=== PATIENT | female | born 1955 | race Caucasian/White ===

== ENCOUNTER 2018-05-25 19:54 | Outpatient (REF) | payer BC, SELFPAY ==
[2018-05-25 21:20] LABS: Cholesterol 248 mg/dL (50-200); HDL Cholesterol 51 mg/dL (40-60); LDL CHOLESTEROL 169 mg/dL (<100); TSH 0.39 uIU/mL (0.358-3.74); Triglyceride 105 mg/dL (30-150); Vitamin B12 210 pg/mL (193-986)
== END 2018-05-25 20:14 ==
LOC: NCHCN 19:54
PROVIDERS: PCP Physician Assistant Medical; Visit Provider Physician Assistant Medical
DX: E03.9 Hypothyroidism, unspecified (principal); E78.5 Hyperlipidemia, unspecified
CPT/HCPCS: 80061; 83721; 82607; 84443

== ENCOUNTER 2018-06-14 00:30 | Outpatient (CLI) | payer BC, SELFPAY ==
--- NOTE | 2018-06-14 11:30 | DI.MAMMO_ITS ---
SYMPTOMS/DIAGNOSIS: SCREENING, [facility], Z00.00 BILATERAL SCREENING MAMMOGRAM: Mammograms were interpreted according to the usual protocol including computer analysis with CAD system, tomosynthesis and C view imaging. Comparison is made with exams from 2008 through 2016. The patient is again noted to be status post bilateral breast reduction. There is some residual scarring. No suspicious masses or suspicious calcifications are seen. The breasts are composed of fatty density tissue, breast density category A. IMPRESSION: Category 2A, negative mammogram with benign findings of mild scarring post breast reduction. Routine screening is recommended. SA ASSESSMENT OF FINDINGS: Negative with benign findings. Category 2. Patient will receive a letter notifying them of these results. BI-RAD category A. The breasts are almost entirely fatty.
== END 2018-06-14 00:50 ==
PROVIDERS: PCP Physician Assistant Medical; Visit Provider Physician Assistant Medical
DX: Z00.00 Encounter for general adult medical examination without abnormal findings (principal); Z12.31 Encounter for screening mammogram for malignant neoplasm of breast
CPT/HCPCS: 77063; 77067

== ENCOUNTER 2018-07-09 12:52 | Outpatient (REF) | payer BC, SELFPAY ==
--- NOTE | 2018-07-09 10:30 | PAPFT_PTH ---
PATIENT: Bianca Jimenez LOC: [facility] U#:[id number] AGE/SX: 63/F ROOM: RE07/09/[address]: Cl Soto : 1955 BED: DIS: 07/09/2018 SPEC #: [id number] RECD: 07/12/18 12:41 STATUS: TAMIR REBarbara #: [id number] MAXI: 07/09/18 10:[address]: Cl Soto DEPT: [facility] Cytology RECD BY: Lori Abernathy Tissues: 1 - CX/ENDOCX FOR PAP SMEARS Procedures: PAP THIN PREP/UVM Screening HPV DNA PROBE Comments: [id number]
== END 2018-07-09 13:12 ==
LOC: NCHCN 12:52
PROVIDERS: PCP Physician Assistant Medical; Visit Provider Physician Assistant Medical
DX: Z12.4 Encounter for screening for malignant neoplasm of cervix (principal); Z11.51 Encounter for screening for human papillomavirus (HPV)
CPT/HCPCS: 88142; 87624

== ENCOUNTER 2018-07-29 00:36 | Outpatient (CLI) | payer BC, SELFPAY ==
--- NOTE | 2018-07-29 13:40 | DI.RAD_ITS ---
SYMPTOMS/DIAGNOSIS: POSTMENOPAUSAL SCREENING, PREVENTATIVE, Z00.00 DEXA SCAN WITH ISABELL: The ISABELL image shows no evidence of compression fractures. The bone mineral density measurements correspond to a total T score of -1.8. This is a 15.1% decrease when compared with the previous exam of 2004. The bone mineral density measurements of the left hip correspond to a total T score of -0.8 and a femoral neck T score of -1.4, in the osteopenic range. This corresponds to a 14.5% decrease when compared with 2004. The bone mineral density measurements of the left forearm correspond to a T score of the distal third of -1.8, consistent with osteopenia. The forearm was not analyzed in 2007. IMPRESSION: Osteopenia of the lumbar spine, left hip and left forearm. There has been approximately 15% decrease in bone density when compared with 2004.
== END 2018-07-29 00:56 ==
PROVIDERS: PCP Physician Assistant Medical; Visit Provider Physician Assistant Medical
DX: M85.88 Other specified disorders of bone density and structure, other site (principal); Z78.0 Asymptomatic menopausal state; Z00.00 Encounter for general adult medical examination without abnormal findings
CPT/HCPCS: 77080

== ENCOUNTER 2018-08-06 07:28 | Day surgery (SDC) | payer BC, SELFPAY ==
[2018-08-06 07:39] VITALS: BP 116/74; PULSE 68; RESP 16; TEMP 36.2; O2SAT 98
[2018-08-06] MEDS: Lactated Ringers 1,000 ML 30 ML IV (08:09)
--- NOTE | 2018-08-06 11:01 | W.COLOREPORT ---
Date of service: 08/06/18 Time of Service: 10:30 Colonoscopy Report Date of procedure: 08/06/18 Pre-op diagnosis general: Colorectal cancer screening Post-op diagnosis procedure note: other (Normal colon to the cecum) Procedure: Colonoscopy to the cecum Surgeon: Milton Pathak Anesthesia proc note operative: MAC (Krystal Proctor CRNA; ASA 2 Mallampati class II) Estimated blood loss (mL): 0 Pathology: none sent Complications: None Disposition: same day Indications: 63-year-old woman presenting for colorectal cancer screening by colonoscopy. She is been asymptomatic since her last colonoscopy which is unremarkable. She has no family history of colorectal cancer. Colonoscopy procedure has been reviewed with her, and the risks of the procedure have been discussed. All her questions were answered to her satisfaction. Consent was obtained to proceed. Prep: Miralax/Dulcolax (Prep quality good) Procedure Start Time: 10:39 Procedure End Time: 10:58 Retraction Time: 7 Findings: In examining the colon from cecum to the anus, no abnormalities were noted of the colon, rectum, and anorectal junction. Procedure Description: The patient was seen in the day surgery waiting area. Her identification was confirmed, and procedure checked. She was then brought to the procedure room. Monitoring for telemetry, blood pressure, oxygen saturation, and end tidal CO2 monitoring were applied. An appropriate time out was performed to confirm, identification, allergies, medication, procedure, was performed. Sedation was titrated for affect by the HOME AND SCHOOL VISITOR; Once adequate sedation was achieved, I performed a inspection of the external perineum, and a digitial rectal examination. No significant external abnormalities were noted. On digital rectal examination, there was no blood, no masses, good rectal tone. I advanced the colonoscope from the anus to the cecum under direct visualization. The cecum was identified by the ileal-cecal valve, and the appendiceal orifice. The scope was then withdrawn in circumferential manner from the cecum to the rectum. No abnormalites were noted in the colon. The scope was then withdrawn into the rectum, and retroflexed. No abnormalities were noted of the rectum or anorectal junction. The scope was then withdrawn, terminating the procedure. There were no complications during the procedure, and the patient tolerated the procedure well. She was returned to the day surgery recovery area in good condition. Plan: Will continue with routine screening for colorectal cancer according to current consensus guidelines, which is currently 10 years.
[2018-08-06 11:05] VITALS: BP 109/67; PULSE 63; RESP 18; TEMP 36.7; O2SAT 96
--- NOTE | 2018-08-06 11:06 | W.PM.DSUDISC ---
Discharge Plan Disposition Patient Disposition: HOME Condition: Good Discharge Details Reason For Visit: SCREENING Attending Provider: Milton Pathak Primary Care Provider: Cl Soto Home Meds and New Rx's Prescriptions: Continued doxepin 10 mg capsule 10 mg PO DAILY PRNRF: 0 sertraline 25 mg tablet 25 mg PO DAILY RF: 0 levothyroxine [Levothroid] 137 MCG tablet 137 mcg PO DAILY Qty: 90 RF: 3 cyclobenzaprine 10 MG tablet 10 mg PO PRN PRNRF: 0 lidocaine [Lidoderm] 1 EACH adhesive patch,medicated 1 ea Topical PRN PRNRF: 0 diazepam 5 MG tablet 5 mg PO Q8H PRN (Reason: Muscle Spasm) Qty: 6 RF: 0 ibuprofen 600 MG tablet 600 mg PO Q6H PRN (Reason: Pain) Qty: 16 RF: 0 diphenhydramine HCl 25 mg Tablet 25 mg PO HS RF: 0 cinnamon bark 500 mg Capsule 2 tab PO DAILY PRNRF: 0 melatonin 10 mg Tablet 10 mg PO HS PRNRF: 0 Discontinued bisacodyl [Dulcolax (bisacodyl)] 5 mg tablet,delayed release (DR/EC) 5 mg PO ONCE Qty: 4 RF: 0 polyethylene glycol 3350 17 gram/dose powder 255 g PO ONCE Qty: 255 RF: 0 Discharge Instructions Instructions: Colonoscopy (DC) Activity:: Activity as Tolerated Diet:: As Tolerated Discharge Orders Discharge Orders: Discharge Order (Routine); Ordered 08/06/18 Ordered By: Milton Pathak DS: Diagnosis Discharge Diagnosis (1) Encounter for colorectal cancer screening: Start date: 08/06/18 Start time: 11:08 Status: Acute Asessment and Plan: Colonoscopy performed: Colonoscopy Report Date of procedure: 08/06/18 Pre-op diagnosis general: Colorectal cancer screening Post-op diagnosis procedure note: other (Normal colon to the cecum) Procedure: Colonoscopy to the cecum Surgeon: Milton Pathak Anesthesia proc note operative: MAC (Krystal Proctor CRNA; ASA 2 Mallampati class II) Estimated blood loss (mL): 0 Pathology: none sent Complications: None Disposition: same day Indications: 63-year-old woman presenting for colorectal cancer screening by colonoscopy. She is been asymptomatic since her last colonoscopy which is unremarkable. She has no family history of colorectal cancer. Colonoscopy procedure has been reviewed with her, and the risks of the procedure have been discussed. All her questions were answered to her satisfaction. Consent was obtained to proceed. Prep: Miralax/Dulcolax (Prep quality good) Procedure Start Time: 10:39 Procedure End Time: 10:58 Retraction Time: 7 Findings: In examining the colon from cecum to the anus, no abnormalities were noted of the colon, rectum, and anorectal junction. Procedure Description: The patient was seen in the day surgery waiting area. Her identification was confirmed, and procedure checked. She was then brought to the procedure room. Monitoring for telemetry, blood pressure, oxygen saturation, and end tidal CO2 monitoring were applied. An appropriate time out was performed to confirm, identification, allergies, medication, procedure, was performed. Sedation was titrated for affect by the CORPORATION SECRETARY; Once adequate sedation was achieved, I performed a inspection of the external perineum, and a digitial rectal examination. No significant external abnormalities were noted. On digital rectal examination, there was no blood, no masses, good rectal tone. I advanced the colonoscope from the anus to the cecum under direct visualization. The cecum was identified by the ileal-cecal valve, and the appendiceal orifice. The scope was then withdrawn in circumferential manner from the cecum to the rectum. No abnormalites were noted in the colon. The scope was then withdrawn into the rectum, and retroflexed. No abnormalities were noted of the rectum or anorectal junction. The scope was then withdrawn, terminating the procedure. There were no complications during the procedure, and the patient tolerated the procedure well. She was returned to the day surgery recovery area in good condition. Plan: Will continue with routine screening for colorectal cancer according to current consensus guidelines, which is currently 10 years.
== END 2018-08-06 12:25 | disposition home or self-care (01) ==
PROVIDERS: PCP Physician Assistant Medical; Visit Provider Surgery
PROC: 0DJD8ZZ Inspection of Lower Intestinal Tract, Via Natural or Artificial Opening Endoscopic (ICD-10-PCS; CPT 45378; principal; 2018-08-06 09:15)
DX: Z12.11 Encounter for screening for malignant neoplasm of colon (principal); G47.33 Obstructive sleep apnea (adult) (pediatric)
CPT/HCPCS: 45378

== ENCOUNTER 2018-11-22 00:41 | Outpatient (CLI) | payer BC, SELFPAY ==
--- NOTE | 2018-11-22 10:25 | MERGE_ITS ---
*[facility]* *[facility]* [address] [place] [address] Date of study: 11/22/2018 Transthoracic Echocardiography M-mode, complete 2D, complete spectral Doppler, and color Doppler *STUDY CONCLUSIONS* Summary: 1. Left ventricle: The cavity size was normal. Wall thickness was increased in a pattern of moderate LVH. Systolic function was normal. The estimated ejection fraction was 60-65%. Diastolic parameters were normal for age. There was no evidence of elevated ventricular filling pressure by Doppler parameters. 2. Mitral valve: There was mild regurgitation. 3. Left atrium: The atrium was moderately dilated. 4. Right ventricle: The cavity size was normal. Wall thickness was normal. Systolic function was normal. 5. Atrial septum: No defect or patent foramen ovale was identified. 6. Pulmonary arteries: Pulmonary systolic pressure was in the range of 30mm Hg to 40mm Hg. 7. Inferior vena cava: The vessel was patent and normal in size. The respirophasic diameter changes were in the normal range (greater than or equal to 50%), consistent with normal central venous pressure. *PATIENT PRESENTATION* Height: 170.2cm ((67in) ) S/D Pressure: 101 / 59 Weight: 79.4kg ((174.6lb) ) BSA: 1.95m^2 Test start time: 10:40 AM. Test stop time: 11:40 AM. PERFORMING Unknown PERFORMING [facility] Cl Newton REFERRING Cl Soto BAKELITE MOLDER Isabel Candelaria, (R)(CT), [facility] *PROCEDURE DATA* Procedure information: This study was interpreted by [facility]. Pertinent images and digital data are archived for permanent storage and are available for subsequent review. Comparison was made to the study of 12/22/2012. Study status: Routine. Transthoracic echocardiography. M-mode, complete 2D, complete spectral Doppler, and color Doppler. A Transthoracic Echocardiogram was performed. Scanning was performed from the parasternal, apical, subcostal, and suprasternal notch acoustic windows. Images were obtained using an [id number] cardiac ultrasound machine. Image quality was adequate. Study completion: The patient tolerated the procedure well. History: PMH: Murmur. *CARDIAC ANATOMY* Left ventricle: The cavity size was normal. Wall thickness was increased in a pattern of moderate LVH. Systolic function was normal. The estimated ejection fraction was 60-65%. The tissue Doppler parameters were abnormal. Diastolic parameters were normal for age. There was no evidence of elevated ventricular filling pressure by Doppler parameters. Aortic valve: Trileaflet; mildly calcified leaflets. Doppler: There was no stenosis. There was no regurgitation. VTI ratio of LVOT to aortic valve: 0.92. Valve area (VTI): 2.5cm^2. Indexed valve area (VTI): 1.3cm^2/m^2. Peak velocity ratio of LVOT to aortic valve: 0.83. Valve area (Vmax): 2.3cm^2. Indexed valve area (Vmax): 1.2cm^2/m^2. Mean velocity ratio of LVOT to aortic valve: 0.86. Valve area (Vmean): 2.3cm^2. Indexed valve area (Vmean): 1.2cm^2/m^2. Mean gradient (S): 4.1mm Hg. Peak gradient (S): 7.4mm Hg. Aorta: Aortic root: The aortic root was normal in size. Ascending aorta: The ascending aorta was normal in size. Mitral valve: Moderately thickened leaflets anterior and posterior. Doppler: There was no evidence for stenosis. There was mild regurgitation. Valve area by pressure half-time: 4.4cm^2. Indexed valve area by pressure half-time: 2.3cm^2/m^2. Left atrium: The atrium was moderately dilated. Atrial septum: No defect or patent foramen ovale was identified. Right ventricle: The cavity size was normal. Wall thickness was normal. Systolic function was normal. Pulmonic valve: Doppler: There was no evidence for stenosis. There was mild regurgitation. Peak gradient (S): 3.9mm Hg. Tricuspid valve: Doppler: There was mild regurgitation. Pulmonary artery: Poorly visualized. Pulmonary systolic pressure was in the range of 30mm Hg to 40mm Hg. Right atrium: The atrium was normal in size. Pericardium: There was no pericardial effusion. Systemic veins: Inferior vena cava: Well visualized. The vessel was patent and normal in size. The respirophasic diameter changes were in the normal range (greater than or equal to 50%), consistent with normal central venous pressure. Measurements Left ventricle Value Reference LV ID, ED, PLAX 4.9 cm 3.5 - 6.0 LV ID, ES, PLAX 3.3 cm 2.1 - 4.0 LV PW thickness, ED, PLAX 1.3 cm LV end-diastolic volume, 1-p A2C 55 ml LV ejection fraction, 1-p A2C 52 % LV end-diastolic volume, 1-p A4C 62 ml LV ejection fraction, 1-p A4C 56 % LV e', lateral 0.048 m/sec LV E/e', lateral 11 LV e', medial 0.053 m/sec LV E/e', medial 10 LV e', average 0.05 m/sec LV E/e', average 10 Ventricular septum Value Reference IVS thickness, ED, PLAX 1.2 cm LVOT Value Reference LVOT ID, A-P 1.9 cm LVOT area 2.7 cm^2 LVOT peak velocity, S 1.13 m/sec LVOT mean velocity, S 0.82 m/sec LVOT VTI, S 25.7 cm LVOT peak gradient, S 5.1 mm Hg LVOT mean gradient, S 3 mm Hg Stroke volume (SV), LVOT DP 70 ml Stroke index (SV/bsa), LVOT DP 36 ml/m^2 Aortic valve Value Reference Aortic valve peak velocity, S 1.4 m/sec Aortic valve mean velocity, S 0.96 m/sec Aortic valve VTI, S 28.0 cm Aortic mean gradient, S 4.1 mm Hg Aortic peak gradient, S 7.4 mm Hg VTI ratio, LVOT/AV 0.92 Aortic valve area, VTI 2.5 cm^2 Velocity ratio, peak, LVOT/AV 0.83 Aortic valve area, peak velocity 2.3 cm^2 Velocity ratio, mean, LVOT/AV 0.86 Aortic valve area, mean velocity 2.3 cm^2 Aortic valve area/bsa, mean velocity 1.2 cm^2/m^2 Aorta Value Reference Aortic root ID, ED 2.8 cm Ascending aorta ID, A-P, S 3.0 cm Left atrium Value Reference LA ID, A-P, ES 4.2 cm LA ID/bsa, A-P 2.1 cm/m^2 <=2.2 LA area, ES, A4C (H) 31.1 cm^2 8.8 - 23.4 LA area, ES, A2C 30 cm^2 LA volume/bsa, ES, 1-p A4C 66 ml/m^2 LA volume, ES, 2-p 114 ml LA volume/bsa, ES, 2-p 58 ml/m^2 LA/aortic root ratio 1.46 Mitral valve Value Reference Mitral E-wave peak velocity 0.51 m/sec Mitral A-wave peak velocity 0.6 m/sec Mitral deceleration time 172 ms 150 - 230 Mitral pressure half-time 50 ms Mitral E/A ratio, peak 0.85 Mitral valve area, PHT, DP 4.4 cm^2 Pulmonary veins Value Reference Pulmonary vein peak velocity, S 0.63 m/sec Pulmonary vein peak velocity, D 0.28 m/sec Pulmonary vein velocity ratio, peak, 2.25 S/D Pulmonary vein A-wave reversal peak 0.47 m/sec velocity Tricuspid valve Value Reference Tricuspid regurg peak velocity 2.8 m/sec Tricuspid peak RV-RA gradient 30.7 mm Hg Right atrium Value Reference RA area, ES, A4C 18.2 cm^2 8.3 - 19.5 Pulmonic valve Value Reference Pulmonic peak gradient, S 3.9 mm Hg Legend: (L) and (H) leigh values outside specified reference range. I have personally reviewed the images and have reviewed and edited the reported findings. Electronically signed by Brooks Jennings MD 11/22/2018 17:59
== END 2018-11-22 01:01 ==
PROVIDERS: PCP Physician Assistant Medical; Visit Provider Physician Assistant Medical
DX: R01.1 Cardiac murmur, unspecified (principal); I34.0 Nonrheumatic mitral (valve) insufficiency; I51.7 Cardiomegaly
CPT/HCPCS: 93306

== ENCOUNTER 2019-02-28 09:20 | Outpatient (CLI) | payer BC, SELFPAY | END 2019-02-28 09:40 | PROVIDERS: PCP Physician Assistant Medical; Visit Provider Internal Medicine Interventional Cardiology | DX: R07.9 Chest pain, unspecified (principal); R06.02 Shortness of breath; I47.1 Supraventricular tachycardia; R55 Syncope and collapse | CPT/HCPCS: 93005; 93010 ==

== ENCOUNTER 2019-06-29 10:48 | Outpatient (REF) | payer BC, SELFPAY ==
[2019-06-29 20:34] LABS: Calculated LDL 186 mg/dL; Cholesterol 255 mg/dL (50-200); HDL Cholesterol 50 mg/dL (40-60); TSH 1.44 uIU/mL (0.36-3.74); Triglyceride 99 mg/dL (30-150)
[2019-06-30 05:13] LABS: Vitamin D 25 Total 44.5 ng/ml (30-100)
== END 2019-06-29 11:08 ==
LOC: NCHCN 10:48
PROVIDERS: PCP Physician Assistant Medical; Visit Provider Physician Assistant Medical
DX: E03.9 Hypothyroidism, unspecified (principal); R73.01 Impaired fasting glucose; E78.5 Hyperlipidemia, unspecified; M85.80 Other specified disorders of bone density and structure, unspecified site
CPT/HCPCS: 80061; 82306; 83036; 84443

== ENCOUNTER 2019-09-13 22:23 | Outpatient (REF) | payer BC, SELFPAY ==
[2019-09-13 19:08] LABS: Abs Immature Grans 0.01 k/cumm (0.0-0.09); Absolute Basophil Count 0.03 k/cumm (0.0-0.2); Absolute Eosinophil Count 0.34 k/cumm (0.0-0.7); Absolute Monocyte Count 0.74 k/cumm (0.11-0.7); Absolute Neutrophil Count 2.64 k/cumm (1.2-6.7); Basophils % 0.5; Eosinophils % 5.6; HCT 41.7 % (36.0-46.0); HGB 13.3 g/dL (12.0-15.5); Immature Grans % 0.2 %; Mean Corp. HGB Concentration 31.9 g/dL (32.0-36.0); Mean Corpuscular Hemoglobin 31.1 pg (27.0-33.0); Mean Corpuscular Volume 97.4 fL (80-95); Mean Platelet Volume 13.6 fL (8.0-11.0); Monocytes % 12.2; Neutrophils % 43.5; Platelet Count 245 x1000/uL (130-400); RBC 4.28 m/cumm (4.00-5.20); White Blood Cell Count 6.06 k/cumm (4.4-10.8)
[2019-09-13 19:59] LABS: ALT 36 U/L (14-59); AST 22 U/L (15-37); Albumin 4.1 g/dL (3.4-5.0); Alkaline Phosphatase 106 U/L (46-116); Anion Gap 11.6 mmol/L (3-11); BUN 15 mg/dL (7-18); Bilirubin, Total 0.2 mg/dL (0.2-1.0); CO2 26.4 mmol/L (21.0-32.0); CREATININE 0.74 mg/dL (0.55-1.02); Calcium 9.6 mg/dL (8.5-10.1); Chloride 106 mmol/L (98-107); Glucose 83 mg/dL (74-106); Potassium 4.7 mmol/L (3.5-5.1); Sodium 144 mmol/L (136-145); Total Protein 7.4 g/dL (6.4-8.2); Vitamin B12 191 pg/mL (193-986)
[2019-09-13 20:12] LABS: Creatine Kinase 99 U/L (26-192)
[2019-09-15 13:26] LABS: Lyme Ab w Rflx to Lyme Confirm Negative (Negative)
[2019-09-16 16:13] LABS: Anaplasma phagocytophilum Negative (Negative); B. miyamotoi PCR Negative (Negative); Babesia divergens/MO-1 Negative (Negative); Babesia duncani Negative (Negative); Babesia microti Negative (Negative); Ehrlichia chaffeensis Negative (Negative); Ehrlichia ewingii/canis Negative (Negative); Ehrlichia muris eauclairensis Negative (Negative)
== END 2019-09-13 22:43 ==
LOC: NCHCN 22:23
PROVIDERS: PCP Physician Assistant Medical; Visit Provider Physician Assistant Medical
DX: M79.10 Myalgia, unspecified site (principal)
CPT/HCPCS: 80053; 82550; 87798; 82607; 85025; 86618

== ENCOUNTER 2019-11-30 10:59 | Outpatient (CLI) | payer BC, SELFPAY ==
--- NOTE | 2019-11-30 10:30 | DI.RAD_ITS ---
EXAM: XR SHOULDER LT COMPLETE 2+V CLINICAL HISTORY: L SHOULDER PAIN TECHNIQUE: COMPARISON: No exams were available for comparison FINDINGS: Two views were obtained. There may be slight narrowing of the cartilaginous joint space of the gleno humeral joint. Minimal marginal osteophyte formation noted at the glenohumeral joint inferiorly. Mi nimal AC joint degenerative changes. No other bony or soft tissue abnormality seen. IMPRESSION:
== END 2019-11-30 11:19 ==
PROVIDERS: PCP Physician Assistant Medical; Visit Provider Student in an Organized Health Care Education/Training Program
DX: M25.512 Pain in left shoulder (principal); M19.012 Primary osteoarthritis, left shoulder
CPT/HCPCS: 73030

== ENCOUNTER 2020-01-10 06:32 | Emergency (ER) | payer BC, SELFPAY ==
[2020-01-10 06:36] VITALS: BP 127/70; PULSE 67; RESP 16; TEMP 36.8; O2SAT 98
--- NOTE | 2020-01-10 06:56 | ED.GENADUL_ITS ---
Discharge Plan Disposition Patient Disposition: HOME Condition: Improving Discharge Details Chief Complaint: Nk/Back Pain Clinical Impression: Back muscle spasm Primary Care Provider: Cl Soto ED Provider: Ilan Reed Home Meds and New Rx's Prescriptions: New diazepam [Valium] 5 mg tablet 5 mg PO BID PRN (Reason: muscle spasm) Qty: 7 RF: 0 Continued cholecalciferol (vitamin D3) 1,000 unit capsule 1,000 unit PO DAILY RF: 0 mecobalamin (vitamin B12) 1,000 mcg tablet,chewable 1,000 mcg PO DAILY RF: 0 levothyroxine [Levothroid] 137 MCG tablet 137 mcg PO DAILY Qty: 90 RF: 3 lidocaine [Lidoderm] 1 EACH adhesive patch,medicated 1 ea Topical PRN PRNRF: 0 ibuprofen 600 MG tablet 600 mg PO Q6H PRN (Reason: Pain) Qty: 16 RF: 0 diphenhydramine HCl 25 mg Tablet 25 mg PO HS RF: 0 Discontinued cyclobenzaprine 10 MG tablet 10 mg PO PRN PRNRF: 0 Discharge Instructions Instructions: Muscle Spasm (ED) Additional Instructions: Home to rest today. Continue to hydrate with small, frequent sips of fluids. Remove Lidoderm patch in 12 hours time. Please use Valium as prescribed. No alcohol or driving, no working every machinery or on ladders while taking this medication. May continue ibuprofen and/or Tylenol as needed for pain. Return if you have increasing pain, develop weakness or numbness of the legs, or any other acute concerns. Medical Decision Making 64-year-old healthy female reports increased work in her garden due to recent social distancing and quarantining at home. She has a history of back spasms and reports onset of right paraspinous thoracolumbar spasm yesterday. Minimally improved with ibuprofen and Lidoderm patch. She took an out of date Flexeril with minimal improvement as well. She has not had a fall or injury. Her exam is reassuring. Patient is desirous of driving to a physical therapy appointment. She was given IM Toradol, ice therapy, and a fresh Lidoderm patch. She has had success with 5 mg of Valium in the past for spasm. I do feel this is an appropriate medication. She will stop her Flexeril. She will follow-up with physical therapy as previously planned. HPI General Mode of arrival: ambulatory . Date/Time Provider Initiated Documentation: 01/10/20 06:41 . Limitations to Documentation: no limitations . Information obtained by: patient . History of Present Illness 64 year old F presents to the emergency department with the chief complaint of Right low back pain and spasm, described as moderate, and is localized to the back and right. Patient reports no radiation. Patient started experiencing this day(s) and it has been constant. No relieving factors improve symptom(s), No exacerbating factors reported . Patient notes other (No change to motor function of the legs, no incontinence. No fall or injury); denies syncope. Patient did receive the following treatments prior to arrival, none Related Data Home Medications Medication Instructions Recorded Confirmed levothyroxine [Levothroid] 137 mcg PO DAILY #90 tab-cap 10/28/12 01/10/20 ibuprofen 600 mg PO Q6H PRN #16 tab 06/30/17 01/10/20 lidocaine [Lidoderm] 1 ea TOPICAL PRN PRN 06/30/17 01/10/20 diphenhydramine HCl 25 mg PO HS 08/03/18 01/10/20 cholecalciferol (vitamin D3) 25 1,000 unit PO DAILY 02/28/19 01/10/20 mcg (1,000 unit) capsule mecobalamin (vitamin B12) 1,000 1,000 mcg PO DAILY 11/30/19 01/10/20 mcg chewable tablet diazepam [Valium] 5 mg PO BID PRN #7 tab 01/10/20 Previous Rx's Medication Instructions Recorded ibuprofen 600 mg PO Q6H PRN #16 tab 06/30/17 diazepam [Valium] 5 mg PO BID PRN #7 tab 01/10/20 Allergies Allergy/AdvReac Type Severity Reaction Status Date / Time atorvastatin AdvReac MUSCLE Verified 01/10/20 06:39 ACHES ezetimibe AdvReac Verified 01/10/20 06:39 pravastatin AdvReac MUSCLE Verified 01/10/20 06:39 ACHES RED YEAST RICE AdvReac MUSCLE Uncoded 01/10/20 06:39 ACHES SHRIMP AdvReac VOMITING Uncoded 01/10/20 06:39 General Stated Complaint: Nk/Back Pain EDUARDO: 3 Review of Systems Narrative: See HPI, no recent illness, no fever, no numbness, tingling, weak ness. 7 systems reviewed and otherwise negative COUNT INCLUDES THE [facility] Social History (Updated 07/12/18 @ 12:18 by CAROLYN Barton) Smoking/Tobacco Use Status: Former Tobacco Use Alcohol Intake: current Alcohol Intake frequency: holidays/special occasions only Drug use: Never Substance use type: does not use Do you feel safe at home: Yes Do you feel safe in your relationship?: Yes Exam Narrative Exam Narrative: GEN: awake, alert, oriented 3. Pleasant, well groomed, interactive. HEAD: Normocephalic, atraumatic EYES: PERRL, EOMI NECK: Full ROM, no TRAVIS, no menigismus CHEST/RESP: Nontender, clear to auscultation bilateral, no wheeze/rhonchi/rales CARDIOVASCULAR: RRR, no murmur, rub kera. 2+ Rad pulse bilateral Back: Right paraspinous thoracolumbar spasm present. No midline tenderness or step-off ABDOMEN: Soft, nontender, no mass. +Bowel sounds EXT: Full ROM, no edema, no rash. Normal motor and sensory function including saddle distribution. Neuro: Grossly normal neurologic exam, conversant, interactive. Psych: Speech fluent, thoughts congruent, affect normal Course Vital Signs Vital signs: Vital Signs Temperature 36.8 C 01/10/20 06:36 Pulse 67 01/10/20 06:36 Respiratory Rate 16 01/10/20 06:36 Blood Pressure 127/70 01/10/20 06:36 Pulse Oximetry 98 01/10/20 06:36 Temperature 36.8 C 01/10/20 06:36 Pulse 67 01/10/20 06:36 Respiratory Rate 16 01/10/20 06:36 Respiratory Effort Non-Labored 01/10/20 06:40 Blood Pressure 127/70 01/10/20 06:36 Blood Pressure Position Sitting 01/10/20 06:36 Pulse Oximetry 98 01/10/20 06:36 Pain Level 9 01/10/20 06:40
[2020-01-10] MEDS: Ketorolac 60 MG/2 ML VIAL IM (07:04)
[2020-01-10] MEDS: diazePAM 5 MG TAB PO (07:05)
[2020-01-10] MEDS: Lidocaine 5% Patch 1 PATCH TP (07:05)
== END 2020-01-10 07:44 | disposition home or self-care (01) ==
PROVIDERS: Emergency Provider Emergency Medicine; PCP Physician Assistant Medical
DX: M62.830 Muscle spasm of back (principal); X50.1XXA Overexertion from prolonged static or awkward postures, initial encounter; Y93.H2 Activity, gardening and landscaping
CPT/HCPCS: 96372; 99284; 99283; J1885

== ENCOUNTER 2020-01-10 09:42 | Outpatient (CLI) | payer BC, SELFPAY ==
--- NOTE | 2020-01-10 09:10 | DI.RAD_ITS ---
EXAM: XR THORACIC SPINE COMPLETE CLINICAL HISTORY: evaluate back pain. TECHNIQUE: 2D digital imaging was performed. COMPARISON: CR THORACIC SPINE from 09/19/2016 FINDINGS: Midthoracic spine is limited on the lateral view due to patient positioning. There is normal alignment of the thoracic spine. No definite acute fracture or dislocation is seen. The vertebral bodies and disc spaces appear grossly unremarkable. The paraspinal lines appear intac t. IMPRESSION: Unremarkable radiographs of the thoracic spine as described. DATA REPOSITORY: RADIATION DOSE DELIVERED:
--- NOTE | 2020-01-10 09:50 | DI.RAD_ITS ---
EXAM: XR LUMBAR SPINE AP, LAT CLINICAL HISTORY: evaluate back. TECHNIQUE: 2D digital imaging was performed. COMPARISON: CR CHEST 2 VIEWS PA,LAT from 05/05/2016 FINDINGS: BONES: No fracture or destructive lesion. Vertebral bodies are unremarkable. No facet hypertrophy naren ntified. Small osteophyte at the superior endplate of L4. DISKS: Mild narrowing of the T12-L1 and L1-L2 disc spaces. ALIGNMENT: Lumbar spinal alignment is within normal limits. SOFT TISSUE: Normal. IMPRESSION: Minimal degenerative changes in the lumbar spine. DATA REPOSITORY: RADIATION DOSE DELIVERED:
== END 2020-01-10 10:02 ==
PROVIDERS: PCP Physician Assistant Medical; Referring Provider Physician Assistant Medical; Visit Provider Student in an Organized Health Care Education/Training Program
DX: M62.830 Muscle spasm of back (principal); M47.816 Spondylosis without myelopathy or radiculopathy, lumbar region; M54.6 Pain in thoracic spine; M54.5 Low back pain
CPT/HCPCS: 72072; 72100

== ENCOUNTER 2020-01-15 04:03 | Emergency (ER) | payer BC, SELFPAY ==
[2020-01-15] VITALS (83 sets, daily range): BP systolic 78–135; BP diastolic 44–79; PULSE 68–86; RESP 10–25; TEMP 36.4–36.6; O2SAT 73–100
[2020-01-15] MEDS: Lidocaine 5% Patch 1 PATCH TP (04:28)
[2020-01-15] MEDS: methylPREDNISolone SUCC 125 MG VIAL IVP (04:32)
--- NOTE | 2020-01-15 04:33 | ED.GENADUL_ITS ---
Discharge Plan Disposition Patient Disposition: HOME Condition: Good Discharge Details Chief Complaint: Nk/Back Pain Clinical Impression: Acute back pain, Chest pain Primary Care Provider: Cl Soto ED Provider: Ilan Reed Home Meds and New Rx's Prescriptions: New prednisone 50 MG tablet 50 mg PO DAILY Qty: 5 RF: 0 lidocaine [Lidoderm] 1 PATCH patch 1 patch Topical Q24H Qty: 4 RF: 0 diazepam [Valium] 5 mg tablet 5 mg PO TID PRN (Reason: muscle spasm) Qty: 7 RF: 0 Continued cholecalciferol (vitamin D3) 1,000 unit capsule 1,000 unit PO DAILY RF: 0 mecobalamin (vitamin B12) 1,000 mcg tablet,chewable 1,000 mcg PO DAILY RF: 0 levothyroxine [Levothroid] 137 MCG tablet 137 mcg PO DAILY Qty: 90 RF: 3 ibuprofen 600 MG tablet 600 mg PO Q6H PRN (Reason: Pain) Qty: 16 RF: 0 diphenhydramine HCl 25 mg Tablet 25 mg PO HS RF: 0 Discontinued lidocaine [Lidoderm] 1 EACH adhesive patch,medicated 1 ea Topical PRN PRNRF: 0 Discharge Instructions Instructions: Back Pain (ED) Additional Instructions: At this time your signs and symptoms are clinically consistent with a back sprain. This can cause significant pain and take a fair bit of time to heal. I expect 1 to 2 months for potential resolution. In the meantime do not lift anything greater than 5 pounds for the next 2 weeks. Avoid any significant vigorous physical activity. Perform easy gentle regular activities at home without any significant bending or lifting. Please take the steroids as directed. You have been given a prescription for Lidoderm patch. If your insurance does not cover this you can get [id number] Lidoderm patches at 4% which are almost just as effective. Please take the Valium as directed but do not take it when driving or operating any vehicles or heavy machinery, swimming, taking long baths, or operating firearms. Please use a heating pad as often as possible on your back. Perform daily gentle stretches on your back. Please continue to take the Tylenol and Motrin. You can take 1000 mg of Tylenol every 6 hours and 600 mg of ibuprofen every 6 hours. If you notice any worsening of your symptoms, or any new symptoms such as vomiting, diarrhea, fever, chills, shortness of breath, chest pain, numbness or tingling in your groin or legs, weakness in your legs, loss of control for your bowels or bladder, or fainting , please return immediately to the emergency department for reevaluation. Please follow up with your primary care provider as soon as possible for reassessment and reevaluation. As always, it was a pleasure participating in your medical care today. Referrals: Cl Soto PA [Primary Care Provider] - Discharge Data Discharge Date/Time-TO BE ENTERED AT DEPARTURE: 01/15/20 11:04 Medical Decision Making <Louis Art DO - Last Filed: 01/15/20 20:41> Pleasant 64-year-old female with a past medical history of back pain and back spasms, presents for evaluation of back pain. She was seen on the , 5 days ago for back pain, x-rays were negative, orthopedic follow-up as occurred, she has had a referral placed to [facility] spine. Symptoms are c onsistent with previous episodes of back pain, unfortunately since her initial visit 5 days ago her pain has not resolved, and has returned worse after she is run out of her Valium. Patient notes that normally the Valium does well however it is not performed as well this episode of back pain. She denies any concerning red flags for potential cauda equina syndrome, she had no IV or illicit drug use. Symptoms inconsistent with spinal epidural abscess, cauda equina syndrome, or malignancy. Exam demonstrates no other concerning red flags for these etiologies. Signs and symptoms appear clinically consistent with a notable paraspinal lower lumbar back spasm. Patient would like to try medications that were previously. We will give Valium, Toradol, steroids, Lidoderm patch. She would like to hold off on any other additional imaging currently. We will monitor closely and reassess shortly. Also of note the patient does state that the soft tissue massage that she had with her physical t herapist earlier this week also significantly helped her symptomatology. I do feel that this will be important going forward. 6 AM After medication administration the patient had transient improvement of her symptoms, and stated that the symptoms came back worse than they were before. Additionally now she is complaining of chills, and shaking. Repeat exam shows no abdominal pain, she denies urinary complaints. As her symptoms do seem atypical we will get a CT scan of the lumbar spine, get basic laboratory work-up including ESR and CRP, treat with morphine and reassess. 7:[address] scan has returned and demonstrates atypical findings, no significant abnormality of the spine, however there is minimal pelvic fluid which is minimally complex, potential blood products, additionally she does have mild hydroureteronephrosis on the right, no evidence of stone though. Urinalysis has returned unremarkable, laboratory work-up is notably benign. On reassessment the patient's pain initially completely resolved with the morphine, and now she states again that it is back, worse than before, now she is also complaining of right lower quadrant abdominal pain. Repeat physical exam now demonstrates a change, with reproducible mild right lower quadrant tenderness. She still does have her appendix, I did contact radiology and unfortunately we are not able to reconstruct abdominal images after only doing a CT L-spine. I discussed read risks and benefits of repeat imaging, through shared decision making process we will go forward with a CT scan of the abdomen to rule out other acute process. Her symptoms may very well be secondary to a notable atypical lumbar back sprain, however with her chills, shaking, and now right lower quadrant abdominal pain I do feel that further work-up is indicated. If this does return to normal and her symptoms are likely from a spasm alone, I feel that she would be stable for discharge with transient pain medications, and close follow-up with her PCP and spine center down at [facility]. 7:32 AM The patient's clinical picture continues to change. Patient is now complaining of chest pressure and heaviness which she states is new. No history of cardiac disease. We will add troponin and EKG. patient has not yet returned from CAT scan. Patient will be signed out to Dr. Ilan Reed for reassessment after troponin, EKG and CT results. EKG 7: 42 Rate 84, [place] 192, QTc 47, sinus rhythm, diffuse nonspecific ST segment abnormality with mild depression, notably in V3 through V6, prior EKG from 02/28/2019 demonstrates similar findings but not as pronounced as today. No evidence of reciprocal elevation. No evidence of STEMI. IMPRESSION: No acute fracture or significant stenosis Mild lordosis straightening which may be positional or related to muscle spasm Mild right hydroureteronephrosis. No definite calcified stones on the given images. Right UVJ calculus cannot be excluded. Recently passed stone not excluded Minimal pelvic fluid which may be minimally complex. Minimal blood products not excluded <Ilan Reed MD - Last Filed: 01/15/20 10:35> Received signout on the patient from Dr. Art at change of shift. Please see his note regarding details of the presenting history, exam, and medical evaluation including CT imaging, labs, medical therapy. Patient improved and felt significant relief of her discomfort. Her abdominal CT scan was reassuring without evidence of acute process. Repeat EKG revealed normal sinus rhythm with a narrow QRS and unchanged ST segment abnormalities primarily through the lateral leads. Not sniffily changed from previous today and also when compared to February 28, 2019. Repeat troponin obtained and negative as well. Given the patient's improvement, this does seem consistent with severe and persistent back spasms that are now improving. We will continue muscle relaxant. She may benefit from a low-dose of steroid. She is stable and improving and will discharge to home. HPI <Louis Art DO - Last Filed: 01/15/20 20:41> General Date/Time Provider Initiated Documentation: 01/15/20 04:06 . HPI Narrative: 64-year-old female with a past medical history of chronic back pain, high cholesterol, asthma, SVT, presents today for evaluation of back pain. Patient was seen on 01/09, at that time she had notable back pain with spasm. Symptoms were consistent with a previous episodes of back spasms. She was given Valium, Toradol, Lidoderm patch, had notable improvement with this. She is using her home TENS unit, and was discharged home with orthopedic follow-up on an outpatient basis. She saw orthopedic shortly thereafter, was evaluated for both her back and her shoulder, she did have x-rays of her thoracic and lumbar spine which were relatively unremarkable. Unfortunately since then she has still had continued back pain. She has run out of the Valium, and notes that the back pain has returned and is quite severe currently. Patient describes back pain is severe, crampy and spasm-like. Notably in the paraspinal aspects of the lower back. Worse with bending moving or walking. Patient denies any saddle anesthesia, numbness or tingling in the groin, change in sensation when wiping. Patient denies any change in sensation during sexual intercourse, bowel or bladder incontinence, leakage, or retention. Patient denies any weakness in the lower extremities, atypical falls or imbalance. She denies any history of IV or illicit drug use. Patient does state that orthopedics has placed a referral to the spine clinic at [facility] for her. Related Data Home Medications Medication Instructions Recorded Confirmed levothyroxine [Levothroid] 137 mcg PO DAILY #90 tab-cap 10/28/12 01/15/20 ibuprofen 600 mg PO Q6H PRN #16 tab 06/30/17 01/15/20 diphenhydramine HCl 25 mg PO HS 08/03/18 01/15/20 cholecalciferol (vitamin D3) 25 1,000 unit PO DAILY 02/28/19 01/15/20 mcg (1,000 unit) capsule mecobalamin (vitamin B12) 1,000 1,000 mcg PO DAILY 11/30/19 01/15/20 mcg chewable tablet diazepam [Valium] 5 mg PO TID PRN #7 tab 01/15/20 lidocaine [Lidoderm] 1 patch TOPICAL Q24H #4 patch 01/15/20 prednisone 50 mg PO DAILY #5 tab 01/15/20 Previous Rx's Medication Instructions Recorded ibuprofen 600 mg PO Q6H PRN #16 tab 06/30/17 diazepam [Valium] 5 mg PO TID PRN #7 tab 01/15/20 lidocaine [Lidoderm] 1 patch TOPICAL Q24H #4 patch 01/15/20 prednisone 50 mg PO DAILY #5 tab 01/15/20 Allergies Allergy/AdvReac Type Severity Reaction Status Date / Time atorvastatin AdvReac MUSCLE Verified 01/15/20 04:13 ACHES ezetimibe AdvReac Verified 01/15/20 04:13 pravastatin AdvReac MUSCLE Verified 01/15/20 04:13 ACHES RED YEAST RICE AdvReac MUSCLE Uncoded 01/15/20 04:13 ACHES SHRIMP AdvReac VOMITING Uncoded 01/15/20 04:13 General Stated Complaint: Nk/Back Pain EDUARDO: 4 Review of Systems <Louis Art DO - Last Filed: 01/15/20 20:41> All systems reviewed & are unremarkable except as noted in HPI and below PFSH <Louis Art DO - Last Filed: 01/15/20 20:41> Social History (Updated 07/12/18 @ 12:18 by CAROLYN Barton) Smoking/Tobacco Use Status: Former Tobacco Use Alcohol Intake: current Alcohol Intake frequency: holidays/special occasions only Drug use: Never Substance use type: does not use Do you feel safe at home: Yes Do you feel safe in your relationship?: Yes Exam <Louis Art DO - Last Filed: 01/15/20 20:41> Narrative Exam Narrative: 1.Const: Well-nourished, Well-developed, appearing stated age 2.Eyes: PERRL, no conjunctival injection, and symmetrical lids. 3.ENT: Atraumatic external nose and ears. Moist MM. Neck: Symmetric, trachea midline, No thyromegaly. 4.CVS: +S1/S2, No murmurs or gallops. Peripheral pulses 2+ and equal in all extremities. Brisk capillary refill in all extremities. 5.RESP: Unlabored respiratory effort. Clear to auscultation bilaterally. No wheezes rales or rhonchi 6.GI: Soft, Nontender/Nondistended, No hepatosplenomegaly. No guarding or rebound. 7.MSK: Normocephalic/Atraumatic, Extremities w/o deformity or ttp No cyanosis or clubbing, Normal movement of all extremities. No significant midline tenderness to palpation over the CTLS spine. Notable paraspinal spasm is palpable over the lumbar region, as well as paraspinal reproducible mild tenderness. Patient has +5 out of 5 strength in the lower extremities in dorsiflexion and plantarflexion, knee flexion and extension, hip flexion and extension. Normal strength for dorsiflexion and plantar flexion of the great toe bilaterally. There is +2 over 2 dorsalis pedis pulses bilaterally. There is normal sensation to the skin with light touch at the foot, knee, and hip. Normal saddle sensation. Good sensation over the deep sural nerve area bilaterally. Rectal exam demonstrates good rectal tone. Reflexes are +2 over 4 in the patellar reflex bilaterally. +5 out of 5 strength in the medial, ulnar, radial nerve distribution bilaterally in the hands as well as intact light touch sensation to these dermatomes on the hands 8.Skin: Warm, Dry. No rashes or lesions. 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 Sensation grossly intact, no focal neurologic deficits. 10.Psych: (AAO) x3. Appropriate mood and affect Course <Louis Art DO - Last Filed: 01/15/20 20:41> Vital Signs Vital signs: Vital Signs Temperature 36.4 C L 01/15/20 04:09 Pulse 68 01/15/20 04:09 Respiratory Rate 16 01/15/20 04:09 Blood Pressure 135/79 01/15/20 04:09 Pulse Oximetry 98 01/15/20 04:09 Temperature 36.4 C L 01/15/20 04:09 Temperature Source Skin 01/15/20 04:09 Pulse 68 01/15/20 04:09 Respiratory Rate 16 01/15/20 04:09 Respiratory Effort Non-Labored 01/15/20 04:14 Blood Pressure 135/79 01/15/20 04:09 Pulse Oximetry 98 01/15/20 04:09 Sign Out <Louis Art DO - Last Filed: 01/15/20 20:41> Sign Out Data: Sign Out Comment: Presented initially with back pain which during clinical stage transition to right lower quadrant abdominal pain and more recently central chest pain and pressure. Pending CT results, troponin and EKG results, and reassessment. Last updated by Louis Art DO at 01/15/20 07:35
[2020-01-15] MEDS: Ketorolac 30 MG/ML VIAL IVP (04:34)
[2020-01-15] MEDS: diazePAM 10 MG/2 ML SYR 5 MG IVP ×2 (04:35→07:48)
--- NOTE | 2020-01-15 05:30 | DI.CT_ITS ---
EXAM: CT LUMBAR SPINE WO CLINICAL HISTORY: low back pain. TECHNIQUE: Imaging Protocol: Axial computed tomography images with coronal and sagittal reformatted images were created and reviewed CONTRAST MATERIAL: Intravenous: Without contrast- Oral: no COMPARISON: CT THORACIC SPINE WO CONTRAST from 10/13/[address] ABDOMEN PELVIS W from 01/15/2020 FINDINGS: Bones: The last intervertebral disc space is designated the L5/S1 level for the numbering purpose of this examination. The vertebral body heights are well maintained. Alignment is satisfactory. No frac ture is seen. Disc spaces are well maintained. There are minimal endplate osteophytes. T12-L1: No disc herniations or bulges are present. L1-2: No disc herniations or bulges are present. L2-3: No disc herniations or bulges are present. L3-4: No disc herniations or bulges are present. L4-5: No disc herniations or bulges are present. L5-S1: No disc herniations or bulges are present. Soft Tissues: The visualized SI joints and sacrum are will maintained. The paraspinal soft tissues a re unremarkable. There is mild calcification in the distal aorta and iliac arteries. The uterus is r etroverted. The appendix appears normal. There is a small diverticulum of the 2nd portion of the duo denum. IMPRESSION: Minimal degenerative disc changes.. RADIATION DOSE DELIVERED: 919.17mGy.cm Total DLP DATA REPOSITORY: All CT scans at this facility are submitted to the National Radiology Data Registry (NRDR) Dose Index Registry (DIR) with the [employer] (ACR). RADIATION OPTIMIZATION: All CT scans at this facility use at least one of these dose optimization te chniques: automated exposure control; mA and/or kV adjustment per patient size (includes targeted exa ms where dose is matched to clinical indication); or iterative reconstruction.
[2020-01-15] MEDS: Normal Saline 500 ML IV (05:47)
[2020-01-15 05:54] LABS: Abs Immature Grans 0.01 k/cumm (0.0-0.09); Absolute Basophil Count 0.02 k/cumm (0.0-0.2); Absolute Lymphocyte Count 3.28 k/cumm (1.2-3.4); Absolute Monocyte Count 0.91 k/cumm (0.11-0.7); Absolute Neutrophil Count 2.78 k/cumm (1.2-6.7); Basophils % 0.3; Eosinophils % 4.1; HGB 14.1 g/dL (12.0-15.5); Immature Grans % 0.1 %; Lymphocytes % 44.9; Mean Corp. HGB Concentration 33.6 g/dL (32.0-36.0); Mean Corpuscular Hemoglobin 31.7 pg (27.0-33.0); Mean Corpuscular Volume 94.4 fL (80-95); Mean Platelet Volume 12.9 fL (8.0-11.0); Monocytes % 12.5; Neutrophils % 38.1; Platelet Count 249 x1000/uL (130-400); RBC 4.45 m/cumm (4.00-5.20)
[2020-01-15 06:08] LABS: ALT 35 U/L (14-59); AST 29 U/L (15-37); Albumin 3.9 g/dL (3.4-5.0); Alkaline Phosphatase 95 U/L (46-116); Anion Gap 7.4 mmol/L (3-11); BUN 15 mg/dL (7-18); Bilirubin, Total 0.2 mg/dL (0.2-1.0); C-Reactive Protein < 0.05 mg/dL (0.0-0.3); CO2 27.6 mmol/L (21.0-32.0); CREATININE 0.98 mg/dL (0.55-1.02); Calcium 9.2 mg/dL (8.5-10.1); Chloride 101 mmol/L (98-107); Estimated GFR 57.32 (mL/min/1.73m2); Glucose 102 mg/dL (74-106); Potassium 3.7 mmol/L (3.5-5.1); Sodium 136 mmol/L (136-145); Total Protein 7.4 g/dL (6.4-8.2)
--- NOTE | 2020-01-15 06:22 | DI.VRAD_ITS ---
PROCEDURE INFORMATION: Exam: CT Lumbar Spine Without Contrast Exam date and time: 01/15/2020 5:54 AM Age: 64 years old Clinical indication: Low back pain TECHNIQUE: Imaging protocol: Computed tomography images of the lumbar spine without contrast. COMPARISON: CR XR LUMBAR SPINE AP, LAT 01/10/2020 9:02 AM FINDINGS: Vertebrae: No acute fracture. Mild lordosis straightening Discs/Spinal canal/Neural foramina: No significant disc protrusion. No severe spinal canal stenosis. No significant neural foraminal narrowing. Soft tissues: Mild right hydroureteronephrosis noted A small hiatal hernia is detected. Minimal pelvic fluid which may be minimally complex IMPRESSION: No acute fracture or significant stenosis Mild lordosis straightening which may be positional or related to muscle spasm Mild right hydroureteronephrosis. No definite calcified stones on the given images. Right UVJ calculus cannot be excluded. Recently passed stone not excluded Minimal pelvic fluid which may be minimally complex. Minimal blood products not excluded Further evaluation as clinically indicated Dictated and Authenticated by: Sy Mensah MD. Ordering:ABIEL Myers MD
[2020-01-15 06:37] LABS: Bilirubin Negative (Negative); Blood Negative (Negative); Clarity Clear (Clear); Glucose Negative (Negative); Ketones Negative (Negative); Leukocyte Esterase Trace (Negative); Nitrite Negative (Negative); Specific Gravity 1.015 (1.005-1.025); Urobilinogen 0.2 EU/dL (Up TO 0.2)
[2020-01-15 06:40] LABS: ESR 9 mm/hr (0-30)
[2020-01-15 06:54] LABS: Bacteria Few HPF (Negative); C & S Indicated? Yes; Casts Negative LPF (Negative); Crystals Negative HPF (Negative); Epithelial Cells Few HPF (Negative); Mucus Negative (Negative); RBC Negative HPF (0-2); WBC 0-2 HPF (0-5)
--- NOTE | 2020-01-15 07:00 | DI.CT_ITS ---
EXAM: CT ABDOMEN PELVIS W CLINICAL HISTORY: eval for appe, right abdominal and back pain. TECHNIQUE: Imaging Protocol: Axial computed tomography images with coronal and sagittal reformatted images were created and reviewed CONTRAST MATERIAL: Intravenous: Omnipaque 350 Contrast volume:100 cc Oral: no COMPARISON: CR CHEST 2 VIEWS PA,LAT from 05/05/2016 CR THORACIC SPINE from 09/19/2016 FINDINGS: ABDOMEN: Lung Bases: Lingular atelectasis. Question mild bilateral infiltrates versus dependent changes. Mil d mitral valve calcification. Mild left atrial and left ventricular enlargement. Small hiatal herni a.. Liver: Hepatic veins are not yet opacified. Is a question of mild fatty infiltration.. No measurabl e mass. Gallbladder and biliary tract: No radiodense calculus or dilation. Pancreas: Normal density, no abnormal calcifications or inflammatory process. Spleen: Normal. Kidneys: Normal size, contour and axis. No radiodense stones or obstructive uropathy. No masses seen. Adrenal glands: No masses seen. Abdominal Aorta: Abdominal portion non-dilated. Distal calcification. PELVIS: Bladder: Symmetric distention, no gross wall thickening. Bowel: There is a small diverticulum of the 2nd portion of the duodenum. No obstruction or bowel wal l thickening. The appendix appears normal. There is a moderate quantity of stool. Peritoneal cavity: No ascites, collection or mesenteric inflammatory response. Bones: Within normal limits. Reproductive organs: Within normal limits. Lymph nodes: Unremarkable. Impression: No evidence of appendicitis. Bibasilar infiltrates versus atelectasis.. RADIATION DOSE DELIVERED: 984.61mGy.cm Total DLP DATA REPOSITORY: All CT scans at this facility are submitted to the National Radiology Data Registry (NRDR) Dose Index Registry (DIR) with the [employer] (ACR). RADIATION OPTIMIZATION: All CT scans at this facility use at least one of these dose optimization te chniques: automated exposure control; mA and/or kV adjustment per patient size (includes targeted exa ms where dose is matched to clinical indication); or iterative reconstruction.
[2020-01-15] MEDS: Omnipaque 350 MG/ML 100 ML BTL IJ (07:13)
[2020-01-15] MEDS: Normal Saline - Diluent 50 ML VIAL IV (07:14)
[2020-01-15] MEDS: HYDROmorphone 2 MG/ML VIAL 1 MG IVP (07:47)
--- NOTE | 2020-01-15 07:57 | DI.VRAD_ITS ---
PROCEDURE INFORMATION: Exam: CT Abdomen And Pelvis With Contrast Exam date and time: 01/15/2020 7:05 AM Age: 64 years old Clinical indication: RUQ pain TECHNIQUE: Imaging protocol: Computed tomography of the abdomen and pelvis with intravenous contrast. Other contrast: Catheter; COMPARISON: No relevant prior studies available. FINDINGS: Lungs: There is atelectasis in the lingular segment of the left upper lobe. Mediastinum: Small sliding hiatal hernia. Evidence of gastroesophageal reflux. Liver: The liver is not enlarged. There is an ill-defined focus of diminished subcapsular attenuation in segment 4B adjacent to the fissure for the falciform ligament which can be due to focal fatty change or an area of anomalous perfusion. Gallbladder and bile ducts: No calcified gallstones, gallbladder wall thickening, or pericholecystic inflammation. No biliary ductal dilation. Pancreas: No pancreatic mass. No peripancreatic inflammation. No pancreatic ductal dilation. Spleen: The spleen is homogeneous and is not enlarged. Adrenals: No right adrenal mass. Nonspecific nodularity involving the left adrenal gland. Kidneys and ureters: No hydronephrosis. No nephrolithiasis. Tiny renal cyst. Stomach and bowel: No bowel obstruction, colitis or diverticulitis. Appendix: The appendix has a normal caliber with no wall thickening. No periappendiceal stranding. Intraperitoneal space: No ascites or pneumoperitoneum. Vasculature: No abdominal aortic aneurysm. No iliac or common femoral artery aneurysm. The mesenteric arteries are patent. The mesenteric and portal veins are patent. Lymph nodes: No pathologically enlarged lymph nodes. Bladder: No urinary bladder calculus or wall thickening. Reproductive: Unremarkable as visualized. Bones/joints: No acute osseous abnormality. Soft tissues: No acute soft tissue abnormality. IMPRESSION: 1. No calcified gallstones or signs of acute cholecystitis. 2. No biliary ductal dilatation. Dictated and Authenticated by: Morris Hogan MD. Ordering:ABIEL Myers MD
[2020-01-15 08:10] LABS: Lipase 205 U/L (73-393)
[2020-01-15 08:14] LABS: Troponin I < 0.05 ng/Ml (<0.06)
[2020-01-15] MEDS: Normal Saline 1,000 ML 125 ML IV (09:28)
[2020-01-15 10:13] LABS: Troponin I < 0.05 ng/Ml (<0.06)
== END 2020-01-15 11:04 | disposition home or self-care (01) ==
PROVIDERS: Student in an Organized Health Care Education/Training Program; Emergency Provider Emergency Medicine; PCP Physician Assistant Medical
DX: S33.5XXA Sprain of ligaments of lumbar spine, initial encounter (principal); X58.XXXA Exposure to other specified factors, initial encounter; R07.89 Other chest pain; N13.39 Other hydronephrosis; N13.4 Hydroureter
CPT/HCPCS: 36415; 80053; 83690; 85652; 93005; 96361; 96374; 96375; 96376; 99285; 72131; 74177; 81003; 81015; 84484; 85025; 86140; 87086; 93010; J1885; J2930; J3360; J3490

== ENCOUNTER 2020-01-18 01:11 | Outpatient (CLI) | payer BC, SELFPAY ==
--- NOTE | 2020-01-18 08:00 | DI.MRI_ITS ---
EXAM: MR UPPER JOINT LT WO CLINICAL HISTORY: failed 6mo PT left shoulder pain,concern for SIRVA,BURSITIS,CAPSULITIS,M75.. TECHNIQUE: Multiplanar multisequence MRI was performed. COMPARISON: Plain films dated 30 November 2019 FINDINGS: Bones: There is no fracture or contusion pattern. The acromioclavicular joint is normal. The acromion is mi ldly laterally downsloping. There is a minimal amount of fluid in the subacromial subdeltoid and sub coracoid bursa. No glenohumeral joint effusion is present. Some fluid is seen around the biceps ten don. Rotator Cuff: The supraspinatus tendon shows some thickening as well as a focal area increased signal anteriorly, c onsistent with a partial tear. The infraspinatus is intact. The subscapularis and teres minor are n ormal. Labrum and biceps anchor: The biceps tendon is located. The anchor is well maintained. The labrum is within normal limits. No capsular thickening or edema is seen. IMPRESSION: Supraspinatus tendinosis with partial tear anteriorly. Small amount of fluid in the subacromial subd eltoid bursa and coracoid bursa. DATA REPOSITORY:
== END 2020-01-18 01:31 ==
PROVIDERS: PCP Physician Assistant Medical; Visit Provider Student in an Organized Health Care Education/Training Program
DX: M25.512 Pain in left shoulder (principal); M75.82 Other shoulder lesions, left shoulder; M75.02 Adhesive capsulitis of left shoulder; M25.412 Effusion, left shoulder; M75.102 Unspecified rotator cuff tear or rupture of left shoulder, not specified as traumatic
CPT/HCPCS: 73221

== ENCOUNTER 2020-02-08 02:36 | Outpatient (CLI) | payer BC, SELFPAY ==
--- NOTE | 2020-02-08 | DI.MAMMO_ITS ---
EXAM: MG MAMMO SCREENING CLINICAL HISTORY: [facility] Z00.00 TECHNIQUE: Mammograms were interpreted according to the usual protocol including computer analysis w [employer] CAD system, tomosynthesis and C-view imaging. COMPARISON: 2011 through 2017. FINDINGS: The breasts are composed of mainly fatty density , Breast Density category A. No suspicious masses or suspicious microcalcifications are seen. Bilateral scarring from breast redu ction is noted, unchanged. No skin thickening or abnormal axillary lymph nodes are seen. There has been no significant change from prior exams. IMPRESSION: BI-RADS Category 1, negative. Yearly screening mammography is recommended. Breast Density - Category A - Almost entirely fatty
== END 2020-02-08 02:56 ==
PROVIDERS: PCP Physician Assistant Medical; Visit Provider Physician Assistant Medical
DX: Z00.00 Encounter for general adult medical examination without abnormal findings (principal); Z12.31 Encounter for screening mammogram for malignant neoplasm of breast; Z98.890 Other specified postprocedural states
CPT/HCPCS: 77063; 77067

== ENCOUNTER 2020-06-06 14:29 | Outpatient (REF) | payer BC, SELFPAY ==
[2020-06-06 21:51] LABS: Hemoglobin A1C 5.9 % (<5.7)
[2020-06-06 22:18] LABS: Calculated LDL 189 mg/dL (<100); Cholesterol 271 mg/dL (<200); HDL Cholesterol 51 mg/dL (40-60); TSH 0.99 uIU/mL (0.36-3.74); Triglyceride 157 mg/dL (<150); Vitamin B12 669 pg/mL (193-986)
== END 2020-06-06 14:49 ==
LOC: NCHCN 14:29
PROVIDERS: PCP Physician Assistant Medical; Visit Provider Physician Assistant Medical
DX: Z00.00 Encounter for general adult medical examination without abnormal findings (principal); E03.9 Hypothyroidism, unspecified; E78.5 Hyperlipidemia, unspecified; R73.01 Impaired fasting glucose
CPT/HCPCS: 80061; 82607; 83036; 84443

== ENCOUNTER 2020-09-28 16:43 | Emergency (ER) | payer BC, SELFPAY ==
--- NOTE | 2020-09-28 16:26 | W.ED.GENAD ---
Discharge Plan Disposition Patient Disposition: HOME Condition: Good Discharge Details Clinical Impression: Bimalleolar ankle fracture Primary Care Provider: Cl Soto ED Provider: Sharon Haney Home Meds and New Rx's Prescriptions: New oxycodone 5 mg tablet 5 mg PO Q6H PRN (Reason: pain) Qty: 7 RF: 0 Continued cholecalciferol (vitamin D3) 1,000 unit capsule 1,000 unit PO DAILY RF: 0 mecobalamin (vitamin B12) 1,000 mcg tablet,chewable 1,000 mcg PO DAILY RF: 0 levothyroxine [Levothroid] 137 MCG tablet 137 mcg PO DAILY Qty: 90 RF: 3 ibuprofen 600 MG tablet 600 mg PO Q6H PRN (Reason: Pain) Qty: 16 RF: 0 diphenhydramine HCl 25 mg Tablet 25 mg PO HS RF: 0 sertraline 25 mg tablet 37.5 mg PO DAILY RF: 0 lidocaine [Lidoderm] 1 PATCH patch 1 patch Topical Q24H Qty: 4 RF: 0 Discharge Instructions Instructions: Leg Fracture (ED) Additional Instructions: You fractured 2 bones in your ankle. You will need surgery to correct this. Splint has been applied. Please leave this in place until followed up by orthopedics. Please remain nonweightbearing and use your crutches to help with ambulation. Encouraged rest, ice, elevation. You may continue with Tylenol and/or ibuprofen as needed for discomfort. If this is insufficient at alleviating her discomfort, you may use oxycodone as prescribed. Please take this only as prescribed, keep this in a safe place do not drive will take this medication. Please call orthopedics on Thursday to schedule follow-up appointment. If you develop any new or worsening symptoms please seek care urgently once again. Referrals: John Samano MD [ [facility] STAFF PHYSICIAN] - Cl Soto PA [Primary Care Provider] - Medical Decision Making Patient is a pleasant 65-year-old female brought in via EMS with chief complaint of left ankle pain. She reports that prior to arrival she slipped in her driveway and fell causing a rotational injury to left ankle. She has never had a fracture or injury to this ankle historically. She denies other injury the time of the incident although she does state that she is sore on the right side. Denies trigger head. No loss of consciousness. Has not been able to ambulate since the fall. Received 100 mcg of fentanyl prior to arrival by EMS On exam, patient appears nontoxic. She is resting comfortably. She does have pain with minimal movement of the left lower extremity. Not see any evidence of trauma elsewhere on exam. She is able to move the right upper extremity well which is the other area where she felt sore. She states that this pain is fairly minimal and that really the ankle is the only thing that received significant injury at the time of the fall. Exam of the left lower extremity shows significant swelling medially and laterally. She is point tender over both of these regions. She has a normal Achilles. No pain in foot. 2+ distal pulses, sensation is intact. No pain over the proximal fibula. Primarily concern for ankle fracture at this time. Plan to obtain x-ray. Will give Tylenol, ibuprofen and morphine to help with discomfort. Hoping that the narcotic alternatives will have a longer lasting effect of her discomfort. Discussed this plan with the patient who is in agreement. FINDINGS: Bones/joints: There is a fracture of the distal fibula extending from the distal shaft to the base of the lateral malleolus. There is up to 7 mm of diastasis between the major fracture fragments. There is a horizontal nondisplaced fracture through the medial malleolus. There is widening of the medial ankle mortise. There is a 9 mm heel spur. There is a chronic ossification along the dorsal aspect of the navicular bone. Soft tissues: There is significant medial and lateral soft tissue swelling. IMPRESSION: Bimalleolar fracture with ankle mortise disruption suggesting possible underlying ligamentous injury. Consulted with Dr. Samano. He reviewed the images. Advised the patient would need surgical intervention for correction of the unstable ankle. Patient will be placed in a splint. He advised that he will see the patient in the office on Thursday. He encouraged rest, ice, elevation. I did discuss these recommendations with the patient. Patient was fitted with a plaster splint. She tolerated this well. Attempted to give some lateral pressure to help with swelling and displacement of the ankle. Kept ankle at a 90 degree. Patient I discussed fracture care. Encourage rest, ice and elevation. Tylenol and/or ibuprofen as needed for discomfort. Patient is requesting something stronger for her discomfort. Will prescribe codon. Strict usage instructions were given. She will not drive will take this medication will take only as prescribed. She will contact orthopedics on Thursday to schedule follow-up on Thursday with plan for surgical intervention next week. All of her questions and concerns were addressed and she is agreement this plan. Patient was fitted with crutches and was able to ambulate to the bathroom with ease. HPI General Mode of arrival: EMS. Date/Time Provider Initiated Documentation: 09/28/20 17:00. Limitations to Documentation: no limitations. Information obtained by: patient, EMS and RN notes reviewed. History of Present Illness 65 year old F presents to the emergency department with the chief complaint of left ankle pain, described as moderate, with intensity rated at 6. Quality is described as sharp, and is localized to the left and lower extremity. Patient reports no radiation. Patient started experiencing this minute(s) and it has been constant. Immobilization improves symptom(s), Movement worsens symptoms . Patient notes no other symptoms.. Patient did receive the following treatments prior to arrival, other (100mcg fentanyl) Related Data Home Medications Medication Instructions Recorded Confirmed levothyroxine [Levothroid] 137 mcg PO DAILY #90 tab-cap 10/28/12 09/28/20 ibuprofen 600 mg PO Q6H PRN #16 tab 06/30/17 09/28/20 diphenhydramine HCl 25 mg PO HS 08/03/18 09/28/20 cholecalciferol (vitamin D3) 25 1,000 unit PO DAILY 02/28/19 09/28/20 mcg (1,000 unit) capsule mecobalamin (vitamin B12) 1,000 1,000 mcg PO DAILY 11/30/19 09/28/20 mcg chewable tablet lidocaine [Lidoderm] 1 patch TOPICAL Q24H #4 patch 01/15/20 09/28/20 oxycodone 5 mg PO Q6H PRN #7 tab 09/28/20 sertraline 37.5 mg PO DAILY 09/28/20 09/28/20 Previous Rx's Medication Instructions Recorded ibuprofen 600 mg PO Q6H PRN #16 tab 06/30/17 lidocaine [Lidoderm] 1 patch TOPICAL Q24H #4 patch 01/15/20 oxycodone 5 mg PO Q6H PRN #7 tab 09/28/20 Allergies Allergy/AdvReac Type Severity Reaction Status Date / Time atorvastatin AdvReac MUSCLE Verified 09/28/20 16:43 ACHES ezetimibe AdvReac muscle ache Verified 09/28/20 16:46 pravastatin AdvReac MUSCLE Verified 09/28/20 16:43 ACHES RED YEAST RICE AdvReac MUSCLE Uncoded 09/28/20 16:43 ACHES SHRIMP AdvReac VOMITING Uncoded 09/28/20 16:43 General EDUARDO: 4 Review of Systems Constitutional Constitutional: Reports as per HPI, Denies chills, Denies fever(s), Denies headache(s) and Denies weakness ENT Ears, Nose, Mouth, and Throat: Denies headache(s) Cardiovascular Cardiovascular: Reports as per HPI Respiratory Respiratory: Reports as per HPI and Denies cough Musculoskeletal Musculoskeletal: Reports as per HPI and Denies tingling Integumentary/Breasts Skin/Breast: Reports as per HPI, Denies rash and Denies wounds Neurologic Neurologic: Reports as per HPI, Denies headache(s), Denies tingling, Denies paresthesias and Denies weakness [facility] Medical History (Updated 09/28/20 @ 18:49 by CAROLYN Tate) Acute back pain Asthma Depressive disorder Generalized anxiety disorder Hyperlipidemia Hypothyroidism Low back pain BILL (obstructive sleep apnea) Pernicious anemia (03/16/12) SVT (supraventricular tachycardia) Surgical History H/O colonoscopy (01/07/07) Dr Kevon Man, negative, repeat in 10 years H/O colonoscopy (08/06/18) 08/06/18 Dr Pathak,no abnormalities, repeat ten years Social History Smoking/Tobacco Use Status: Former Tobacco Use Smoking risk assessment performed?: Yes Alcohol Intake: current Alcohol Intake frequency: holidays/special occasions only Drug use: Never Substance use type: does not use Current gender identity: female Do you feel safe at home: Yes Do you feel safe in your relationship?: Yes Exam Const General: cooperative, healthy appearing, comfortable, no acute distress, well developed and well groomed Nutritional Appearance: average body habitus and well nourished Orientation: alert and awake [facility] Head: normal to inspection, normocephalic and atraumatic Face and sinus: normal facial exam Neck Neck: normal visual inspection and full ROM Chest Chest: normal inspection of the chest, no crepitus and no tenderness Resp Effort & Inspection: normal respiratory effort, able to speak in complete sentences and no respiratory distress Cardio Rate: regular rate Rhythm: regular rhythm Back/Spine/Pelvis Cervical Spine: normal cervical lordosis, cervical ROM normal and No cervical spinal tenderness Skin General skin exam: ecchymosis (left ankle) Neuro General: patient alert and patient awake Cognition: normal cognition Speech: speech normal Gait: gait abnormal Motor: muscle tone normal throughout Sensory Exam: no sensory deficits noted Extrem Right lower extremity: normal to inspection Left lower extremity: normal capillary refill, knee Details: normal to inspection; no tenderness (No pain over proximal fibula), lower leg Details: normal to inspection; no tenderness, ankle Details: abnormal to inspection (Swelling medially and laterally with associated ecchymosis), tenderness Location: of the lateral malleolus and of the medial malleolus; not of the achilles tendon, not posteriorly and not anteriorly, swelling Details: laterally and medially and ecchymosis; ROM abnormal, no abrasions, no lacerations, no crepitus, no penetrating wound and achilles tendon exam normal and foot Details: normal capillary refill, normal to inspection, toes with normal ROM, no edema and vascular exam Details: dorsalis pedis pulse present, posterior tibial pulse present and normal capillary refill; no tenderness, no ecchymosis and no crepitus; abnormal to inspection and abnormal ROM Psych Appearance: grossly normal and well kempt Mental Status: mental status grossly normal Speech and Movement: speech and movement normal
[2020-09-28 16:39] VITALS: BP 120/64; PULSE 68; RESP 20; TEMP 36.8; O2SAT 99
--- NOTE | 2020-09-28 17:09 | DI.RAD_ITS ---
EXAM: XR ANKLE LT COMPLETE CLINICAL HISTORY: rotational injury with pain med and lat TECHNIQUE: 2D digital imaging was performed. COMPARISON: No exams were available for comparison FINDINGS: BONES: There is an oblique fracture through the distal left fibula which extends to the level of the ankle mortise. The distal fracture fragment is displaced posteriorly of to 7 mm. There is a nondisp laced posterior malleolar fracture. There is a fracture of the medial malleolus with mild lateral di splacement. No bony destructive lesion is seen. A small plantar calcaneal spur is noted. A well cor ticated osseous density is seen adjacent to the navicular which appears old. JOINTS:The ankle joint is widened medially. SOFT TISSUE: There is soft tissue swelling about the ankle. IMPRESSION: Trimalleolar fracture of the ankle with widening of the ankle joint medially. DATA REPOSITORY: RADIATION DOSE DELIVERED:
[2020-09-28] MEDS: Acetaminophen 500 MG TAB 1000 MG PO (17:39)
[2020-09-28] MEDS: Ibuprofen 600 MG TAB PO (17:39)
--- NOTE | 2020-09-28 17:39 | DI.VRAD_ITS ---
PROCEDURE INFORMATION: Exam: XR Left Ankle Exam date and time: 09/28/2020 5:25 PM Age: 65 years old Clinical indication: Ankle; Left; Patient HX: Rotational injury with pain med and lat TECHNIQUE: Imaging protocol: XR Left ankle. Views: 3 or more views. Total images: 3 COMPARISON: No relevant prior studies available. FINDINGS: Bones/joints: There is a fracture of the distal fibula extending from the distal shaft to the base of the lateral malleolus. There is up to 7 mm of diastasis between the major fracture fragments. There is a horizontal nondisplaced fracture through the medial malleolus. There is widening of the medial ankle mortise. There is a 9 mm heel spur. There is a chronic ossification along the dorsal aspect of the navicular bone. Soft tissues: There is significant medial and lateral soft tissue swelling. IMPRESSION: Bimalleolar fracture with ankle mortise disruption suggesting possible underlying ligamentous injury. Dictated and Authenticated by: Ilan Lombardo MD. Ordering:PRESTON Herrera MD
== END 2020-09-28 19:30 | disposition home or self-care (01) ==
PROVIDERS: Emergency Provider Physician Assistant; PCP Physician Assistant Medical
DX: S82.842A Displaced bimalleolar fracture of left lower leg, initial encounter for closed fracture (principal); W00.0XXA Fall on same level due to ice and snow, initial encounter; X50.9XXA Other and unspecified overexertion or strenuous movements or postures, initial encounter
CPT/HCPCS: 29515; 96374; 99284; 73610

== ENCOUNTER 2020-10-01 12:58 | Outpatient (CLI) | payer BC, SELFPAY ==
[2020-10-02 13:41] LABS: COVID-19 RT-PCR UVMMC Result Negative (Negative)
== END 2020-10-01 12:59 | disposition home or self-care (01) ==
LOC: LBO 12:58
PROVIDERS: PCP Physician Assistant Medical; Visit Provider Student in an Organized Health Care Education/Training Program
DX: Z20.822 Contact with and (suspected) exposure to COVID-19 (principal); Z01.818 Encounter for other preprocedural examination
CPT/HCPCS: U0003

== ENCOUNTER 2020-10-04 09:34 | Day surgery (SDC) | payer BC, SELFPAY ==
--- NOTE | 2020-10-02 08:18 | PDOC.ANES ---
Date of service: 10/02/20 Time of Service: 08:18 Anesthesia Note Report Anesthesia Note: Reviewed chart as requested by Dr. Samano, recent Cards visit, denying complaint related to SVT. Last Echo in 2012. I believe from current chart review patient is cleared for anesthesia.
[2020-10-04] VITALS (10 sets, daily range): BP systolic 84–113; BP diastolic 29–66; PULSE 58–86; RESP 14–20; TEMP 36–36.6; O2SAT 92–100
--- NOTE | 2020-10-04 10:00 | DI.RAD_ITS ---
EXAM: XR ANKLE LT 2V CLINICAL HISTORY: CLOSED MALLEOLAR FRACTURE LEFT NAKLE. TECHNIQUE: 2D and realtime digital imaging was performed. COMPARISON: CR,XR XR ANKLE LT COMPLETE from 09/28/2020 FINDINGS: Fluoroscopy was provided in the OR for Dr. Samano. Hard copy images show placement of a screw throug h the medial malleolus and a fixation plate along the lateral malleolus. The fracture alignment appe ars anatomic. Fluoro time: 48.2 seconds Please see procedure note for details. RADIATION DOSE DELIVERED:
[2020-10-04] MEDS: Lactated Ringers 1,000 ML 100 ML IV (10:25)
[2020-10-04] MEDS: ceFAZolin 2 GM/50 ML BAG IVPB (11:21)
[2020-10-04] MEDS: Bupivacaine 0.25% Pres-Free 30 ML VIAL (11:43)
[2020-10-04] MEDS: EPINEPHrine 1 MG/ML AMP pres-free (11:43)
--- NOTE | 2020-10-04 13:52 | PDOC.DSDIS_ITS ---
Discharge Plan Disposition Patient Disposition: HOME Condition: Stable Discharge Details Reason For Visit: Left ankle surgery Attending Provider: John Samano Primary Care Provider: Cl Soto Home Meds and New Rx's Prescriptions: New naproxen 250 mg tablet 250 - 500 mg PO BID PRN (Reason: Moderate pain or swelling) Qty: 60 RF: 0 aspirin 325 mg tablet,delayed release (DR/EC) 325 mg PO DAILY 30 Days Qty: 30 RF: 0 ondansetron 4 mg tablet,disintegrating 4 mg PO Q6H PRN (Reason: nausea or vomiting) Qty: 5 RF: 0 oxycodone 5 mg tablet 5 - 10 mg PO Q4H PRN (Reason: moderate to severe pain) Qty: 16 RF: 0 Continued cholecalciferol (vitamin D3) 1,000 unit capsule 1,000 unit PO DAILY RF: 0 mecobalamin (vitamin B12) 1,000 mcg tablet,chewable 1,000 mcg PO DAILY RF: 0 levothyroxine [Levothroid] 137 MCG tablet 137 mcg PO DAILY Qty: 90 RF: 3 diphenhydramine HCl 25 mg Tablet 25 mg PO HS RF: 0 sertraline 25 mg tablet 37.5 mg PO DAILY RF: 0 oxycodone 5 mg tablet 5 mg PO Q6H PRN (Reason: pain) Qty: 7 RF: 0 lidocaine [Lidoderm] 1 PATCH patch 1 patch Topical Q24H Qty: 4 RF: 0 Discontinued ibuprofen 600 MG tablet 600 mg PO Q6H PRN (Reason: Pain) Qty: 16 RF: 0 Discharge Instructions Additional Instructions: Surgery: Left ankle ORIF Activity: Non-weightbearing with crutches. Recommend elevation to minimize swelling discomfort. Encourage daily range of motion to all toes. A physical therapy prescription will be provided separately in the office of follow-up as needed. Prescriptions: Aspirin 325 mg take 1 daily to prevent a blood clot for 30 days Naproxen 250 mg take 1-2 every 12 hours with a meal as needed for moderate pain Oxycodone 5 mg take 1-2 every 4-6 hours as needed for severe pain You may use [id number] Tylenol (acetaminophen) as needed for mild pain. These pain medications may be taken all at once or in different combinations as needed. Also, recommend Colace (docusate) as a stool softener as surgery and pain medicine cause constipation. Dressings: Leave splint and dressing in place until follow-up. Keep clean and dry at all times. Follow-up: 10-14 days with an orthopedic physician purchasing administrative assistant (10:30 AM on 10/17/20) and about [address] Samano Let us know right away if you develop any redness, drainage, fevers, chest pain, or trouble breathing. Do not drink alcohol or drive for at least 24 hours after anesthesia. Please call the office during business hours with any questions or concerns. Referrals: John Samano MD [ [facility] STAFF PHYSICIAN] - Discharge Orders Discharge Orders: Discharge Order (Routine); Ordered 10/04/20 Ordered By: John Samano DS: Diagnosis Discharge Diagnosis (1) Closed trimalleolar fracture of left ankle: Status: Acute
[2020-10-04] MEDS: ACETAMINOPHEN 1,000 MG/100 ML BTL 400 MG IVPB (14:03)
--- NOTE | 2020-10-04 14:06 | ROE_ITS ---
Date of service: 10/04/20 Time of Service: 13:52 Operative Note Operative Note DATE OF PROCEDURE: 10/04/20 PRE-OP DIAGNOSIS: Left trimalleolar ankle fracture POST-OP DIAGNOSIS: same PROCEDURE: 1. Left trimalleolar ankle fracture ORIF of medial and lateral malleoli, CPT # 40142 2. Manual stress radiograph of joint, CPT #06345: Ankle syndesmosis SURGEON: John Samano INSTRUCTOR BUS TROLLEY AND TAXI: Jacinto Stern ANESTHESIA: GETA and local ESTIMATED BLOOD LOSS: 10 TOURNIQUET TIME: 0 COMPLICATIONS: None Patient was transported to: PACU Patient's condition: stable Implants: / tubular locking plate, 7 hole with distal 4.0 mm cancellous screws x2 and 3.5 mm locking screw x1 and 3x 3.5 mm cortex screws laterally and 1x 3.5mm cortex lag screw 1x partially threaded 4.0 cancellous screw 40mm medially Indications: Please see complete medical record for details. Procedure Description: In the operating room, general anesthesia was induced. The patient was positioned supine on the operating room table. All bony prominences were well-padded. Preoperative antibiotics were administered. The left ankle was prepped and draped in the usual sterile fashion. The correct patient, procedure, and side of the procedure were all verified prior to incision. 30 cc of 0.25% bupivacaine was infiltrated about the plan medial and lateral incision sites. With fluoroscopic guidance, a longitudinal incision centered over the posterior margin of fibula was used and carried down to the fracture site take care to retract transversing neurovascular structures and she appropriate hemostasis. Fracture ends were identified and fibrous material debrided from the fracture site. Bone reduction forceps were used to provisionally reduce the the oblique fracture into nearly anatomic position. This was verified under direct visualization as well as fluoroscopic imaging. Anterior to posterior directed 3.5 mm lag screw was predrilled and placed achieving good compression over the fracture site. A second posterior to anterior laxity was attempted more distally but the bone was too soft for acceptable fixation. It was removed. Various distal fibula locking precontoured plates as well as one third tubular plates were sized over the wound and the best fit was with a one third tubular plate, which was bent and twisted to fit the patient's anatomy and low fracture site. The plate was provisionally secured using a proximal 3.5 mm cortical screw. The plate was then rotated for most optimal position in the fracture reduction clamps placed around the fracture and including the clamp for best compression and plate reduction to bone. A distal 4.0 mm cancellous screw was predrilled and placed in unicortical fashion. Both proximal distal screws were tightened reduction confirmed again under direct visualization as well as fluoroscopic guidance. The remainder of the distal and proximal screws were filled using the above screws. The most proximal distal screw had poor unicortical fixation so was switched to a locking screw. Attention was then turned to the mortise and medial malleolus. There is nearly anatomic reduction. Under fluoroscopic guidance a small care was used to locate the central distal tip of the medial malleolus. A small stab incision longitud inally was used to ensure there was no interposed soft tissue prior to her inserting the 2.5 mm drill. Under fluoroscopic guidance the screw was used and directed up the medial malleolus past the fracture site into the distal tibia. Correct trajectory was confirmed in AP, mortise, and lateral fluoroscopy. The drill was removed and a solid partially-threaded 4.0 mm cancellous screw was inserted and was placed. Under fluoroscopic guidance fracture site compression was confirmed all tightened the screw head down to bone. Next, fluoroscopic evaluation of the ankle mortise for syndesmotic injury was performed. A mortise view as well as a manual dorsiflexion stress external rotation view was obtained confirming no medial clear space widening or loss of excellent tib-fib overlap. The posterior malleolus small fragment remained nondisplaced. Medial lateral wounds were copiously irrigated normal saline. Deep tissue was closed using 2-0 Monocryl. Subcutaneous tissue was closed in 2-0 Monocryl in a buried fashion. Skin was closed using 3-0 nylon in horizontal mattress fashion. Incision covered with Xeroform, dry for 4 gauze, sterile soft roll's and ABDs were applied about the ankle. Left lower extremities placed into a short leg plaster AO splint. The patient awoke from anesthesia without complication and was transferred to the recovery room in a stable condition.
[2020-10-04] MEDS: ePHEDrine 50 MG/ML VIAL IVP (14:25)
--- NOTE | 2020-10-04 15:30 | IN_ITS ---
Date of service: 10/04/20 Time of Service: 15:30 PT Notes Visit Reasons: Left ankle surgery Physical Therapy Day Surgery Initial Evaluation Date: 10/04/2020 Referring Doctor: John Samano MD PT Orders: PT CONSULT: Status post Ortho surgery. Crutch walking with stairs. Precautions: NWB on L LE with crutches. Range of motion of all toes on the L. Patient Profile/Admitting Diagnosis: Bianca is a 65-year-old female with a closed trimalleolar fracture and unstable ankle mortise on the left side due to a slip and fall on ice. She is status post ORIF on postoperative day 0. PMHX: Medical History (Updated 10/02/20 @ 13:20 by John Samano MD) Acute back pain Asthma Depressive disorder Generalized anxiety disorder Hyperlipidemia Hypothyroidism Low back pain BILL (obstructive sleep apnea) Pernicious anemia (03/16/12) SVT (supraventricular tachycardia) Surgical History (Updated 10/02/20 @ 11:44 by Angel Leung) H/O bilateral breast reduction surgery H/O colonoscopy (01/07/07) Dr Kevon Man, negative, repeat in 10 years H/O colonoscopy (08/06/18) 08/06/18 Dr Pathak,no abnormalities, repeat ten years History of hemorrhoidectomy Hx of tubal ligation Social History/Home Situation: Lives with in a private home with 4 steps to enter without rails. is not doing well health morgan but she states that her son will be able to help her with stairs once she goes home later this afternoon. Equipment Owned/DME: Has bilateral axillary crutches Subjective: States that she does not feel confident about using cructhes as she tends to put unequal pressure in B hands which causes her to become unstable. She feels more comfortable using the walker. Reports being fatigued and did not want to stand too longon her R LE. Objective: General Observation: SVETLANA wraps over splint on L leg. IV in L UE. Nurse Carlyle assisting managing patient's needs throughout session. Mental Status: Alert and oriented x 4 Pain: 2-3/10 at rest ROM: Right Upper Extremity: Shoulder Flexion WFL. Shoulder abduction WFL. Elbow flexion WFL. Wrist flexion WFL. Functional opening and closing of hand WFL. Left Upper Extremity: Shoulder Flexion WFL. Shoulder abduction WFL. Elbow flexion WFL. Wrist flexion WFL. Functional opening and closing of hand WFL. Right Lower Extremity: Hip flexion WFL. Hip abduction WFL. Knee flexion WFL. Ankle dorsiflexion WFL. Ankle plantarflexion WFL. Left Lower Extremity: Hip flexion WFL. Hip abduction WFL. Knee flexion allows up to 90 degrees only due to bulky splint and wraps. Ankle dorsiflexion NT. Ankle plantarflexion NT. Toe flexion WFL. Toe extension WFL. Strength: Right Upper Extremity: Shoulder flexors 5/5. Shoulder abductors 5/5. Elbow flexors 5/5. Elbow extensors 5/5. Infection Control Manager strong. Left Upper Extremity: Shoulder flexors 5/5. Shoulder abductors 5/5. Elbow flexors 5/5. Elbow extensors 5/5. Infection Control Manager strong. Right Lower Extremity: Hip flexors 5/5. Hip abductors 5/5. Knee flexors 5/5. Knee extensors 5/5. Ankle dorsiflexors 5/5. Ankle plantarflexors 5/5. Left Lower Extremity: Hip flexors 4-/5. Hip abductors 4-/5. Knee flexors 3-/5. Knee extensors 4-/5. Ankle dorsiflexors NT. Ankle plantarflexors NT. Toe flexors grossly 3/5. Toe extensors grossly 3/5. Sensation: Intact as to pain and light pressure in bilateral lower extremities Bed Mobility/Transfers: Supine to sit standby assist Sit to stand contact-guard assist Stand to sit contact-guard assist Bed to chair contact-guard assist Gait: Guided patient up to 20 feet of short distance ambulation using of the front wheeled walker with contact-guard assist of PT and standby assist of nurse Tadeo. Non-weight bearing on the left LE. Balance: Static Sitting: Normal Dynamic Sitting: Normal Static Standing: Poor due to weight bearing precaution on the left LE Dynamic Standing: Poor due to weight bearing precaution on the left LE Special Tests: Mobility Limitations Standardized Measure [facility] 6 clicks Basic Mobility Inpatient Short Form: Raw Score: 18 CMS Score: 47% deficit Informed Consent/Education: Patient was instructed in purpose of PT consult. Education and training on initial set of exercises for R LE, L hip, L knee, and L toes that can be done at home have been completed with patient. Assessment: Bianca requires assistance with transfer and short distance ambulation using FWW. She requires the help of two family members to negotiate 4 steps without rails for safety. Patient presents with clinical signs and symptoms consistent with current/admitting diagnoses that have resulted to mobility limitations, gait instability, generalized weakness, and impairment of motor control as demonstrated by the following impairment level findings: 1. Decreased strength to left knee and ankle major muscle groups 2. Impaired standing balance 3. Limitation of joint range of motion in left foot Impairments are contributing to the following functional limitations: 1. Inability to safely ambulate without assistive device 2. Increase completion time for mobility ADL performance 3. Increased fall risk Patient is assessed as a 84288 moderate complexity based on the following: History: 65-year-old female with impairment level findings, functional limitations, and past medical history as indicated above Examination: Demonstrable impairment in strength, balance, and mobility level with underlying impairments and functional limitations as documented above Presentation: Evolving Decision Makin moderate complexity Goals: N/A. PT evaluation and 1 treatment session only for functional mobility training using recommended AD and for HEP instruction. Plan of Care/Treatment Plan: N/A. PT evaluation and 1 treatment session only for functional mobility training using recommended AD and for HEP instruction. DISCHARGE RECOMMENDATIONS: Home when medically cleared by orthopedic surgeon. Patient will need assistance of 2 family members to safely negotiate 4 steps without rails using bilateral axillary crutches to reduce fall risk. TREATMENT CODE/TIME: 49228 x 25 minutes, 14031 x 15 minutes beginning at 15:30 PM. Thank you for the opportunity to participate in the care of this patient. Patricia Crooks PT, DPT, CLT [facility] [place], [place]
== END 2020-10-04 16:30 | disposition home or self-care (01) ==
PROVIDERS: PCP Physician Assistant Medical; Visit Provider Student in an Organized Health Care Education/Training Program
PROC: (CPT 27822; principal; 2020-10-04 10:30)
DX: S82.852A Displaced trimalleolar fracture of left lower leg, initial encounter for closed fracture (principal); W00.0XXA Fall on same level due to ice and snow, initial encounter; G89.18 Other acute postprocedural pain; G47.33 Obstructive sleep apnea (adult) (pediatric)
CPT/HCPCS: 27822; 77071; C1713; 76942; 97162; 97530; 73600; J0131; J0171; J0690; J1100; J1885; J2001; J2250; J2370; J2405; J2704

== ENCOUNTER 2020-10-17 11:11 | Outpatient (CLI) | payer BC, SELFPAY ==
--- NOTE | 2020-10-17 10:30 | DI.RAD_ITS ---
EXAM: XR ANKLE LT COMPLETE CLINICAL HISTORY: F/U SURGERY. TECHNIQUE: 2D digital imaging was performed. COMPARISON: CR,XR XR ANKLE LT COMPLETE from 09/28/2020 FINDINGS: There has been interval ORIF. There is a lateral fixation plate across the distal fibular fracture s ite with satisfactory alignment of these fracture fragments. In addition there is an oblique indepen dent screw at the fracture level also evident. There is a single screw across the medial malleolus fracture site evident. Talar dome appears unrema rkable. On the lateral view there is a suggestion of a subtle posterior malleolus fracture. 6 millimeter inferior calcaneal spur incidentally noted. IMPRESSION: DATA REPOSITORY: RADIATION DOSE DELIVERED:
== END 2020-10-17 11:12 | disposition home or self-care (01) ==
LOC: DIORS 11:12
PROVIDERS: PCP Physician Assistant Medical; Referring Provider Physician Assistant Medical; Visit Provider Physician Assistant Surgical
DX: S82.852D Displaced trimalleolar fracture of left lower leg, subsequent encounter for closed fracture with routine healing (principal)
CPT/HCPCS: 73610

== ENCOUNTER 2020-10-29 19:32 | Emergency (ER) | payer BC, SELFPAY ==
[2020-10-29 19:38] VITALS: BP 131/78; PULSE 68; RESP 20; TEMP 36.3; O2SAT 100
--- NOTE | 2020-10-29 19:45 | DI.RAD_ITS ---
EXAM: XR RIBS RT W PA LAT CHEST CLINICAL HISTORY: fall, inferior lateral pain and ecchymosis TECHNIQUE: 2D digital imaging was performed. COMPARISON: No exams were available for comparison FINDINGS: MEDIASTINUM: Normal. HEART: Normal. PULMONARY VASCULATURE: Normal. LUNGS: Clear. PLEURAL SPACE: No pleural effusion or pneumothorax. BONE:Normal. RIGHT RIBS: Nondisplaced fracture of the anterior aspect of the right 7th rib. OTHER FINDINGS:Normal. IMPRESSION: 1. No acute pulmonary findings. 2. Nondisplaced fracture of the anterior aspect of the right 7th rib. No pneumothorax. DATA REPOSITORY: RADIATION DOSE DELIVERED:
--- NOTE | 2020-10-29 19:49 | ED.GENADUL_ITS ---
Discharge Plan Disposition Patient Disposition: HOME Condition: Stable Discharge Details Clinical Impression: Closed rib fracture Primary Care Provider: Cl Soto ED Provider: Sharon Haney Home Meds and New Rx's Prescriptions: Continued cholecalciferol (vitamin D3) 1,000 unit capsule 1,000 unit PO DAILY RF: 0 mecobalamin (vitamin B12) 1,000 mcg tablet,chewable 1,000 mcg PO DAILY RF: 0 levothyroxine [Levothroid] 137 MCG tablet 137 mcg PO DAILY Qty: 90 RF: 3 diphenhydramine HCl 25 mg Tablet 25 mg PO HS RF: 0 sertraline 25 mg tablet 25 mg PO DAILY RF: 0 naproxen 250 mg tablet 250 - 500 mg PO BID PRN (Reason: Moderate pain or swelling) Qty: 60 RF: 0 aspirin 325 mg tablet,delayed release (DR/EC) 325 mg PO DAILY 30 Days Qty: 30 RF: 0 ondansetron 4 mg tablet,disintegrating 4 mg PO Q6H PRN (Reason: nausea or vomiting) Qty: 5 RF: 0 oxycodone 5 mg tablet 5 - 10 mg PO Q4H PRN (Reason: moderate to severe pain) Qty: 16 RF: 0 lidocaine [Lidoderm] 1 PATCH patch 1 patch Topical Q24H Qty: 4 RF: 0 Discharge Instructions Instructions: Rib Fracture (ED) Additional Instructions: Encourage hydration. Please use Tylenol and/or ibuprofen as needed for discomfort. Topical pain management such as lidocaine patches may also be beneficial. Please encourage deep breathing to help prevent pneumonia as we discussed. You should be using the incentive spirometer at least 6 times a day as was instructed by nursing staff. Please follow-up with your primary care in the next 1 to 2 weeks for reevaluation of your rib fracture. Please keep your upcoming appointment with orthopedics regarding your ankle. Please follow postoperative instructions. If you develop fever/chills, increased pain, s hortness of breath, difficulty breathing or other new/worsening symptoms please seek care urgently once again. Referrals: Cl Soto PA [Primary Care Provider] - Medical Decision Making Patient is a pleasant 65-year-old female presenting today with chief complaint of fall. Patient is almost 1 month status post left ankle ORIF. Patient's been nonweightbearing. She reports she was using her crutches today when one of the crutches slipped out causing her to fall to the right side. She reports she was in her kitchen and landed against a wooden kitchen chair striking the right side of her ribs. Denies other injury at the time of the incident. She does however report that she did put weight down on the left ankle but states that this pain is not notable compared to the chest wall pain. States that she does have pain with deep breath or coughing. No fevers or chills. Denies any headache, neck pain, back pain. Denies any abdominal pain. No nausea or vomiting. Denies any numbness or tingling. On exam, patient appears uncomfortable. She appears nontoxic. Oxygen saturation 100%. Lung srivastava are clear. She does have an area of ecchymosis and discomfort over right lower chest wall where she struck. No abdominal pain. No crepitus or deformity is palpated. No pain over the cervical spine, full range of motion. No saddle paresthesias. Patient is requesting something for discomfort. She reports that the oxycodone she was previously treated with did not agree with me. She states that she has had Vicodin historically and seems to have done well with this. We will give p.o. Vicodin and obtain rib series x- ray. FINDINGS: Bones/joints: Nondisplaced acute appearing fracture of the right anterolateral 8th rib. Suspected fracture of the right anterolateral 7th rib although this is age indeterminate. No blastic or lytic lesions. Glenohumeral alignment and a.c. joint alignment are normal. Pleural space: No pneumothorax. No evidence of pleural effusion. Heart/Mediastinum: Visualized mediastinal structures are unremarkable. Intraperitoneal space: Visualized upper abdominal structures are unremarkable. Soft tissues: Normal. Other findings: Pulmonary hyperexpansion suggesting COPD. IMPRESSION: 1. Acute appearing nondisplaced fracture of the right anterolateral 8th rib. Age indeterminate nondisplaced fracture of the right anterolateral 7th rib. 2. No pneumothorax. Reevaluated patient. She is feeling improved. Discussed findings with the patient, will give Lidoderm patch and start with incentive spirometry. FINDINGS: Bones/joints: The previously fixated oblique fracture of the medial malleolus is unchanged in alignment with a single cannulated fixation screw in place, and partial bony union at the inferomedial aspect of the fracture interface. The previous distal fibular diaphyseal fracture is unchanged in alignment with lateral plate and screw fixation and no gross hardware complication. The previous small nondisplaced fracture along the posterior tibial malleolus is unchanged in alignment. Ankle mortise joint is well maintained. Small ankle joint effusion. Small plantar calcaneal spur and enthesopathy spurring at the Achilles attachment. Soft tissues: Mild soft tissue swelling around the distal left leg and ankle. No foreign body. IMPRESSION: 1. No new fractures are identified. 2. The previous trimalleolar left ankle fractures again noted, with no interval change in alignment at the fracture interfaces and no evidence of acute hardware complication. 3. Mild soft tissue swelling and small ankle joint effusion. I discussed this with the patient. She does have walker, wheelchair and crutches at home. She will hold off on using the crutches at time of this will likely cause increased pain in her chest wall. We discussed expected healing time for broken rib. With this activity to avoid. Encourage deep breathing to help prevent pneumonia, patient will be given incentive spirometer. Encourage hydration. Patient reports even the Vicodin upsets her stomach and she would like to avoid narcotics at this time for pain management. With the use Tylenol and ibuprofen to help with pain. We will also use lidocaine patches to help with discomfort. Return precautions were discussed. I advised follow-up with primary care next week for reevaluation. All of her questions and concerns were addressed and she is in agreement with this plan. HPI General Mode of arrival: wheelchair . Date/Time Provider Initiated Documentation: 10/29/20 19:49 . Limitations to Documentation: no limitations . Information obtained by: patient and RN notes reviewed . History of Present Illness 65 year old F presents to the emergency department with the chief complaint of right sided chest pain after fall, described as moderate, with intensity rated at 7. Quality is described as aching, and is localized to the chest. Patient reports no radiation. Patient started experiencing this minute(s) and it has been constant. Immobilization improves symptom(s), Movement worsens symptoms . Patient notes no other symptoms.. Patient did receive the following treatments prior to arrival, none Related Data Home Medications Medication Instructions Recorded Confirmed levothyroxine [Levothroid] 137 mcg PO DAILY #90 tab-cap 10/28/12 10/29/20 diphenhydramine HCl 25 mg PO HS 08/03/18 10/29/20 cholecalciferol (vitamin D3) 25 1,000 unit PO DAILY 02/28/19 10/29/20 mcg (1,000 unit) capsule mecobalamin (vitamin B12) 1,000 1,000 mcg PO DAILY 11/30/19 10/29/20 mcg chewable tablet lidocaine [Lidoderm] 1 patch TOPICAL Q24H #4 patch 01/15/20 10/29/20 sertraline 25 mg PO DAILY 09/28/20 10/29/20 aspirin 325 mg PO DAILY 30 Days #30 tab 10/02/20 10/29/20 naproxen 250 - 500 mg PO BID PRN #60 tab 10/02/20 10/29/20 ondansetron 4 mg PO Q6H PRN #5 tab 10/02/20 10/29/20 oxycodone 5 - 10 mg PO Q4H PRN #16 tab 10/02/20 10/29/20 Previous Rx's Medication Instructions Recorded lidocaine [Lidoderm] 1 patch TOPICAL Q24H #4 patch 01/15/20 aspirin 325 mg PO DAILY 30 Days #30 tab 10/02/20 naproxen 250 - 500 mg PO BID PRN #60 tab 10/02/20 ondansetron 4 mg PO Q6H PRN #5 tab 10/02/20 oxycodone 5 - 10 mg PO Q4H PRN #16 tab 10/02/20 Allergies Allergy/AdvReac Type Severity Reaction Status Date / Time atorvastatin AdvReac MUSCLE Verified 10/29/20 19:41 ACHES ezetimibe AdvReac muscle ache Verified 10/29/20 19:41 pravastatin AdvReac MUSCLE Verified 10/29/20 19:41 ACHES RED YEAST RICE AdvReac MUSCLE Uncoded 10/29/20 19:41 ACHES SHRIMP AdvReac VOMITING Uncoded 10/29/20 19:41 General Stated Complaint: Chest/Rib EDUARDO: 3 Review of Systems Constitutional Constitutional: Reports as per HPI, Denies chills, Denies fatigue, Denies fever(s), Denies headache(s) and Denies weakness Eyes Eyes: Reports as per HPI, Denies blurry vision, Denies change in vision and Denies loss of vision ENT Ears, Nose, Mouth, and Throat: Denies abnormal hearing and Denies headache(s) Cardiovascular Cardiovascular: Reports as per HPI, Reports chest pain (chest wall pain), Denies radiating jaw, neck or arm pain and Denies dyspnea Respiratory Respiratory: Reports as per HPI, Denies cough, Reports pain on inspiration, Reports pain with cough and Denies dyspnea Gastrointestinal Gastrointestinal: Reports as per HPI, Denies abdominal pain, Denies nausea and Denies vomiting Genitourinary Genitourinary: Reports as per HPI and Denies urinary incontinence Musculoskeletal Musculoskeletal: Reports as per HPI Integumentary/Breasts Skin/Breast: Reports as per HPI and Denies rash Neurologic Neurologic: Reports as per HPI, Denies abnormal hearing, Denies abnormal movements, Denies abnormal speech, Denies headache(s), Denies lack of coordination, Denies localized weakness, Denies loss of vision, Denies seizure- like activity, Denies paresthesias and Denies weakness Endocrine Endocrine: Denies fatigue [facility] Medical History Acute back pain Asthma Depressive disorder Generalized anxiety disorder Hyperlipidemia Hypothyroidism Low back pain BILL (obstructive sleep apnea) Pernicious anemia (03/16/12) SVT (supraventricular tachycardia) Surgical History H/O bilateral breast reduction surgery H/O colonoscopy (01/07/07) Dr Kevon Man, negative, repeat in 10 years H/O colonoscopy (08/06/18) 08/06/18 Dr Pathak,no abnormalities, repeat ten years History of hemorrhoidectomy Hx of tubal ligation Social History Smoking/Tobacco Use Status: Former Tobacco Use Quit Date: 08/24/75 Smoking risk assessment performed?: Yes Alcohol Intake: current Alcohol Intake frequency: holidays/special occasions only Drug use: Never Substance use type: does not use Current gender identity: female Do you feel safe at home: Yes Do you feel safe in your relationship?: Yes Exam Const General: cooperative, healthy appearing, uncomfortable, no acute distress, well developed and well groomed Nutritional Appearance: average body habitus and well nourished Orientation: alert, awake and oriented x3 HENMT Head: normal to inspection, no palpable skull fracture, normocephalic and atraumatic Ears: hearing grossly normal bilaterally and external ears normal General nose exam: external nose normal Eyes General: appearance normal, both eyes and all related structures Neck Neck: normal visual inspection, full ROM, no lymphadenopathy, no meningeal signs, trachea midline and supple Chest Chest: normal inspection of the chest, normal palpation of entire chest wall, no crepitus and localized rib tenderness with anteroposterior compression Chest/axillae images: 1. focal area of pain and ecchymosis. No crepitus, no palpable deformity Resp Effort & Inspection: normal respiratory effort, able to speak in complete sentences and no respiratory distress Auscultation: clear to auscultation bilaterally, no rales, no rhonchi and no wheezes Cardio Rate: regular rate Rhythm: regular rhythm Heart Sounds: S1 normal and S2 normal GI Inspection: normal to inspection, no abdominal wall ecchymosis, no edema and non-distended Palpation: soft, no hepatosplenomegaly, not firm, no guarding, no pulsatile masses, not rigid and nontender Back/Spine/Pelvis Back: no CVA tenderness Cervical Spine: normal cervical lordosis and cervical ROM normal Thoracic/Lumbar Spine: thoracic and lumbar spine normal to inspection, thoraco- lumbar ROM normal, No thoraco-lumbar ROM limited, No thoraco-lumbar spasm and No thoracic spinal tenderness Pelvis: no pain with anterior-posterior compression and no pain with lateral compression Skin General skin exam: ecchymosis (right side chest wall) Neuro General: patient alert, patient awake, patient oriented x3, gait normal, tone normal and moves all extremities Cranial Nerves: CN's II-XI intact bilaterally Cognition: normal cognition Speech: speech normal Gait: gait abnormal (nonweightbearing in postoperative period) Motor: muscle tone normal throughout Sensory Exam: no sensory deficits noted (no saddle paresthesias) Extrem General: normal to inspection, full ROM, capillary refill normal, no pedal edema and no calf tenderness Psych Appearance: grossly normal and well kempt Mental Status: mental status grossly normal Speech and Movement: speech and movement normal Course Vital Signs Vital signs: Vital Signs Temperature 36.3 C L 10/29/20 19:38 Pulse 68 10/29/20 19:38 Respiratory Rate 20 10/29/20 19:38 Blood Pressure 131/78 10/29/20 19:38 Pulse Oximetry 100 10/29/20 19:38 Temperature 36.3 C L 10/29/20 19:38 Temperature Source Skin 10/29/20 19:38 Pulse 68 10/29/20 19:38 Respiratory Rate 20 10/29/20 19:38 Respiratory Effort 10/29/20 19:43 Blood Pressure 131/78 10/29/20 19:38 Blood Pressure Position Sitting 10/29/20 19:38 Pulse Oximetry 100 10/29/20 19:38 Oxygen Delivery Method Room Air 10/29/20 19:38 Oxygen Flow Rate 0 10/29/20 19:38 Pain Level 7 10/29/20 19:38
--- NOTE | 2020-10-29 20:47 | DI.RAD_ITS ---
EXAM: XR ANKLE LT COMPLETE CLINICAL HISTORY: stepped on it, 1 mo ORIF, increased pain since. TECHNIQUE: 2D digital imaging was performed. COMPARISON: CR XR ANKLE LT COMPLETE from 10/17/2020 FINDINGS: BONES: There are stable post operative changes present. No new fracture or dislocation. Small calcan eal spur. JOINTS: The joint spaces are well maintained. No joint effusion is present. SOFT TISSUE: Mild soft tissue swelling. IMPRESSION: 1. Stable postoperative changes. 2. No new fracture or dislocation. DATA REPOSITORY: RADIATION DOSE DELIVERED:
--- NOTE | 2020-10-29 21:01 | DI.VRAD_ITS ---
PROCEDURE INFORMATION: Exam: XR Right Ribs Exam date and time: 10/29/2020 8:38 PM Age: 65 years old Clinical indication: Injury or trauma; Blunt trauma (contusions or hematomas); Rib area; Injury date: 10/29/20; Injury details: Fall, inferior lateral pain with ecchymosis; Additional info: Bb marker at site of most pain TECHNIQUE: Imaging protocol: XR Right ribs. Views: 2 views. Total images: 5 COMPARISON: CR CHEST 2 VIEWS PA,LAT 05/05/2016 12:46 PM FINDINGS: Bones/joints: Nondisplaced acute appearing fracture of the right anterolateral 8th rib. Suspected fracture of the right anterolateral 7th rib although this is age indeterminate. No blastic or lytic lesions. Glenohumeral alignment and a.c. joint alignment are normal. Pleural space: No pneumothorax. No evidence of pleural effusion. Heart/Mediastinum: Visualized mediastinal structures are unremarkable. Intraperitoneal space: Visualized upper abdominal structures are unremarkable. Soft tissues: Normal. Other findings: Pulmonary hyperexpansion suggesting COPD. IMPRESSION: 1. Acute appearing nondisplaced fracture of the right anterolateral 8th rib. Age indeterminate nondisplaced fracture of the right anterolateral 7th rib. 2. No pneumothorax. PROCEDURE INFORMATION: Exam: XR Chest Exam date and time: 10/29/2020 8:38 PM Age: 65 years old Clinical indication: Injury or trauma; Blunt trauma (contusions or hematomas); Rib area; Injury date: 10/29/20; Injury details: Fall, inferior lateral pain with ecchymosis; Additional info: Bb marker at site of most pain TECHNIQUE: Imaging protocol: XR of the chest Views: 2 views. COMPARISON: CR CHEST 2 VIEWS PA,LAT 05/05/2016 12:46 PM FINDINGS: Lungs: Moderate hyperexpansion and hyperlucency with diaphragmatic flattening suggesting COPD. Mild central vascular congestion. No gross pulmonary infiltrates. Pleural spaces: No pleural effusion. No pneumothorax. Heart/Mediastinum: Heart size normal. No tracheal/mediastinal shift. Vasculature: Mild aortic calcification. Bones/joints: Osteopenia. Fractures of the right anterolateral 8th and 7th ribs again noted. IMPRESSION: 1. Nondisplaced fractures of the right anterolateral 8th and 7th ribs. 2. No pneumothorax. 3. Evidence of COPD. Dictated and Authenticated by: Damion Erazo MD. Ordering:PRESTON Herrera MD
--- NOTE | 2020-10-29 21:30 | DI.VRAD_ITS ---
PROCEDURE INFORMATION: Exam: XR Left Ankle Exam date and time: 10/29/2020 9:06 PM Age: 65 years old Clinical indication: Injury or trauma; Blunt trauma; Left; Injury date: 10/29/20; Injury details: Fall on non weigh bearing ankle; Prior surgery; Surgery date: <1 month; Surgery type: 10/04/20 FX TECHNIQUE: Imaging protocol: XR Left ankle. Views: 3 or more views. Total images: 3 COMPARISON: CR XR ANKLE LT COMPLETE 10/17/2020 10:44 AM FINDINGS: Bones/joints: The previously fixated oblique fracture of the medial malleolus is unchanged in alignment with a single cannulated fixation screw in place, and partial bony union at the inferomedial aspect of the fracture interface. The previous distal fibular diaphyseal fracture is unchanged in alignment with lateral plate and screw fixation and no gross hardware complication. The previous small nondisplaced fracture along the posterior tibial malleolus is unchanged in alignment. Ankle mortise joint is well maintained. Small ankle joint effusion. Small plantar calcaneal spur and enthesopathy spurring at the Achilles attachment. Soft tissues: Mild soft tissue swelling around the distal left leg and ankle. No foreign body. IMPRESSION: 1. No new fractures are identified. 2. The previous trimalleolar left ankle fractures again noted, with no interval change in alignment at the fracture interfaces and no evidence of acute hardware complication. 3. Mild soft tissue swelling and small ankle joint effusion. Dictated and Authenticated by: Damion Erazo MD. Ordering:PRESTON Herrera MD
== END 2020-10-29 21:55 | disposition home or self-care (01) ==
PROVIDERS: Emergency Provider Physician Assistant; PCP Physician Assistant Medical
DX: S22.31XA Fracture of one rib, right side, initial encounter for closed fracture (principal); W18.39XA Other fall on same level, initial encounter; S82.852D Displaced trimalleolar fracture of left lower leg, subsequent encounter for closed fracture with routine healing
CPT/HCPCS: 99284; 71046; 71100; 73610; 99283

== ENCOUNTER 2020-11-28 10:24 | Outpatient (CLI) | payer BC, SELFPAY ==
--- NOTE | 2020-11-28 10:35 | DI.RAD_ITS ---
EXAM: XR ANKLE LT COMPLETE INDICATION: F/u. COMPARISON: CR,XR XR ANKLE LT COMPLETE from 10/29/2020 TECHNIQUE: 2D digital imaging was performed. FINDINGS: There has been no change in fracture or hardware alignment. Some interval increase in healing is not ed. Bones appear osteopenic from disuse. There is a plantar calcaneal spur. DATA REPOSITORY: RADIATION DOSE DELIVERED:
== END 2020-11-28 10:25 | disposition home or self-care (01) ==
LOC: DIORS 10:24
PROVIDERS: PCP Physician Assistant Medical; Referring Provider Physician Assistant Medical; Visit Provider Student in an Organized Health Care Education/Training Program
DX: S82.852D Displaced trimalleolar fracture of left lower leg, subsequent encounter for closed fracture with routine healing (principal); M85.88 Other specified disorders of bone density and structure, other site
CPT/HCPCS: 73610

== ENCOUNTER 2020-12-20 16:00 | Outpatient (REF) | payer BC, SELFPAY ==
[2020-12-22 14:32] LABS: COVID-19 RT-PCR UVMMC Result Positive (Negative)
== END 2020-12-20 16:01 | disposition home or self-care (01) ==
LOC: NCHCN 16:00
PROVIDERS: PCP Physician Assistant Medical; Visit Provider Physician Assistant Medical
DX: Z20.822 Contact with and (suspected) exposure to COVID-19 (principal); J06.9 Acute upper respiratory infection, unspecified
CPT/HCPCS: U0003

== ENCOUNTER 2020-12-24 09:49 | Outpatient (CLI) | payer BC, SELFPAY ==
[2020-12-24 12:45] VITALS: BP 117/73; PULSE 67; RESP 16; TEMP 36.6; O2SAT 96
[2020-12-24] MEDS: Normal Saline 500 ML 30 ML IV (13:14)
[2020-12-24] MEDS: Normal Saline Flush 10 ML SYR IVP (13:14)
[2020-12-24 13:23] VITALS: BP 119/76; PULSE 67; RESP 14; TEMP 36.6; O2SAT 99
[2020-12-24 13:58] VITALS: BP 115/73; PULSE 62; RESP 20; TEMP 36.5; O2SAT 98
[2020-12-24 14:28] VITALS: BP 119/75; PULSE 64; RESP 20; TEMP 36.4; O2SAT 95
[2020-12-24 14:58] VITALS: BP 121/76; PULSE 63; RESP 16; TEMP 36.3; O2SAT 98
== END 2020-12-24 09:50 | disposition home or self-care (01) ==
LOC: INF 09:53
PROVIDERS: PCP Physician Assistant Medical; Visit Provider Family Medicine
DX: U07.1 COVID-19 (principal)
CPT/HCPCS: 96365

== ENCOUNTER 2021-03-25 09:22 | Outpatient (REF) | payer BC, SELFPAY ==
[2021-03-25 14:51] LABS: Abs Immature Grans 0.01 10^3/uL (0.0-0.06); Absolute Basophil Count 0.03 10^3/uL (0.0-0.2); Absolute Eosinophil Count 0.11 10^3/uL (0.0-0.7); Absolute Lymphocyte Count 1.82 10^3/uL (1.2-3.4); Absolute Monocyte Count 0.58 10^3/uL (0.1-0.8); Absolute Neutrophil Count 2.57 10^3/uL (1.2-6.7); Basophils % 0.6; Eosinophils % 2.1; HCT 42.4 % (36.0-46.0); HGB 13.5 g/dL (11.2-15.7); Immature Grans % 0.2; Lymphocytes % 35.5; MCH 30.7 pg (27.0-33.0); MCHC 31.8 % (32.0-36.0); MCV 96.4 fL (80-95); MPV 12.9 fL (8.0-11.0); Monocytes % 11.3; Neutrophils % 50.3; Nucleated RBC 0 %; Platelet Count 236 10^3/uL (130-400); RDW 13.2 % (11.7-14.6); RDW-SD 47.5 fL; WBC 5.12 10^3/uL (4.4-10.8)
[2021-03-25 15:09] LABS: ALT 25 U/L (14-59); AST 29 U/L (15-37); Albumin 4.2 g/dL (3.4-5.0); Alkaline Phosphatase 93 U/L (46-116); Anion Gap 10.7 mmol/L (3-11); BUN 14 mg/dL (7-18); Bilirubin, Total 0.4 mg/dL (0.2-1.0); CO2 26.3 mmol/L (21.0-32.0); CREATININE 0.7 mg/dL (0.55-1.02); Calcium 9.4 mg/dL (8.5-10.1); Calculated LDL 191 mg/dL (<100); Chloride 105 mmol/L (98-107); Cholesterol 268 mg/dL (<200); Glucose 105 mg/dL (74-106); HDL Cholesterol 50 mg/dL (40-60); Potassium 4.6 mmol/L (3.5-5.1); Sodium 142 mmol/L (136-145); TSH 2.12 uIU/mL (0.36-3.74); Total Protein 7.1 g/dL (6.4-8.2); Triglyceride 135 mg/dL (<150)
== END 2021-03-25 09:23 | disposition home or self-care (01) ==
LOC: NCHCN 09:22
PROVIDERS: PCP Physician Assistant Medical; Visit Provider Physician Assistant Medical
DX: R42 Dizziness and giddiness (principal); U07.1 COVID-19
CPT/HCPCS: 80053; 80061; 83036; 84443; 85025

== ENCOUNTER 2021-04-15 11:24 | Outpatient (CLI) | payer BC, SELFPAY ==
--- NOTE | 2021-04-15 09:28 | DI.RAD_ITS ---
Exam(s) XR CHEST 2V PA LATERAL EXAM: XR CHEST 2V PA LATERAL CLINICAL HISTORY: DYSPNEA, R06.00; POST COVID-19, U07.1. TECHNIQUE: 2D digital imaging was performed. COMPARISON: CR CHEST 2 VIEWS PA,LAT from 12/04/2008 CR CHEST 2 VIEWS PA,LAT from 12/04/2008 CR CHEST 2 VIEWS PA,LAT from 05/05/2016 CR CHEST 2 VIEWS PA,LAT from 05/05/2016 CR THORACIC SPINE from 09/19/2016 CR THORACIC SPINE from 09/19/2016 CR,XR XR RIBS RT W PA LAT CHEST from 10/29/2020 FINDINGS: Heart size is normal. The mediastinum is not widened. Right lung is clear. There is platelike atelectasis in the superior lingular segment of the left lucius g. No pleural effusions. No pneumothorax. IMPRESSION: There is subsegmental platelike atelectasis in the superior lingular segment of the left lung. Remai nder of the lungs are clear. There are no pleural effusions. DATA REPOSITORY: RADIATION DOSE DELIVERED:
== END 2021-04-15 11:44 ==
PROVIDERS: PCP Physician Assistant Medical; Visit Provider Physician Assistant Medical
DX: R06.00 Dyspnea, unspecified (principal); U07.1 COVID-19; J98.11 Atelectasis
CPT/HCPCS: 71046

== ENCOUNTER 2021-05-07 01:31 | Outpatient (CLI) | payer BC, SELFPAY ==
--- NOTE | 2021-05-07 | DI.MAMMO_ITS ---
Exam(s) MAMMO SCREENING EXAM: MAMMO SCREENING CLINICAL HISTORY: SCREENING, PREVENTIVE HEALTH [facility]ARE,Z00.00 TECHNIQUE: Mammograms were interpreted according to the usual protocol including computer analysis w [employer], [employer] CAD system, tomosynthesis and C-view imaging. COMPARISON: 2011 through 2019 FINDINGS: The breasts are composed of mainly fatty density , Breast Density category A. No suspicious masses or suspicious microcalcifications are seen. Stable scarring related to breast r eduction. No skin thickening or abnormal axillary lymph nodes are seen. There has been no significant change from prior exams. IMPRESSION: BI-RADS Category 1, Negative mammogram Yearly screening mammography is recommended. Breast Density - Category A, fatty density. A negative radiographic report should not delay biopsy if a dominant or clinically suspicious mass is present. Up to ten percent of cancers are not identified on mammography. A negative report may reinforce clinical impression. Adenosis and dense breasts may obscure an underlying neoplasm. False positive reports average 6 to 10%. Patient will receive a letter notifying them of these results.
== END 2021-05-07 01:51 ==
PROVIDERS: PCP Physician Assistant Medical; Visit Provider Physician Assistant Medical
DX: Z12.31 Encounter for screening mammogram for malignant neoplasm of breast (principal)
CPT/HCPCS: 77063; 77067

== ENCOUNTER 2021-05-28 01:13 | Outpatient (CLI) | payer BC, SELFPAY ==
--- NOTE | 2021-05-28 | DI.US_ITS ---
APPROVED REPORT EXAM: Comprehensive 2D, Doppler, and color-flow Echocardiogram Patient Location: Out-Patient Shelter Monitor: Clary Alcala RDCS (AE) Indications: Lightheaded, COVID Other Information Study Quality: Good Conclusion Normal left ventricular wall thickness and chamber size. Estimated ejection fraction is 60%. Wall m otion is normal Normal right ventricular size and systolic function Both atria are normal in size Mild mitral annular calcification. Trace to mild mitral regurgitation Structurally normal aortic and tricuspid valves Wall motion Left Ventricle The left ventricle is normal size. The left ventricular systolic function is normal. The left ventric ular ejection fraction is within the normal range. There is normal left ventricular wall thickness. T here is normal LV segmental wall motion. There is no ventricular septal defect visualized. LVEF is 60 %. Right Ventricle The right ventricle is normal size. The right ventricular systolic function is normal. Atria The left atrium size is normal. The right atrium size is normal. The interatrial septum is intact wit h no evidence for an atrial septal defect. Aortic Valve The aortic valve is normal in structure. There is no aortic valvular stenosis. No aortic regurgitatio n is present. Mitral Valve Mild mitral annular calcification. No evidence of mitral valve stenosis. Trace to mild mitral regurgi tation. Tricuspid Valve The tricuspid valve is normal in structure. There is no tricuspid valve stenosis. Trace tricuspid reg urgitation. Pulmonic Valve Pulmonic valve is not well visualized. There is no pulmonic valvular stenosis. There is no pulmonic v alvular regurgitation. Great Vessels The aortic root is normal in size. The ascending aorta is normal in size. Aortic arch is normal in ca liber. IVC is normal in size and collapses >50% with inspiration. Pericardium There is no pericardial effusion. 2D Dimensions IVSD d PLAX 1.03 cm F: 0.6-1.0 LV Vol A2C d MOD 84.1 mL LVPW d PLAX 1.00 cm F: 0.6 - 1.0 LV Vol A4C d MOD 83.4 mL LVID d PLAX 4.59 cm F: 3.8 - 5.2 LA vol/ BSA A2C s A-L 45.9 mL/m2 LVDs 3.10 cm F: 2.2 - 3.5 LA vol/ BSA A4C s A-L 57.6 mL/m2 Ao Root d 2.86 cm F: 2.7 - 3.3 LA Vol/ BSA Biplane s A-L 55.0 mL/m2 RA Area A4C 17.68 cm2 LA Area A4C s MOD 28.70 cm2 RA Vol/ BSA A4C s A-L 24.1 mL/m2 LA Area A2C s MOD 23.94 cm2 Ao Asc Diam d 2.99 cm F: 2.3 - 3.1 LV EF A4C MOD 60.4 % LV EF Teichholz 60.0 % LV EF A2C MOD 59.6 % LVEF (Sahni's) 58.84 % F: 54 - 74 LV EF Biplane MOD 58.8 % LV Volume 67.14 mL F: 46 - 106 SV 51.82 mL LV Volume Index 35.33 mL/m2 F: 29 - 61 SV Index 27.19 mL/m2 LV Vol Biplane MOD 88.1 mL FS 31.80 % M-Mode TAPSE 2.84 cm (M/F) >1.7 LV Diastology MV E' medial 0.057 (>0.07 m/s) E/A Ratio 0.7 LV E/e MED 9.25 (<14) MV E Vmax 0.53 (0.4-1.3 m/s) MV E' lateral 0.046 (>0.1 m/s) MV A Vmax 0.80 (0.4-1.3 m/s) LV E/e LAT 11.55 (<14) MV E/A Ratio 0.63 MV E/E' medial 9.27 MV E/E' lateral 11.58 Aortic Valve LVOT Area 2.92 cm2 AoV Area Vmax 2.27 cm2 LVOT Vmax 1.25 m/s AoV Area/ BSA (Vmax) 1.19 cm2/m2 LVOT Mean Kemal. 0.76 m/s LUIS Mean Kemal. 1.88 cm2 LVOT Peak Grad 6.3 mmHg LUIS Mean Kemal. Index 0.99 cm2/m2 LVOT Mean Grad 2.8 mmHg LVOT VTI 0.264 m LVOT Diam s 1.90 cm AoV Vmax 1.61 m/s Velocity Ratio 0.77 AoV Mean Kemal. 1.18 m/s AoV Peak Grad 10.4 mmHg LVOT SV 77.20 mL AoV Mean Grad 6.3 mmHg AoV VTI 0.342 m AoV Area VTI 2.26 cm2 AoV Area/ BSA (VTI) 1.18 cm/m2 Mitral Valve MV DT 189 (160-240 msec) MV PHT 55 msec MV Area PHT 4.01 cm2 MV VTI 0.262 m MV Area VTI 2.94 (4.0-6.0 cm2) Pulmonary Valve PV Vmax 1.10 (0.5-1.5 m/s) RVOT Peak Gr. 2.11 mmHg PV Peak Grad 4.8 mmHg RVOT Mean Gr. 1.25 mmHg PV Mean Grad 3.3 mmHg RVOT VTI 0.135 m PV VTI 0.226 m RVOT Vmax 0.73 m/s Tricuspid Valve TR Peak Grad 33.5 mmHg TR Vmax 2.90 m/s RA Pressure 3.00 mmHg RVSP (TR) 36.6 mmHg
== END 2021-05-28 01:33 ==
PROVIDERS: PCP Physician Assistant Medical; Visit Provider Physician Assistant Medical
DX: R42 Dizziness and giddiness (principal); Z86.16 Personal history of COVID-19; I34.0 Nonrheumatic mitral (valve) insufficiency
CPT/HCPCS: 93306

== ENCOUNTER 2021-10-25 12:58 | Outpatient (REF) | payer BC, SELFPAY ==
[2021-10-25 20:28] LABS: Abs Immature Grans 0.01 10^3/uL (0.0-0.06); Absolute Basophil Count 0.06 10^3/uL (0.0-0.2); Absolute Eosinophil Count 0.09 10^3/uL (0.0-0.7); Absolute Monocyte Count 0.74 10^3/uL (0.1-0.8); Absolute Neutrophil Count 3.01 10^3/uL (1.2-6.7); Eosinophils % 1.5; HCT 43.8 % (36.0-46.0); HGB 14.2 g/dL (11.2-15.7); Immature Grans % 0.2; Lymphocytes % 34.9; MCHC 32.4 % (32.0-36.0); MCV 95.6 fL (80-95); Monocytes % 12.3; Neutrophils % 50.1; Nucleated RBC 0 %; Platelet Count 241 10^3/uL (130-400); RBC 4.58 10^6/uL (3.93-5.22); RDW 13.3 % (11.7-14.6); RDW-SD 47.5 fL; WBC 6.01 10^3/uL (4.4-10.8)
[2021-10-25 20:35] LABS: ALT 28 U/L (14-59); AST 28 U/L (15-37); Albumin 4.2 g/dL (3.4-5.0); Alkaline Phosphatase 98 U/L (46-116); Anion Gap 7.8 mmol/L (3-11); BUN 12 mg/dL (7-18); Bilirubin, Total 0.6 mg/dL (0.2-1.0); CO2 26.2 mmol/L (21.0-32.0); CREATININE 0.8 mg/dL (0.55-1.02); Calcium 9.5 mg/dL (8.5-10.1); Calculated LDL 216 mg/dL (<100); Chloride 105 mmol/L (98-107); Cholesterol 295 mg/dL (<200); Glucose 102 mg/dL (74-106); HDL Cholesterol 49 mg/dL (40-60); Magnesium 2.5 mg/dL (1.8-2.4); Sodium 139 mmol/L (136-145); Total Protein 7.5 g/dL (6.4-8.2); Triglyceride 154 mg/dL (<150)
[2021-10-25 20:51] LABS: Hemoglobin A1C 6.1 % (<5.7)
== END 2021-10-25 12:59 | disposition home or self-care (01) ==
LOC: NCHCN 12:58
PROVIDERS: PCP Physician Assistant Medical; Visit Provider Physician Assistant Medical
DX: R07.89 Other chest pain (principal); R73.03 Prediabetes; E78.5 Hyperlipidemia, unspecified
CPT/HCPCS: 80053; 80061; 83036; 83735; 85025

== ENCOUNTER 2021-11-12 00:41 | Outpatient (CLI) | payer BC, SELFPAY ==
--- NOTE | 2021-11-12 11:00 | DI.NM_ITS ---
APPROVED REPORT Exam: Exercise Treadmill Patient Location: Out-Patient Room/Bed: Stress Nurse: Maida Chadwick RN Ordering Provider:RAI ADKINS, Contact Number: [phone] BMI: 29.04 Baseline Rhythm: Sinus Rhythm Comment: Diffuse ST repolarization abnormalities Indications: Left chest pain Medical History Medical History: Hyperlipidemia, prediabetes, SVT, BILL, hypothyroidism, depression, lightheadedness, PTSD Cardiac Medications: Crestor, flovent inhaler, coQ10, levothyroxine Allergies: Statins, red yeast rice, shrimp Cardiac Risk Factors: Prediabetes, hyperlipidemia, asthma, smoker (former), family hx Previous Cardiac Procedures: None Pretest Chest Pain Characteristics: None Exercise History: Sedentary Physical Disabilities: None Lung Sounds: Clear to auscultation Heart Sounds: Regular Stress Test Details Test: Exercise stress testing was performed using a Jer protocol. Nuclear Acquisition: Rest Tc-99m/Stress Tc-99m 1 day Rest Isotope: Tc-99m Sestamibi. Dose: 10.6 Date: 11/12/2021 Injection Time: 1115 Stress Isotope: Tc-99m Sestamibi. Dose: 32.0 Date: 11/12/2021 Injection Time: 1322 HR Resting HR Supine: 63 bpm Max Heart Rate (APMHR): 155 bpm Resting HR Standin bpm Target HR (85% APMHR): 131 bpm Max HR Achieved: 146 bpm % of APMHR: 94 Recovery HR: 71 bpm HR response to stress: Normal HR response to stress BP Resting BP Supine: 128/74 mmHg Resting BP Standin/72 mmHg Max BP: 134/68 mmHg Recovery BP: 118/70 mmHg BP response to stress: Normal blood pressure response to stress. ECG Resting ECG: Sinus Rhythm Ectopy: None Comment: Diffuse ST repolarization abnormalities Stress ECG: Sinus Tachycardia ST Change: Nondiagnostic resting ST abnormalities Arrhythmia: Frequent PACs, occasional PVCs Recovery ECG: Sinus Rhythm Recovery ST Change: Nondiagnostic resting ST abnormalities, , No significant ST segment changes noted Recovery Arrhythmia: Frquent PACs, rare PVCs Clinical Reason for Termination: Fatigue, Dyspnea Stress Symptoms: General Fatigue, Dyspnea Exercise duration: 8 min09 sec Highest Stage Reached: Stage 3: 3.4 mph at 14% grade. Exercise capacity: 10.16 METs Forrester Treadmill Score: 7.5 Rate Pressure Product: 55499 Stress ECG Conclusion 1. Resting electrocardiogram showed diffuse nondiagnostic ST-T abnormalities 2. Patient exercised on the Jer protocol and completed a workload of 10.16 METS, limited by fatigue 3. Normal heart rate and blood pressure response to exercise. Patient achieved 94% of predicted hear t rate for age 4. Electrocardiographically the test was negative for myocardial ischemia. ST-T's became normal with exercise 5. There are occasional atrial and ventricular ectopic beats 6. See MPI report Forrester Treadmill Score is 7.5 which is Low risk. Stress Test Summary STAGE Time (mins) Speed (mph) Grade (%) HR BP SYMPTOMS METS Supine 63 128/74 Standing 57 122/72 SpO2 99% 1 3 1.7 10 100 128/74 SpO2 99% 4.6 2 6 2.5 12 120 132/78 Mild/moderate SOB, SpO2 98% 7 3 9 3.4 14 143 Moderate/severe SOB, SpO2 98% 10.2 1 min recovery 112 132/70 SpO2 99% 3 min recovery 82 134/68 SpO2 99% 6 min recovery 71 118/70 SpO2 97% MPI Conclusion Myocardial perfusion is normal without ischemia or evidence of prior infarction EF 61%, normal wall motion Radiologist Interpretation Radiologist agrees with Counter Tacker's Interpretation. Radiologist Interpretation by: Kim Veronica MD Interpretation Date/Time: 11/12/2021 15:59:05
== END 2021-11-12 01:01 ==
PROVIDERS: PCP Physician Assistant Medical; Visit Provider Physician Assistant Medical
DX: R07.89 Other chest pain (principal)
CPT/HCPCS: 78452; 93017

== ENCOUNTER 2021-12-12 17:33 | Outpatient (REF) | payer BC, SELFPAY ==
[2021-12-14 12:34] LABS: COVID-19 RT-PCR UVMMC Result Negative (Negative)
== END 2021-12-12 17:34 | disposition home or self-care (01) ==
LOC: LBN 17:33
PROVIDERS: PCP Physician Assistant Medical; Visit Provider Physician Assistant Medical
DX: Z20.822 Contact with and (suspected) exposure to COVID-19 (principal)
CPT/HCPCS: U0003

== ENCOUNTER 2022-02-28 16:31 | Emergency (ER) | payer BC, SELFPAY ==
[2022-02-28 16:38] VITALS: BP 138/72; PULSE 84; RESP 18; TEMP 37.4; O2SAT 96
[2022-02-28 17:03] VITALS: RESP 18
--- NOTE | 2022-02-28 17:06 | W.ED.GENAD ---
Discharge Plan Disposition Patient Disposition: HOME Condition: Stable Discharge Details Clinical Impression: COVID-19 Primary Care Provider: Cl Soto ED Provider: Rodolfo Rollins Home Meds and New Rx's Prescriptions: New Paxlovid (EUA) 300 mg (150 mg x 2)-100 mg tablet See Rx Instructions .ROUTE .COMPLEX Qty: 30 0RF Rx Instructions: take TWO 150 mg tablets of nirmatrelvir with ONE 100 mg tablet of ritonavir twice daily for 5 days Continued cholecalciferol (vitamin D3) 1,000 unit capsule 1,000 unit PO DAILY mecobalamin (vitamin B12) 1,000 mcg tablet,chewable 1,000 mcg PO DAILY benzonatate 200 mg capsule 200 mg PO TID Qty: 30 0RF levothyroxine [Levothroid] 137 MCG tablet 137 mcg PO DAILY Qty: 90 (DME) oxygen-air delivery systems Device See Rx Instructions .ROUTE Rx Instructions: As directed coenzyme Q10 10 mg capsule 10 mg PO DAILY naproxen 375 mg tablet 375 mg PO BID PRN cinnamon bark PO acetaminophen 500 mg capsule 500 mg PO Q6H PRN fluticasone propionate [Flovent HFA] 110 mcg/actuation HFA aerosol inhaler 2 puff inhalation BID diazepam [Valium] 5 mg tablet 10 mg PO BID PRN diphenhydramine HCl 25 mg Tablet 25 mg PO HS ondansetron 4 mg tablet,disintegrating 4 mg PO Q6H PRN (Reason: nausea or vomiting) Qty: 5 0RF lidocaine [Lidoderm] 1 PATCH patch 1 patch Topical Q24H Qty: 4 0RF Held rosuvastatin [Crestor] 5 mg tablet 5 mg PO DAILY Hold Instructions: Resume on 03/08/22. Hold until you have been done with the medication for COVID for 3 days. Discharge Instructions Instructions: COVID-19 (Coronavirus Disease 2019) (ED) Additional Instructions: Please take the COVID medication as prescribed and stop your Crestor and do not resume until you have finished with the COVID medication for 3 days. Please stay well-hydrated and get plenty of rest during viral infection and return to the emergency department immediately for any significant worsening of your symptoms or further concerns. Otherwise follow-up with your primary care provider if not improving. Referrals: Cl Soto PA [Primary Care Provider] - 1 week (if not improving) Discharge Data Discharge Date/Time-TO BE ENTERED AT DEPARTURE: 02/28/22 17:18 Medical Decision Making Patient presenting to the emergency department for chief complaint of viral cold symptoms and testing positive for COVID. Patient denies any dyspnea but does state chills, body aches, nasal congestion, cough, sore throat. Patient's vital signs are stable, clear lung sounds, and patient does appear ill but nontoxic and in stable condition. Discussed with patient risk versus benefit of antiviral medications for COVID-19 and emergency use status. After discussion of this patient states that she would prefer to use antivirals as she was given monoclonal antibodies with previous COVID infection. Patient does have history of SVT, sleep apnea, hypothyroidism. Called and spoke with pharmacist and recommendation for patient to hold Crestor while on antiviral. Patient was given this recommendation and states understanding of that. Patient did have renal testing done earlier this year and GFR was greater than 60. Patient denies any history of renal injury or insufficiency and states that she had labs done within the last month and all of her labs were normal also at that time. I see no reason to further investigate renal function and feel comfortable prescribing antiviral. After discussion of diagnosis and plan of care patient has no further needs, questions, or concerns and states clear understanding to return to the emergency department for any worsening symptoms. This documentation was generated using [employer] system, please disregard any oddities of phrase or misspellings. HPI General Mode of arrival: ambulatory. Date/Time Provider Initiated Documentation: 02/28/22 16:44. Limitations to Documentation: no limitations. Information obtained by: patient and RN notes reviewed. History of Present Illness 66 year old F presents to the emergency department with the chief complaint of Covid + with body aches, cough, headache, runny nose, described as moderate, with intensity rated at 7. Quality is described as aching, and is localized to the head. Patient reports no radiation. Patient started experiencing this day(s) (1) and it has been constant. No relieving factors improve symptom(s), No exacerbating factors reported . Patient notes no other symptoms.. Patient did receive the following treatments prior to arrival, none Related Data Home Medications Medication Instructions Recorded Confirmed levothyroxine 137 mcg tablet 137 mcg PO DAILY #90 tab-caps 10/28/12 02/28/22 (Levothroid) diphenhydramine HCl 25 mg tablet 25 mg PO HS 08/03/18 12/12/21 cholecalciferol (vitamin D3) 25 1,000 unit PO DAILY 02/28/19 12/12/21 mcg (1,000 unit) capsule mecobalamin (vitamin B12) 1,000 1,000 mcg PO DAILY 11/30/19 12/12/21 mcg chewable tablet lidocaine 5 % topical patch 1 patch topical Q24H #4 patches 01/15/20 12/12/21 (Lidoderm) ondansetron 4 mg disintegrating 4 mg PO Q6H PRN nausea or vomiting 10/02/20 12/12/21 tablet #5 tabs benzonatate 200 mg capsule 200 mg PO TID #30 caps 12/12/21 12/12/21 acetaminophen 500 mg capsule 500 mg PO Q6H PRN 02/27/22 cinnamon bark PO 02/27/22 coenzyme Q10 10 mg capsule 10 mg PO DAILY 02/27/22 diazepam 5 mg tablet (Valium) 10 mg PO BID PRN 02/27/22 fluticasone propionate 110 2 puff inhalation BID 02/27/22 mcg/actuation HFA aerosol inhaler (Flovent HFA) naproxen 375 mg tablet 375 mg PO BID PRN 02/27/22 02/28/22 oxygen-air delivery systems 02/27/22 rosuvastatin 5 mg tablet (Crestor) 5 mg PO DAILY 02/27/22 02/28/22 nirmatrelvir 300 mg (150 mg x See Rx Instructions PO .COMPLEX 02/28/22 2)-ritonavir 100 mg tablet (EUA) #30 tabs (Paxlovid 300 mg () Previous Rx's Medication Instructions Recorded lidocaine 5 % topical patch 1 patch topical Q24H #4 patches 01/15/20 (Lidoderm) ondansetron 4 mg disintegrating 4 mg PO Q6H PRN nausea or vomiting 10/02/20 tablet #5 tabs benzonatate 200 mg capsule 200 mg PO TID #30 caps 12/12/21 nirmatrelvir 300 mg (150 mg x See Rx Instructions PO .COMPLEX 02/28/22 2)-ritonavir 100 mg tablet (EUA) #30 tabs (Paxlovid 300 mg () Allergies Allergy/AdvReac Type Severity Reaction Status Date / Time atorvastatin AdvReac MUSCLE Verified 02/28/22 16:42 ACHES ezetimibe AdvReac muscle ache Verified 02/28/22 16:42 pravastatin AdvReac MUSCLE Verified 02/28/22 16:42 ACHES RED YEAST RICE AdvReac MUSCLE Uncoded 02/28/22 16:42 ACHES SHRIMP AdvReac VOMITING Uncoded 02/28/22 16:42 General Stated Complaint: GenMedical EDUARDO: 3 Review of Systems Constitutional Constitutional: Reports body ache(s), Reports chills, Reports headache(s) and Reports malaise ENT Ears, Nose, Mouth, and Throat: Reports as per HPI, Denies otalgia, Reports headache(s), Reports nasal congestion, Reports nasal discharge, Denies neck pain, Reports sore throat and Denies throat swelling Cardiovascular Cardiovascular: Denies chest pain and Denies dyspnea Respiratory Respiratory: Reports cough and Denies dyspnea Musculoskeletal Musculoskeletal: Denies joint swelling and Denies neck pain Integumentary/Breasts Skin/Breast: Denies rash Neurologic Neurologic: Reports headache(s) Allergic/Immunologic Allergic/Immunologic: Denies throat swelling PFSH All Active Problems (Updated 02/28/22 @ 17:08 by Rodolfo Rollins NP) COVID-19 (Acute) Closed rib fracture (Acute) Closed trimalleolar fracture of left ankle (Acute 09/28/20) s/p ORIF ON 10/04/20 Chronic constipation (Chronic) History of tobacco use (Chronic) Encounter for colorectal cancer screening (Acute) Adhesive capsulitis of left shoulder (Acute ~06/2019) Bursitis of left shoulder (Acute ~06/2019) Tendinitis of long head of biceps brachii of left shoulder (Acute) Tendinitis of left rotator cuff (Acute) Pernicious anemia (Chronic 03/16/12) Depressive disorder (Chronic) Asthma (Chronic) Generalized anxiety disorder (Chronic) Hyperlipidemia (Chronic) Hypothyroidism (Chronic) Low back pain (Chronic) SVT (supraventricular tachycardia) (Chronic) BILL (obstructive sleep apnea) (Chronic) Acute back pain (Chronic) Medical History (Updated 02/28/22 @ 17:08 by Rodolfo Rollins NP) COVID-19 Dyspnea Grief at loss of child Osteopenia Prediabetes PTSD (post-traumatic stress disorder) Skin lesion Surgical History H/O bilateral breast reduction surgery H/O colonoscopy (08/06/18) 08/06/18 Dr Pathak,no abnormalities, repeat ten years History of hemorrhoidectomy Hx of tubal ligation Social History Smoking/Tobacco Use Status: Former Tobacco Use Quit Date: 08/24/75 Smoking risk assessment performed?: Yes Alcohol Intake: current Alcohol Intake frequency: holidays/special occasions only Drug use: Never Substance use type: does not use Current gender identity: female Do you feel safe at home: Yes Do you feel safe in your relationship?: Yes Exam Const General: no acute distress Orientation: alert and awake HENTN Head: normal to inspection, normocephalic and atraumatic Ears: hearing grossly normal bilaterally and TM's normal bilaterally General nose exam: external nose normal Face and sinus: no erythema Mouth: oral mucosae normal, no drooling, no muffled voice and no trismus Throat: posterior oropharynx normal Neck Neck: normal visual inspection, full ROM, no lymphadenopathy, no meningeal signs, trachea midline and supple Resp Effort & Inspection: normal respiratory effort, able to speak in complete sentences and cough Quality of cough: dry Auscultation: clear to auscultation bilaterally Cardio Rate: regular rate Rhythm: regular rhythm Heart Sounds: S1 normal, S2 normal, normal S1 and S2, no click, no gallops, no murmurs and no rubs Skin General skin exam: no rashes or lesions noted and dry skin (warm) Neuro General: patient alert, patient awake, patient oriented x3, gait normal and moves all extremities Cognition: normal cognition Speech: speech normal Course Vital Signs Vital signs: Vital Signs Temperature 37.4 C 02/28/22 16:38 Pulse 84 02/28/22 16:38 Respiratory Rate 18 02/28/22 16:38 Blood Pressure 138/72 02/28/22 16:38 Pulse Oximetry 96 02/28/22 16:38 Temperature 37.4 C 02/28/22 16:38 Temperature Source Oral 02/28/22 16:38 Pulse 84 02/28/22 16:38 Respiratory Rate 18 02/28/22 17:03 Respiratory Effort Non-Labored 02/28/22 17:03 Respiratory Depth Normal 02/28/22 17:03 Respiratory Pattern Normal 02/28/22 17:03 Blood Pressure 138/72 02/28/22 16:38 Blood Pressure Position Sitting 02/28/22 16:38 Pulse Oximetry 96 02/28/22 16:38 Oxygen Delivery Method Room Air 02/28/22 16:38 Oxygen Flow Rate 0 02/28/22 16:38
== END 2022-02-28 17:18 | disposition home or self-care (01) ==
PROVIDERS: Emergency Provider Nurse Practitioner Family; PCP Physician Assistant Medical
DX: U07.1 COVID-19 (principal)
CPT/HCPCS: 99283

== ENCOUNTER 2022-03-31 13:58 | Outpatient (CLI) | payer BC, SELFPAY ==
--- NOTE | 2022-03-31 13:45 | RT.EKG_ITS ---
APPROVED REPORT Exam: Resting ECG Reason for Exam: SVT Patient Location: O HR:62 bpm ECG Measurements Heart Rate 62 AXIS SC 194 P 51 QRSd 94 QRS 13 QT 441 T 126 QTc 448 Conclusion Sinus rhythm...normal P axis, V-rate 50- 99 RSR' in V1 or V2, probably normal variant...small R' only
== END 2022-03-31 13:59 | disposition home or self-care (01) ==
LOC: DI.CARD 13:59
PROVIDERS: PCP Physician Assistant Medical; Visit Provider Internal Medicine Cardiovascular Disease
DX: I47.1 Supraventricular tachycardia (principal)
CPT/HCPCS: 93010

== ENCOUNTER 2022-06-09 19:16 | Outpatient (REF) | payer BC, SELFPAY ==
[2022-06-09 16:13] LABS: Hemoglobin A1C 5.9 % (<5.7)
[2022-06-09 16:46] LABS: TSH 1.33 uIU/mL (0.36-3.74)
== END 2022-06-09 19:17 | disposition home or self-care (01) ==
LOC: NCHCN 19:16
PROVIDERS: PCP Physician Assistant Medical; Visit Provider Physician Assistant Medical
DX: R73.03 Prediabetes (principal); E03.9 Hypothyroidism, unspecified
CPT/HCPCS: 83036; 84443

== ENCOUNTER 2022-09-06 10:29 | Emergency (ER) | payer BC, SELFPAY ==
[2022-09-06 10:37] VITALS: BP 135/67; PULSE 63; RESP 20; TEMP 36.4; O2SAT 100
--- NOTE | 2022-09-06 11:22 | W.ED.GENAD ---
Discharge Plan Disposition Patient Disposition: Home Condition: Stable Discharge Details Clinical Impression: Spasm of muscle of lower back Primary Care Provider: Cl Soto ED Provider: Rodolfo Rollins Home Meds and New Rx's Prescriptions: Continued cholecalciferol (vitamin D3) 1,000 unit capsule 1,000 unit PO DAILY mecobalamin (vitamin B12) 1,000 mcg tablet,chewable 1,000 mcg PO DAILY levothyroxine [Levothroid] 137 MCG tablet 137 mcg PO DAILY Qty: 90 (DME) oxygen-air delivery systems Device See Rx Instructions .Route Rx Instructions: As directed naproxen 375 mg tablet 375 mg PO BID PRN cinnamon bark PO acetaminophen 500 mg capsule 500 mg PO Q6H PRN rosuvastatin [Crestor] 5 mg tablet 5 mg PO DAILY Hold Instructions: Resume on 03/08/22. Hold until you have been done with the medication for COVID for 3 days. diphenhydramine HCl 25 mg Tablet 25 mg PO HS diazepam [Valium] 5 mg tablet 10 mg PO BID PRNQty: 6 0RF lidocaine [Lidoderm] 1 PATCH patch 1 patch Topical Q24H Qty: 4 0RF No Action cephalexin 500 mg tablet 500 mg PO BID 7 Days Qty: 14 0RF phenazopyridine [Pyridium] 100 mg tablet 100 mg PO TID PRNQty: 6 0RF Discharge Instructions Instructions: Muscle Spasm (ED) Additional Instructions: Continue to take your medications as prescribed and use the prescribed Valium only as needed for severe spasms. As you are able slowly start to perform back stretches and follow-up with your primary care provider for reassessment if not fully improving. For any significant worsening of your symptoms please return to the emergency department for reassessment. Stand Alone Forms: Work Release Referrals: Cl Soto PA [Primary Care Provider] - 1 week (For reassessment and furl to physical therapy as needed.) Discharge Data Discharge Date/Time-TO BE ENTERED AT DEPARTURE: 09/06/22 12:49 Medical Decision Making Patient presenting to the emergency department for chief complaint of acute back spasms. She states that she has had chronic back pain for the last 30 years and occasionally with increased activity she will start having significant spasms. Yesterday she was attempting to clear her cellar and started having spasms that have worsened over the last 24 hours. She has taken Tylenol, lidocaine patch, using TENS unit, and took a 5 mg diazepam this morning. She states minimal relief from her typical regimen and is here due to that. Patient denies any change in pattern or presentation from chronic issues. Physical exam shows some moderate to mild lumbar tenderness but more significant tenderness to the right paraspinal tissue of the lumbar spine. I have no concern for emergent back pain including feelings of LOW risk for ABDOMINAL AORTIC ANEURYSM, CAUDA EQUINA SYNDROME, EPIDURAL MASS LESION, SPINAL STENOSIS, OR HERNIATED DISK CAUSING SEVERE STENOSIS, thus I consider the discharge disposition reasonable. We will give patient ketorolac and IV diazepam to see if this helps alleviate her pain faster. She does have prescription of diazepam bottle with her and does have a couple doses left but she states that she feels this may not get her through the weekend. I did note that prescription was filled in December and so have low risk of abuse. We will give patient IV ketorolac and IV diazepam to see if this helps. Reassessed patient and she did have some improvement in pain and less frequent spasms but still having spasms. Will give additional 5 mg of diazepam to see if this further reduces symptoms. Reassessed patient again and she does state that continued spasms but no worsening of condition. She does report history of having difficult to control muscular spasms due to her back pain in the past and again that this is not abnormal. Will prescribe patient further diazepam to use on outpatient basis, encouraged warm compresses and massage if possible, and follow-up with primary care provider for reassessment. After discussion of diagnosis and plan of care patient has no further needs, questions, or concerns and states clear understanding to return to the emergency department for any worsening symptoms. This documentation was generated using [employer] system, please disregard any oddities of phrase or misspellings. HPI General Mode of arrival: ambulatory. Date/Time Provider Initiated Documentation: 09/06/22 10:49. Limitations to Documentation: no limitations. Information obtained by: patient and RN notes reviewed. History of Present Illness 67 year old F presents to the emergency department with the chief complaint of Back spasms, described as moderate, severe and similar to prior episodes, with intensity rated at 7. Quality is described as sharp, and is localized to the back. Patient reports no radiation. Patient started experiencing this day(s) (1) and it has been constant. Rest improves symptom(s), Movement worsens symptoms . Patient notes no other symptoms.. Patient did receive the following treatments prior to arrival, other (Acetaminophen, diazepam, lidocaine patch, TENS unit) Related Data Home Medications Medication Instructions Recorded Confirmed levothyroxine 137 mcg tablet 137 mcg PO DAILY #90 tab-caps 10/28/12 09/06/22 (Levothroid) diphenhydramine HCl 25 mg tablet 25 mg PO HS 08/03/18 09/06/22 cholecalciferol (vitamin D3) 25 1,000 unit PO DAILY 02/28/19 09/06/22 mcg (1,000 unit) capsule mecobalamin (vitamin B12) 1,000 1,000 mcg PO DAILY 11/30/19 09/06/22 mcg chewable tablet lidocaine 5 % topical patch 1 patch topical Q24H #4 patches 01/15/20 09/06/22 (Lidoderm) acetaminophen 500 mg capsule 500 mg PO Q6H PRN 02/27/22 09/06/22 cinnamon bark PO 02/27/22 06/05/22 naproxen 375 mg tablet 375 mg PO BID PRN 02/27/22 09/06/22 oxygen-air delivery systems 02/27/22 06/05/22 rosuvastatin 5 mg tablet (Crestor) 5 mg PO DAILY 02/27/22 09/06/22 cephalexin 500 mg tablet 500 mg PO BID 7 days #14 tabs 09/06/22 diazepam 5 mg tablet (Valium) 10 mg PO BID PRN #6 tabs 09/06/22 phenazopyridine 100 mg tablet 100 mg PO TID PRN 6 doses #6 tabs 09/06/22 (Pyridium) Previous Rx's Medication Instructions Recorded lidocaine 5 % topical patch 1 patch topical Q24H #4 patches 01/15/20 (Lidoderm) cephalexin 500 mg tablet 500 mg PO BID 7 days #14 tabs 09/06/22 diazepam 5 mg tablet (Valium) 10 mg PO BID PRN #6 tabs 09/06/22 phenazopyridine 100 mg tablet 100 mg PO TID PRN 6 doses #6 tabs 09/06/22 (Pyridium) Allergies Allergy/AdvReac Type Severity Reaction Status Date / Time atorvastatin AdvReac MUSCLE Verified 09/06/22 10:41 ACHES ezetimibe AdvReac muscle ache Verified 09/06/22 10:41 pravastatin AdvReac MUSCLE Verified 09/06/22 10:41 ACHES RED YEAST RICE AdvReac MUSCLE Uncoded 09/06/22 10:41 ACHES SHRIMP AdvReac VOMITING Uncoded 09/06/22 10:41 General Stated Complaint: Nk/Back Pain EDUARDO: 4 Review of Systems Constitutional Constitutional: Denies chills and Denies fever(s) Cardiovascular Cardiovascular: Denies chest pain and Denies dyspnea on exertion Respiratory Respiratory: Denies cough and Denies dyspnea on exertion Gastrointestinal Gastrointestinal: Denies abdominal pain, Denies change in bowel habits, Denies diarrhea, Denies nausea and Denies vomiting Genitourinary Genitourinary: Denies urinary incontinence Musculoskeletal Musculoskeletal: Reports as per HPI and Reports back pain Neurologic Neurologic: Denies sensory deficit PFSH All Active Problems (Updated 09/06/22 @ 22:11 by Ellie Torres NP) Spasm of muscle of lower back (Acute) Acute UTI (Acute) Muscle spasm of back (Acute) Bilateral sensorineural hearing loss (Acute) Nasal septal perforation (Acute) Actinic keratosis (Acute) COVID-19 (Acute) Closed rib fracture (Acute) Closed trimalleolar fracture of left ankle (Acute 09/28/20) s/p ORIF ON 10/04/20 Chronic constipation (Chronic) History of tobacco use (Chronic) Encounter for colorectal cancer screening (Acute) Adhesive capsulitis of left shoulder (Acute ~06/2019) Bursitis of left shoulder (Acute ~06/2019) Tendinitis of long head of biceps brachii of left shoulder (Acute) Tendinitis of left rotator cuff (Acute) Pernicious anemia (Chronic 03/16/12) Depressive disorder (Chronic) Asthma (Chronic) Generalized anxiety disorder (Chronic) Hyperlipidemia (Chronic) Hypothyroidism (Chronic) Low back pain (Chronic) SVT (supraventricular tachycardia) (Chronic) BILL (obstructive sleep apnea) (Chronic) Acute back pain (Chronic) Medical History COVID-19 Dyspnea Grief at loss of child Osteopenia Prediabetes PTSD (post-traumatic stress disorder) Skin lesion Surgical History H/O bilateral breast reduction surgery H/O colonoscopy (08/06/18) 08/06/18 Dr Pathak,no abnormalities, repeat ten years History of hemorrhoidectomy Hx of tubal ligation Social History Smoking/Tobacco Use Status: Former Tobacco Use Quit Date: 08/24/75 Smoking risk assessment performed?: Yes Alcohol Intake: current Alcohol Intake frequency: holidays/special occasions only Drug use: Never Substance use type: does not use Current gender identity: female Do you feel safe at home: Yes Do you feel safe in your relationship?: Yes Exam Const General: cooperative and no acute distress Orientation: alert, awake and oriented x3 Neck Neck: normal visual inspection, full ROM and no meningeal signs Resp Effort & Inspection: normal respiratory effort Auscultation: clear to auscultation bilaterally Cardio Rate: regular rate Rhythm: regular rhythm Heart Sounds: S1 normal and S2 normal Pulses: normal peripheral pulses Back/Spine/Pelvis Thoracic/Lumbar Spine: thoracic and lumbar spine normal to inspection, pain with thoraco-lumbar ROM, paraspinal tenderness, thoraco-lumbar ROM limited and lumbar spinal tenderness Neuro General: patient alert, patient awake and patient oriented x3 Course Vital Signs Vital signs: Vital Signs Temperature 36.4 C 09/06/22 10:37 Pulse 63 09/06/22 10:37 Respiratory Rate 20 09/06/22 10:37 Blood Pressure 135/67 09/06/22 10:37 Pulse Oximetry 100 09/06/22 10:37 Temperature 36.4 C 09/06/22 10:37 Temperature Source Oral 09/06/22 10:37 Pulse 63 09/06/22 10:37 Respiratory Rate 20 09/06/22 10:37 Respiratory Effort 09/06/22 10:40 Blood Pressure 135/67 09/06/22 10:37 Blood Pressure Position Sitting 09/06/22 10:37 Pulse Oximetry 100 09/06/22 10:37 Oxygen Delivery Method Room Air 09/06/22 10:37 Oxygen Flow Rate 0 09/06/22 10:37 Pain Level 7 09/06/22 10:37
[2022-09-06] MEDS: diazePAM 10 MG/2 ML SYR 5 MG IVP ×2 (11:23→12:09)
[2022-09-06] MEDS: Ketorolac 15 MG/ML VIAL IVP (11:24)
--- NOTE | 2022-09-06 15:45 | NUR.NOTE ---
Nursing Note: referral to cm for pcp
== END 2022-09-06 12:49 | disposition home or self-care (01) ==
PROVIDERS: Emergency Provider Nurse Practitioner Family; PCP Physician Assistant Medical
DX: M62.830 Muscle spasm of back (principal)
CPT/HCPCS: 96374; 96375; 99284; J1885; J3360

== ENCOUNTER 2022-09-06 18:01 | Emergency (ER) | payer BC, SELFPAY ==
[2022-09-06 18:05] VITALS: BP 122/67; PULSE 75; RESP 18; TEMP 36.6; O2SAT 100
--- NOTE | 2022-09-06 19:00 | DI.CT_ITS ---
Exam(s) CT THORACIC LUMBAR SPINE WO EXAM: CT THORACIC LUMBAR SPINE WO CLINICAL HISTORY: Back pain. TECHNIQUE: Imaging Protocol: Axial computed tomography images with coronal and sagittal reformatted images were created and reviewed. COMPARISON: CT CT LUMBAR SPINE WO from 01/15/2020 FINDINGS: Bones: No fractures or dislocations are seen. The alignment of the spine is normal including the cerv icothoracic junction and the thoracolumbar junction. Soft tissues: Atherosclerosis is present. No large disk herniations are identified. No significant c entral spinal canal stenosis. IMPRESSION: No acute fracture or subluxation in the thoracic or lumbar spine. RADIATION DOSE DELIVERED: 1,300.05mGy.cm Total DLP DATA REPOSITORY: All CT scans at this facility are submitted to the National Radiology Data Registry (NRDR) Dose Index Registry (DIR) with the [employer] (A[employer]). RADIATION OPTIMIZATION: All CT scans at this facility use at least one of these dose optimization te chniques: automated exposure control; mA and/or kV adjustment per patient size (includes targeted exa ms where dose is matched to clinical indication); or iterative reconstruction.
--- NOTE | 2022-09-06 19:13 | ED.GENADUL_ITS ---
Discharge Plan Disposition Patient Disposition: Home Condition: Stable Discharge Details Clinical Impression: Acute UTI, Muscle spasm of back Primary Care Provider: Cl Soto ED Provider: Ellie Torres Home Meds and New Rx's Prescriptions: New cephalexin 500 mg tablet 500 mg PO BID 7 Days Qty: 14 0RF phenazopyridine [Pyridium] 100 mg tablet 100 mg PO TID PRNQty: 6 0RF No Action cholecalciferol (vitamin D3) 1,000 unit capsule 1,000 unit PO DAILY mecobalamin (vitamin B12) 1,000 mcg tablet,chewable 1,000 mcg PO DAILY levothyroxine [Levothroid] 137 MCG tablet 137 mcg PO DAILY Qty: 90 (DME) oxygen-air delivery systems Device See Rx Instructions .Route Rx Instructions: As directed naproxen 375 mg tablet 375 mg PO BID PRN cinnamon bark PO acetaminophen 500 mg capsule 500 mg PO Q6H PRN rosuvastatin [Crestor] 5 mg tablet 5 mg PO DAILY Hold Instructions: Resume on 03/08/22. Hold until you have been done with the medication for COVID for 3 days. diphenhydramine HCl 25 mg Tablet 25 mg PO HS diazepam [Valium] 5 mg tablet 10 mg PO BID PRNQty: 6 0RF lidocaine [Lidoderm] 1 PATCH patch 1 patch Topical Q24H Qty: 4 0RF Discharge Instructions Instructions: Urinary Tract Infection in Women (ED), Muscle Spasm (ED) Additional Instructions: It appears that you have a urinary tract infection. Please take the antibiotic twice daily with yogurt or probiotic as directed. Take the Pyridium as directed and will turn your urine bright orange. You were given an additional muscle relaxer called Flexeril, Percocet tablet with oxycodone and Tylenol and an anti- inflammatory here. Please continue to take the diazepam as previously prescribed. CT of your thoracic and lumbar spine shows no acute abnormality no evidence of bulging disc. Our radiologist will overread it during daytime hours if there is any significant change in the radiology report we will give you a call. Follow up with primary care provider in 3-5 days. Return to ED sooner if any worsening or concerns. Increase oral fluids. Please take Tylenol or Ibuprofen with food every 4-6 hours as needed for pain and swelling. Continue using the lidocaine patches if that appears to help. You may ice your back as well. Referral form will be given to you for physical therapy. Stand Alone Forms: Physical Therapy Referral Referrals: Cl Soto PA [Primary Care Provider] - 3 days Medical Decision Making 57-year-old female presents to the ER with a chief complaint of muscle spasms. She was seen here earlier today and was given some diazepam and after being evaluated had some relief. However she reports after being discharged home she was in the recliner and the muscle spasms began again despite taking #2 5 mg tablets of diazepam around 1600., Tylenol and lidocaine patches. She denies any loss of bowel or bladder control denies any saddle anesthesia denies any problems urinating. She reports that the spasm starts in her lower back and radiates up into her thoracic area Due to patient's repeat visit, urinalysis ordered and CT T and L-spine. CT T and L-spine within normal limits, urinalysis shows 15 ketones small leukocytes 10-20 WBCs culture is pending at this time. I did discuss the results with patient. Unsure if this is what is causing her back spasms. Patient received Flexeril and Percocet. 2204: 30 mg of Toradol IM ordered at this time. Cephalexin and Pyridium. Patient does still have some Valium at home. Patient given discharge instructions and follow-up care verbalized understanding she remained hemodynamically stable alert and oriented throughout her entire stay here. This text was generated using [employer] dictation system, please disregard any oddities of phrase or misspellings. Lab Data Lab results reviewed: Yes I reviewed the patient's lab results. Labs: 09/06/22 21:40 Urine - Reflex from Ua Urine Culture - Pending Laboratory Tests Range/Units 09/06/22 21:40 Urine Color (Yellow) Yellow Urine Clarity (Clear) Clear Urine pH (5-8) 7.0 Ur Specific [place] (1.005-1.025) 1.020 Urine Protein (Negative) mg/dL Negative Urine Ketones (Negative) mg/dL 15 H Urine Blood (Negative) Negative Urine Nitrite (Negative) Negative Urine Bilirubin (Negative) Negative Urine Urobilinogen (Up TO 0.2) EU/dL 0.2 Ur Leukocyte Esterase (Negative) Small H Urine RBC (0-2) HPF Negative Urine WBC (0-5) HPF 10-20 H Ur Epithelial Cells (Negative) HPF Rare Urine Crystals (Negative) HPF Negative Urine Bacteria (Negative) HPF Rare Urine Casts (Negative) LPF Negative Urine Mucus (Negative) Negative Ur Culture Indicated? Yes Urine Glucose (Negative) mg/dL Negative HPI General Mode of arrival: wheelchair . Date/Time Provider Initiated Documentation: 09/06/22 18:19 . Limitations to Documentation: no limitations . Information obtained by: patient, RN notes reviewed and old records reviewed . HPI Narrative: 57-year-old female presents to the ER with a chief complaint of muscle spasms. She was seen here earlier today and was given some diazepam and after being evaluated had some relief. However she reports after being discharged home she was in the recliner and the muscle spasms began again despite taking #2 5 mg tablets of diazepam around 1600., Tylenol and lidocaine patches. She denies any loss of bowel or bladder control denies any saddle anesthesia denies any problems urinating. She reports that the spasm starts in her lower back and radiates up into her thoracic area. She has never had surgery on her back. She reports that she has had a long history of muscle spasms. Other past medical history was PTSD, dyspnea. Related Data Home Medications Medication Instructions Recorded Confirmed levothyroxine 137 mcg tablet 137 mcg PO DAILY #90 tab-caps 10/28/12 09/06/22 (Levothroid) diphenhydramine HCl 25 mg tablet 25 mg PO HS 08/03/18 09/06/22 cholecalciferol (vitamin D3) 25 1,000 unit PO DAILY 02/28/19 09/06/22 mcg (1,000 unit) capsule mecobalamin (vitamin B12) 1,000 1,000 mcg PO DAILY 11/30/19 09/06/22 mcg chewable tablet lidocaine 5 % topical patch 1 patch topical Q24H #4 patches 01/15/20 09/06/22 (Lidoderm) acetaminophen 500 mg capsule 500 mg PO Q6H PRN 02/27/22 09/06/22 cinnamon bark PO 02/27/22 06/05/22 naproxen 375 mg tablet 375 mg PO BID PRN 02/27/22 09/06/22 oxygen-air delivery systems 02/27/22 06/05/22 rosuvastatin 5 mg tablet (Crestor) 5 mg PO DAILY 02/27/22 09/06/22 cephalexin 500 mg tablet 500 mg PO BID 7 days #14 tabs 09/06/22 diazepam 5 mg tablet (Valium) 10 mg PO BID PRN #6 tabs 09/06/22 phenazopyridine 100 mg tablet 100 mg PO TID PRN 6 doses #6 tabs 09/06/22 (Pyridium) Previous Rx's Medication Instructions Recorded lidocaine 5 % topical patch 1 patch topical Q24H #4 patches 01/15/20 (Lidoderm) cephalexin 500 mg tablet 500 mg PO BID 7 days #14 tabs 09/06/22 diazepam 5 mg tablet (Valium) 10 mg PO BID PRN #6 tabs 09/06/22 phenazopyridine 100 mg tablet 100 mg PO TID PRN 6 doses #6 tabs 09/06/22 (Pyridium) Allergies Allergy/AdvReac Type Severity Reaction Status Date / Time atorvastatin AdvReac MUSCLE Verified 09/06/22 10:41 ACHES ezetimibe AdvReac muscle ache Verified 09/06/22 10:41 pravastatin AdvReac MUSCLE Verified 09/06/22 10:41 ACHES RED YEAST RICE AdvReac MUSCLE Uncoded 09/06/22 10:41 ACHES SHRIMP AdvReac VOMITING Uncoded 09/06/22 10:41 General Stated Complaint: Nk/Back Pain EDUARDO: 4 Review of Systems All systems reviewed & are unremarkable except as noted in HPI and below Genitourinary Genitourinary: Denies urinary incontinence, Denies urinary hesitancy and Denies urinary urgency Musculoskeletal Musculoskeletal: Reports as per HPI, Reports back pain, Denies numbness, Denies radiating pain into limb, Reports stiffness and Denies tingling Neurologic Neurologic: Denies numbness and Denies tingling PFSH All Active Problems (Updated 09/06/22 @ 22:11 by Ellie Torres NP) Spasm of muscle of lower back (Acute) Acute UTI (Acute) Muscle spasm of back (Acute) Bilateral sensorineural hearing loss (Acute) Nasal septal perforation (Acute) Actinic keratosis (Acute) COVID-19 (Acute) Closed rib fracture (Acute) Closed trimalleolar fracture of left ankle (Acute 09/28/20) s/p ORIF ON 10/04/20 Chronic constipation (Chronic) History of tobacco use (Chronic) Encounter for colorectal cancer screening (Acute) Adhesive capsulitis of left shoulder (Acute ~06/2019) Bursitis of left shoulder (Acute ~06/2019) Tendinitis of long head of biceps brachii of left shoulder (Acute) Tendinitis of left rotator cuff (Acute) Pernicious anemia (Chronic 03/16/12) Depressive disorder (Chronic) Asthma (Chronic) Generalized anxiety disorder (Chronic) Hyperlipidemia (Chronic) Hypothyroidism (Chronic) Low back pain (Chronic) SVT (supraventricular tachycardia) (Chronic) BILL (obstructive sleep apnea) (Chronic) Acute back pain (Chronic) Medical History COVID-19 Dyspnea Grief at loss of child Osteopenia Prediabetes PTSD (post-traumatic stress disorder) Skin lesion Surgical History H/O bilateral breast reduction surgery H/O colonoscopy (08/06/18) 08/06/18 Dr Pathak,no abnormalities, repeat ten years History of hemorrhoidectomy Hx of tubal ligation Social History Smoking/Tobacco Use Status: Former Tobacco Use Quit Date: 08/24/75 Smoking risk assessment performed?: Yes Alcohol Intake: current Alcohol Intake frequency: holidays/special occasions only Drug use: Never Substance use type: does not use Current gender identity: female Do you feel safe at home: Yes Do you feel safe in your relationship?: Yes Exam Narrative Exam Narrative: Constitutional: Alert and oriented x3. Appears stated age. Normal body habitus. Head: Normocephalic, no trauma. Eyes: Pupils PERRL, Red reflex noted, EOM's intact. Eyelids symmetrical without lesions, discharge, or swelling. ENT: Bilateral TM's WNL, External ear normal to inspection, no mastoid TTP, swelling, or erythema, Nasal turbinates WNL, no nasal discharge. Normal dentition, Posterior pharynx WNL, no exudate. Chest: RRR, Normal S1, S2, distal pulses intact. Resp: Lungs clear to auscultation bilaterally, no wheezes, rales, or rhonchi. Abdomen: Soft, non-distended, Normoactive bowel sounds all 4 quads. Musculoskeletal: Normal gait, 5/5 strength to all four extremities. Skin: No suspicious rashes or lesions. Capillary refill less than 2 sec. Neurologic: Cranial nerves II-XII intact. Alert and oriented x 3. Motor: No deficits noted. Sensory: Intact bilaterally all 4 extremities. Reflexes: DTR's intact bilaterally.. Hematologic/Lymphatic: No ecchymosis, no lymphadenopathy. Back/Spine/Pelvis Back: no CVA tenderness Thoracic/Lumbar Spine: thoracic and lumbar spine normal to inspection, thoraco- lumbar ROM normal, straight leg raise negative bilaterally and thoraco-lumbar spasm (Paraspinous tenderness no crepitus or step-off noted with midline palpation) Pelvis: no pain with anterior-posterior compression Neuro General: patient alert, patient awake and patient oriented x3 Cranial Nerves: CN's II-XI intact bilaterally Gait: normal gait Motor: muscle tone normal throughout, strength 5/5 throughout, no pronator drift, no movement abnormalities noted and no fasciculations Course Vital Signs Vital signs: Vital Signs Temperature 36.6 C 09/06/22 18:05 Pulse 75 09/06/22 18:05 Respiratory Rate 18 09/06/22 18:05 Blood Pressure 122/67 09/06/22 18:05 Pulse Oximetry 100 09/06/22 18:05 Temperature 36.6 C 09/06/22 18:05 Temperature Source Temporal Artery Scan 09/06/22 18:05 Pulse 75 09/06/22 18:05 Respiratory Rate 18 09/06/22 18:05 Respiratory Effort 09/06/22 18:09 Blood Pressure 122/67 09/06/22 18:05 Blood Pressure Position Sitting 09/06/22 18:05 Pulse Oximetry 100 09/06/22 18:05 Oxygen Delivery Method Room Air 09/06/22 18:05 Oxygen Flow Rate 0 09/06/22 18:05 Pain Level 8 09/06/22 18:05
--- NOTE | 2022-09-06 20:19 | DI.VRAD_ITS ---
PROCEDURE INFORMATION: Exam: CT Thoracic Spine Without Contrast Exam date and time: 09/06/2022 7:23 PM Age: 67 years old Clinical indication: Patient HX: Back pain TECHNIQUE: Imaging protocol: Computed tomography of the thoracic spine without contrast. COMPARISON: CR XR THORACIC SPINE COMPLETE 01/10/2020 9:03 AM FINDINGS: Bones/joints: No acute fracture. Normal alignment. No significant disc protrusion. No severe spinal canal stenosis. Soft tissues: Unremarkable. Vasculature: Mild atherosclerotic change present in the vasculature. Coronary arteries: Coronary artery calcifications noted. IMPRESSION: No acute abnormality seen in the thoracic spine. PROCEDURE INFORMATION: Exam: CT Lumbar Spine Without Contrast Exam date and time: 09/06/2022 7:23 PM Age: 67 years old Clinical indication: Patient HX: Back pain TECHNIQUE: Imaging protocol: Computed tomography of the lumbar spine without contrast. COMPARISON: CT LUMBAR SPINE WO 01/15/2020 5:44 AM FINDINGS: Bones/joints: No acute fracture. Normal alignment. No significant disc protrusion. No severe spinal canal stenosis. Soft tissues: Unremarkable. IMPRESSION: No evidence for acute abnormality to account for symptoms. Dictated and Authenticated by: Rina Rocha MD. Ordering:GALA Argueta MD
[2022-09-06] MEDS: Cyclobenzaprine 10 MG TAB PO (21:15)
[2022-09-06 21:46] LABS: Bilirubin Negative (Negative); Blood Negative (Negative); Clarity Clear (Clear); Glucose Negative (Negative); Ketones 15 mg/dL (Negative); Leukocyte Esterase Small (Negative); Nitrite Negative (Negative); Urobilinogen 0.2 EU/dL (Up TO 0.2)
[2022-09-06] MEDS: oxyCODONE 5 mg/Acetaminophen 325 mg TAB 1 TAB PO (21:46)
[2022-09-06 21:49] LABS: Bacteria Rare HPF (Negative); C & S Indicated? Yes; Casts Negative LPF (Negative); Crystals Negative HPF (Negative); Epithelial Cells Rare HPF (Negative); Mucus Negative (Negative); RBC Negative HPF (0-2)
[2022-09-06] MEDS: Cephalexin 500 MG CAP PO (22:29)
[2022-09-06] MEDS: Cephalexin 500 MG CAP, 2 CAPS/BTL PO (22:29)
[2022-09-06] MEDS: Phenazopyridine 100 MG TAB PO (22:30)
[2022-09-06] MEDS: Ketorolac 30 MG/ML VIAL IM (22:31)
== END 2022-09-06 23:37 | disposition home or self-care (01) ==
PROVIDERS: Emergency Provider Registered Nurse Emergency; PCP Physician Assistant Medical
DX: N39.0 Urinary tract infection, site not specified (principal); B96.89 Other specified bacterial agents as the cause of diseases classified elsewhere; M62.830 Muscle spasm of back
CPT/HCPCS: 99284; 72128; 72131; 81003; 81015; 87086; J1885

== ENCOUNTER 2022-09-18 21:56 | Emergency (ER) | payer BC, SELFPAY ==
--- NOTE | 2022-09-18 21:45 | RT.EKG_ITS ---
APPROVED REPORT Exam: Resting ECG Reason for Exam: Upper Ab / Chest Pain Patient Location: E HR:64 bpm ECG Measurements Heart Rate 64 AXIS IA 193 P 55 QRSd 91 QRS 8 QT 432 T 199 QTc 447 Conclusion Sinus rhythm...normal P axis, V-rate 60- 99 Repol abnrm suggests ischemia, lateral leads...ST dep, T neg, I aVL V5 V6. Sinus. Normal axis. T wave inversion, st depressioni n lateral leads seen in previous. No STEMI. I have reviewed and interpreted ECG and agree with software generated interpretation.
[2022-09-18 22:02] VITALS: BP 127/82; PULSE 67; RESP 20; TEMP 36.3; O2SAT 99
--- NOTE | 2022-09-18 22:10 | W.ED.GENAD ---
Discharge Plan Disposition Patient Disposition: Home Condition: Stable Discharge Details Clinical Impression: Biliary colic, Nausea and vomiting, Fecal retention Primary Care Provider: Cl Soto ED Provider: Muriel Beck Home Meds and New Rx's Prescriptions: Continued cholecalciferol (vitamin D3) 1,000 unit capsule 1,000 unit PO DAILY levothyroxine [Levothroid] 137 MCG tablet 137 mcg PO DAILY Qty: 90 (DME) oxygen-air delivery systems Device See Rx Instructions .Route Rx Instructions: As directed cinnamon bark See Rx Instructions .ROUTE .COMPLEX Rx Instructions: as directed acetaminophen 500 mg capsule 500 mg PO Q6H PRN rosuvastatin [Crestor] 5 mg tablet 5 mg PO DAILY Hold Instructions: Resume on 03/08/22. Hold until you have been done with the medication for COVID for 3 days. diphenhydramine HCl 25 mg Tablet 25 mg PO HS diazepam [Valium] 5 mg tablet 10 mg PO BID PRNQty: 6 0RF ketorolac 10 mg tablet 1 tab PO Q6H PRN PRN Label Comments: TAKE ONE TABLET BY MOUTH EVERY 6 HOURS NEEDED TO REPLACE OTC NSAIDS oxycodone-acetaminophen 5-325 mg tablet 1 tab BID PRN PRN Label Comments: TAKE ONE TABLET BY MOUTH TWO TIMES A DAY NEEDED FOR PAIN magnesium Tablet 1 tab PO 1XD Discharge Instructions Instructions: Constipation (ED), Acute Nausea and Vomiting (ED), Abdominal Pain (ED) Additional Instructions: Your CT scan today noted that you have gallstones but no obvious evidence of a gallbladder infection. An order for a gallbladder ultrasound has been placed. Please call the radiology department on the number provided tomorrow to schedule this ultrasound appointment as soon as possible, preferentially tomorrow. You were also noted to have stool within your bowel on the CT scan. This may be secondary to your oxycodone which can cause constipation. Stop eating prunes as you have been having nausea and vomiting. Start taking an bxem-fuq-rbblwvu stool softener such as Colace, MiraLAX and a suppository or enema if needed. You can also start taking a daily aahe-zpc-[id number] antacid medication such as Prilosec or Pepcid. Follow-up with your primary care doctor in 1 week. Return to the emergency department with any worsening or new concerning symptoms. Referrals: Roshan Slater MD [ [facility] STAFF PHYSICIAN] - Discharge Data Discharge Date/Time-TO BE ENTERED AT DEPARTURE: 09/19/22 00:56 Discharge Physician: Muriel Beck Medical Decision Making 2209 -- 67-year-old female with a history of hypertension hyperlipidemia, asthma, anxiety, depression and PTSD, tubal ligation presents for epigastric pain and nausea since last night and multiple episodes of vomiting this evening. Recently finished antibiotics for UTI. Is currently taking Percocet, Valium and Toradol for a lower back spasm. Vitals within normal limits. Patient appears somewhat uncomfortable but nontoxic. Her abdomen is soft but is tender in the epigastrium. She has no significant right or left upper quadrant tenderness. There is no rigidity or guarding. Differential diagnosis includes gastroenteritis, antibiotic induced nausea and vomiting, gastritis, PUD, GERD, cholelithiasis, cholecystitis, bowel obstruction. We will place an IV, bolus IV fluids, screening labs, CT abdomen and pelvis and give IV Pepcid, IV Dilaudid, IV Zofran and reassess. 0040 --labs and imaging reviewed. Normal white blood cell count. Potassium minimally elevated at 5.2. She has mild elevation of liver enzymes with AST 161, ALT 90, alk phos 118 but with normal bilirubin, lipase and troponin. Fluvid negative. CT scan notes small gallstones within the gallbladder but no acute biliary tract or bowel findings. CT reviewed with surgery on-call Dr. Lawson who does not find any evidence of an acute gallbladder infection. There is significant stool within her bowel which may correlate with her recent oxycodone intake. Discussed the patient at bedside and she has not taken any oxycodone for 2 days and was only taking it 1-2 times a day. She states she was only eating prunes for her constipation. Advised that she avoid this as she has been having nausea, vomiting and epigastric pain. Dr. Lawson recommend she get started on a bowel regimen and start a PPI. Patient reassessed and she feels much better and would like to go home. An order for an outpatient gallbladder ultrasound has been placed. She is advised to start taking Colace and MiraLAX. Usual and customary return precautions given prior to discharge. Medical Records Medical records reviewed: Yes I reviewed the patient's medical records. Imaging Data Radiologic Study: Radiologist's impression: CT Abdomen And Pelvis With Contrast Exam date and time: 09/18/2022 11:01 PM Age: 67 years old Clinical indication: Abdominal pain; Prior surgery; Surgery date: 6+ months; Surgery type: Tubal; Additional info: Epigastric pain, n/v, R/O cholelithiasis TECHNIQUE: Imaging protocol: Computed tomography of the abdomen and pelvis with contrast. Radiation optimization: All CT scans at this facility use at least one of these dose optimization techniques: automated exposure control; mA and/or kV adjustment per patient size (includes targeted exams where dose is matched to clinical indication); or iterative reconstruction. Contrast material: OMNI 350; Contrast volume: 100 ml; Contrast route: INTRAVENOUS (IV);? COMPARISON: CT ABDOMEN PELVIS W 01/15/2020 7:10 AM FINDINGS: Lungs: Lung bases are clear. Pleural spaces: No pleural effusion. Heart: Normal heart size. No pericardial effusion. No visible coronary artery atherosclerotic calcium. Liver: The liver is normal in size, contour and attenuation. Gallbladder and bile ducts: Small gallstones layering dependently within the gallbladder. No acute findings. No ductal dilatation or choledocholithiasis evident. Pancreas: The pancreas is normal in contour and attenuation. Spleen: The spleen is normal in size, contour and attenuation. Adrenal glands: The adrenal glands are normal in size and contour bilaterally. Kidneys and ureters: No acute renal pathology. Right renal subcentimeter cysts. No further imaging follow-up recommended based on MIPS criteria. Stomach and bowel: Gastric morphology is unremarkable. No edema. No gastric outlet obstruction. Small hiatal hernia. No acute features. Small bowel loops are unremarkable in course and caliber. There is a small diverticulum of the 3rd portion the duodenum measuring less than 2 cm. A diverticulum of the 2nd portion the duodenum measuring approximally 2.1 cm. The colon contains formed fecal material. There is no bowel wall thickening. No inflammatory features. No obstruction. Appendix: A non inflamed appendix is identified. Series 2, images 65 through 71. Intraperitoneal space: Nonspecific minimal simple free fluid in the pelvic cul-de-sac. Vasculature: Atherosclerotic aortoiliac calcium. No aneurysm. Lymph nodes: Unremarkable. No enlarged lymph nodes. Urinary bladder: Unremarkable as visualized. Reproductive: The uterus and adnexa are unremarkable in appearance. There are no dominant adnexal cysts or masslike features. There are no inflammatory features. No uterine mass evident. Bones/joints: Unremarkable. No acute fracture. Soft tissues: Unremarkable. IMPRESSION: 1. Small gallstones within the gallbladder. No acute biliary tract findings are suggested. 2. Small duodenal diverticula. No acute features of bowel. No bowel obstruction or elmer edema. 3. Subcentimeter right renal cysts. No acute renal pathology. 4. Nonspecific minimal free fluid in the pelvic cul-de-sac. 5. Unremarkable appearance of uterus and adnexa. Lab Data Lab results reviewed: Yes I reviewed the patient's lab results. Labs: Laboratory Tests Range/Units 09/18/22 09/18/22 09/18/22 22:05 22:05 22:05 WBC (4.4-10.8) 10^3/uL 10.26 RBC (3.93-5.22) 10^6/uL 4.49 Hgb (11.2-15.7) g/dL 13.8 Hct (36.0-46.0) % 42.6 MCV (80-95) fL 95 MCH (27.0-33.0) pg 30.7 MCHC (32.0-36.0) % 32.4 RDW (11.7-14.6) % 12.5 Plt Count (130-400) 10^3/uL 211 MPV (8.0-11.0) fL 12.7 H Immature Gran % 0.3 Neutrophils % 67.4 Lymphocytes % 21.2 Monocytes % 9.0 Eosinophils % 1.4 Basophils % 0.7 Nucleated RBC % (0.0-0.3) % 0.0 Absolute Neutrophils (1.2-6.7) 10^3/uL 6.93 H Absolute Lymphocytes (1.2-3.4) 10^3/uL 2.17 Absolute Monocytes (0.1-0.8) 10^3/uL 0.92 H Absolute Eosinophils (0.0-0.7) 10^3/uL 0.14 Absolute Basophils (0.0-0.2) 10^3/uL 0.07 Sodium (136-145) mmol/L 140 Potassium (3.5-5.1) mmol/L 5.2 H Chloride (98-107) mmol/L 105 Carbon Dioxide (21.0-32.0) mmol/L 29.2 Anion Gap (3-11) mmol/L 5.8 BUN (7-18) mg/dL 18 Creatinine (0.55-1.02) mg/dL 1.0 Est GFR (CKD-EPI 2020) (mL/min/1.73m2) 62.13 Glucose (74-106) mg/dL 124 H Calcium (8.5-10.1) mg/dL 9.9 Magnesium (1.8-2.4) mg/dL 2.2 Total Bilirubin (0.2-1.0) mg/dL 0.4 AST (15-37) U/L 161 H ALT (14-59) U/L 90 H Alkaline Phosphatase (46-116) U/L 118 H Troponin I (<or=60) ng/L < 50 Total Protein (6.4-8.2) g/dL 7.7 Albumin (3.4-5.0) g/dL 4.0 Lipase (73-393) U/L 215 COVID-19 Source SARS-CoV-2 (PCR) (Negative) Influenza Type A (PCR) (Negative) Influenza Type B (PCR) (Negative) RSV (PCR) (Negative) Range/Units 09/18/22 23:20 WBC (4.4-10.8) 10^3/uL RBC (3.93-5.22) 10^6/uL Hgb (11.2-15.7) g/dL Hct (36.0-46.0) % MCV (80-95) fL MCH (27.0-33.0) pg MCHC (32.0-36.0) % RDW (11.7-14.6) % Plt Count (130-400) 10^3/uL MPV (8.0-11.0) fL Immature Gran % Neutrophils % Lymphocytes % Monocytes % Eosinophils % Basophils % Nucleated RBC % (0.0-0.3) % Absolute Neutrophils (1.2-6.7) 10^3/uL Absolute Lymphocytes (1.2-3.4) 10^3/uL Absolute Monocytes (0.1-0.8) 10^3/uL Absolute Eosinophils (0.0-0.7) 10^3/uL Absolute Basophils (0.0-0.2) 10^3/uL Sodium (136-145) mmol/L Potassium (3.5-5.1) mmol/L Chloride (98-107) mmol/L Carbon Dioxide (21.0-32.0) mmol/L Anion Gap (3-11) mmol/L BUN (7-18) mg/dL Creatinine (0.55-1.02) mg/dL Est GFR (CKD-EPI 2020) (mL/min/1.73m2) Glucose (74-106) mg/dL Calcium (8.5-10.1) mg/dL Magnesium (1.8-2.4) mg/dL Total Bilirubin (0.2-1.0) mg/dL AST (15-37) U/L ALT (14-59) U/L Alkaline Phosphatase (46-116) U/L Troponin I (<or=60) ng/L Total Protein (6.4-8.2) g/dL Albumin (3.4-5.0) g/dL Lipase (73-393) U/L COVID-19 Source Nasopharynx SARS-CoV-2 (PCR) (Negative) Negative Influenza Type A (PCR) (Negative) Negative Influenza Type B (PCR) (Negative) Negative RSV (PCR) (Negative) Negative HPI General Mode of arrival: ambulatory. Date/Time Provider Initiated Documentation: 09/18/22 21:58. Limitations to Documentation: no limitations. Information obtained by: patient. HPI Narrative: Patient is a 67-year-old female with a history of hypertension, hyperlipidemia, asthma, anxiety, depression, PTSD and tubal ligation who presents for complaint of epigastric pain and nausea since last night with vomiting this evening. Patient describes the pain as intermittent and sharp in her upper abdomen. She states she vomited multiple times tonight which is mainly food. She states she ate chicken and a baked potato with multiple prunes. She states she is taking the prunes to prevent constipation as she is taking Percocet for recent back pain. She states her last dose of Percocet was 2 days ago. She states she has been taking Percocet, Valium and Toradol for the past week for a lower back muscle strain. She states her last dose of Valium was this morning and last dose of Toradol was this afternoon. She states she also finished an antibiotic for recent UTI yesterday. She states her upper abdominal pain is now improving. She states she had a small bowel movement today and denies any rectal bleeding. She denies any fever, sore throat, coughing, chest pain, shortness of breath or diarrhea. She denies any recent travel or sick contacts. Related Data Home Medications Medication Instructions Recorded Confirmed levothyroxine 137 mcg tablet 137 mcg PO DAILY #90 tab-caps 10/28/12 09/19/22 (Levothroid) diphenhydramine HCl 25 mg tablet 25 mg PO HS 08/03/18 09/19/22 cholecalciferol (vitamin D3) 25 1,000 unit PO DAILY 02/28/19 09/19/22 mcg (1,000 unit) capsule acetaminophen 500 mg capsule 500 mg PO Q6H PRN 02/27/22 09/19/22 cinnamon bark See Rx Instructions .Route .COMPLEX 02/27/22 09/19/22 oxygen-air delivery systems 02/27/22 06/05/22 rosuvastatin 5 mg tablet (Crestor) 5 mg PO DAILY 02/27/22 09/19/22 diazepam 5 mg tablet (Valium) 10 mg PO BID PRN #6 tabs 09/06/22 09/19/22 ketorolac 10 mg tablet 1 tab PO Q6H PRN PRN 09/18/22 09/19/22 magnesium 1 tab PO 1XD 09/18/22 09/19/22 oxycodone-acetaminophen 5 mg-325 1 tab BID PRN PRN 09/18/22 09/19/22 mg tablet Previous Rx's Medication Instructions Recorded diazepam 5 mg tablet (Valium) 10 mg PO BID PRN #6 tabs 09/06/22 Allergies Allergy/AdvReac Type Severity Reaction Status Date / Time atorvastatin AdvReac MUSCLE Verified 09/19/22 09:15 ACHES ezetimibe AdvReac muscle ache Verified 09/19/22 09:15 pravastatin AdvReac MUSCLE Verified 09/19/22 09:15 ACHES RED YEAST RICE AdvReac MUSCLE Uncoded 09/19/22 09:15 ACHES SHRIMP AdvReac VOMITING Uncoded 09/19/22 09:15 General Stated Complaint: Epigastric Pain/Over45 EDUARDO: 3 Review of Systems All systems reviewed & are unremarkable except as noted in HPI and below Constitutional Constitutional: Reports as per HPI, Denies chills and Denies fever(s) Eyes Eyes: Denies blurry vision ENT Ears, Nose, Mouth, and Throat: Denies dizziness, Denies sore throat and Denies throat swelling Cardiovascular Cardiovascular: Denies chest pain and Denies dyspnea Respiratory Respiratory: Denies cough and Denies dyspnea Gastrointestinal Gastrointestinal: Reports abdominal pain, Denies diarrhea, Reports nausea and Reports vomiting Genitourinary Genitourinary: Denies hematuria and Denies dysuria Musculoskeletal Musculoskeletal: Denies back pain and Denies numbness Integumentary/Breasts Skin/Breast: Denies lesions and Denies rash Neurologic Neurologic: Denies dizziness, Denies localized weakness and Denies numbness Allergic/Immunologic Allergic/Immunologic: Denies throat swelling PFS All Active Problems Spasm of muscle of lower back (Acute) Acute UTI (Acute) Muscle spasm of back (Acute) Biliary colic (Acute) Nausea and vomiting (Acute) Fecal retention (Acute) Cholelithiasis (Acute) Bilateral sensorineural hearing loss (Acute) Nasal septal perforation (Acute) Actinic keratosis (Acute) COVID-19 (Acute) Closed rib fracture (Acute) Closed trimalleolar fracture of left ankle (Acute 09/28/20) s/p ORIF ON 10/04/20 Chronic constipation (Chronic) History of tobacco use (Chronic) Encounter for colorectal cancer screening (Acute) Adhesive capsulitis of left shoulder (Acute ~06/2019) Bursitis of left shoulder (Acute ~06/2019) Tendinitis of long head of biceps brachii of left shoulder (Acute) Tendinitis of left rotator cuff (Acute) Pernicious anemia (Chronic 03/16/12) Depressive disorder (Chronic) Asthma (Chronic) Generalized anxiety disorder (Chronic) Hyperlipidemia (Chronic) Hypothyroidism (Chronic) Low back pain (Chronic) SVT (supraventricular tachycardia) (Chronic) BILL (obstructive sleep apnea) (Chronic) Acute back pain (Chronic) Medical History COVID-19 Dyspnea Grief at loss of child Osteopenia Prediabetes PTSD (post-traumatic stress disorder) Skin lesion Surgical History H/O bilateral breast reduction surgery H/O colonoscopy (08/06/18) 08/06/18 Dr Pathak,no abnormalities, repeat ten years History of hemorrhoidectomy Hx of tubal ligation Social History Smoking/Tobacco Use Status: Former Tobacco Use Quit Date: 08/24/75 Smoking risk assessment performed?: Yes Alcohol Intake: current Alcohol Intake frequency: holidays/special occasions only Drug use: Never Substance use type: does not use Current gender identity: female Do you feel safe at home: Yes Do you feel safe in your relationship?: Yes Exam Const General: cooperative, healthy appearing and no acute distress HENMT Head: normal to inspection Face and sinus: normal facial exam Eyes General: appearance normal, both eyes and all related structures Pupils: PERRL EOM: EOM intact bilaterally Neck Neck: normal visual inspection and No submandibular swelling Lymphatic: no lymphadenopathy noted Chest Chest: normal inspection of the chest and no tenderness Resp Effort & Inspection: normal respiratory effort and able to speak in complete sentences Auscultation: clear to auscultation bilaterally Cardio Rate: regular rate Rhythm: regular rhythm GI Inspection: normal to inspection Palpation: soft, not firm, not rigid and tender in the epigastrum Auscultation: hypoactive bowel sounds Skin General skin exam: no rashes or lesions noted Neuro General: patient alert, patient awake and patient oriented x3 Cognition: normal cognition Speech: speech normal Motor: muscle tone normal throughout Sensory Exam: no sensory deficits noted Extrem General: normal to inspection, full ROM, capillary refill normal, no calf tenderness bilaterally and no edema Psych Appearance: grossly normal Mental Status: mental status grossly normal Speech and Movement: speech and movement normal Affect: normal affect Course Vital Signs Vital signs: Vital Signs Temperature 97.4 F L 09/18/22 22:02 Pulse 67 09/18/22 22:02 Respiratory Rate 20 09/18/22 22:02 Blood Pressure 127/82 09/18/22 22:02 Pulse Oximetry 99 09/18/22 22:02 Temperature 97.4 F L 09/18/22 22:02 Temperature Source Oral 09/18/22 22:02 Pulse 67 09/18/22 22:02 Respiratory Rate 20 09/18/22 22:02 Blood Pressure 127/82 09/18/22 22:02 Pulse Oximetry 99 09/18/22 22:02 Oxygen Delivery Method Room Air 09/18/22 22:02 Oxygen Flow Rate 0 09/18/22 22:02
[2022-09-18 22:13] LABS: Abs Immature Grans 0.03 10^3/uL (0.0-0.06); Absolute Basophil Count 0.07 10^3/uL (0.0-0.2); Absolute Eosinophil Count 0.14 10^3/uL (0.0-0.7); Absolute Lymphocyte Count 2.17 10^3/uL (1.2-3.4); Absolute Monocyte Count 0.92 10^3/uL (0.1-0.8); Absolute Neutrophil Count 6.93 10^3/uL (1.2-6.7); Basophils % 0.7; Eosinophils % 1.4; HCT 42.6 % (36.0-46.0); HGB 13.8 g/dL (11.2-15.7); Immature Grans % 0.3; Lymphocytes % 21.2; MCH 30.7 pg (27.0-33.0); MCHC 32.4 % (32.0-36.0); MCV 95 fL (80-95); MPV 12.7 fL (8.0-11.0); Neutrophils % 67.4; Platelet Count 211 10^3/uL (130-400); RBC 4.49 10^6/uL (3.93-5.22); RDW 12.5 % (11.7-14.6); RDW-SD 43.8 fL; WBC 10.26 10^3/uL (4.4-10.8)
[2022-09-18 22:30] LABS: ALT 90 U/L (14-59); AST 161 U/L (15-37); Alkaline Phosphatase 118 U/L (46-116); Anion Gap 5.8 mmol/L (3-11); BUN 18 mg/dL (7-18); Bilirubin, Total 0.4 mg/dL (0.2-1.0); CO2 29.2 mmol/L (21.0-32.0); Calcium 9.9 mg/dL (8.5-10.1); Chloride 105 mmol/L (98-107); Estimated GFR 62.13 (mL/min/1.73m2); Glucose 124 mg/dL (74-106); Potassium 5.2 mmol/L (3.5-5.1); Sodium 140 mmol/L (136-145); Total Protein 7.7 g/dL (6.4-8.2)
[2022-09-18 22:34] LABS: Lipase 215 U/L (73-393); Magnesium 2.2 mg/dL (1.8-2.4); Troponin I < 50 ng/L (<or=60)
--- NOTE | 2022-09-18 22:45 | DI.CT_ITS ---
Exam(s) CT ABDOMEN PELVIS W EXAM: CT ABDOMEN PELVIS W CLINICAL HISTORY: epigastric pain, n/v, r/o cholelithiasis TECHNIQUE: Imaging Protocol: Axial computed tomography images with coronal and sagittal reformatted images were created and reviewed CONTRAST MATERIAL: Intravenous: Omnipaque 350 Contrast volume:100 mL Oral: No COMPARISON: CT CT ABDOMEN PELVIS W from 01/15/2020 FINDINGS: ABDOMEN: Lung Bases: There is a small hiatal hernia. Liver: Normal density. No measurable mass. Portal, Superior Mesenteric, and Splenic Veins: Unremarkable. Gallbladder and Biliary Tract: Gallstones are present. No biliary ductal dilatation. Pancreas: Normal density, no abnormal calcifications or inflammatory process. Spleen: Normal. Adrenals: No masses seen. Kidneys: Normal size, contour and axis. No radiodense stones or obstructive uropathy. There are few t iny hypodensities in the kidney. They are too small for further characterization. No follow-up is r ecommended. Abdominal Aorta: Abdominal portion non-dilated. Atherosclerosis is present. Bowel: No obstruction or bowel wall thickening. Appendix is unremarkable. Incidental note is made of a few small duodenal diverticulum. Peritoneal Cavity: There is a trace amount of free fluid in the pelvis. No free air. Lymph Nodes: Within normal limits. Bones: Within normal limits for the patient's age. Soft Tissues: Unremarkable. PELVIS: Bladder: Symmetric distention, no gross wall thickening. Reproductive Organs: Unremarkable as visualized. Lymph Nodes: Within normal limits. Bones: Within normal limits for the patient's age. IMPRESSION: 1. Cholelithiasis. No biliary ductal dilatation or other acute biliary tract findings. 2. No acute abdominal or pelvic process. RADIATION DOSE DELIVERED: 854.93mGy.cm Total DLP DATA REPOSITORY: All CT scans at this facility are submitted to the National Radiology Data Registry (NRDR) Dose Index Registry (DIR) with the [employer] ([employer]). RADIATION OPTIMIZATION: All CT scans at this facility use at least one of these dose optimization te chniques: automated exposure control; mA and/or kV adjustment per patient size (includes targeted exa ms where dose is matched to clinical indication); or iterative reconstruction.
[2022-09-18] MEDS: Omnipaque 350 MG/ML 100 ML BTL IJ (23:02)
[2022-09-18] MEDS: Normal Saline - Diluent 50 ML VIAL IJ (23:04)
[2022-09-18] MEDS: HYDROmorphone 2 MG/ML SYR 0.5 MG IVP (23:15)
[2022-09-18] MEDS: Normal Saline 1,000 ML 1000 ML IV (23:15)
[2022-09-18] MEDS: Famotidine 20 MG/2 ML VIAL IVP (23:16)
[2022-09-18] MEDS: Ondansetron 4 MG/2 ML VIAL IVP (23:16)
[2022-09-18 23:27] VITALS: PULSE 74; RESP 20; O2SAT 91
[2022-09-18 23:30] VITALS: PULSE 72; RESP 14; O2SAT 94
--- NOTE | 2022-09-18 23:35 | DI.VRAD_ITS ---
PROCEDURE INFORMATION: Exam: CT Abdomen And Pelvis With Contrast Exam date and time: 09/18/2022 11:01 PM Age: 67 years old Clinical indication: Abdominal pain; Prior surgery; Surgery date: 6+ months; Surgery type: Tubal; Additional info: Epigastric pain, n/v, R/O cholelithiasis TECHNIQUE: Imaging protocol: Computed tomography of the abdomen and pelvis with contrast. Radiation optimization: All CT scans at this facility use at least one of these dose optimization techniques: automated exposure control; mA and/or kV adjustment per patient size (includes targeted exams where dose is matched to clinical indication); or iterative reconstruction. Contrast material: OMNI 350; Contrast volume: 100 ml; Contrast route: INTRAVENOUS (IV); COMPARISON: CT ABDOMEN PELVIS W 01/15/2020 7:10 AM FINDINGS: Lungs: Lung bases are clear. Pleural spaces: No pleural effusion. Heart: Normal heart size. No pericardial effusion. No visible coronary artery atherosclerotic calcium. Liver: The liver is normal in size, contour and attenuation. Gallbladder and bile ducts: Small gallstones layering dependently within the gallbladder. No acute findings. No ductal dilatation or choledocholithiasis evident. Pancreas: The pancreas is normal in contour and attenuation. Spleen: The spleen is normal in size, contour and attenuation. Adrenal glands: The adrenal glands are normal in size and contour bilaterally. Kidneys and ureters: No acute renal pathology. Right renal subcentimeter cysts. No further imaging follow-up recommended based on MIPS criteria. Stomach and bowel: Gastric morphology is unremarkable. No edema. No gastric outlet obstruction. Small hiatal hernia. No acute features. Small bowel loops are unremarkable in course and caliber. There is a small diverticulum of the 3rd portion the duodenum measuring less than 2 cm. A diverticulum of the 2nd portion the duodenum measuring approximally 2.1 cm. The colon contains formed fecal material. There is no bowel wall thickening. No inflammatory features. No obstruction. Appendix: A non inflamed appendix is identified. Series 2, images 65 through 71. Intraperitoneal space: Nonspecific minimal simple free fluid in the pelvic cul-de-sac. Vasculature: Atherosclerotic aortoiliac calcium. No aneurysm. Lymph nodes: Unremarkable. No enlarged lymph nodes. Urinary bladder: Unremarkable as visualized. Reproductive: The uterus and adnexa are unremarkable in appearance. There are no dominant adnexal cysts or masslike features. There are no inflammatory features. No uterine mass evident. Bones/joints: Unremarkable. No acute fracture. Soft tissues: Unremarkable. IMPRESSION: 1. Small gallstones within the gallbladder. No acute biliary tract findings are suggested. 2. Small duodenal diverticula. No acute features of bowel. No bowel obstruction or elmer edema. 3. Subcentimeter right renal cysts. No acute renal pathology. 4. Nonspecific minimal free fluid in the pelvic cul-de-sac. 5. Unremarkable appearance of uterus and adnexa. Dictated and Authenticated by: Codey Cosme MD. Ordering:CHASTITY Llamas MD
[2022-09-18 23:40] VITALS: PULSE 73; RESP 14; O2SAT 91
[2022-09-18 23:50] VITALS: PULSE 74; RESP 18; O2SAT 91
[2022-09-19] VITALS: PULSE 72; RESP 13; O2SAT 97
[2022-09-19 00:02] LABS: COVID-19 PCR Negative (Negative); Influenza A PCR Negative (Negative); Influenza B PCR Negative (Negative); RSV PCR Negative (Negative)
[2022-09-19 00:10] VITALS: PULSE 74; RESP 20; O2SAT 96
[2022-09-19 00:13] LABS: Source Nasopharynx
[2022-09-19 00:20] VITALS: PULSE 73; RESP 19; O2SAT 96
[2022-09-19 01:01] VITALS: BP 120/58; PULSE 72; RESP 16; TEMP 36.7; O2SAT 96
== END 2022-09-19 00:56 | disposition home or self-care (01) ==
PROVIDERS: Emergency Provider Physician Assistant; PCP Physician Assistant Medical
DX: K80.70 Calculus of gallbladder and bile duct without cholecystitis without obstruction (principal); K56.41 Fecal impaction; I10 Essential (primary) hypertension; J45.909 Unspecified asthma, uncomplicated; M62.830 Muscle spasm of back; E87.5 Hyperkalemia; R74.01 Elevation of levels of liver transaminase levels; Z86.16 Personal history of COVID-19; Z20.822 Contact with and (suspected) exposure to COVID-19
CPT/HCPCS: 80053; 83690; 87637; 93005; 96361; 96374; 96375; 99285; 74177; 83735; 84484; 85025; 93010; 99284; J1170; J2405; J3490

== ENCOUNTER 2022-09-19 09:09 | Emergency (ER) | payer BC, SELFPAY ==
[2022-09-19 09:13] VITALS: BP 133/72; PULSE 65; RESP 18; TEMP 36.6; O2SAT 100
--- NOTE | 2022-09-19 09:24 | ED.GENADUL_ITS ---
Discharge Plan Disposition Patient Disposition: Home Condition: Stable Discharge Details Clinical Impression: Cholelithiasis Primary Care Provider: Cl Soto ED Provider: Sheng Alicea Home Meds and New Rx's Prescriptions: Continued cholecalciferol (vitamin D3) 1,000 unit capsule 1,000 unit PO DAILY levothyroxine [Levothroid] 137 MCG tablet 137 mcg PO DAILY Qty: 90 (DME) oxygen-air delivery systems Device See Rx Instructions .Route Rx Instructions: As directed cinnamon bark See Rx Instructions .ROUTE .COMPLEX Rx Instructions: as directed acetaminophen 500 mg capsule 500 mg PO Q6H PRN rosuvastatin [Crestor] 5 mg tablet 5 mg PO DAILY Hold Instructions: Resume on 03/08/22. Hold until you have been done with the medication for COVID for 3 days. diphenhydramine HCl 25 mg Tablet 25 mg PO HS diazepam [Valium] 5 mg tablet 10 mg PO BID PRNQty: 6 0RF ketorolac 10 mg tablet 1 tab PO Q6H PRN PRN Label Comments: TAKE ONE TABLET BY MOUTH EVERY 6 HOURS NEEDED TO REPLACE OTC NSAIDS oxycodone-acetaminophen 5-325 mg tablet 1 tab BID PRN PRN Label Comments: TAKE ONE TABLET BY MOUTH TWO TIMES A DAY NEEDED FOR PAIN magnesium Tablet 1 tab PO 1XD Discharge Instructions Instructions: Gallstones (ED) Additional Instructions: Your ultrasound today reveals that you have gallstones but there is no evidence of acute cholecystitis. Please follow the instructions set forth last night. I have placed you on the surgical list, please contact their office later today or on Thursday to discuss your ER visit need for outpatient reevaluation. Dietary restrictions as we discussed. Please watch for new or worsening symptoms and return to the ER for any concerns. Referrals: Roshan Slater MD [ [facility] STAFF PHYSICIAN] - Medical Decision Making 67-year-old female presents for ultrasound results, was seen in the ER last night for abdominal pain, nausea, vomiting, constipation. She has not begun taking her Colace. Reports overall feeling improvement when compared to yesterday. Clinically she appears well, nontoxic, hemodynamically stable, abdomen is soft, nonsurgical. Ultrasound reveals cholelithiasis but no acute cholecystitis. I see no clear indication to repeat laboratory values from yesterday as the ultrasound is nonacute and she is feeling improvement overall her symptoms. I will place her on the care management list to help expedite outpatient surgery care. Dietary restrictions were discussed with biliary colic. Standard discharge and return precautions were provided. Patient understands, is agreeable to this plan, and has no additional questions or concerns upon discharge. This documentation was generated using Mangia[employer] system, please disregard any oddities of phrase or misspellings. Medical Records Medical records reviewed: Yes I reviewed the patient's medical records. Imaging Data Radiologic Study: Attestation: I personally reviewed and interpreted this imaging study as follows: Imaging: Ultrasound Radiologist's impression: Exam(s) US ABDOMEN LIMITED EXAM: US ABDOMEN LIMITED CLINICAL HISTORY: CHOLELITHIASIS, ? CHOLECYSTITIS TECHNIQUE: Ultrasound abdomen performed using standard protocol. COMPARISON: CT CT ABDOMEN PELVIS W from 09/18/2022 FINDINGS: PANCREAS: Normal where visualized. LIVER: Normal. Hepatopedal flow in the Portal Vein. The liver measures in 17 cm length. GALLBLADDER:There are a few mobile stones present. No evidence of wall thickening. No pericholecystic fluid identified. BILIARY SYSTEM: Common bile duct measures < 7 mm. No intrahepatic biliary ductal dilation. LLANES'S SIGN: Negative. RIGHT KIDNEY: Kidney is normal in size. No evidence of renal calculi. No evidence of hydronephrosis. No renal mass or cyst identified. ASCITES: None seen. IMPRESSION: 1. Cholelithiasis without evidence of acute cholecystitis. 2. Findings were discussed with Sheng Alicea at 9:54 a.m. on 09/19/2022. HPI General Mode of arrival: ambulatory . Date/Time Provider Initiated Documentation: 09/19/22 09:20 . Limitations to Documentation: no limitations . Information obtained by: patient . HPI Narrative: This is a 67-year-old female who was seen in the ER yesterday evening for ongoing abdominal pain, nausea, vomiting, constipation, work-up performed including laboratory values and CT imaging, gallstones noted, set up for outpatient ultrasound today for further evaluation of her ongoing symptoms. Patient reports that overall she is feeling improvement from yesterday, reports mild nausea but no vomiting, mild abdominal pain worse after eating, still no bowel movement. Patient has not begun taking the Colace. She denies fever, chest pain, shortness of breath, back pain. Patient states that she just had h er ultrasound and is here now for results. Related Data Home Medications Medication Instructions Recorded Confirmed levothyroxine 137 mcg tablet 137 mcg PO DAILY #90 tab-caps 10/28/12 09/19/22 (Levothroid) diphenhydramine HCl 25 mg tablet 25 mg PO HS 08/03/18 09/19/22 cholecalciferol (vitamin D3) 25 1,000 unit PO DAILY 02/28/19 09/19/22 mcg (1,000 unit) capsule acetaminophen 500 mg capsule 500 mg PO Q6H PRN 02/27/22 09/19/22 cinnamon bark See Rx Instructions .Route .COMPLEX 02/27/22 09/19/22 oxygen-air delivery systems 02/27/22 06/05/22 rosuvastatin 5 mg tablet (Crestor) 5 mg PO DAILY 02/27/22 09/19/22 diazepam 5 mg tablet (Valium) 10 mg PO BID PRN #6 tabs 09/06/22 09/19/22 ketorolac 10 mg tablet 1 tab PO Q6H PRN PRN 09/18/22 09/19/22 magnesium 1 tab PO 1XD 09/18/22 09/19/22 oxycodone-acetaminophen 5 mg-325 1 tab BID PRN PRN 09/18/22 09/19/22 mg tablet Previous Rx's Medication Instructions Recorded diazepam 5 mg tablet (Valium) 10 mg PO BID PRN #6 tabs 09/06/22 Allergies Allergy/AdvReac Type Severity Reaction Status Date / Time atorvastatin AdvReac MUSCLE Verified 09/19/22 09:15 ACHES ezetimibe AdvReac muscle ache Verified 09/19/22 09:15 pravastatin AdvReac MUSCLE Verified 09/19/22 09:15 ACHES RED YEAST RICE AdvReac MUSCLE Uncoded 09/19/22 09:15 ACHES SHRIMP AdvReac VOMITING Uncoded 09/19/22 09:15 General Stated Complaint: Recheck EDUARDO: 4 Review of Systems Constitutional Constitutional: Denies fever(s) Cardiovascular Cardiovascular: Denies chest pain and Denies dyspnea Respiratory Respiratory: Denies cough and Denies dyspnea Gastrointestinal Gastrointestinal: Reports abdominal pain, Denies melena, Denies hematochezia, Denies nausea and Reports vomiting Genitourinary Genitourinary: Denies dysuria Musculoskeletal Musculoskeletal: Denies back pain Integumentary/Breasts Skin/Breast: Denies rash PFSH All Active Problems Spasm of muscle of lower back (Acute) Acute UTI (Acute) Muscle spasm of back (Acute) Biliary colic (Acute) Nausea and vomiting (Acute) Fecal retention (Acute) Cholelithiasis (Acute) Bilateral sensorineural hearing loss (Acute) Nasal septal perforation (Acute) Actinic keratosis (Acute) COVID-19 (Acute) Closed rib fracture (Acute) Closed trimalleolar fracture of left ankle (Acute 09/28/20) s/p ORIF ON 10/04/20 Chronic constipation (Chronic) History of tobacco use (Chronic) Encounter for colorectal cancer screening (Acute) Adhesive capsulitis of left shoulder (Acute ~06/2019) Bursitis of left shoulder (Acute ~06/2019) Tendinitis of long head of biceps brachii of left shoulder (Acute) Tendinitis of left rotator cuff (Acute) Pernicious anemia (Chronic 03/16/12) Depressive disorder (Chronic) Asthma (Chronic) Generalized anxiety disorder (Chronic) Hyperlipidemia (Chronic) Hypothyroidism (Chronic) Low back pain (Chronic) SVT (supraventricular tachycardia) (Chronic) BILL (obstructive sleep apnea) (Chronic) Acute back pain (Chronic) Medical History COVID-19 Dyspnea Grief at loss of child Osteopenia Prediabetes PTSD (post-traumatic stress disorder) Skin lesion Surgical History H/O bilateral breast reduction surgery H/O colonoscopy (08/06/18) 08/06/18 Dr Pathak,no abnormalities, repeat ten years History of hemorrhoidectomy Hx of tubal ligation Social History Smoking/Tobacco Use Status: Former Tobacco Use Quit Date: 08/24/75 Smoking risk assessment performed?: Yes Alcohol Intake: current Alcohol Intake frequency: holidays/special occasions only Drug use: Never Substance use type: does not use Current gender identity: female Do you feel safe at home: Yes Do you feel safe in your relationship?: Yes Exam Const General: cooperative, healthy appearing, comfortable and no acute distress Orientation: alert and awake HENMT Head: normal to inspection, normocephalic and atraumatic Eyes Conjunctivae: conjunctivae normal Neck Neck: normal visual inspection, full ROM, no meningeal signs, trachea midline and supple Resp Effort & Inspection: normal respiratory effort and able to speak in complete sentences Auscultation: clear to auscultation bilaterally Cardio Rate: regular rate Rhythm: regular rhythm GI Palpation: soft, not firm, no guarding, no pulsatile masses and nontender Auscultation: normal bowel sounds Back/Spine/Pelvis Back: No back tenderness Skin General skin exam: no rashes or lesions noted Neuro General: patient alert, patient awake, moves all extremities and no focal motor deficits Sensory Exam: no sensory deficits noted Psych Appearance: grossly normal Mental Status: mental status grossly normal Course Vital Signs Vital signs: Vital Signs Temperature 36.6 C 09/19/22 09:13 Pulse 65 09/19/22 09:13 Respiratory Rate 18 09/19/22 09:13 Blood Pressure 133/72 09/19/22 09:13 Pulse Oximetry 100 09/19/22 09:13 Temperature 36.6 C 09/19/22 09:13 Temperature Source Temporal Artery Scan 09/19/22 09:13 Pulse 65 09/19/22 09:13 Respiratory Rate 18 09/19/22 09:13 Respiratory Effort Non-Labored 09/19/22 09:16 Blood Pressure 133/72 09/19/22 09:13 Blood Pressure Position Sitting 09/19/22 09:13 Pulse Oximetry 100 09/19/22 09:13 Oxygen Delivery Method Room Air 09/19/22 09:13 Oxygen Flow Rate 0 09/19/22 09:13
--- NOTE | 2022-09-19 09:54 | NUR.NOTE ---
Nursing Note: [facility] info [facility] for routine follow up for gallstones. Sally, ZULMA
[2022-09-19 10:07] VITALS: BP 133/76; PULSE 65; RESP 19; TEMP 36.3; O2SAT 98
== END 2022-09-19 10:26 | disposition home or self-care (01) ==
PROVIDERS: Emergency Provider Physician Assistant; PCP Physician Assistant Medical
DX: K80.20 Calculus of gallbladder without cholecystitis without obstruction (principal)

== ENCOUNTER 2022-10-02 12:59 | Outpatient (CLI) | payer BC, SELFPAY ==
[2022-10-02 09:27] LABS: ALT 48 U/L (14-59); AST 26 U/L (15-37); Bilirubin, Total 0.4 mg/dL (0.2-1.0); Calculated LDL 75 mg/dL (<100); Cholesterol 145 mg/dL (<200); GGT 62 U/L (5-55); HDL Cholesterol 56 mg/dL (40-60); Triglyceride 71 mg/dL (<150)
== END 2022-10-02 13:00 | disposition home or self-care (01) ==
LOC: LBO 13:03
PROVIDERS: PCP Physician Assistant Medical; Visit Provider Surgery
DX: E78.5 Hyperlipidemia, unspecified (principal); G47.33 Obstructive sleep apnea (adult) (pediatric); I47.1 Supraventricular tachycardia; K59.09 Other constipation; K80.20 Calculus of gallbladder without cholecystitis without obstruction; K80.50 Calculus of bile duct without cholangitis or cholecystitis without obstruction; R11.2 Nausea with vomiting, unspecified; R79.89 Other specified abnormal findings of blood chemistry; Z87.891 Personal history of nicotine dependence
CPT/HCPCS: 36415; 80061; 82247; 82977; 84450; 84460

== ENCOUNTER 2022-10-10 07:27 | Day surgery (SDC) | payer BC, SELFPAY ==
--- NOTE | 2022-10-09 20:57 | PDOC.DSDIS_ITS ---
Date of service: 10/10/22 Time of Service: 10:28 Discharge Plan Disposition Patient Disposition: Home Condition: Good Discharge Details Reason For Visit: Cholecystectomy Attending Provider: Roshan Slater Primary Care Provider: Cl Soto Home Meds and New Rx's Prescriptions: New tramadol 50 mg tablet 50 mg PO BID PRN (Reason: pain) Qty: 12 0RF Rx Instructions: Take 1 tablet by mouth up to every 8 hours if needed for severe pain. Do not drive while using this medication. Continued cholecalciferol (vitamin D3) 1,000 unit capsule 1,000 unit PO DAILY calcium carbonate [Calcium 600] 600 mg calcium (1,500 mg) tablet 600 mg PO DAILY coenzyme Q10 [CoQ-10] 100 mg capsule 100 mg PO DAILY docusate sodium [Colace] 100 mg capsule 100 mg PO DAILY ondansetron HCl 4 mg tablet 4 mg PO Q6H PRN (Reason: nausea and vomiting) Qty: 10 0RF levothyroxine [Levothroid] 137 MCG tablet 137 mcg PO DAILY Qty: 90 (DME) oxygen-air delivery systems Device See Rx Instructions .Route Rx Instructions: As directed cinnamon bark See Rx Instructions .ROUTE .COMPLEX Rx Instructions: as directed rosuvastatin [Crestor] 5 mg tablet 5 mg PO DAILY Hold Instructions: Resume on 03/08/22. Hold until you have been done with the medication for COVID for 3 days. diphenhydramine HCl 25 mg Tablet 25 mg PO HS diazepam [Valium] 5 mg tablet 10 mg PO BID PRNQty: 6 0RF ketorolac 10 mg tablet 1 tab PO Q6H PRN PRN Patient Comments: TAKE ONE TABLET BY MOUTH EVERY 6 HOURS NEEDED TO REPLACE OTC NSAIDS oxycodone-acetaminophen 5-325 mg tablet 1 tab BID PRN PRN Patient Comments: TAKE ONE TABLET BY MOUTH TWO TIMES A DAY NEEDED FOR PAIN magnesium Tablet 1 tab PO 1XD Discharge Instructions Instructions: Laparoscopic Cholecystectomy (GEN) Additional Instructions: 1. Resume all of your medications. 2. Okay to use tylenol and ibuprofen over the counter as needed. Use tramadol as needed for severe pain. 3. Okay to use heating pads and ice packs for pain 4. Leave bandage in place for 24 hours, then remove. 5. Shower with warm soapy water. Pat dry. Use a bandaid if needed to protect your clothing. 6. No soaking or tub baths until I see you in the office. 7. No heavy lifting until I see you in the office. 8.Call the office (or go directly to the emergency room after hours) if you notice any of the following: Develop chills (warm to touch), or if you have a thermometer and your temperature is above 101 Difficulty breathing or difficultly swallowing Persistent vomiting Any bleeding ? exceeding one tablespoon 6. Call your physician if the site where your intravenous was started becomes red, swollen, painful, and warm to touch. Referrals: Roshan Slater MD [ [facility] STAFF PHYSICIAN] - Activity:: No heavy lifting Diet:: As Tolerated Discharge Orders Discharge Orders: Discharge Order (Routine); Ordered 10/09/22 Ordered By: Roshan Slater DS: Diagnosis Discharge Diagnosis (1) Biliary colic: Status: Acute Asessment and Plan: Follow-up in the office in 14 days for routine postoperative visit
--- NOTE | 2022-10-09 20:59 | PDOC.DSDIS_ITS ---
Discharge Plan Disposition Condition: Good Discharge Details Reason For Visit: Cholecystectomy Attending Provider: Roshan Slater Primary Care Provider: Cl Soto Home Meds and New Rx's Prescriptions: Continued cholecalciferol (vitamin D3) 1,000 unit capsule 1,000 unit PO DAILY calcium carbonate [Calcium 600] 600 mg calcium (1,500 mg) tablet 600 mg PO DAILY coenzyme Q10 [CoQ-10] 100 mg capsule 100 mg PO DAILY docusate sodium [Colace] 100 mg capsule 100 mg PO DAILY ondansetron HCl 4 mg tablet 4 mg PO Q6H PRN (Reason: nausea and vomiting) Qty: 10 0RF levothyroxine [Levothroid] 137 MCG tablet 137 mcg PO DAILY Qty: 90 (DME) oxygen-air delivery systems Device See Rx Instructions .Route Rx Instructions: As directed cinnamon bark See Rx Instructions .ROUTE .COMPLEX Rx Instructions: as directed rosuvastatin [Crestor] 5 mg tablet 5 mg PO DAILY Hold Instructions: Resume on 03/08/22. Hold until you have been done with the medication for COVID for 3 days. diphenhydramine HCl 25 mg Tablet 25 mg PO HS diazepam [Valium] 5 mg tablet 10 mg PO BID PRNQty: 6 0RF ketorolac 10 mg tablet 1 tab PO Q6H PRN PRN Patient Comments: TAKE ONE TABLET BY MOUTH EVERY 6 HOURS NEEDED TO REPLACE OTC NSAIDS oxycodone-acetaminophen 5-325 mg tablet 1 tab BID PRN PRN Patient Comments: TAKE ONE TABLET BY MOUTH TWO TIMES A DAY NEEDED FOR PAIN magnesium Tablet 1 tab PO 1XD Discharge Instructions Instructions: Laparoscopic Cholecystectomy (GEN) Additional Instructions: 1. Resume all of your medications. 2. Okay to use tylenol and ibuprofen over the counter as needed. Use [] as needed for severe pain. 3. Okay to use heating pads and ice packs for pain 4. Leave bandage in place for 24 hours, then remove. 5. Shower with warm soapy water. Pat dry. Use a bandaid if needed to protect your clothing. 6. No soaking or tub baths until I see you in the office. 7. No heavy lifting until I see you in the office. 8.Call the office (or go directly to the emergency room after hours) if you notice any of the following: Develop chills (warm to touch), or if you have a thermometer and your temperature is above 101 Difficulty breathing or difficultly swallowing Persistent vomiting Any bleeding ? exceeding one tablespoon 6. Call your physician if the site where your intravenous was started becomes red, swollen, painful, and warm to touch. Referrals: Roshan Slater MD [ [facility] STAFF PHYSICIAN] - Activity:: No heavy lifting Diet:: As Tolerated DS: Diagnosis Discharge Diagnosis (1) Biliary colic: Status: Acute
--- NOTE | 2022-10-09 21:00 | W.PM.OP ---
Date of service: 10/10/22 Time of Service: 10:31 Operative Note Operative Note DATE OF PROCEDURE: 10/10/22 PRE-OP DIAGNOSIS: Biliary colic POST-OP DIAGNOSIS: same PROCEDURE: Laparoscopic cholecystectomy SURGEON: Roshan Slater ACCESS DATABASE DEVELOPER: Kaur Howe ANESTHESIA TYPE: General LMA/ETT Refer to Anesthesia Record ESTIMATED BLOOD LOSS: 25 PATHOLOGY: other (Gallbladder) COMPLICATIONS: None Patient was transported to: PACU Patient's condition: stable Indications: Tim is a 67-year-old woman with symptomatic biliary colic Procedure Description: After satisfactory induction of general anesthesia, I prepped and draped the abdomen in usual fashion. Next, I began with a periumbilical incision. I dissected down to the fascia and elevated it with Sandoval clamps. I incised it sharply. Next, I passed a 12 mm operating port in the umbilical site. I secured it to the fascia with 0 Vicryl stitches. I then insufflated the peritoneal cavity. Next I inserted a 5 mm 30 degree scope and examined the underlying viscera. There was no evidence of injury created upon entry. I then placed the patient in some reverse Trendelenburg and left side down positioning. Then, with the assistance of the laparoscope, I used local anesthetic to anesthetize the midepigastric and 2 right upper quadrant port sites. Under the vision of the laparoscope, I passed 3 more 5 mm ports. I then grasped the gallbladder fundus and elevated cephalad. I began by dissecting the gallbladder infundibulum. I worked in a lateral to medial fashion. Once I skeletonized the cystic duct and cystic artery, with a satisfactory critical view of safety, I doubly clipped and divided them. I then used electrocautery to dissect the gallbladder off the gallbladder fossa. I passed the gallbladder into an Endo Catch bag and removed it by way of the umbilical site. I examined the surgical field. It was hemostatic. I then removed the 5 mm ports under the vision of the laparoscope. Finally, I removed the umbilical port site and closed the fascia with Vicryl stitches. Sites were irrigated, and the skin was closed with subcuticular stitches. Bandages were applied, patient was awakened from anesthesia, and transferred to the recovery unit.
[2022-10-10] VITALS (15 sets, daily range): BP systolic 95–124; BP diastolic 45–70; PULSE 52–73; RESP 13–17; TEMP 36.3–36.8; O2SAT 95–99; BMI 26.6
[2022-10-10] MEDS: Celecoxib 200 MG CAP PO (08:14)
[2022-10-10] MEDS: Gabapentin 300 MG CAP 600 MG PO (08:14)
[2022-10-10] MEDS: Lactated Ringers 1,000 ML 80 ML IV (08:25)
--- NOTE | 2022-10-10 08:49 | ANES.PREOP_ITS ---
General Info Date of Service Date Performed: 10/10/22 Height: 5 ft 6 in Weight: 75 kg Body Mass Index (BMI): 26.6 Surgical Procedure: Operation Date: 10/10/22 09:10 Proposed Procedure Side Surgeon p Cholecystectomy Laparoscopic, Possible Open, Possible Cholangiogram Roshan Slater MD Meds Allergies and Home Medications Allergies Allergy/AdvReac Type Severity Reaction Status Date / Time atorvastatin AdvReac MUSCLE Verified 10/10/22 07:54 ACHES ezetimibe AdvReac muscle ache Verified 10/10/22 07:54 pravastatin AdvReac MUSCLE Verified 10/10/22 07:54 ACHES RED YEAST RICE AdvReac MUSCLE Uncoded 10/10/22 07:54 ACHES SHRIMP AdvReac VOMITING Uncoded 10/10/22 07:54 Home Medication Medication Instructions Recorded levothyroxine 137 mcg tablet 137 mcg PO DAILY #90 tab-caps 10/28/12 (Levothroid) diphenhydramine HCl 25 mg tablet 25 mg PO HS 08/03/18 cholecalciferol (vitamin D3) 25 1,000 unit PO DAILY 02/28/19 mcg (1,000 unit) capsule cinnamon bark See Rx Instructions .Route .COMPLEX 02/27/22 oxygen-air delivery systems 02/27/22 rosuvastatin 5 mg tablet (Crestor) 5 mg PO DAILY 02/27/22 diazepam 5 mg tablet (Valium) 10 mg PO BID PRN #6 tabs 09/06/22 ketorolac 10 mg tablet 1 tab PO Q6H PRN PRN 09/18/22 magnesium 1 tab PO 1XD 09/18/22 oxycodone-acetaminophen 5 mg-325 1 tab BID PRN PRN 09/18/22 mg tablet calcium carbonate 600 mg calcium 600 mg PO DAILY 09/22/22 (1,500 mg) tablet (Calcium) coenzyme Q10 100 mg capsule 100 mg PO DAILY 09/22/22 (CoQ-10) docusate sodium 100 mg capsule 100 mg PO DAILY 09/22/22 (Colace) ondansetron HCl 4 mg tablet 4 mg PO Q6H PRN nausea and 09/22/22 vomiting #10 tabs Current Visit Medications: Current Medications Generic Name Dose Route Start Last Admin Trade Name Freq PRN Reason Stop Dose Admin Celecoxib 200 mg 10/10/22 06:00 02/17/23 08:14 Celecoxib 200 Mg Cap PO 10/10/22 23:59 200 mg PREOP TABATHA Administration Gabapentin 600 mg 10/10/22 06:00 10/10/22 08:14 Gabapentin 300 Mg Cap PO 10/10/22 16:00 600 mg PREOP TABATHA Administration Hydromorphone HCl 0.2 mg 10/09/22 21:00 Hydromorphone 2 Mg/Ml Syr IVP Q1H PRN PRN Ringer's Solution 1,000 mls @ 80 mls/hr 10/10/22 06:00 10/10/22 08:25 IV 10/10/22 23:59 80 mls/hr INFUSION TABATHA Administration Cefazolin Sodium/Dextrose 2 gm in 50 mls @ 100 mls/hr 10/10/22 06:00 Ancef Duplex IVPB 10/10/22 23:59 PREOP TABATHA IV Miscellaneous Supplies 1 each 10/10/22 06:00 Iv Access IV 10/10/22 23:59 DIRECTED TABATHA Sodium Chloride 0 ml 10/10/22 06:00 Normal Saline Flush 10 Ml Syr IV 10/10/22 23:59 PRN PRN Sodium Chloride 0 ml 10/10/22 06:00 Normal Saline 10 Ml Vial IJ 10/10/22 23:59 DIRECTED PRN Sterile Water 0 ml 10/10/22 06:00 Water,Injection,Sterile 10 Ml Vial IJ 10/10/22 23:59 DIRECTED PRN Tramadol HCl 50 mg 10/09/22 21:00 Tramadol 50 Mg Tab PO Q6H PRN PRN Pain PFSH Active Problems Active Problems: Problem Status Onset Code H/O colonoscopy 01/07/07 Z98.890 Lightheadedness R42 Acute back pain M54.9 Chronic constipation K59.09 Right leg pain M79.604 BILL (obstructive sleep apnea) G47.33 SVT (supraventricular tachycardia) I47.1 Low back pain M54.5 History of tobacco use Z87.891 Hypothyroidism E03.9 Hyperlipidemia E78.5 Generalized anxiety disorder F41.1 Asthma J45.909 Depressive disorder F32.9 Nasal septum ulceration 01/23/14 J34.0 Neoplasm of skin 01/23/14 D49.2 Pernicious anemia 03/16/12 D51.0 Encounter for colorectal cancer screening Z12.11, Z12.12 Adhesive capsulitis of left shoulder ~06/2019 M75.02 Bursitis of left shoulder ~06/2019 M75.52 Tendinitis of long head of biceps brachii of left shoulder M75.22 Tendinitis of left rotator cuff M75.82 Closed trimalleolar fracture of left ankle 09/28/20 S82.852A Closed rib fracture S22.39XA COVID-19 U07.1 Actinic keratosis L57.0 Nasal septal perforation J34.89 Bilateral sensorineural hearing loss H90.3 Biliary colic K80.50 Nausea and vomiting R11.2 Fecal retention K59.00 Cholelithiasis K80.20 Elevated LFTs R79.89 Elevated lipids E78.5 Medical History Medical History COVID-19 Dyspnea Grief at loss of child Osteopenia Prediabetes PTSD (post-traumatic stress disorder) Per pt nothing is a potential trigger at this time. Skin lesion Surgical History Surgical History (Updated 10/10/22 @ 07:52 by Yesenia Vasquez) H/O bilateral breast reduction surgery H/O colonoscopy (08/06/18) 08/06/18 Dr Pathak,no abnormalities, repeat ten years History of hemorrhoidectomy Hx of dilation and curettage Hx of tubal ligation Tobacco Smoking/Tobacco Use Status: Former Tobacco Use Alcohol Alcohol Intake: current Alcohol intake frequency: holidays/special occasions only Substance Use Substance use: Never Substance use type: does not use Vital Signs and Lab Results Vital Signs Most Recent Vital Signs in EMR: Most Recent Vital Signs Temp Pulse Resp BP Pulse Ox 36.5 C 62 16 105/70 99 10/10/22 07:57 10/10/22 07:57 10/10/22 07:57 10/10/22 07:57 10/10/22 07:57 Lab Results Blood Type / Crossmatch: No Data to Display Complete Blood Count: White Blood Count 10.26 10^3/uL (4.4-10.8) 09/18/22 22:05 Red Blood Count 4.49 10^6/uL (3.93-5.22) 09/18/22 22:05 Hemoglobin 13.8 g/dL (11.2-15.7) 09/18/22 22:05 Hematocrit 42.6 % (36.0-46.0) 09/18/22 22:05 Platelet Count 211 10^3/uL (130-400) 09/18/22 22:05 Complete Metabolic Panel: Sodium 140 mmol/L (136-145) 09/18/22 22:05 Potassium 5.2 mmol/L (3.5-5.1) H 09/18/22 22:05 Chloride 105 mmol/L (98-107) 09/18/22 22:05 Carbon Dioxide 29.2 mmol/L (21.0-32.0) 09/18/22 22:05 BUN 18 mg/dL (7-18) 09/18/22 22:05 Creatinine 1.0 mg/dL (0.55-1.02) 09/18/22 22:05 Est GFR (CKD-EPI 2020) 62.13 (mL/min/1.73m2) 09/18/22 22:05 Magnesium 2.2 mg/dL (1.8-2.4) 09/18/22 22:05 Calcium 9.9 mg/dL (8.5-10.1) 09/18/22 22:05 Albumin 4.0 g/dL (3.4-5.0) 09/18/22 22:05 Glucose 124 mg/dL (74-106) H 09/18/22 22:05 Liver Function Panel: Alanine Aminotransferase (ALT/SGPT) 48 U/L (14-59) 10/02/22 08: 29 Aspartate Amino Transf (AST/SGOT) 26 U/L (15-37) 10/02/22 08:29 Gamma Glutamyl Transpeptidase 62 U/L (5-55) H 10/02/22 08:29 Coagulation Panel: No Data to Display Cardiac Panel: Troponin I < 50 ng/L (<or=60) 09/18/22 Arterial Blood Gas: No Data to Display Venous Blood Gas: No Data to Display Pancreas Panel: Lipase 215 U/L (73-393) 09/18/22 22:05 Thyroid Panel: No Data to Display Infectious Disease: Coronavirus (COVID-19)(PCR) Negative (Negative) 09/18/22 23:20 Coronavirus 2019 Source Nasopharynx 09/18/22 23:20 Influenza Virus Type A (PCR) Negative (Negative) 09/18/22 23:2 0 Influenza Virus Type B (PCR) Negative (Negative) 09/18/22 23:2 0 Respiratory Syncytial Virus (PCR) Negative (Negative) 09/18/22 23:20 Blood Cultures: No Data to Display Toxicology Panel: No Data to Display Imaging and Studies Imaging and Studies Study information below may be from another EMR and interpreted by another provider. Please see original notes in EMR for more complete details. EKG Summary: DATE/TIME OF SERVICE: 09/18/222210 : 1955PERFORMING LOCATION: ER APPROVED REPORT Exam: Resting ECG Reason for Exam: Upper Ab / Chest Pain Patient Location: E HR:64 bpm ECG Measurements Heart Rate 64 AXIS MO 193 P 55 QRSd 91 QRS 8 QT 432 T199 QTc 447 Conclusion Sinus rhythm...normal P axis, V-rate 60- 99 Repol abnrm suggests ischemia, lateral leads...ST dep, T neg, I aVL V5 V6. Sinus. Normal axis. T wave inversion, st depressioni n lateral leads seen in previous. No STEMI. I have reviewed and interpreted ECG and agree with software generated interpretation. Stress Test Summary: 11/12/21: MPI Conclusion Myocardial perfusion is normal without ischemia or evidence of prior infarction EF 61%, normal wall motion Echocardiogram Summary: Date of Exam: 05/28/21Sex: F Admission Date: 05/28/21 : 1955 Age: 66 APPROVED REPORT EXAM: Comprehensive 2D, Doppler, and color-flow Echocardiogram Patient Location: Out-Patient Preload Supervisor: Clary Alcala RDCS (AE) Indications: Lightheaded, COVID Other Information Study Quality: Good Conclusion Normal left ventricular wall thickness and chamber size. Estimated ejection fraction is 60%. Wall motion is normal Normal right ventricular size and systolic function Both atria are normal in size Mild mitral annular calcification. Trace to mild mitral regurgitation Structurally normal aortic and tricuspid valves Pulmonary Function Summary: 12/23/12:INTERPRETATION: SPIROMETRY: Spirometry shows no evidence of obstructive airway disease. No bronchodilator testing was carried out. LUNG VOLUMES: No evidence of restriction. DIFFUSION CAPACITY: Normal. AIRWAY RESISTANCE: Normal. IMPRESSION: Overall normal pulmonary function study. Clinical correlation recommended. When this study was compared to the previous one from 01/07/10, the patient has a stable FVC and stable FEV-1. Total lung capacity has also remained stable. There is minimal decline in diffusion capacity. Anesthesia Assessment and Plan Anesthesia History Personal History: No History of Anesthesia Complications Family History: No Family History of Anesthesia Complications Exercise Tolerance Exercise Tolerance: Metabolic Equivalents>4 Pertinent Negatives Pertinent Negatives: No Symptoms of GERD Cardiac & Pulmonary Exam Cardiac Exam: Normal S1/S2 Heart Sounds Pulmonary Exam: Clear Bilateral Breath Sounds Implantable Cardiac Device Does patient have a Pacemaker or an ICD?: No Airway Exam Known Difficult Airway: No Mallampati Class: 2 Mouth Opening: Normal (> 3cm) Thyromental Distance: Less than 3 cm Neck Range of Motion: Full ROM Neck Circumference: Normal Teeth Condition: Edentulous (upper) ASA Classification ASA Score: ASA 3 Emergency Case?: No NPO Status NPO Status: NPO Clears >2 hours, Solids >8 hours Anesthesia Plan Resuscitation Status: Full Code Anesthesia Technique: General Anesthesia Airway Planned: Endotracheal Tube Monitors Used: Standard Monitors
[2022-10-10] MEDS: ceFAZolin 2 GM/50 ML BAG IVPB (09:26)
[2022-10-10] MEDS: Bupivacaine 0.25% Pres-Free 30 ML VIAL (09:43)
--- NOTE | 2022-10-10 10:15 | GB_PTH ---
PATIENT: Bianca Jimenez LOC: [facility] U#:[id number] AGE/SX: 67/F ROOM: RE10/10/[address]: Roshan Slater MD : 1955 BED: DIS: 10/10/2022 SPEC #: [id number] RECD: 10/10/22 12:55 STATUS: TAMIR REQ #: [id number] MAXI: 10/10/22 10:[address]: Roshan Slater DEPT: Surgical Specimen RECD BY: Lori Abernathy ENTERED: 10/10/22 12:55 SP TYPE: GB OTHR DR: Cl Soto Tissues: 1 - GALLBLADDER Procedures: GROSS AND MICRO LEVEL 3 Comments: [id number]
[2022-10-10] MEDS: Normal Saline 10 ML VIAL IJ (11:28)
[2022-10-10] MEDS: HYDROmorphone 2 MG/ML SYR IVP (11:28)
[2022-10-10] MEDS: Ondansetron 4 MG/2 ML VIAL IVP (11:48)
--- NOTE | 2022-10-10 13:14 | W.ANESPOSTOP ---
Postoperative Evaluation Date, Time and Location Date Performed: 10/10/22 Time Performed: 13:14 Patient Location: Day Surgery Unit Vital Signs Most Recent Imported Vital Signs: Most Recent Vital Signs Temp Pulse Resp BP Pulse Ox 36.3 C L 52 L 16 121/68 98 10/10/22 12:07 10/10/22 12:07 10/10/22 12:07 10/10/22 12:07 10/10/22 13:08 Pain Score Most Recent Pain Score: Most Recent Pain Score Pain Level 3 10/10/22 1312 Assessment Mental Status: Awake (Alert & Oriented to Patient Baseline) Airway and Respiratory Function: Patent airway with normal (patient baseline) respiratory exam Cardiovascular Function: Hemodynamically Stable Hydration Status: Adequately Hydrated Nausea & Vomiting: No Nausea or Vomiting Pain: Pain is tolerable per patient Peripheral Nerve Block: Patient did not receive a nerve block
== END 2022-10-10 14:42 | disposition home or self-care (01) ==
PROVIDERS: PCP Physician Assistant Medical; Visit Provider Surgery
PROC: 0FT44ZZ Resection of Gallbladder, Percutaneous Endoscopic Approach (ICD-10-PCS; CPT 47562; principal; 2022-10-10 09:00)
DX: K80.10 Calculus of gallbladder with chronic cholecystitis without obstruction (principal); G47.33 Obstructive sleep apnea (adult) (pediatric)
CPT/HCPCS: 47562; 88304; J0690; J1100; J1170; J1885; J2250; J2405; J2704

== ENCOUNTER 2023-01-24 15:39 | Emergency (ER) | payer BC, SELFPAY ==
[2023-01-24 15:46] VITALS: BP 112/73; PULSE 57; RESP 16; TEMP 36.8; O2SAT 97
--- NOTE | 2023-01-24 15:46 | ED.GENADUL_ITS ---
Discharge Plan Disposition Patient Disposition: Home Discharge Details Clinical Impression: Acute exacerbation of chronic low back pain Primary Care Provider: Cl Soto ED Provider: Damion Goldman [place] Meds and New Rx's Prescriptions: New cyclobenzaprine 10 mg tablet 10 mg PO TID PRNQty: 10 0RF baclofen 10 mg tablet 10 mg PO TID Qty: 10 0RF Continued cholecalciferol (vitamin D3) 1,000 unit capsule 1,000 unit PO DAILY calcium carbonate [Calcium 600] 600 mg calcium (1,500 mg) tablet 600 mg PO DAILY coenzyme Q10 [CoQ-10] 100 mg capsule 100 mg PO DAILY docusate sodium [Colace] 100 mg capsule 100 mg PO DAILY levothyroxine [Levothroid] 137 MCG tablet 137 mcg PO DAILY Qty: 90 cinnamon bark See Rx Instructions .ROUTE .COMPLEX Rx Instructions: as directed rosuvastatin [Crestor] 5 mg tablet 5 mg PO DAILY Hold Instructions: Resume on 03/08/22. Hold until you have been done with the medication for COVID for 3 days. diphenhydramine HCl 25 mg Tablet 25 mg PO HS magnesium Tablet 1 tab PO 1XD Discontinued diazepam [Valium] 5 mg tablet 10 mg PO BID PRNQty: 6 0RF tramadol 50 mg tablet 50 mg PO BID PRN (Reason: pain) Qty: 12 0RF Rx Instructions: Take 1 tablet by mouth up to every 8 hours if needed for severe pain. Do not drive while using this medication. ketorolac 10 mg tablet 1 tab PO Q6H PRN PRN Patient Comments: TAKE ONE TABLET BY MOUTH EVERY 6 HOURS NEEDED TO REPLACE OTC NSAIDS No Action (DME) oxygen-air delivery systems Device See Rx Instructions .Route Rx Instructions: As directed Discharge Instructions Additional Instructions: You are seen in the emergency department for your back pain. A referral has been placed for physical therapy. Your prescriptions for baclofen and cyclobenzaprine have been refilled. for your pain please take medications as follows: 1. Take acetaminophen (Tylenol), 1,000 mg (two 500 mg tabs) every 6 hours 2. Take ibuprofen (Advil), 400 mg every 6 hours. If you develop any loss of control of your bowels or bladder develop any fevers or any burning while you urinate please return to the emergency department. Stand Alone Forms: Physical Therapy Referral Discharge Data Discharge Date/Time-TO BE ENTERED AT DEPARTURE: 01/24/23 16:21 Medical Decision Making This is an uncomfortable but overall well-appearing normothermic and not tachycardic female with acute on chronic low back pain. She has no red flags for back pain. Specifically I considered cauda equina however the patient has had no lower extremity weakness nor any loss of bowel or bladder control. No history of trauma to the back so no increased risk for spinal epidural hematoma. No midline tenderness and no history of malignancy so I not concerned for pathological fracture. No flank pain no dysuria no frequency to suggest cystitis nor polynephritis. She has no history of anticoagulation to suggest increased risk for spinal epidural hematoma. No fevers no history of IV drug use to suggest increased spinal epidural abscess. Patient does have a TENS unit in place and has used Lidoderm patches. I have signed a referral for physical therapy from which patient has benefited in the past. I advised to return if she loses control of her bowels or bladder or if she develops any fevers or any dysuria and frequency. I treated her symptomatically with a dose of baclofen and cyclobenzaprine, acetaminophen & IM ketorolac. I sent short scripts into her pharmacy for baclofen and cyclobenzaprine. HPI General Date/Time Provider Initiated Documentation: 01/24/23 15:44 . HPI Narrative: This is a 67-year-old female with intermittent since low back pain and prior history of physical therapy referrals now in the emergency department in setting of worsening back pain. She did have some baclofen and cyclobenzaprine leftover from a prior exacerbation of her chronic low back pain. She took these yesterday but they did not resolve her symptoms. She has been using her TENS unit and has been attempting treatment with Lidoderm. These have only mildly improved her symptoms. She did not fall. She has not had any surgeries to her back. She is not anticoagulated. She has not lost control of her bowels or bladder. She denies abdominal pain nausea and vomiting. She has never had ureterolithiasis. She denies dysuria and frequency. She denies routine tobacco, ethanol, and illicits. She is not anticoagulated. Related Data Home Medications Medication Instructions Recorded Confirmed levothyroxine 137 mcg tablet 137 mcg PO DAILY #90 tab-caps 10/28/12 01/05/23 (Levothroid) diphenhydramine HCl 25 mg tablet 25 mg PO HS 08/03/18 01/05/23 cholecalciferol (vitamin D3) 25 1,000 unit PO DAILY 02/28/19 01/05/23 mcg (1,000 unit) capsule cinnamon bark See Rx Instructions .Route .COMPLEX 02/27/22 10/22/22 oxygen-air delivery systems 02/27/22 01/05/23 rosuvastatin 5 mg tablet (Crestor) 5 mg PO DAILY 02/27/22 01/05/23 magnesium 1 tab PO 1XD 09/18/22 01/05/23 calcium carbonate 600 mg calcium 600 mg PO DAILY 09/22/22 01/05/23 (1,500 mg) tablet (Calcium) coenzyme Q10 100 mg capsule 100 mg PO DAILY 09/22/22 01/05/23 (CoQ-10) docusate sodium 100 mg capsule 100 mg PO DAILY 09/22/22 01/05/23 (Colace) baclofen 10 mg tablet 10 mg PO TID #10 tabs 01/24/23 cyclobenzaprine 10 mg tablet 10 mg PO TID PRN #10 tabs 01/24/23 Previous Rx's Medication Instructions Recorded baclofen 10 mg tablet 10 mg PO TID #10 tabs 01/24/23 cyclobenzaprine 10 mg tablet 10 mg PO TID PRN #10 tabs 01/24/23 Allergies Allergy/AdvReac Type Severity Reaction Status Date / Time atorvastatin AdvReac MUSCLE Verified 01/05/23 09:27 ACHES ezetimibe AdvReac muscle ache Verified 01/05/23 09:27 pravastatin AdvReac MUSCLE Verified 01/05/23 09:27 ACHES RED YEAST RICE AdvReac MUSCLE Uncoded 01/05/23 09:27 ACHES SHRIMP AdvReac VOMITING Uncoded 01/05/23 09:27 General EDUARDO: 4 PFSH All Active Problems (Updated 01/24/23 @ 16:05 by Damion Goldman MD) Acute exacerbation of chronic low back pain (Acute) Acute back pain (Chronic) Chronic constipation (Chronic) BILL (obstructive sleep apnea) (Chronic) SVT (supraventricular tachycardia) (Chronic) Low back pain (Chronic) History of tobacco use (Chronic) Hypothyroidism (Chronic) Hyperlipidemia (Chronic) Generalized anxiety disorder (Chronic) Asthma (Chronic) Depressive disorder (Chronic) Pernicious anemia (Chronic 03/16/12) Encounter for colorectal cancer screening (Acute) Adhesive capsulitis of left shoulder (Acute ~06/2019) Bursitis of left shoulder (Acute ~06/2019) Tendinitis of long head of biceps brachii of left shoulder (Acute) Tendinitis of left rotator cuff (Acute) Closed trimalleolar fracture of left ankle (Acute 09/28/20) s/p ORIF ON 10/04/20 Closed rib fracture (Acute) COVID-19 (Acute) Actinic keratosis (Acute) Nasal septal perforation (Acute) Bilateral sensorineural hearing loss (Acute) Elevated LFTs (Acute) Elevated lipids (Acute) Medical History COVID-19 Dyspnea Grief at loss of child Osteopenia Prediabetes PTSD (post-traumatic stress disorder) Per pt nothing is a potential trigger at this time. Skin lesion Surgical History H/O bilateral breast reduction surgery H/O colonoscopy (08/06/18) 08/06/18 Dr Pathak,no abnormalities, repeat ten years History of hemorrhoidectomy Hx of dilation and curettage Hx of tubal ligation Social History Smoking/Tobacco Use Status: Former Tobacco Use Quit Date: 08/24/75 Smoking risk assessment performed?: Yes Alcohol Intake: current Alcohol Intake frequency: holidays/special occasions only Drug use: Never Substance use type: does not use Current gender identity: female Do you feel safe at home: Yes Do you feel safe in your relationship?: Yes Additional Social history: lives alone Exam Narrative Exam Narrative: General: Well-appearing in no acute distress speaking in complete sentences. Head: Normocephalic, atraumatic. Eye: Pupils equal, round reactive to light. Extraocular eye movements intact. No conjunctival injection. No scleral icterus. Ear, nose, mouth, throat: Grossly normal inspection. Normal voice, handling secretions normally. Neck: Trachea midline. Cardiovascular: Well-perfused distal extremities.regular rate and rhythm. Respiratory: Nonlabored respiration.Clear lungs bilaterally. Gastrointestinal: Nondistended abdomen. Soft nontender abdomen. Back: TENS unit in place over upper back. No signs of any soliz nor erythema. Right sided lumbar paraspinal muscle tenderness. No midline thoracic nor lumbar spinal tenderness. Musculoskeletal: No edema. Moving all 4 extremities spontaneously. 5 out of 5 bilateral leg strength on flexion and extension at the hip in flexion extension at the knees. Skin: Normal for age and race, grossly normal temperature and turgor. No acute rash. Neurologic: Alert and appropriate, no apparent acute deficits. Psychiatric: Mood and manner are appropriate. Grooming and personal hygiene are appropriate.
[2023-01-24] MEDS: Acetaminophen 500 MG TAB 1000 MG PO (16:11)
[2023-01-24] MEDS: Ketorolac 15 MG/ML VIAL IM (16:11)
[2023-01-24] MEDS: Baclofen 10 MG TAB PO (16:11)
[2023-01-24] MEDS: Cyclobenzaprine 10 MG TAB PO (16:11)
== END 2023-01-24 16:21 | disposition home or self-care (01) ==
PROVIDERS: Emergency Provider Emergency Medicine; PCP Physician Assistant Medical
DX: M54.59 Other low back pain (principal); M62.830 Muscle spasm of back
CPT/HCPCS: 96372; 99284; J1885

== ENCOUNTER 2023-01-26 09:36 | Emergency (ER) | payer BC, SELFPAY ==
[2023-01-26 09:38] VITALS: BP 105/67; PULSE 71; RESP 16; TEMP 36.9; O2SAT 98
--- NOTE | 2023-01-26 09:52 | ED.GENADUL_ITS ---
Discharge Plan Disposition Patient Disposition: Home Condition: Good Discharge Details Clinical Impression: Pill esophagitis Primary Care Provider: Cl Soto ED Provider: Sharon Haney Home Meds and New Rx's Prescriptions: Continued cholecalciferol (vitamin D3) 1,000 unit capsule 1,000 unit PO DAILY calcium carbonate [Calcium 600] 600 mg calcium (1,500 mg) tablet 600 mg PO DAILY coenzyme Q10 [CoQ-10] 100 mg capsule 100 mg PO DAILY docusate sodium [Colace] 100 mg capsule 100 mg PO DAILY levothyroxine [Levothroid] 137 MCG tablet 137 mcg PO DAILY Qty: 90 (DME) oxygen-air delivery systems Device See Rx Instructions .Route Rx Instructions: As directed cinnamon bark See Rx Instructions .ROUTE .COMPLEX Rx Instructions: as directed rosuvastatin [Crestor] 5 mg tablet 5 mg PO DAILY Hold Instructions: Resume on 03/08/22. Hold until you have been done with the medication for COVID for 3 days. diphenhydramine HCl 25 mg Tablet 25 mg PO HS cyclobenzaprine 10 mg tablet 10 mg PO TID PRNQty: 10 0RF baclofen 10 mg tablet 10 mg PO TID Qty: 10 0RF magnesium Tablet 1 tab PO 1XD Discharge Instructions Instructions: Esophagitis (ED) Additional Instructions: Your exam is reassuring here today. While you continue to have some discomfort associated with the Tylenol you took, I believe this is just causing some inflammation and irritation to your esophagus. Please increase your fluid intake. You may find that 1 more fluids to help with discomfort. I encourage you to use honey as well as this can also help with the discomfort. Please continue with the medications you are currently using for your back pain. Please follow-up with your primary care in 1 week for reevaluation. If you develop any new or worsening symptoms please seek care urgently once again Referrals: Cl Soto PA [Primary Care Provider] - Discharge Data Discharge Date/Time-TO BE ENTERED AT DEPARTURE: 01/26/23 10:22 Medical Decision Making Patient is a pleasant 67-year-old female presenting today with chief complaint of sore throat after swallowing Tylenol 2 days ago. Patient was seen in the emergency department for back pain. She reports that that night she began feeling like the pill was stuck in her throat. Denies any difficulty swallowing. Has been trying to increase how much she is eating and attempt to get the pill down. Does not drink much water though because she does not want to swallow much. States that she has tried some coffee. Is currently on pain medication for her back. Has not followed up as of yet with her primary care. On exam, patient appears nontoxic. She is speaking with unusual tone in her voice but this seems more out of self protection rather than involuntary changes. With some prompting, her voice is able to calm back down. Her lungs are clear, no stridor. Normal exam of the posterior oropharynx. No lymphadenopathy. Anterior neck is supple and structures are midline. Advise her history and exam are most consistent with a pill esophagitis. I encouraged increased hydration. Encourage honey. Advised that warm fluids may be of benefit. Return precautions were discussed. I encouraged that she follow-up with primary care in 1 week for reevaluation. We discussed the expected course moving forward. All of her questions and concerns were addressed and she is in agreement this plan. HPI General Date/Time Provider Initiated Documentation: 01/26/23 09:52 . Limitations to Documentation: no limitations . Information obtained by: patient, RN notes reviewed and old records reviewed . History of Present Illness 67 year old F presents to the emergency department with the chief complaint of Foreign body sensation after taking acetaminophen, described as moderate, and is localized to the mouth (Throat). Patient reports no radiation. Patient started experiencing this day(s) (2) and it has been constant. No relieving factors improve symptom(s), No exacerbating factors reported . Patient notes no other symptoms.. Patient did receive the following treatments prior to arrival, other (Eating and drinking) Related Data Home Medications Medication Instructions Recorded Confirmed levothyroxine 137 mcg tablet 137 mcg PO DAILY #90 tab-caps 10/28/12 01/26/23 (Levothroid) diphenhydramine HCl 25 mg tablet 25 mg PO HS 08/03/18 01/26/23 cholecalciferol (vitamin D3) 25 1,000 unit PO DAILY 02/28/19 01/26/23 mcg (1,000 unit) capsule cinnamon bark See Rx Instructions .Route .COMPLEX 02/27/22 01/26/23 oxygen-air delivery systems 02/27/22 01/26/23 rosuvastatin 5 mg tablet (Crestor) 5 mg PO DAILY 02/27/22 01/26/23 magnesium 1 tab PO 1XD 09/18/22 01/26/23 calcium carbonate 600 mg calcium 600 mg PO DAILY 09/22/22 01/26/23 (1,500 mg) tablet (Calcium) coenzyme Q10 100 mg capsule 100 mg PO DAILY 09/22/22 01/26/23 (CoQ-10) docusate sodium 100 mg capsule 100 mg PO DAILY 09/22/22 01/26/23 (Colace) baclofen 10 mg tablet 10 mg PO TID #10 tabs 01/24/23 01/26/23 cyclobenzaprine 10 mg tablet 10 mg PO TID PRN #10 tabs 01/24/23 01/26/23 Previous Rx's Medication Instructions Recorded baclofen 10 mg tablet 10 mg PO TID #10 tabs 01/24/23 cyclobenzaprine 10 mg tablet 10 mg PO TID PRN #10 tabs 01/24/23 Allergies Allergy/AdvReac Type Severity Reaction Status Date / Time atorvastatin AdvReac MUSCLE Verified 01/26/23 09:41 ACHES ezetimibe AdvReac muscle ache Verified 01/26/23 09:41 pravastatin AdvReac MUSCLE Verified 01/26/23 09:41 ACHES RED YEAST RICE AdvReac MUSCLE Uncoded 01/26/23 09:41 ACHES SHRIMP AdvReac VOMITING Uncoded 01/26/23 09:41 General Stated Complaint: ForeignBody EDUARDO: 4 Review of Systems Constitutional Constitutional: Reports as per HPI and Denies headache(s) ENT Ears, Nose, Mouth, and Throat: Reports as per HPI and Denies headache(s) Cardiovascular Cardiovascular: Reports as per HPI, Denies chest pain and Denies dyspnea Respiratory Respiratory: Reports as per HPI and Denies dyspnea Gastrointestinal Gastrointestinal: Reports as per HPI, Denies nausea and Denies vomiting Neurologic Neurologic: Reports as per HPI and Denies headache(s) PFSH All Active Problems (Updated 01/26/23 @ 10:10 by CAROLYN Tate) Acute exacerbation of chronic low back pain (Acute) Pill esophagitis (Acute) Acute back pain (Chronic) Chronic constipation (Chronic) BILL (obstructive sleep apnea) (Chronic) SVT (supraventricular tachycardia) (Chronic) Low back pain (Chronic) History of tobacco use (Chronic) Hypothyroidism (Chronic) Hyperlipidemia (Chronic) Generalized anxiety disorder (Chronic) Asthma (Chronic) Depressive disorder (Chronic) Pernicious anemia (Chronic 03/16/12) Encounter for colorectal cancer screening (Acute) Adhesive capsulitis of left shoulder (Acute ~06/2019) Bursitis of left shoulder (Acute ~06/2019) Tendinitis of long head of biceps brachii of left shoulder (Acute) Tendinitis of left rotator cuff (Acute) Closed trimalleolar fracture of left ankle (Acute 09/28/20) s/p ORIF ON 10/04/20 Closed rib fracture (Acute) COVID-19 (Acute) Actinic keratosis (Acute) Nasal septal perforation (Acute) Bilateral sensorineural hearing loss (Acute) Elevated LFTs (Acute) Elevated lipids (Acute) Medical History COVID-19 Dyspnea Grief at loss of child Osteopenia Prediabetes PTSD (post-traumatic stress disorder) Per pt nothing is a potential trigger at this time. Skin lesion Surgical History H/O bilateral breast reduction surgery H/O colonoscopy (08/06/18) 08/06/18 Dr Pathak,no abnormalities, repeat ten years History of hemorrhoidectomy Hx of dilation and curettage Hx of tubal ligation Social History Smoking/Tobacco Use Status: Former Tobacco Use Quit Date: 08/24/75 Smoking risk assessment performed?: Yes Alcohol Intake: current Alcohol Intake frequency: holidays/special occasions only Drug use: Never Substance use type: does not use Current gender identity: female Do you feel safe at home: Yes Do you feel safe in your relationship?: Yes Additional Social history: lives alone Exam Const General: cooperative, healthy appearing, comfortable, no acute distress, well developed, well groomed and anxious Nutritional Appearance: average body habitus and well nourished Orientation: alert and awake [facility] Head: normal to inspection, normocephalic and atraumatic General nose exam: external nose normal and nares normal Face and sinus: normal facial exam, sinuses nontender and face symmetric Mouth: oral mucosae normal, lip normal, tongue normal, oropharynx normal and moist mucous membranes Teeth and gingiva: dentition normal Throat: posterior oropharynx normal, tonsils normal and uvula midline Eyes General: appearance normal, both eyes and all related structures Neck Neck: normal visual inspection, full ROM, no lymphadenopathy, trachea midline, supple, no anterior neck swelling and nontender Resp Effort & Inspection: normal respiratory effort, able to speak in complete sentences, no respiratory distress and no stridor Auscultation: clear to auscultation bilaterally, no rales, no rhonchi and no wheezes Cardio Rate: regular rate Rhythm: regular rhythm Heart Sounds: S1 normal and S2 normal Skin General skin exam: no rashes or lesions noted Neuro General: patient alert and patient awake Cognition: normal cognition Speech: speech normal Gait: normal gait Course Vital Signs Vital signs: Vital Signs Temperature 36.9 C 01/26/23 09:38 Pulse 71 01/26/23 09:38 Respiratory Rate 16 01/26/23 09:38 Blood Pressure 105/67 01/26/23 09:38 Pulse Oximetry 98 01/26/23 09:38 Temperature 36.9 C 01/26/23 09:38 Temperature Source Skin 01/26/23 09:38 Pulse 71 01/26/23 09:38 Respiratory Rate 16 01/26/23 09:38 Respiratory Effort Normal, Non-Labored 01/26/23 09:49 Respiratory Pattern Normal 01/26/23 09:49 Blood Pressure 105/67 01/26/23 09:38 Blood Pressure Position Sitting 01/26/23 09:38 Pulse Oximetry 98 01/26/23 09:38 Oxygen Delivery Method Room Air 01/26/23 09:38 Oxygen Flow Rate 0 01/26/23 09:38
== END 2023-01-26 10:22 | disposition home or self-care (01) ==
LOC: ER 10:22
PROVIDERS: Emergency Provider Physician Assistant; PCP Physician Assistant Medical
DX: K20.80 Other esophagitis without bleeding (principal)
CPT/HCPCS: 99281; 99282

== ENCOUNTER 2023-03-29 10:00 | Emergency (ER) | payer BC, SELFPAY ==
[2023-03-29] VITALS (16 sets, daily range): BP systolic 95–118; BP diastolic 57–63; PULSE 64–80; RESP 11–22; TEMP 36.5; O2SAT 91–99
--- NOTE | 2023-03-29 10:46 | DI.CT_ITS ---
Exam(s) CT ABDOMEN PELVIS W EXAM: CT ABDOMEN PELVIS W CLINICAL HISTORY: diarrhea, diffuse abdominal pain and tenderness. TECHNIQUE: Imaging Protocol: Axial computed tomography images with coronal and sagittal reformatted images were created and reviewed CONTRAST MATERIAL: Intravenous: Omnipaque 350 Contrast volume:100 ml Oral: yes / no COMPARISON: CT CT ABDOMEN PELVIS W from 09/18/2022 FINDINGS: ABDOMEN: Lung Bases: Normal where visualized. Heart is enlarged. Coronary artery calcifications. Tiny hiatal hernia. Liver: Normal density. No measurable mass. Gallbladder and biliary tract: Status post cholecystectomy. No radiodense calculus or dilation. Pancreas: Normal density, no abnormal calcifications or inflammatory process. Spleen: Normal. Kidneys: Normal size, contour and axis. Mild prominence of the right renal pelvis and ureter. No ob structing stone. No delay in nephrogram. No radiodense stones or obstructive uropathy. No suspiciou s masses seen. Adrenal glands: No masses seen. Abdominal Aorta: Abdominal portion non-dilated. Moderate atherosclerotic changes. Soft tissues: Unremarkable. PELVIS: Bladder: No gross wall thickening. No calculi.No focal mass. Bowel: Fluid in ascending and transverse colon. Rectosigmoid and descending colon are collapsed. Fi ndings consistent with history of diarrhea. Mildly dilated loops of small bowel which also show flui d. Small duodenal diverticulum. No evidence of bowel obstruction. No bowel wall thickening. Append ix normal. Peritoneal cavity: No ascites, collection or mesenteric inflammatory response. Bones: Unremarkable for age. Reproductive organs: Within normal limits. Lymph nodes: Mildly enlarged mesenteric lymph nodes, likely reactive secondary to inflammation. Impression: Fluid in colon and distal small bowel consistent with diarrheal illness. Mild prominence of the right renal collecting system compared with the previous exam. No evidence of obstructing stone or delayed nephrogram. RADIATION DOSE DELIVERED: 1,024.3mGy.cm Total DLP DATA REPOSITORY: All CT scans at this facility are submitted to the National Radiology Data Registry (NRDR) Dose Index Registry (DIR) with the [employer] (A[employer]). RADIATION OPTIMIZATION: All CT scans at this facility use at least one of these dose optimization te chniques: automated exposure control; mA and/or kV adjustment per patient size (includes targeted exa ms where dose is matched to clinical indication); or iterative reconstruction.
--- NOTE | 2023-03-29 10:50 | ED.GENADUL_ITS ---
Discharge Plan Disposition Patient Disposition: Home Condition: Good Discharge Details Clinical Impression: Abdominal pain, Diarrhea Primary Care Provider: Cl Soto ED Provider: Pebbles Buckley Home Meds and New Rx's Prescriptions: New ondansetron 4 mg tablet,disintegrating 4 mg PO Q8H PRNQty: 7 0RF Continued cholecalciferol (vitamin D3) 1,000 unit capsule 1,000 unit PO DAILY calcium carbonate [Calcium 600] 600 mg calcium (1,500 mg) tablet 600 mg PO DAILY coenzyme Q10 [CoQ-10] 100 mg capsule 100 mg PO DAILY docusate sodium [Colace] 100 mg capsule 100 mg PO DAILY levothyroxine [Levothroid] 137 MCG tablet 137 mcg PO DAILY Qty: 90 (DME) oxygen-air delivery systems Device See Rx Instructions .Route Rx Instructions: As directed cinnamon bark See Rx Instructions .ROUTE .COMPLEX Rx Instructions: as directed rosuvastatin [Crestor] 5 mg tablet 5 mg PO DAILY Hold Instructions: Resume on 03/08/22. Hold until you have been done with the medication for COVID for 3 days. diphenhydramine HCl 25 mg Tablet 25 mg PO HS cyclobenzaprine 10 mg tablet 10 mg PO TID PRNQty: 10 0RF baclofen 10 mg tablet 10 mg PO TID Qty: 10 0RF magnesium Tablet 1 tab PO 1XD Discharge Instructions Instructions: Acute Diarrhea (ED), Abdominal Pain (ED) Additional Instructions: Call your primary care doctor tomorrow to schedule an appointment to follow up on your visit here. Return to the emergency department for new or worsening symptoms, including fever, inability to keep down fluids, new/different/worse pain, bloody stool, if your symptoms do not improve in the next 5 days, or if you have any other concerns. Referrals: Cl Soto PA [Primary Care Provider] - Medical Decision Making 67yo F with hypothyroid, hyperlipidemia, prediabetes, presenting for 5 days of non-bloody diarrhea and diffuse abdominal pain, volume of stool increasing today. Pain is crampy and relieved by passing cause; has associated nausea with no vomiting. Vital signs reassuring on arrival, mild diffuse tenderness on exam, no peritoneal. Not septic. No pain out of proportion to suggest mesenteric ischemia. Does appear dry; will give 1L IVFB and IV zofran for nausea. Labs reviewed as below, CBC reassuring with no anemia or leukocytosis, CMP with no electrolyte abnormalities, lipase normal, UA with no infection. CT abd/pelvis independently reviewed, consistent with mesenteric lymphadenitis, agree with radiology read below. On reassessment patient remains well appearing with reassuring vital signs, non-tender abdomen, and denies any pain. No futher bowel movements in the ED. Requesting discharge home which is reasonable. Discharged home wtih zofran; discharge instructions including return precautions were reviewed with patient who verbalized understanding. All questions were answered and they are in full agreement with the plan. Imaging Data Radiologic Study: Imaging: CT Scan Radiologist's impression: IMPRESSION: 1. ? Stranding of the mesentery with interval enlargement of lymph nodes consistent with mesenteritis. 2. ? Interval cholecystectomy. 3. ? New prominence of the right renal collecting system, right renal pelvis, and proximal right ureter without renal calculi. 4. ? Additional findings as discussed above. Lab Data Lab results reviewed: Yes I reviewed the patient's lab results. Labs: Laboratory Tests Range/Units 03/29/23 03/29/23 03/29/23 10:58 10:58 13:19 WBC (4.4-10.8) 10^3/uL 10.59 RBC (3.93-5.22) 10^6/uL 4.75 Hgb (11.2-15.7) g/dL 14.5 Hct (36.0-46.0) % 44.6 MCV (80-95) fL 94 MCH (27.0-33.0) pg 30.5 MCHC (32.0-36.0) % 32.5 RDW (11.7-14.6) % 13.0 Plt Count (130-400) 10^3/uL 239 MPV (8.0-11.0) fL 12.5 H Immature Gran % 0.3 Neutrophils % 71.7 Lymphocytes % 14.4 Monocytes % 12.2 Eosinophils % 1.0 Basophils % 0.4 Nucleated RBC % (0.0-0.3) % 0.0 Absolute Neutrophils (1.2-6.7) 10^3/uL 7.60 H Absolute Lymphocytes (1.2-3.4) 10^3/uL 1.52 Absolute Monocytes (0.1-0.8) 10^3/uL 1.29 H Absolute Eosinophils (0.0-0.7) 10^3/uL 0.11 Absolute Basophils (0.0-0.2) 10^3/uL 0.04 Sodium (136-145) mmol/L 139 Potassium (3.5-5.1) mmol/L 4.1 Chloride (98-107) mmol/L 104 Carbon Dioxide (21.0-32.0) mmol/L 26.1 Anion Gap (3-11) mmol/L 8.9 BUN (7-18) mg/dL 15 Creatinine (0.55-1.02) mg/dL 0.9 Est GFR (CKD-EPI 2020) (mL/min/1.73m2) 70.51 Glucose (74-106) mg/dL 103 Calcium (8.5-10.1) mg/dL 9.2 Magnesium (1.8-2.4) mg/dL 2.1 Total Bilirubin (0.2-1.0) mg/dL 0.4 AST (15-37) U/L 23 ALT (14-59) U/L 27 Alkaline Phosphatase (46-116) U/L 92 Total Protein (6.4-8.2) g/dL 7.4 Albumin (3.4-5.0) g/dL 3.9 Lipase (16-77) U/L 43 Urine Color (Yellow) Yellow Urine Clarity (Clear) Clear Urine pH (5-8) 6.0 Ur Specific [place] (1.005-1.025) 1.010 Urine Protein (Negative) mg/dL Negative Urine Ketones (Negative) mg/dL Negative Urine Blood (Negative) Negative Urine Nitrite (Negative) Negative Urine Bilirubin (Negative) Negative Urine Urobilinogen (Up to 0.2) mg/dL 0.2 Ur Leukocyte Esterase (Negative) Negative Urine Glucose (Negative) mg/dL Negative HPI General Mode of arrival: ambulatory . Date/Time Provider Initiated Documentation: 03/29/23 10:32 . Limitations to Documentation: no limitations . Information obtained by: patient . HPI Narrative: 67yo F with hypothyroid, hyperlipidemia, prediabetes, presenting for 5 days of diarrhea and diffuse abdominal pain. Initially 2-3 episodes of watery brown stool a day with associated diffuse crampy abdominal pain relieved by passing gas. This morning symptoms persisted and diarrhea increased in volume; remains nonbloody. Nausea, no vomiting. Pain remains intermittent and crampy, non- focal. She had had diminished appetite but reports taking fluids well. She is otherwise in her usual state of health with no fevers, chills, rash, chest pain, shortness of breath, dysuria, hematuria, lightheadedness, presyncope, or syncope. Related Data Home Medications Medication Instructions Recorded Confirmed levothyroxine 137 mcg tablet 137 mcg PO DAILY #90 tab-caps 10/28/12 01/26/23 (Levothroid) diphenhydramine HCl 25 mg tablet 25 mg PO HS 08/03/18 01/26/23 cholecalciferol (vitamin D3) 25 1,000 unit PO DAILY 02/28/19 01/26/23 mcg (1,000 unit) capsule cinnamon bark See Rx Instructions .Route .COMPLEX 02/27/22 01/26/23 oxygen-air delivery systems 02/27/22 01/26/23 rosuvastatin 5 mg tablet (Crestor) 5 mg PO DAILY 02/27/22 01/26/23 magnesium 1 tab PO 1XD 09/18/22 01/26/23 calcium carbonate 600 mg calcium 600 mg PO DAILY 09/22/22 01/26/23 (1,500 mg) tablet (Calcium) coenzyme Q10 100 mg capsule 100 mg PO DAILY 09/22/22 01/26/23 (CoQ-10) docusate sodium 100 mg capsule 100 mg PO DAILY 09/22/22 01/26/23 (Colace) baclofen 10 mg tablet 10 mg PO TID #10 tabs 01/24/23 01/26/23 cyclobenzaprine 10 mg tablet 10 mg PO TID PRN #10 tabs 01/24/23 01/26/23 ondansetron 4 mg disintegrating 4 mg PO Q8H PRN #7 tabs 03/29/23 tablet Previous Rx's Medication Instructions Recorded baclofen 10 mg tablet 10 mg PO TID #10 tabs 01/24/23 cyclobenzaprine 10 mg tablet 10 mg PO TID PRN #10 tabs 01/24/23 ondansetron 4 mg disintegrating 4 mg PO Q8H PRN #7 tabs 03/29/23 tablet Allergies Allergy/AdvReac Type Severity Reaction Status Date / Time atorvastatin AdvReac MUSCLE Verified 01/26/23 09:41 ACHES ezetimibe AdvReac muscle ache Verified 01/26/23 09:41 pravastatin AdvReac MUSCLE Verified 01/26/23 09:41 ACHES RED YEAST RICE AdvReac MUSCLE Uncoded 01/26/23 09:41 ACHES SHRIMP AdvReac VOMITING Uncoded 01/26/23 09:41 General Stated Complaint: Nausea/Vomit/Diar EDUARDO: 3 Review of Systems Narrative: See HPI PFSH All Active Problems (Updated 03/29/23 @ 14:21 by Pebbles Buckley MD) Abdominal pain (Acute) Diarrhea (Acute) Acute back pain (Chronic) Chronic constipation (Chronic) BILL (obstructive sleep apnea) (Chronic) SVT (supraventricular tachycardia) (Chronic) Low back pain (Chronic) History of tobacco use (Chronic) Hypothyroidism (Chronic) Hyperlipidemia (Chronic) Generalized anxiety disorder (Chronic) Asthma (Chronic) Depressive disorder (Chronic) Pernicious anemia (Chronic 03/16/12) Encounter for colorectal cancer screening (Acute) Adhesive capsulitis of left shoulder (Acute ~06/2019) Bursitis of left shoulder (Acute ~06/2019) Tendinitis of long head of biceps brachii of left shoulder (Acute) Tendinitis of left rotator cuff (Acute) Closed trimalleolar fracture of left ankle (Acute 09/28/20) s/p ORIF ON 10/04/20 Closed rib fracture (Acute) COVID-19 (Acute) Actinic keratosis (Acute) Nasal septal perforation (Acute) Bilateral sensorineural hearing loss (Acute) Elevated LFTs (Acute) Elevated lipids (Acute) Medical History COVID-19 Dyspnea Grief at loss of child Osteopenia Prediabetes PTSD (post-traumatic stress disorder) Per pt nothing is a potential trigger at this time. Skin lesion Surgical History H/O bilateral breast reduction surgery H/O colonoscopy (08/06/18) 08/06/18 Dr Pathak,no abnormalities, repeat ten years History of hemorrhoidectomy Hx of dilation and curettage Hx of tubal ligation Social History Smoking/Tobacco Use Status: Former Tobacco Use Quit Date: 08/24/75 Smoking risk assessment performed?: Yes Alcohol Intake: current Alcohol Intake frequency: holidays/special occasions only Drug use: Never Substance use type: does not use Housing: house Current gender identity: female Do you feel safe at home: Yes Do you feel safe in your relationship?: Yes Additional Social history: lives alone Exam Narrative Exam Narrative: General: Alert, well appearing, well nourished, in no acute distress. Head: Normocephalic, atraumatic Neck: Trachea midline, Neck supple. ENT: Slightly dry mucous membranes. No oropharygeal lesions or exudate. Cardiac: RRR, no murmurs appreciated Resp: No respiratory distress. CTAB. Abd: Soft, non-distended, diffusely mildly tender to palaption. : No suprapubic tenderness. Extremities: No deformities. No peripheral edema. Neurologic: GCS 15. Moves all extremities freely against gravity Course Vital Signs Vital signs: Vital Signs Temperature 36.5 C 03/29/23 10:09 Pulse 64 03/29/23 10:09 Respiratory Rate 18 03/29/23 10:09 Blood Pressure 100/57 L 03/29/23 10:09 Pulse Oximetry 99 03/29/23 10:09 Temperature 36.5 C 03/29/23 10:09 Temperature Source Temporal Artery Scan 03/29/23 10:09 Pulse 64 03/29/23 10:09 Respiratory Rate 18 03/29/23 10:09 Respiratory Effort Normal 03/29/23 10:22 Blood Pressure 100/57 L 03/29/23 10:09 Blood Pressure Position Sitting 03/29/23 10:09 Pulse Oximetry 99 03/29/23 10:09 Oxygen Delivery Method Room Air 03/29/23 10:09 Oxygen Flow Rate 0 03/29/23 10:09
[2023-03-29] MEDS: Normal Saline 1,000 ML 1000 ML IV (10:56)
[2023-03-29] MEDS: Ondansetron 4 MG/2 ML VIAL IVP (10:56)
[2023-03-29 11:06] LABS: Abs Immature Grans 0.03 10^3/uL (0.0-0.06); Absolute Basophil Count 0.04 10^3/uL (0.0-0.2); Absolute Eosinophil Count 0.11 10^3/uL (0.0-0.7); Absolute Lymphocyte Count 1.52 10^3/uL (1.2-3.4); Absolute Monocyte Count 1.29 10^3/uL (0.1-0.8); Basophils % 0.4; HCT 44.6 % (36.0-46.0); HGB 14.5 g/dL (11.2-15.7); Immature Grans % 0.3; Lymphocytes % 14.4; MCH 30.5 pg (27.0-33.0); MCHC 32.5 % (32.0-36.0); MCV 94 fL (80-95); MPV 12.5 fL (8.0-11.0); Monocytes % 12.2; Neutrophils % 71.7; Platelet Count 239 10^3/uL (130-400); RBC 4.75 10^6/uL (3.93-5.22); RDW-SD 44.9 fL; WBC 10.59 10^3/uL (4.4-10.8)
[2023-03-29 11:18] LABS: ALT 27 U/L (14-59); AST 23 U/L (15-37); Albumin 3.9 g/dL (3.4-5.0); Alkaline Phosphatase 92 U/L (46-116); Anion Gap 8.9 mmol/L (3-11); BUN 15 mg/dL (7-18); Bilirubin, Total 0.4 mg/dL (0.2-1.0); CO2 26.1 mmol/L (21.0-32.0); CREATININE 0.9 mg/dL (0.55-1.02); Calcium 9.2 mg/dL (8.5-10.1); Chloride 104 mmol/L (98-107); Estimated GFR 70.51 (mL/min/1.73m2); Glucose 103 mg/dL (74-106); Lipase 43 U/L (16-77); Magnesium 2.1 mg/dL (1.8-2.4); Potassium 4.1 mmol/L (3.5-5.1); Sodium 139 mmol/L (136-145); Total Protein 7.4 g/dL (6.4-8.2)
[2023-03-29] MEDS: Omnipaque 350 MG/ML 100 ML BTL IV (12:33)
[2023-03-29] MEDS: Normal Saline - Diluent 50 ML VIAL IJ (12:34)
[2023-03-29] MEDS: Normal Saline Flush 10 ML SYR IVP (12:35)
--- NOTE | 2023-03-29 13:14 | DI.VRAD_ITS ---
PROCEDURE INFORMATION: Exam: CT Abdomen And Pelvis With Contrast Exam date and time: 03/29/2023 12:33 PM Age: 67 years old Clinical indication: Other: Diarrhea, diffuse abdominal pain and tenderness TECHNIQUE: Imaging protocol: Computed tomography of the abdomen and pelvis with contrast. Radiation optimization: All CT scans at this facility use at least one of these dose optimization techniques: automated exposure control; mA and/or kV adjustment per patient size (includes targeted exams where dose is matched to clinical indication); or iterative reconstruction. Contrast material: OMNIPAQUE 350; Contrast volume: 100 ml; Contrast route: INTRAVENOUS (IV); COMPARISON: CT ABDOMEN PELVIS W 18/09/2022 23:01 FINDINGS: Heart: Prominent cardiac silhouette. Coronary arteries: Calcified coronary arteries. Diaphragm: Hiatal hernia. Liver: Normal. No mass. Gallbladder and bile ducts: Cholecystectomy. Stable of the intrahepatic biliary ducts. 0.8 cm common bile duct. Pancreas: Normal. No ductal dilation. Spleen: Normal. No splenomegaly. Adrenal glands: Normal. No mass. Kidneys and ureters: Stable simple renal cysts. New prominence of the right renal collecting system, renal pelvis, and proximal right ureter compared with prior study. No nephrolithiasis. Stomach and bowel: Stable duodenum diverticulum. Normal caliber small bowel. Decompressed colon consistent with history of diarrhea. Appendix: No evidence of appendicitis. Intraperitoneal space: Decreased fluid in the cul-de-sac compared with prior study. Vasculature: Atherosclerotic disease. Lymph nodes: Interval enlargement of the mesenteric lymph nodes in storing ending of the mesentery new compared with prior study. Urinary bladder: Unremarkable as visualized. Reproductive: Retroverted uterus. Bones/joints: Unremarkable. No acute fracture. Soft tissues: Unremarkable. IMPRESSION: 1. Stranding of the mesentery with interval enlargement of lymph nodes consistent with mesenteritis. 2. Interval cholecystectomy. 3. New prominence of the right renal collecting system, right renal pelvis, and proximal right ureter without renal calculi. 4. Additional findings as discussed above. Dictated and Authenticated by: Carmina Alfaro MD. Ordering:RAVIN Rogel MD
[2023-03-29 13:27] LABS: Bilirubin Negative (Negative); Blood Negative (Negative); Clarity Clear (Clear); Glucose Negative (Negative); Ketones Negative (Negative); Leukocyte Esterase Negative (Negative); Nitrite Negative (Negative); Urobilinogen 0.2 mg/dL (Up to 0.2)
== END 2023-03-29 14:27 | disposition home or self-care (01) ==
PROVIDERS: Emergency Provider Student in an Organized Health Care Education/Training Program; PCP Physician Assistant Medical
DX: R19.7 Diarrhea, unspecified (principal); R10.9 Unspecified abdominal pain
CPT/HCPCS: 80053; 83690; 96361; 96374; 99285; 74177; 81003; 83735; 85025; 99284; J2405; J3490

== ENCOUNTER 2023-04-20 10:15 | Outpatient (CLI) | payer BC, SELFPAY ==
[2023-04-20 09:43] LABS: ALT 33 U/L (14-59); AST 26 U/L (15-37); Alkaline Phosphatase 79 U/L (46-116); Anion Gap 5.4 mmol/L (3-11); BUN 14 mg/dL (7-18); Bilirubin, Total 0.3 mg/dL (0.2-1.0); CO2 29.6 mmol/L (21.0-32.0); CREATININE 0.9 mg/dL (0.55-1.02); Calcium 9.3 mg/dL (8.5-10.1); Calculated LDL 97 mg/dL (<100); Chloride 106 mmol/L (98-107); Cholesterol 169 mg/dL (<200); Estimated GFR 70.51 (mL/min/1.73m2); Glucose 106 mg/dL (74-106); HDL Cholesterol 54 mg/dL (40-60); Hemoglobin A1C 5.8 % (<5.7); Potassium 4.4 mmol/L (3.5-5.1); Sodium 141 mmol/L (136-145); TSH 1.96 uIU/mL (0.36-3.74); Total Protein 7.3 g/dL (6.4-8.2); Triglyceride 94 mg/dL (<150)
== END 2023-04-20 10:16 | disposition home or self-care (01) ==
LOC: LBO 10:16
PROVIDERS: PCP Physician Assistant Medical; Visit Provider Physician Assistant Medical
DX: Z00.00 Encounter for general adult medical examination without abnormal findings (principal); E78.5 Hyperlipidemia, unspecified; R73.03 Prediabetes; E03.9 Hypothyroidism, unspecified
CPT/HCPCS: 36415; 80053; 80061; 83036; 84443

== ENCOUNTER → 2023-04-22 10:56 | Outpatient (CLI) | payer BC, SELFPAY ==
--- NOTE | 2023-04-22 10:30 | DI.RAD_ITS ---
Exam(s) XR FOOT LT COMPLETE EXAM: XR FOOT LT COMPLETE CLINICAL HISTORY: left foot pain, 5th metatarsal, M79.672. TECHNIQUE: 2D digital imaging was performed. Three views. COMPARISON: No exams were available for comparison FINDINGS: BONES: No acute fracture is present. No bony destructive lesion is seen. Hardware noted in both mal leoli. Heel spurs. Mild intertarsal degenerative changes. JOINTS: No dislocation present. SOFT TISSUE: Normal. IMPRESSION: Unremarkable radiographs of the left foot. DATA REPOSITORY: RADIATION DOSE DELIVERED:
== END ==
PROVIDERS: PCP Physician Assistant Medical; Visit Provider Physician Assistant
DX: M79.672 Pain in left foot (principal)
CPT/HCPCS: 73630

== ENCOUNTER → 2023-05-21 02:38 | Outpatient (CLI) | payer BC, SELFPAY ==
--- NOTE | 2023-05-21 10:00 | DI.DEXA_ITS ---
Exam(s) XR DEXA BONE DENSITY W/WO ISABELL EXAM: XR DEXA BONE DENSITY W/WO ISABELL CLINICAL HISTORY: POSTMENOPAUSAL, Z78.0; OSTEOPENIA, M85.80, [facility], Z00.00 TECHNIQUE: Routine DEXA evaluation of the lumbar spine, hip, or forearm. COMPARISON: Prior DEXA scan July 2018 FINDINGS: Performed on a HoloPhone2Action unit. Lateral image: No compression fracture evident. Lumbar Spine total T-score: -2.0. Prior 2018 reading was -1.8 Hip total T-score:-1.0. Prior 2018 reading was -0.8 Independent reading at the level of the femoral neck yields T-score of -1.7 Forearm total T-score: -2.3 IMPRESSION: Bone mineral density measures in the osteopenia range. Fracture risk is moderate. Note: Any spine fracture indicates 5x risk for subsequent spine fracture and 2x risk for subsequent h ip fracture. World Health Organization criteria for BMD interpretation classify patients: Normal...... T- Score at or above -1.0 Osteopenic... T- Score between -1.0 and -2.5 Osteoporosis... T-Score at or below -2.5
--- NOTE | 2023-05-21 10:45 | DI.MAMMO_ITS ---
Exam(s) MAMMO SCREENING EXAM: MAMMO SCREENING CLINICAL HISTORY: SCREENING, Z12.31. TECHNIQUE: Bilateral full field digital CC and MLO mammographic images were obtained with 3D tomosyn thesis and utilizing computer aided detection (CAD). COMPARISON: Prior mammograms were reviewed. FINDINGS: There has been no significant change in the appearance and distribution of the fibroglandular tissue. There are no CAD designations. There are no new spiculated masses nor malignant appearing microcalcification groups. There is no significant architectural distortion nor skin thickening-retraction. IMPRESSION: No radiographic evidence of malignancy. BI-RADS Category 1 - Negative Breast Density - Category A - Almost entirely fatty Breast density Category C or D implies that the patient has dense breast tissue. Dense breast tissue can make it harder to find cancer on a mammogram. Dense breast tissue is also associated with an incr eased risk of breast cancer. This information about the result of the mammogram report was provided to the patient to raise their awareness. Use this report when you speak with the patient about their risks for breast cancer, which includes their family history. At that time, you may recommend additional screening tests (Ultrasoun d or MRI) as these tests may add significant information. A negative radiographic report should not delay biopsy if a dominant or clinically suspicious mass is present. Up to ten percent of cancers are not identified on mammography. A negative report may reinforce clinical impression. Adenosis and dense breasts may obscure an underlying neoplasm. False positive reports average 6 to 10%. Patient will receive a letter notifying them of these results.
== END ==
PROVIDERS: PCP Physician Assistant Medical; Visit Provider Physician Assistant Medical
DX: Z12.31 Encounter for screening mammogram for malignant neoplasm of breast (principal); Z13.820 Encounter for screening for osteoporosis; M81.0 Age-related osteoporosis without current pathological fracture
CPT/HCPCS: 77063; 77067; 77080

== ENCOUNTER 2023-05-24 19:09 | Emergency (ER) | payer BC, SELFPAY ==
[2023-05-24 19:13] VITALS: BP 133/71; PULSE 64; RESP 16; TEMP 36.7; O2SAT 100
--- NOTE | 2023-05-24 19:38 | ED.GENADUL_ITS ---
Discharge Plan Disposition Patient Disposition: Home Discharge Details Clinical Impression: Back pain Primary Care Provider: Cl Soto ED Provider: Louis Art Home Meds and New Rx's Prescriptions: New cyclobenzaprine 10 mg tablet 10 mg PO TID Qty: 14 0RF lidocaine [Lidoderm] 5 % adhesive patch,medicated 1 patch Topical Q24H Qty: 15 0RF No Action cholecalciferol (vitamin D3) 1,000 unit capsule 1,000 unit PO DAILY calcium carbonate [Calcium 600] 600 mg calcium (1,500 mg) tablet 600 mg PO DAILY coenzyme Q10 [CoQ-10] 100 mg capsule 100 mg PO DAILY docusate sodium [Colace] 100 mg capsule 100 mg PO DAILY levothyroxine [Levothroid] 137 MCG tablet 137 mcg PO DAILY Qty: 90 (DME) oxygen-air delivery systems Device See Rx Instructions .Route Rx Instructions: As directed rosuvastatin [Crestor] 5 mg tablet 5 mg PO DAILY Hold Instructions: Resume on 03/08/22. Hold until you have been done with the medication for COVID for 3 days. diphenhydramine HCl 25 mg Tablet 25 mg PO HS cyclobenzaprine 10 mg tablet 10 mg PO TID PRNQty: 10 0RF baclofen 10 mg tablet 10 mg PO TID Qty: 10 0RF ondansetron 4 mg tablet,disintegrating 4 mg PO Q8H PRNQty: 7 0RF magnesium Tablet 1 tab PO 1XD Discharge Instructions Instructions: Back Pain (ED) Additional Instructions: At this time your signs and symptoms are clinically consistent with a back sprain. This can cause significant pain and take a fair bit of time to heal. In the meantime do not lift anything greater than 5 pounds for the next 2 weeks. Avoid any significant vigorous physical activity. Perform easy gentle regular activities at home without any significant bending or lifting. You have been given a prescription for Lidoderm patch. If your insurance does not cover this you can get [id number] Lidoderm patches at 4% which are almost just as effective. Please take the Flexeril as directed but do not take it when driving or operating any vehicles or heavy machinery, swimming, taking long baths, or operating firearms. Please use a heating pad as often as possible on your back. Perform daily gentle stretches on your back. Please continue to take the Tylenol and Motrin. You can take 1000 mg of Tylenol every 6 hours and 600 mg of ibuprofen every 6 hours. If you notice any worsening of your symptoms, or any new symptoms such as vomiting, diarrhea, fever, chills, shortness of breath, chest pain, numbness or tingling in your groin or legs, weakness in your legs, loss of control for your bowels or bladder, or fainting , please return immediately to the emergency department for reevaluation. Please follow up with your primary care provider as soon as possible for reassessment and reevaluation. As always, it was a pleasure participating in your medical care today. Stand Alone Forms: Work Release Referrals: Cl Soto PA [Primary Care Provider] - Medical Decision Making 68-year-old female with a past medical history of chronic back pain high cholesterol, presents today for evaluation of back pain. Patient states that at 3:30 PM she developed mild back achiness and spasm she was worked up from her lower back to her upper back. She took her home cyclobenzaprine, Valium, TENS unit, and Lidoderm patch. Patient states that the pain has persisted. She is coming for further evaluation. Patient denies any saddle anesthesia, numbness or tingling in the groin, change in sensation when wiping. Patient denies any change in sensation during sexual intercourse, bowel or bladder incontinence, leakage, or retention. Patient denies any weakness in the lower extremities, atypical falls or imbalance. No other complaints at this time. Exam demonstrates well-appearing female, notable right-sided paraspinal spasm throughout. No symptoms concerning for cauda equina syndrome. Will give Valium, Toradol, and Lidoderm patch, monitor closely and reassess. Symptoms consistent with paravertebral spasm. 9:15 PM On reassessment after Valium and Toradol and Lidoderm patches patient feels much better. She feels comfortable going home. Pain is not completely resolved, but has improved to the point of rest. Patient feels well and would like to go home. We will give prescription for Lidoderm patch and cyclobenzaprine for home. Discussed red flags for which to return. Symptoms. Clinically inconsistent with cauda equina syndrome. I have extensively reviewed the treatment plan and discharge instructions with the patient and their family. I have addressed all patient concerns at this time. The patient and family was made aware of what symptoms to monitor for that would warrant a return to the emergency department. Discussed the plan with the patient and family, they demonstrate verbal understanding and agreement with our assessment and plan at this time. The documentation in this chart was dictated using [employer] dictation software. Please excuse any dictation errors. HPI General Date/Time Provider Initiated Documentation: 05/24/23 19:24 . HPI Narrative: 68-year-old female with a past medical history of chronic back pain high cholesterol, presents today for evaluation of back pain. Patient states that at 3:30 PM she developed mild back achiness and spasm she was worked up from her lower back to her upper back. She took her home cyclobenzaprine, Valium, TENS unit, and Lidoderm patch. Patient states that the pain has persisted. She is coming for further evaluation. Patient denies any saddle anesthesia, numbness or tingling in the groin, change in sensation when wiping. Patient denies any change in sensation during sexual intercourse, bowel or bladder incontinence, leakage, or retention. Patient denies any weakness in the lower extremities, atypical falls or imbalance. No other complaints at this time. Related Data Home Medications Medication Instructions Recorded Confirmed levothyroxine 137 mcg tablet 137 mcg PO DAILY #90 tab-caps 10/28/12 04/29/23 (Levothroid) diphenhydramine HCl 25 mg tablet 25 mg PO HS 08/03/18 04/29/23 cholecalciferol (vitamin D3) 25 1,000 unit PO DAILY 02/28/19 04/29/23 mcg (1,000 unit) capsule oxygen-air delivery systems 02/27/22 04/29/23 rosuvastatin 5 mg tablet (Crestor) 5 mg PO DAILY 02/27/22 04/29/23 magnesium 1 tab PO 1XD 09/18/22 04/29/23 calcium carbonate 600 mg calcium 600 mg PO DAILY 09/22/22 04/29/23 (1,500 mg) tablet (Calcium) coenzyme Q10 100 mg capsule 100 mg PO DAILY 09/22/22 04/29/23 (CoQ-10) docusate sodium 100 mg capsule 100 mg PO DAILY 09/22/22 04/29/23 (Colace) baclofen 10 mg tablet 10 mg PO TID #10 tabs 01/24/23 04/22/23 cyclobenzaprine 10 mg tablet 10 mg PO TID PRN #10 tabs 01/24/23 04/29/23 ondansetron 4 mg disintegrating 4 mg PO Q8H PRN #7 tabs 03/29/23 04/29/23 tablet cyclobenzaprine 10 mg tablet 10 mg PO TID #14 tabs 05/24/23 lidocaine 5 % topical patch 1 patch topical Q24H #15 ea 05/24/23 (Lidoderm) Previous Rx's Medication Instructions Recorded baclofen 10 mg tablet 10 mg PO TID #10 tabs 01/24/23 cyclobenzaprine 10 mg tablet 10 mg PO TID PRN #10 tabs 01/24/23 ondansetron 4 mg disintegrating 4 mg PO Q8H PRN #7 tabs 03/29/23 tablet cyclobenzaprine 10 mg tablet 10 mg PO TID #14 tabs 05/24/23 lidocaine 5 % topical patch 1 patch topical Q24H #15 ea 05/24/23 (Lidoderm) Allergies Allergy/AdvReac Type Severity Reaction Status Date / Time atorvastatin AdvReac MUSCLE Verified 05/24/23 19:18 ACHES ezetimibe AdvReac muscle ache Verified 05/24/23 19:18 pravastatin AdvReac MUSCLE Verified 05/24/23 19:18 ACHES RED YEAST RICE AdvReac MUSCLE Uncoded 05/24/23 19:18 ACHES SHRIMP AdvReac VOMITING Uncoded 05/24/23 19:18 General Stated Complaint: Nk/Back Pain EDUARDO: 5 Review of Systems All systems reviewed & are unremarkable except as noted in HPI and below PFSH All Active Problems (Updated 05/24/23 @ 21:07 by Louis Art DO) Back pain (Acute) Acute back pain (Chronic) Chronic constipation (Chronic) BILL (obstructive sleep apnea) (Chronic) SVT (supraventricular tachycardia) (Chronic) Low back pain (Chronic) History of tobacco use (Chronic) Hypothyroidism (Chronic) Hyperlipidemia (Chronic) Generalized anxiety disorder (Chronic) Asthma (Chronic) Depressive disorder (Chronic) Pernicious anemia (Chronic 03/16/12) Encounter for colorectal cancer screening (Acute) Adhesive capsulitis of left shoulder (Acute ~06/2019) Bursitis of left shoulder (Acute ~06/2019) Tendinitis of long head of biceps brachii of left shoulder (Acute) Tendinitis of left rotator cuff (Acute) Closed trimalleolar fracture of left ankle (Acute 09/28/20) s/p ORIF ON 10/04/20 Closed rib fracture (Acute) COVID-19 (Acute) Actinic keratosis (Acute) Nasal septal perforation (Acute) Bilateral sensorineural hearing loss (Acute) Elevated LFTs (Acute) Elevated lipids (Acute) Medical History COVID-19 Dyspnea Grief at loss of child Osteopenia Prediabetes PTSD (post-traumatic stress disorder) Per pt nothing is a potential trigger at this time. Skin lesion Surgical History H/O bilateral breast reduction surgery H/O colonoscopy (08/06/18) 08/06/18 Dr Pathak,no abnormalities, repeat ten years History of hemorrhoidectomy Hx of dilation and curettage Hx of tubal ligation Social History Smoking/Tobacco Use Status: Former Tobacco Use Quit Date: 08/24/75 Smoking risk assessment performed?: Yes Alcohol Intake: current Alcohol Intake frequency: holidays/special occasions only Drug use: Never Substance use type: does not use Housing: house Current gender identity: female Do you feel safe at home: Yes Do you feel safe in your relationship?: Yes Additional Social history: lives alone Exam Narrative Exam Narrative: 1.Const: Well-nourished, Well-developed, appearing stated age 2.Eyes: PERRL, no conjunctival injection, and symmetrical lids. 3.ENT: Atraumatic external nose and ears. Moist MM. Neck: Symmetric, trachea midline, No thyromegaly. 4.CVS: +S1/S2, No murmurs or gallops. Peripheral pulses 2+ and equal in all extremities. Brisk capillary refill in all extremities. 5.RESP: Unlabored respiratory effort. Clear to auscultation bilaterally. No wheezes rales or rhonchi 6.GI: Soft, Nontender/Nondistended, No hepatosplenomegaly. No guarding or rebound. 7.MSK: Normocephalic/Atraumatic, Extremities w/o deformity or ttp No cyanosis or clubbing, Normal movement of all extremities. Notable right sided paraspinal sp asm. No midline spinal tenderness No midline tenderness to palpation over the CTLS spine. Normal ROM in flexion, extension, side bend, and rotation. Patient has +5 out of 5 strength in the lower extremities in dorsiflexion and plantarflexion, knee flexion and extension, hip flexion and extension. Normal strength for dorsiflexion and plantar flexion of the great toe bilaterally. There is +2 over 2 dorsalis pedis pulses bilaterally. There is normal sensation to the skin with light touch at the foot, knee, and hip. Normal saddle sensation. Good sensation over the deep sural nerve area bilaterally. Rectal exam demonstrates good rectal tone with excellent maya-rectal sensation. Reflexes are +2 over 4 in the patellar reflex bilaterally. +5 out of 5 strength in the medial, ulnar, radial nerve distribution bilaterally in the hands as well as intact light touch sensation to these dermatomes on the hands 8.Skin: Warm, Dry. No rashes or lesions. 9.Neuro: chronometer adjuster II-XII grossly intact. Sensation grossly intact, no focal neurologic deficits. 10.Psych: (AAO) x3. Appropriate mood and affect Course Vital Signs Vital signs: Vital Signs Temperature 36.7 C 05/24/23 19:13 Pulse 64 05/24/23 19:13 Respiratory Rate 16 05/24/23 19:13 Blood Pressure 133/71 05/24/23 19:13 Pulse Oximetry 100 05/24/23 19:13 Temperature 36.7 C 05/24/23 19:13 Temperature Source Temporal Artery Scan 05/24/23 19:13 Pulse 64 05/24/23 19:13 Respiratory Rate 16 05/24/23 19:13 Respiratory Effort Normal 05/24/23 19:16 Blood Pressure 133/71 05/24/23 19:13 Pulse Oximetry 100 05/24/23 19:13 Pain Level 8 05/24/23 19:13
[2023-05-24] MEDS: diazePAM 10 MG/2 ML SYR IM (19:55)
[2023-05-24] MEDS: Lidocaine 5% Patch 2 PATCH TP (19:58)
[2023-05-24] MEDS: Ketorolac 30 MG/ML VIAL IM (19:58)
== END 2023-05-24 21:19 | disposition home or self-care (01) ==
PROVIDERS: Emergency Provider Student in an Organized Health Care Education/Training Program; PCP Physician Assistant Medical
DX: M62.830 Muscle spasm of back (principal)
CPT/HCPCS: 96372; 99283; 99282; J1885; J3360

== ENCOUNTER 2023-09-06 00:45 | Observation (INO) | payer BC, SELFPAY ==
[2023-09-06] VITALS (46 sets, daily range): BP systolic 98–142; BP diastolic 36–94; PULSE 60–166; RESP 10–22; TEMP 35.4–36.8; O2SAT 92–100
--- NOTE | 2023-09-06 00:45 | RT.EKG_ITS ---
APPROVED REPORT Exam: Resting ECG Reason for Exam: chest discomfort Patient Location: E HR:139 bpm ECG Measurements Heart Rate [address] [id number] P [id number] QRSd 79 QRS -1 QT 324 T 120 QTc 494 Conclusion Atrial fibrillation...? atrial activity Probable LVH with secondary repol abnrm...multiple LVH criteria ST depression, consider ischemia, diffuse lds...ST <-0.10mV, ant/lat/inf Physician: atrial fibrillation with rapid ventricular response and mild ST segment depression, likely rate related. No evidence of ST elevation or STEMI.
--- NOTE | 2023-09-06 01:00 | DI.RAD_ITS ---
Exam(s) XR PORTABLE CHEST AP EXAM: XR PORTABLE CHEST AP CLINICAL HISTORY: chest pain. TECHNIQUE: 2D digital imaging was performed. COMPARISON: CR XR CHEST 2V PA LATERAL from 04/15/2021 FINDINGS: Single AP portable view. Heart size is upper normal. The mediastinum is not widened. Lungs are clear. No infiltrates nor obvious pleural effusions. IMPRESSION: No acute pulmonary findings on this single AP portable view of the chest. DATA REPOSITORY: RADIATION DOSE DELIVERED:
[2023-09-06] MEDS: Lactated Ringers 1,000 ML 1000 ML IV (01:08)
[2023-09-06] MEDS: Aspirin 325 MG TAB PO (01:18)
[2023-09-06] MEDS: dilTIAZem 25 MG/5 ML VIAL 15 MG IVP (01:18)
[2023-09-06 01:19] LABS: Abs Immature Grans 0.02 10^3/uL (0.0-0.06); Absolute Basophil Count 0.07 10^3/uL (0.0-0.2); Absolute Eosinophil Count 0.35 10^3/uL (0.0-0.7); Absolute Lymphocyte Count 4.33 10^3/uL (1.2-3.4); Absolute Monocyte Count 1.03 10^3/uL (0.1-0.8); Absolute Neutrophil Count 3.88 10^3/uL (1.2-6.7); Basophils % 0.7; Eosinophils % 3.6; HCT 46.7 % (36.0-46.0); HGB 15.4 g/dL (11.2-15.7); Immature Grans % 0.2; Lymphocytes % 44.7; MCH 30.8 pg (27.0-33.0); MCV 93 fL (80-95); MPV 12.3 fL (8.0-11.0); Monocytes % 10.6; Neutrophils % 40.2; Platelet Count 261 10^3/uL (130-400); RDW 13.3 % (11.7-14.6); RDW-SD 45.8 fL; WBC 9.68 10^3/uL (4.4-10.8)
--- NOTE | 2023-09-06 01:25 | ED.GENADUL_ITS ---
HPI General Stated Complaint: Chest Pain EDUARDO: 2 Date/Time Provider Initiated Documentation: 09/06/23 01:02. HPI Narrative: 68-year-old female with a past medical history of chronic back pain, high cholesterol, hypothyroidism, asthma, previous episodes of SVT, presents today for evaluation of chest palpitations. Patient states since 2 to 3 PM she has been having an increased heart rate, and a bit typical fluttering sensation in her chest, and mild achiness in her left arm. She denies any history of A- fib. She denies any change in her medications, alcohol use, fasting, or medication changes otherwise. She denies numbness or tingling. No headache. No significant shortness of breath while resting. She does feel fatigued though. No other complaints at this time. No syncope. Related Data Home Medications Medication Instructions Recorded Confirmed levothyroxine 137 mcg tablet 137 mcg PO DAILY #90 tab-caps 10/28/12 09/06/23 (Levothroid) diphenhydramine HCl 25 mg tablet 25 mg PO HS 08/03/18 09/06/23 cholecalciferol (vitamin D3) 25 1,000 unit PO DAILY 02/28/19 09/06/23 mcg (1,000 unit) capsule oxygen-air delivery systems 02/27/22 04/29/23 rosuvastatin 5 mg tablet (Crestor) 5 mg PO DAILY 02/27/22 09/06/23 calcium carbonate 600 mg calcium 600 mg PO DAILY 09/22/22 09/06/23 (1,500 mg) tablet (Calcium) coenzyme Q10 100 mg capsule 100 mg PO DAILY 09/22/22 09/06/23 (CoQ-10) docusate sodium 100 mg capsule 100 mg PO DAILY 09/22/22 09/06/23 (Colace) lidocaine 5 % topical patch 1 patch topical Q24H #15 ea 05/24/23 09/06/23 (Lidoderm) Previous Rx's Medication Instructions Recorded lidocaine 5 % topical patch 1 patch topical Q24H #15 ea 05/24/23 (Lidoderm) Allergies Allergy/AdvReac Type Severity Reaction Status Date / Time atorvastatin AdvReac MUSCLE Verified 09/06/23 00:52 ACHES ezetimibe AdvReac muscle ache Verified 09/06/23 00:52 pravastatin AdvReac MUSCLE Verified 09/06/23 00:52 ACHES RED YEAST RICE AdvReac MUSCLE Uncoded 09/06/23 00:52 ACHES SHRIMP AdvReac VOMITING Uncoded 09/06/23 00:52 Review of Systems All systems reviewed & are unremarkable except as noted in HPI and below PFSH All Active Problems (Updated 09/06/23 @ 04:06 by Louis Art DO) Atrial fibrillation with RVR (Acute) Paroxysmal atrial fibrillation with RVR (Acute) Acute back pain (Chronic) Chronic constipation (Chronic) BILL (obstructive sleep apnea) (Chronic) SVT (supraventricular tachycardia) (Chronic) Low back pain (Chronic) History of tobacco use (Chronic) Hypothyroidism (Chronic) Hyperlipidemia (Chronic) Generalized anxiety disorder (Chronic) Asthma (Chronic) Depressive disorder (Chronic) Pernicious anemia (Chronic 03/16/12) Encounter for colorectal cancer screening (Acute) Adhesive capsulitis of left shoulder (Acute ~06/2019) Bursitis of left shoulder (Acute ~06/2019) Tendinitis of long head of biceps brachii of left shoulder (Acute) Tendinitis of left rotator cuff (Acute) Closed trimalleolar fracture of left ankle (Acute 09/28/20) s/p ORIF ON 10/04/20 Closed rib fracture (Acute) COVID-19 (Acute) Actinic keratosis (Acute) Nasal septal perforation (Acute) Bilateral sensorineural hearing loss (Acute) Elevated LFTs (Acute) Elevated lipids (Acute) Medical History Skin lesion Prediabetes Osteopenia Grief at loss of child PTSD (post-traumatic stress disorder) Per pt nothing is a potential trigger at this time. COVID-19 Dyspnea Surgical History Hx of dilation and curettage Hx of tubal ligation History of hemorrhoidectomy H/O bilateral breast reduction surgery H/O colonoscopy (08/06/18) 08/06/18 Dr Pathak,no abnormalities, repeat ten years Social History Smoking/Tobacco Use Status: Former Tobacco Use Quit Date: 08/24/75 Smoking risk assessment performed?: Yes Alcohol Intake: current Alcohol Intake frequency: holidays/special occasions on ly Drug use: Never Substance use type: does not use Housing: house Current gender identity: female Do you feel safe at home: Yes Do you feel safe in your relationship?: Yes Additional Social history: lives alone Exam Narrative Exam Narrative: 1.Const: Well-nourished, Well-developed, appearing stated age 2.Eyes: PERRL, no conjunctival injection, and symmetrical lids. 3.ENT: Atraumatic external nose and ears. Moist MM. Neck: Symmetric, trachea midline, No thyromegaly. 4.CVS: +S1/S2, No murmurs or gallops. Elevated rate noted. Peripheral pulses 2+ and equal in all extremities. Brisk capillary refill in all extremities. 5.RESP: Unlabored respiratory effort. Clear to auscultation bilaterally. No wheezes rales or rhonchi 6.GI: Soft, Nontender/Nondistended, No hepatosplenomegaly. No guarding or rebound. 7.MSK: Normocephalic/Atraumatic, Extremities w/o deformity or ttp No cyanosis or clubbing, Normal movement of all extremities 8.Skin: Warm, Dry. No rashes or lesions. 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 Sensation grossly intact, no focal neurologic deficits. 10.Psych: (AAO) x3. Appropriate mood and affect Course Vital Signs Vital signs: Vital Signs Pulse 148 H 09/06/23 00:47 Respiratory Rate 22 09/06/23 00:47 Blood Pressure 142/94 H 09/06/23 00:47 Pulse Oximetry 98 09/06/23 00:47 Pulse 159 H 09/06/23 01:18 Respiratory Rate 20 09/06/23 01:10 Respiratory Effort Normal, Non-Labored 09/06/23 01:10 Respiratory Depth Normal 09/06/23 01:10 Respiratory Pattern Normal 09/06/23 01:10 Blood Pressure 142/94 H 09/06/23 00:47 Blood Pressure Position Sitting 09/06/23 00:47 Pulse Oximetry 98 09/06/23 00:47 Oxygen Delivery Method Room Air 09/06/23 00:47 Oxygen Flow Rate 0 09/06/23 00:47 Pain Level 4 09/06/23 01:10 Lab/Test Results Lab/Test Results: Laboratory Tests Range/Units 09/06/23 01:02 WBC (4.4-10.8) 10^3/uL 9.68 RBC (3.93-5.22) 10^6/uL 5.00 Hgb (11.2-15.7) g/dL 15.4 Hct (36.0-46.0) % 46.7 H MCV (80-95) fL 93 MCH (27.0-33.0) pg 30.8 MCHC (32.0-36.0) % 33.0 RDW (11.7-14.6) % 13.3 Plt Count (130-400) 10^3/uL 261 MPV (8.0-11.0) fL 12.3 H Immature Gran % 0.2 Neutrophils % 40.2 Lymphocytes % 44.7 Monocytes % 10.6 Eosinophils % 3.6 Basophils % 0.7 Nucleated RBC % (0.0-0.3) % 0.0 Absolute Neutrophils (1.2-6.7) 10^3/uL 3.88 Absolute Lymphocytes (1.2-3.4) 10^3/uL 4.33 H Absolute Monocytes (0.1-0.8) 10^3/uL 1.03 H Absolute Eosinophils (0.0-0.7) 10^3/uL 0.35 Absolute Basophils (0.0-0.2) 10^3/uL 0.07 Medical Decision Making 68-year-old female with a past medical history of chronic back pain, high cholesterol, hypothyroidism, asthma, previous episodes of SVT, presents today for evaluation of chest palpitations. Patient states since 2 to 3 PM she has been having an increased heart rate, and a bit typical fluttering sensation in her chest, and mild achiness in her left arm. She denies any history of A- fib. She denies any change in her medications, alcohol use, fasting, or medication changes otherwise. She denies numbness or tingling. No headache. No significant shortness of breath while resting. She does feel fatigued though. No other complaints at this time. No syncope. Exam demonstrates well-appearing female, blood pressure is stable/slightly hypertensive, heart rate in the 140s to 150s. EKG demonstrates evidence of atrial fibrillation with rapid ventricular response and mild ST segment depression, likely rate related. No evidence of ST elevation or STEMI. Symptoms appear consistent with A-fib with RVR. We we will give Cardizem bolus, gently rehydrate with a liter of LR, monitor closely and reassess. 3:31 AM Patient was given an initial bolus of 15 mg of Cardizem, mild improvement of her heart rate with this, however continued to be elevated. Additional 10 mg bolus given, this brought the patient's heart rate down to the 80s. Not long after she converted to sinus rhythm. Patient's Kj vas 2 score is elevated, necessitating anticoagulation. We will start the patient on Eliquis. Patient's laboratory workup demonstrates normal electrolytes. D-dimer test negative. PE unlikely. TSH is elevated but free T4 is normal. Renal function good. proBNP slightly elevated at 1600. No prior for comparison. Troponin is normal. Repeat EKG does demonstrate some mild depressions but no elevation. Sinus rhythm. With the patient's new onset of A-fib, and elevated risk factors we did discuss options of home with close follow-up versus admission for continued observation for stability. Patient has a notable social component of anxiety as her from an atrial fibrillation attack. She is quite concerned because of this. I do feel that observation is reasonable for titration of home medications on metoprolol, Eliquis start, and monitoring. Discussed the case with the hospitalist Dr. Riddle, he agrees with the assessment and plan. Patient will be admitted to [facility] for continued observation. I have extensively reviewed the treatment plan with the patient. I have addressed all patient concerns at this time. I have also discussed the plan with the admitting physician and they agree with the current assessment and plan and have agreed to assume responsibility for the patient. All parties demonstrate verbal understanding and agreement with our assessment and plan at this time. The documentation in this chart was dictated using [employer] dictation software. Please excuse any dictation errors. Quality:SDOH Health Related Social Needs: No Data to Display Critical Care Time Critical Care Time Critical Care Time: Yes Total Critical Care Time: 45 Attestation: Upon my evaluation, this patient had a high probability of imminent or life- threatening deterioration, which required my direct attention, intervention, and personal management. I have personally provided 45 minutes of critical care time exclusive of time spent on separately billable procedures. Time includes review of laboratory data, radiology results, discussion with consultants, and monitoring for potential decompensation. Interventions were performed as documented. Discharge Plan Disposition Patient Disposition: Admit to [facility] Condition: Improving Discharge Details Clinical Impression: Atrial fibrillation with RVR Primary Care Provider: Cl Soto ED Provider: Louis Art Home Meds and New Rx's Prescriptions: No Action cholecalciferol (vitamin D3) 1,000 unit capsule 1,000 unit PO DAILY calcium carbonate [Calcium 600] 600 mg calcium (1,500 mg) tablet 600 mg PO DAILY coenzyme Q10 [CoQ-10] 100 mg capsule 100 mg PO DAILY docusate sodium [Colace] 100 mg capsule 100 mg PO DAILY levothyroxine [Levothroid] 137 MCG tablet 137 mcg PO DAILY Qty: 90 (DME) oxygen-air delivery systems Device See Rx Instructions .Route Rx Instructions: As directed rosuvastatin [Crestor] 5 mg tablet 5 mg PO DAILY Hold Instructions: Resume on 03/08/22. Hold until you have been done with the medication for COVID for 3 days. diphenhydramine HCl 25 mg Tablet 25 mg PO HS lidocaine [Lidoderm] 5 % adhesive patch,medicated 1 patch Topical Q24H Qty: 15 0RF
[2023-09-06] MEDS: dilTIAZem 25 MG/5 ML VIAL 10 MG IVP (01:37)
[2023-09-06 01:42] LABS: PTT Activated 26.3 sec (23.6-32.8); Prothrombin Time 9.7 sec (9.1-11.1)
[2023-09-06 01:49] LABS: ALT 33 U/L (14-59); AST 27 U/L (15-37); Albumin 4.2 g/dL (3.4-5.0); Alkaline Phosphatase 98 U/L (46-116); Anion Gap 9.1 mmol/L (3-11); BUN 16 mg/dL (7-18); Bilirubin, Total 0.3 mg/dL (0.2-1.0); CO2 27.9 mmol/L (21.0-32.0); Chloride 104 mmol/L (98-107); Estimated GFR 61.75 (mL/min/1.73m2); Glucose 148 mg/dL (74-106); Magnesium 2.3 mg/dL (1.8-2.4); NT-proBNP 1618 pg/mL (<300); Potassium 3.8 mmol/L (3.5-5.1); Sodium 141 mmol/L (136-145); Troponin I < 50 ng/L (< or =60)
[2023-09-06 01:53] LABS: TSH (W/Ref FT4) 4.28 uIU/mL (0.36-3.74)
[2023-09-06 02:11] LABS: FREE T4 1.08 ng/dL (0.76-1.46)
--- NOTE | 2023-09-06 02:12 | DI.VRAD_ITS ---
PROCEDURE INFORMATION: Exam: XR Chest Exam date and time: 09/06/2023 1:53 AM Age: 68 years old Clinical indication: Other: Racing heart/chest pain TECHNIQUE: Imaging protocol: Radiologic exam of the chest. Views: 1 view. COMPARISON: CR XR CHEST 2V PA LATERAL 04/15/2021 9:22 AM FINDINGS: Lungs: No pulmonary consolidation is seen. Pleural spaces: No pleural effusion or pneumothorax is demonstrated. Heart/Mediastinum: The heart appears mildly enlarged. Bones/joints: Visualized bony structures appear grossly intact. IMPRESSION: 1. No active disease is seen in the chest. 2. Heart appears mildly enlarged. If not previously evaluated, echocardiography could be obtained to assess cardiac function. Dictated and Authenticated by: Kaleb Foley MD. Ordering:ABIEL Myers MD
--- NOTE | 2023-09-06 03:15 | RT.EKG_ITS ---
APPROVED REPORT Exam: Resting ECG Reason for Exam: afib Patient Location: E HR:65 bpm ECG Measurements Heart Rate 65 AXIS PA 199 P 69 QRSd 87 QRS 19 QT 442 T 64 QTc 461 Conclusion Sinus rhythm...normal P axis, V-rate 60- 99 Probable LVH with secondary repol abnrm...multiple LVH criteria Physician: mild st depression, no stemi or elevation
--- NOTE | 2023-09-06 03:35 | HPE_ITS ---
Date of service: 09/06/23 Time of Service: 03:35 Assessment and Plan Assessment and plan (1) Paroxysmal atrial fibrillation with RVR: Start date: 09/06/23 Status: Acute Assessment and plan: This is a 68-year-old lady who presented to the ED after about a day of palpitations. She was found to be in atrial fibrillation with rapid ventricular response and did not want to a loading dose of diltiazem 15 mg IV. She will be initiated on low-dose metoprolol having problems with bradycardia in the past and her blood pressure not being elevated. Lab did reveal slight bump in her troponin and elevated BNP with chest x-ray revealing possible enlarged heart. She does need an echocardiogram. Her troponins should be trended and presently she is asymptomatic though slightly anxious. She does have BILL on CPAP at night which will be continued and she will be cardiac monitored during her hospital stay with metoprolol 50 mg every 8 hours to be initiated. Long-term she needs cardiology follow-up. She is a full code. (2) SVT (supraventricular tachycardia): Status: Chronic Assessment and plan: Patient has a history of PSVT in the past which has been intermittent but not on treatment because of intolerance of beta-blockers. She did have metoprolol treatment for about a year prior to being stop because of bradycardia continue cardiac monitoring and long-term as stated, cardiology should follow-up. (3) BILL (obstructive sleep apnea): Status: Chronic Assessment and plan: Patient is on CPAP at night which will be continued with home settings during her hospital stay. She is prediabetic with truncal obesity. (4) Hypothyroidism: Status: Chronic Assessment and plan: TSH is slightly elevated but free T4 is normal with patient on levothyroxine but will continued during her hospital stay. Qualifiers: Hypothyroidism type: acquired Qualified Code(s): E03.9 - Hypothyroidism, unspecified (5) Hyperlipidemia: Status: Chronic Assessment and plan: Continue Crestor without change in dose. Patient is intolerant of other statins. Qualifiers: Hyperlipidemia type: other hyperlipidemia Qualified Code(s): E78.49 - Other hyperlipidemia History of Present Illness History of Present Illness Chief Complaint: Palpitations with atypical chest pain and left arm pain Narrative: This is a 68-year-old female patient has a history of paroxysmal supraventricular tachycardia more than 10 years ago failing beta-derrell therapy because of bradycardia, who presents to the ED with onset of palpitations and fluttering in her chest for more than 12 hours with chest discomfort and achiness into her left arm. She did take her blood pressure and noticed that her heart rate was elevated above 120 prompting her to come to the ED for evaluation. She does have a past history of hypothyroidism and asthma with hyperlipidemia as well as chronic back pain but does not drink alcohol and has no history of atrial fibrillation. With her symptoms she does not have any significant shortness of breath at rest and had no neurological complaints. She denied any nausea. In the ED she was found to have atrial fibrillation with rapid ventricular response and did respond to 15 mg of IV Cardizem bolus converting to sinus rhythm after slowing her heart rate from around the 150s to just above 100. She had negative D-dimer and evaluation for PE was not performed. She had no hypoxemia with her episode. Her troponin was negative initially and slightly elevated with a delta measurement. Her BNP was also slightly up at 1600. There was no evidence of ischemia on her EKG. Patient had previous exposure to metoprolol for more than a year but then began to have problems with bradycardia. Patient is hesitant to initiate therapy and return home from the ED, therefore she was admitted for observation to initiate low- dose metoprolol and hopefully to maintain sinus rhythm. She was initiated on Eliquis after counseling in the ED. Patient is already on statin therapy having failed all statins except Crestor. She states that she is prediabetic but not on medical therapy. She is on treatment for hypothyroidism and her TSH is elevated but her free T4 is normal. As stated she does not drink alcohol. Patient does have BILL and is on CPAP at home which will be continued during her hospital stay. Patient does live with family and is agreeable to staying in the hospital for initiation of therapy for proximal atrial fibrillation and hopefully to obtain echocardiogram before discharge home. Her troponins were slightly elevated and the need to be trended during her stay. She is not having chest pain or shortness of breath presently. She is not having palpitations now in sinus rhythm. She is a full code. Review of Systems Narrative: 13 point review of systems otherwise unrevealing or stable. PFSH All Active Problems (Updated 09/06/23 @ 04:06 by Louis Art DO) Atrial fibrillation with RVR (Acute) Paroxysmal atrial fibrillation with RVR (Acute) Acute back pain (Chronic) Chronic constipation (Chronic) BILL (obstructive sleep apnea) (Chronic) SVT (supraventricular tachycardia) (Chronic) Low back pain (Chronic) History of tobacco use (Chronic) Hypothyroidism (Chronic) Hyperlipidemia (Chronic) Generalized anxiety disorder (Chronic) Asthma (Chronic) Depressive disorder (Chronic) Pernicious anemia (Chronic 03/16/12) Encounter for colorectal cancer screening (Acute) Adhesive capsulitis of left shoulder (Acute ~06/2019) Bursitis of left shoulder (Acute ~06/2019) Tendinitis of long head of biceps brachii of left shoulder (Acute) Tendinitis of left rotator cuff (Acute) Closed trimalleolar fracture of left ankle (Acute 09/28/20) s/p ORIF ON 10/04/20 Closed rib fracture (Acute) COVID-19 (Acute) Actinic keratosis (Acute) Nasal septal perforation (Acute) Bilateral sensorineural hearing loss (Acute) Elevated LFTs (Acute) Elevated lipids (Acute) Medical History Skin lesion Prediabetes Osteopenia Grief at loss of child PTSD (post-traumatic stress disorder) Per pt nothing is a potential trigger at this time. COVID-19 Dyspnea Surgical History Hx of dilation and curettage Hx of tubal ligation History of hemorrhoidectomy H/O bilateral breast reduction surgery H/O colonoscopy (08/06/18) 08/06/18 Dr Pathak,no abnormalities, repeat ten years Social History Smoking/Tobacco Use Status: Former Tobacco Use Quit Date: 08/24/75 Smoking risk assessment performed?: Yes Alcohol Intake: current Alcohol Intake frequency: holidays/special occasions only Drug use: Never Substance use type: does not use Housing: house Current gender identity: female Do you feel safe at home: Yes Do you feel safe in your relationship?: Yes Additional Social history: lives alone Meds Allergies and Home Medications Allergies Allergy/AdvReac Type Severity Reaction Status Date / Time atorvastatin AdvReac MUSCLE Verified 09/06/23 00:52 ACHES ezetimibe AdvReac muscle ache Verified 09/06/23 00:52 pravastatin AdvReac MUSCLE Verified 09/06/23 00:52 ACHES RED YEAST RICE AdvReac MUSCLE Uncoded 09/06/23 00:52 ACHES SHRIMP AdvReac VOMITING Uncoded 09/06/23 00:52 Home Medications Medication Instructions Recorded Confirmed Type levothyroxine 137 mcg tablet 137 mcg PO DAILY #90 tab-caps 10/28/12 09/06/23 History (Levothroid) diphenhydramine HCl 25 mg tablet 25 mg PO HS 08/03/18 09/06/23 History cholecalciferol (vitamin D3) 25 1,000 unit PO DAILY 02/28/19 09/06/23 History mcg (1,000 unit) capsule oxygen-air delivery systems 02/27/22 04/29/23 History rosuvastatin 5 mg tablet (Crestor) 5 mg PO DAILY 02/27/22 09/06/23 History calcium carbonate 600 mg calcium 600 mg PO DAILY 09/22/22 09/06/23 History (1,500 mg) tablet (Calcium) coenzyme Q10 100 mg capsule 100 mg PO DAILY 09/22/22 09/06/23 History (CoQ-10) docusate sodium 100 mg capsule 100 mg PO DAILY 09/22/22 09/06/23 History (Colace) lidocaine 5 % topical patch 1 patch topical Q24H #15 ea 05/24/23 09/06/23 Rx (Lidoderm) Exam Narrative Exam Narrative: General: Patient appears older than stated age, alert and oriented x 3 in no acute distress. She has a flattened affect. HEENT: Normocephalic, eyes with pupils equal and reactive to light symmetrically, extraocular movement intact and sclera anicteric. Oropharynx with moist mucosa and poor dentition with missing teeth. Neck: Supple without JVD. Back: Slightly kyphotic without CVA tenderness. Lungs: Fair aeration clear to auscultation percussion. Breast: Exam deferred. Heart: Regular rate and rhythm with slow heart rate at times but above 60. There was a systolic murmur left sternal border. No gallop appreciated. Abdomen: Obese contour, soft and nontender to palpation with no palpable hepatosplenomegaly. Bowel sounds positive all quadrants. Genitalia/rectal: Exam deferred. Extremities: Without clubbing, cyanosis or pitting edema. Peripheral pulses intact. Skin: Normal color, warm and dry. Neuro: Cranial nerves II through XII grossly intact, no focalizing motor deficits. No tremor. Psych: Flattened affect with depressed mood. Speech is monotone and slow. No abnormal thought processes. Remote and recent memory grossly intact. Results Imaging Imaging Studies: Exam: XR Chest Exam date and time: 09/06/2023 1:53 AM Age: 68 years old Clinical indication: Other: Racing heart/chest pain TECHNIQUE: Imaging protocol: Radiologic exam of the chest. Views: 1 view. COMPARISON: CR XR CHEST 2V PA LATERAL 04/15/2021 9:22 AM FINDINGS: Lungs: No pulmonary consolidation is seen. Pleural spaces: No pleural effusion or pneumothorax is demonstrated. Heart/Mediastinum: The heart appears mildly enlarged. Bones/joints: Visualized bony structures appear grossly intact. IMPRESSION: 1. No active disease is seen in the chest. 2. Heart appears mildly enlarged. If not previously evaluated, echocardiography could be obtained to assess cardiac function. Labs 09/06/23 01:02 09/06/23 01:02 Labs: Laboratory Results - last 24 hr 09/06/23 01:02 WBC 9.68 RBC 5.00 Hgb 15.4 Hct 46.7 H MCV 93 MCH 30.8 MCHC 33.0 RDW 13.3 Plt Count 261 MPV 12.3 H Immature Gran % 0.2 Neutrophils % 40.2 Lymphocytes % 44.7 Monocytes % 10.6 Eosinophils % 3.6 Basophils % 0.7 Nucleated RBC % 0.0 Absolute Neutrophils 3.88 Absolute Lymphocytes 4.33 H Absolute Monocytes 1.03 H Absolute Eosinophils 0.35 Absolute Basophils 0.07 PT 9.7 INR 1.0 APTT 26.3 Sodium 141 Potassium 3.8 Chloride 104 Carbon Dioxide 27.9 Anion Gap 9.1 BUN 16 Creatinine 1.0 Est GFR (CKD-EPI 2020) 61.75 Glucose 148 H Calcium 10.0 Magnesium 2.3 Total Bilirubin 0.3 AST 27 ALT 33 Alkaline Phosphatase 98 Troponin I < 50 NT-Pro-B Natriuret Pep 1618 H Total Protein 8.0 Albumin 4.2 TSH 4.28 H Free T4 1.08 Last Vital Signs Pulse 65 09/06/23 02:25 Resp 12 09/06/23 02:25 BP 108/60 09/06/23 02:25 Pulse Ox 99 01/14/24 02:25 Time Spent Time spent with Patient: >75 minutes Time was spent: preparing to see the patient(eg.review tests), obtaining and/or reviewing separately otained hiistory, ordering medications,tests, procedures, referring, communicating with other health anesthesiologist and critical care, indepentently interpreting results and counseling the patient
[2023-09-06] MEDS: Apixaban 5 MG TAB (03:48)
[2023-09-06] MEDS: LORazepam 2 MG/ML VIAL 0.5 MG IVP (03:49)
[2023-09-06 04:12] LABS: D-Dimer 413 ng/mlFEU (<500)
[2023-09-06 04:37] LABS: Troponin I 81 ng/L (< or =60)
[2023-09-06 06:44] LABS: HCT 42.2 % (36.0-46.0); HGB 13.8 g/dL (11.2-15.7); MCH 30.9 pg (27.0-33.0); MCHC 32.7 % (32.0-36.0); MCV 95 fL (80-95); Platelet Count 143 10^3/uL (130-400); RBC 4.46 10^6/uL (3.93-5.22); RDW 13.3 % (11.7-14.6); RDW-SD 46.6 fL; WBC 8.34 10^3/uL (4.4-10.8)
[2023-09-06] MEDS: Metoprolol 12.5 MG TAB PO (06:44)
[2023-09-06 07:23] LABS: ALT 24 U/L (14-59); AST 27 U/L (15-37); Albumin 3.5 g/dL (3.4-5.0); Alkaline Phosphatase 75 U/L (46-116); Anion Gap 10.8 mmol/L (3-11); BUN 13 mg/dL (7-18); Bilirubin, Total 0.3 mg/dL (0.2-1.0); CO2 23.2 mmol/L (21.0-32.0); CREATININE 0.8 mg/dL (0.55-1.02); Calcium 9.4 mg/dL (8.5-10.1); Chloride 108 mmol/L (98-107); Estimated GFR 80.71 (mL/min/1.73m2); Glucose 120 mg/dL (74-106); Magnesium 2.3 mg/dL (1.8-2.4); Potassium 4.2 mmol/L (3.5-5.1); Sodium 142 mmol/L (136-145); Total Protein 6.8 g/dL (6.4-8.2)
[2023-09-06] MEDS: Calcium Carbonate 1.5 GM TAB PO (09:14)
[2023-09-06] MEDS: Rosuvastatin 10 MG TAB 5 MG PO (09:15)
[2023-09-06] MEDS: Docusate Sodium 100 MG CAP PO (09:16)
[2023-09-06] MEDS: Aspirin 81 MG CHEW PO (09:16)
[2023-09-06] MEDS: Cholecalciferol (Vitamin D3) 1,000 UNIT TAB 1000 UNITS PO (09:16)
[2023-09-06] MEDS: Normal Saline Flush 10 ML SYR IVP (09:17)
[2023-09-06 09:24] LABS: Troponin I 92 ng/L (< or =60)
--- NOTE | 2023-09-06 10:13 | INITIAL_ITS ---
Date of service: 09/06/23 Time of Service: 10:13 Care Management Initial Assmt Initial Assessment REASON FOR HOSPITALIZATION:: Paroxysmal atrial fibrillation with RVR PREVIOUS FUNCTIONAL STATUS/SOCIAL/FAMILY SUPPORTS:: Bianca lives in [place], [place] with her son, [id number] and granddaughter. 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 She is independent at baseline and does not receive any community services. CURRENT FUNCTIONAL STATUS:: Bianca was sitting up in bed when CM met with her. She was pleasant in manner and agreeable to conversation. Bianca shared that her son and his family moved in with her about 6 months ago as they are building a home and doing the work themselves. They anticipate that it will take quite a bit of time to complete. Bianca explained that she travels the distance she does to work because of the insurance and benefits. She stated that she would never be able to afford the benefits she receives closer to home. ADVANCE DIRECTIVES:: on file. Gavin PENA Has patient been provided with info about the portal/API?: Yes Did the patient sign up for the portal?: No CODE STATUS:: Full Code INSURANCE COVERAGE / FINANCIAL ISSUES:: BC/BS Medicare Part A only CURRENT HOME/COMMUNITY SERVICES/EQUIPMENT:: none PRIMARY CARE PHYSICIAN:: Cl Soto POTENTIAL DISCHARGE NEEDS:: follow up with PCP and Cardiology PATIENT/FAMILY EDUCATION NEEDS:: Review discharge instructions, activity, limitations, follow up plan, discuss Ask Me Three TRANSPORTATION:: via private vehicle with family PLAN:: Anticipate Bianca will be discharged home with no new services when medically cleared. She will follow up with her community providers and plan of care and transport with family. CM will follow and continue to assess for discharge needs. PFSH All Active Problems (Updated 09/06/23 @ 04:06 by Louis Art DO) Atrial fibrillation with RVR (Acute) Paroxysmal atrial fibrillation with RVR (Acute) Acute back pain (Chronic) Chronic constipation (Chronic) BILL (obstructive sleep apnea) (Chronic) SVT (supraventricular tachycardia) (Chronic) Low back pain (Chronic) History of tobacco use (Chronic) Hypothyroidism (Chronic) Hyperlipidemia (Chronic) Generalized anxiety disorder (Chronic) Asthma (Chronic) Depressive disorder (Chronic) Pernicious anemia (Chronic 03/16/12) Encounter for colorectal cancer screening (Acute) Adhesive capsulitis of left shoulder (Acute ~06/2019) Bursitis of left shoulder (Acute ~06/2019) Tendinitis of long head of biceps brachii of left shoulder (Acute) Tendinitis of left rotator cuff (Acute) Closed trimalleolar fracture of left ankle (Acute 09/28/20) s/p ORIF ON 10/04/20 Closed rib fracture (Acute) COVID-19 (Acute) Actinic keratosis (Acute) Nasal septal perforation (Acute) Bilateral sensorineural hearing loss (Acute) Elevated LFTs (Acute) Elevated lipids (Acute) Medical History Skin lesion Prediabetes Osteopenia Grief at loss of child PTSD (post-traumatic stress disorder) Per pt nothing is a potential trigger at this time. COVID-19 Dyspnea Surgical History Hx of dilation and curettage Hx of tubal ligation History of hemorrhoidectomy H/O bilateral breast reduction surgery H/O colonoscopy (08/06/18) 08/06/18 Dr Pathak,no abnormalities, repeat ten years Social History Smoking/Tobacco Use Status: Former Tobacco Use Quit Date: 08/24/75 Smoking risk assessment performed?: Yes Alcohol Intake: current Alcohol Intake frequency: holidays/special occasions only Drug use: Never Substance use type: does not use Housing: house Current gender identity: female Do you feel safe at home: Yes Do you feel safe in your relationship?: Yes Additional Social history: lives alone SDOH(Care Management) Screening Will the Patient Participate in the Screening?: Declined to provide
--- NOTE | 2023-09-06 10:14 | DSE_ITS ---
Date of service: 09/06/23 Time of Service: 10:14 DS: Diagnosis Discharge Diagnosis (1) Paroxysmal atrial fibrillation with RVR: Status: Acute (2) SVT (supraventricular tachycardia): Status: Chronic (3) BILL (obstructive sleep apnea): Status: Chronic (4) Hypothyroidism: Status: Chronic (5) Hyperlipidemia: Status: Chronic Discharge Plan Disposition Patient Disposition: Home Condition: Improving Discharge Details Reason For Visit: New onset atrial fibrillation with RVR Admit Date/Time: 09/06/23 03:38 Admit Provider: Gee Riddle Attending Provider: Gee Riddle Primary Care Provider: Cl Soto Hospital Course Hospital Course: This 68 years old female with a past medical history of paroxysmal supraventricular tachycardia over 10 years ago with failed beta-derrell therapy due to bradycardia, asthma, chronic back pain, obstructive sleep apnea, hypothyroidism on levothyroxine presented to the ED at [facility] on 09/06/2023 for evaluation of palpitations started over 12 hours ago with chest discomfort and achiness to her left arm. The patient reported taking her blood pressure and then notice her heart rate above 120 supporting her decision to come to the ED for evaluation.An EKG was completed and showed atrial fibrillation with rapid ventricular response responding to a total of 25 mg of IV Cardizem. Her heart rate went from around 150s to just above 100. D-dimer was negative, no hypoxia noted thus evaluation for pulmonary emboli was not performed. The EKG showed no signs of ischemia. Initial troponin was negative then slightly elevated. BNP was slightly above 1600. TSH was elevated with a normal free T4. In the emergency room the patient denied changes to her medication, alcohol use fasting , numbness or tingling, headache, nausea. The patient reported feeling fatigue. The patient was initially started on low-dose metoprolol despite history of bradycardia during her treatment of SVT. The patient was also started on Eliquis as anticoagulation therapy in the setting of atrial fibrillation. Patient was initially reluctant to stay but ultimately agreed. The hospitalist admitted the patient to the medical surgical floor with telemetry for evaluation and management of atrial fibrillation with rapid ventricular response, elevated troponin, left arm discomfort and palpitations. During the stay, due to the conversion into sinus rhythm from atrial fibrillation after IV Cardizem administration, previous history of bradycardia with metoprolol, as well as heart rate at 59 and systolic blood pressure less than less than 100, the patient was started on low-dose Cardizem twice daily. Metoprolol was discontinued. Oral Cardizem was well-tolerated and the patient will be discharged on low-dose Cardizem twice daily and Eliquis. The patient remained in a sinus all rhythm for most of her stay except for a few ectopic beats prior to initiation of oral Cardizem. The patient mentioned previous dizziness spells at home when getting out of bed but is taking diphenhydramine at bedtime; medicine is held until reevaluated carefully evaluated by primary care practitioner. Patient encouraged to try melatonin at bedtime as needed. An outpatient echocardiogram was also ordered as well as follow-up with cardiology and the patient primary care provider. The patient is to stay off of work until Thursday, and further work activity should be evaluated by her PCP. Discussed with Dr. Young Home Meds and New Rx's Prescriptions: New diltiazem HCl [Cardizem] 30 mg Tablet 30 mg PO BID Qty: 60 0RF Eliquis 5 mg Tablet 5 mg PO BID Qty: 60 0RF melatonin 3 mg tablet 3 mg PO HS PRNQty: 30 0RF Continued cholecalciferol (vitamin D3) 1,000 unit capsule 1,000 unit PO DAILY calcium carbonate [Calcium 600] 600 mg calcium (1,500 mg) tablet 600 mg PO DAILY coenzyme Q10 [CoQ-10] 100 mg capsule 100 mg PO DAILY docusate sodium [Colace] 100 mg capsule 100 mg PO DAILY levothyroxine [Levothroid] 137 MCG tablet 137 mcg PO DAILY Qty: 90 (DME) oxygen-air delivery systems Device See Rx Instructions .Route Rx Instructions: As directed rosuvastatin [Crestor] 5 mg tablet 5 mg PO DAILY Hold Instructions: Resume on 03/08/22. Hold until you have been done with the medication for COVID for 3 days. lidocaine [Lidoderm] 5 % adhesive patch,medicated 1 patch Topical Q24H Qty: 15 0RF Held diphenhydramine HCl 25 mg Tablet 25 mg PO HS Hold Instructions: Resume on 09/14/23. restart as per PCP Discharge Instructions Referrals: Mariah Saha MD [ [facility] STAFF PHYSICIAN] - (Hx of SVT , in with new onset A-Fib, converted discharged on Cardizem. Echo as an OPT) Cl Soto PA [Primary Care Provider] - 09/08/23 8:00 am Activity:: Activity as Tolerated Equipment/Supplies:: No Equipment Needed Diet:: HEART HEALTHY Discharge Orders Other Ambulatory Orders: US echocardiogram (ONCE) Timeframe: [id number] Facility: [facility] - Location: DIAGNOSTIC IMAGING DEPT Ordered By: Amanda Givens DS: Summary Time Spent with Patient providing and/or coordinating discharge services: Greater than 30 minutes Status at Discharge Functional status at discharge: independent ambulation Overall status at discharge: patient is back to baseline Mental Status: mental status grossly normal Speech and Movement: speech and movement normal Mood: congruent mood Affect: normal affect Quality:SDOH Health Related Social Needs: No Data to Display Exam Psych Mental Status: mental status grossly normal Speech and Movement: speech and movement normal Mood: congruent mood Affect: normal affect DS: Data Vitals/I&O Vitals and I&O: Vital Signs Temperature 36.8 C 09/06/23 07:38 Temperature Source Tympanic 09/06/23 07:38 Pulse 60 09/06/23 07:38 Pulse Rhythm Regular 09/06/23 07:57 Pulse 69 09/06/23 04:30 Respiratory Rate 16 09/06/23 07:38 Respiratory Effort Normal 09/06/23 07:57 Respiratory Depth Normal 09/06/23 04:44 Respiratory Pattern Normal 09/06/23 04:44 Blood Pressure 99/64 L 09/06/23 07:38 Blood Pressure Mean 60 09/06/23 04:16 Blood Pressure Position Sitting 09/06/23 00:47 Pulse Oximetry 94 09/06/23 07:38 Oxygen Delivery Method Room Air 09/06/23 07:38 Oxygen Flow Rate 0 09/06/23 07:38 Pain Level 0 09/06/23 04:44 Comment Denies discomfort 09/06/23 07:38 Intake & Output 09/05/23 09/05/23 09/06/23 11:59 23:59 11:59 Intake Total 1010 / 1010 Output Total 400 / 400 Balance 610 / 610 Weight 78.018 kg Intake: IV 1010 / 1010 Output: Urine 400 / 400 Other: Urine Color Yellow Urine Appearance Clear Urine Odor None Voiding Methods Toilet Data Completed and Pending Labs on day of discharge: Labs from last 24 hours 09/06/23 09/06/23 09/06/23 08:57 05:43 04:05 WBC 8.34 RBC 4.46 Hgb 13.8 Hct 42.2 MCV 95 MCH 30.9 MCHC 32.7 RDW 13.3 Plt Count 143 MPV Immature Gran % Neutrophils % Lymphocytes % Monocytes % Eosinophils % Basophils % Nucleated RBC % Absolute Neutrophils Absolute Lymphocytes Absolute Monocytes Absolute Eosinophils Absolute Basophils PT INR APTT D-Dimer Sodium 142 Potassium 4.2 Chloride 108 H Carbon Dioxide 23.2 Anion Gap 10.8 BUN 13 Creatinine 0.8 Est GFR (CKD-EPI 2020) 80.71 Glucose 120 H Calcium 9.4 Magnesium 2.3 Total Bilirubin 0.3 AST 27 ALT 24 Alkaline Phosphatase 75 Troponin I 92 H* 81 H* NT-Pro-B Natriuret Pep Total Protein 6.8 Albumin 3.5 TSH Free T4 09/06/23 01:02 WBC 9.68 RBC 5.00 Hgb 15.4 Hct 46.7 H MCV 93 MCH 30.8 MCHC 33.0 RDW 13.3 Plt Count 261 MPV 12.3 H Immature Gran % 0.2 Neutrophils % 40.2 Lymphocytes % 44.7 Monocytes % 10.6 Eosinophils % 3.6 Basophils % 0.7 Nucleated RBC % 0.0 Absolute Neutrophils 3.88 Absolute Lymphocytes 4.33 H Absolute Monocytes 1.03 H Absolute Eosinophils 0.35 Absolute Basophils 0.07 PT 9.7 INR 1.0 APTT 26.3 D-Dimer 413 Sodium 141 Potassium 3.8 Chloride 104 Carbon Dioxide 27.9 Anion Gap 9.1 BUN 16 Creatinine 1.0 Est GFR (CKD-EPI 2020) 61.75 Glucose 148 H Calcium 10.0 Magnesium 2.3 Total Bilirubin 0.3 AST 27 ALT 33 Alkaline Phosphatase 98 Troponin I < 50 NT-Pro-B Natriuret Pep 1618 H Total Protein 8.0 Albumin 4.2 TSH 4.28 H Free T4 1.08 PFSH All Active Problems (Updated 09/06/23 @ 04:06 by Louis Art DO) Atrial fibrillation with RVR (Acute) Paroxysmal atrial fibrillation with RVR (Acute) Acute back pain (Chronic) Chronic constipation (Chronic) BILL (obstructive sleep apnea) (Chronic) SVT (supraventricular tachycardia) (Chronic) Low back pain (Chronic) History of tobacco use (Chronic) Hypothyroidism (Chronic) Hyperlipidemia (Chronic) Generalized anxiety disorder (Chronic) Asthma (Chronic) Depressive disorder (Chronic) Pernicious anemia (Chronic 03/16/12) Encounter for colorectal cancer screening (Acute) Adhesive capsulitis of left shoulder (Acute ~06/2019) Bursitis of left shoulder (Acute ~06/2019) Tendinitis of long head of biceps brachii of left shoulder (Acute) Tendinitis of left rotator cuff (Acute) Closed trimalleolar fracture of left ankle (Acute 09/28/20) s/p ORIF ON 10/04/20 Closed rib fracture (Acute) COVID-19 (Acute) Actinic keratosis (Acute) Nasal septal perforation (Acute) Bilateral sensorineural hearing loss (Acute) Elevated LFTs (Acute) Elevated lipids (Acute) Medical History Skin lesion Prediabetes Osteopenia Grief at loss of child PTSD (post-traumatic stress disorder) Per pt nothing is a potential trigger at this time. COVID-19 Dyspnea Surgical History Hx of dilation and curettage Hx of tubal ligation History of hemorrhoidectomy H/O bilateral breast reduction surgery H/O colonoscopy (08/06/18) 08/06/18 Dr Pathak,no abnormalities, repeat ten years Social History Smoking/Tobacco Use Status: Former Tobacco Use Quit Date: 08/24/75 Smoking risk assessment performed?: Yes Alcohol Intake: current Alcohol Intake frequency: holidays/special occasions only Drug use: Never Substance use type: does not use Housing: house Current gender identity: female Do you feel safe at home: Yes Do you feel safe in your relationship?: Yes Additional Social history: lives alone Time Spent with Patient Time Spent with Patient: >85 minutes Time was spent: preparing to see the patient(eg.review tests), obtaining and/or reviewing separately otained hiistory, ordering medications,tests, procedures, referring, communicating with other health director long term care, indepentently interpreting results, counseling the patient and care coordination
[2023-09-06] MEDS: dilTIAZem 30 MG TAB PO (12:52)
[2023-09-06 12:56] LABS: Troponin I 76 ng/L (< or =60)
== END 2023-09-06 17:50 | disposition home or self-care (01) ==
LOC: ER 04:07 → MS 04:40
PROVIDERS: Nurse Practitioner Acute Care; Admitting Provider Family Medicine; Emergency Provider Student in an Organized Health Care Education/Training Program; PCP Physician Assistant Medical; Visit Provider Family Medicine
DX: I48.0 Paroxysmal atrial fibrillation (principal); G47.33 Obstructive sleep apnea (adult) (pediatric); I47.10 Supraventricular tachycardia, unspecified; E03.9 Hypothyroidism, unspecified; Z79.899 Other long term (current) drug therapy; E78.49 Other hyperlipidemia; J45.909 Unspecified asthma, uncomplicated; G89.29 Other chronic pain; M54.9 Dorsalgia, unspecified; R74.8 Abnormal levels of other serum enzymes
CPT/HCPCS: 00123; 36415; 80053; 85027; 93005; 96361; 96374; 96375; 99291; 71045; 83735; 83880; 84439; 84443; 84484; 85025; 85379; 85610; 85730; 93010; 99236; G0378; J2060; J3490

== ENCOUNTER 2023-09-29 11:01 | Outpatient (CLI) | payer BC, SELFPAY ==
--- NOTE | 2023-09-29 11:00 | RT.EKG_ITS ---
APPROVED REPORT Exam: Resting ECG Reason for Exam: paroxysmal afib Patient Location: O HR:56 bpm ECG Measurements Heart Rate 56 AXIS MN 190 P 56 QRSd 91 QRS -4 QT 448 T 118 QTc 433 Conclusion Sinus rhythm...normal P axis, V-rate 50- 99 Atrial premature complex...SV complex w/ short R-R interval Anterolateral infarct, age indeterminate...Q >35mS, flat/neg T, V3-V6,I,aVL I have reviewed and interpreted ECG and agree with software generated interpretation.
== END 2023-09-29 11:02 | disposition home or self-care (01) ==
LOC: DI.CARD 11:02
PROVIDERS: PCP Physician Assistant Medical; Visit Provider Internal Medicine Interventional Cardiology
DX: I48.0 Paroxysmal atrial fibrillation (principal)
CPT/HCPCS: 93010

== ENCOUNTER 2023-09-29 13:25 | Outpatient (CLI) | payer BC, SELFPAY ==
[2023-09-29 12:46] LABS: HCT 40.5 % (36.0-46.0); HGB 13.2 g/dL (11.2-15.7); MCH 30.8 pg (27.0-33.0); MCHC 32.6 % (32.0-36.0); MCV 95 fL (80-95); MPV 12.5 fL (8.0-11.0); Platelet Count 231 10^3/uL (130-400); RBC 4.28 10^6/uL (3.93-5.22); RDW 13.3 % (11.7-14.6); RDW-SD 46.4 fL; WBC 6.79 10^3/uL (4.4-10.8)
[2023-09-29 12:51] LABS: PTT Activated 28.4 sec (23.6-32.8); Prothrombin Time 10.2 sec (9.1-11.1)
[2023-09-29 12:52] LABS: Anion Gap 3.3 mmol/L (3-11); BUN 13 mg/dL (7-18); CO2 30.7 mmol/L (21.0-32.0); CREATININE 0.8 mg/dL (0.55-1.02); Calcium 9.5 mg/dL (8.5-10.1); Chloride 106 mmol/L (98-107); Estimated GFR 80.71 (mL/min/1.73m2); Glucose 112 mg/dL (74-106); Potassium 4.3 mmol/L (3.5-5.1); Sodium 140 mmol/L (136-145)
== END 2023-09-29 13:26 | disposition home or self-care (01) ==
LOC: LBO 13:26
PROVIDERS: PCP Physician Assistant Medical; Visit Provider Internal Medicine Interventional Cardiology
DX: I48.0 Paroxysmal atrial fibrillation (principal)
CPT/HCPCS: 36415; 80048; 85027; 85610; 85730

== ENCOUNTER 2023-11-03 10:46 | Outpatient (REF) | payer BC, SELFPAY ==
[2023-11-03 16:10] LABS: Anion Gap 12.4 mmol/L (3-11); BUN 12 mg/dL (7-18); CO2 26.6 mmol/L (21.0-32.0); CREATININE 0.9 mg/dL (0.55-1.02); Calcium 9.8 mg/dL (8.5-10.1); Chloride 104 mmol/L (98-107); Estimated GFR 70.07 (mL/min/1.73m2); FREE T4 1.24 ng/dL (0.76-1.46); Glucose 98 mg/dL (74-106); Potassium 4.5 mmol/L (3.5-5.1); Sodium 143 mmol/L (136-145)
== END 2023-11-03 10:47 | disposition home or self-care (01) ==
LOC: NCHCN 10:46
PROVIDERS: PCP Physician Assistant Medical; Visit Provider Physician Assistant Medical
DX: E03.9 Hypothyroidism, unspecified (principal); R73.03 Prediabetes; I48.0 Paroxysmal atrial fibrillation; I47.10 Supraventricular tachycardia, unspecified; I25.2 Old myocardial infarction
CPT/HCPCS: 80048; 83036; 84439; 84443

== ENCOUNTER 2024-03-26 06:15 | Emergency (ER) | payer BC, SELFPAY ==
[2024-03-26] VITALS (30 sets, daily range): BP systolic 89–117; BP diastolic 37–58; PULSE 55–76; RESP 9–19; TEMP 36.7; O2SAT 90–99
--- NOTE | 2024-03-26 06:24 | ED.GENADUL_ITS ---
Discharge Plan Discharge Details Chief Complaint: Abd Prob Primary Care Provider: Cl Soto ED Provider: Anuj Mohan Home Meds and New Rx's Prescriptions: No Action furosemide 40 mg tablet 40 mg PO DAILY Qty: 90 3RF cholecalciferol (vitamin D3) 1,000 unit capsule 1,000 unit PO DAILY nitroglycerin [Nitrostat] 0.4 mg tablet, sublingual 0.4 mg sublingual Q5M PRN (Reason: chest pain) Qty: 30 3RF Rx Instructions: do not exceed 3 doses per episode levothyroxine [Levothroid] 137 MCG tablet 137 mcg PO DAILY Qty: 90 (DME) oxygen-air delivery systems Device See Rx Instructions .Route Rx Instructions: As directed rosuvastatin [Crestor] 5 mg tablet 5 mg PO DAILY sertraline 25 mg tablet 25 mg PO DAILY lidocaine [Lidoderm] 5 % adhesive patch,medicated 1 patch Topical Q24H Qty: 15 0RF diltiazem HCl [Cardizem] 30 mg Tablet 30 mg PO BID Qty: 60 0RF Eliquis 5 mg Tablet 5 mg PO BID Qty: 60 0RF HPI General Mode of arrival: ambulatory . Date/Time Provider Initiated Documentation: 03/26/24 06:24 . Limitations to Documentation: no limitations . Information obtained by: patient and RN notes reviewed . HPI Narrative: Patient presents to ED with vomiting and diarrhea since afternoon. She has intermittent abdominal pain but mostly just nausea. She has been unable to tolerate anything including liquids at this point. Denies any respiratory symptoms. Denies any shortness of breath or chest pain. Denies any hematemesis or hematochezia. Reports decreased urine output, generalized weakness. Has not been around anyone ill. Related Data Home Medications ?Medication ?Instructions ?Recorded ?Confirmed levothyroxine 137 mcg tablet 137 mcg PO DAILY #90 tab-caps 10/28/12 03/26/24 (Levothroid) cholecalciferol (vitamin D3) 25 1,000 unit PO DAILY 02/28/19 03/26/24 mcg (1,000 unit) capsule oxygen-air delivery systems 02/27/22 02/19/24 rosuvastatin 5 mg tablet (Crestor) 5 mg PO DAILY 02/27/22 03/26/24 lidocaine 5 % topical patch 1 patch topical Q24H #15 ea 05/24/23 03/26/24 (Lidoderm) apixaban 5 mg tablet (Eliquis) 5 mg PO BID #60 tabs 09/06/23 03/26/24 diltiazem HCl 30 mg tablet 30 mg PO BID #60 tabs 09/06/23 03/26/24 (Cardizem) sertraline 25 mg tablet 25 mg PO DAILY 09/22/23 03/26/24 nitroglycerin 0.4 mg sublingual 0.4 mg sublingual Q5M PRN chest 09/29/23 03/26/24 tablet (Nitrostat) pain #30 tabs furosemide 40 mg tablet 40 mg PO DAILY #90 tabs 10/22/23 03/26/24 Previous Rx's ?Medication ?Instructions ?Recorded lidocaine 5 % topical patch 1 patch topical Q24H #15 ea 05/24/23 (Lidoderm) apixaban 5 mg tablet (Eliquis) 5 mg PO BID #60 tabs 09/06/23 diltiazem HCl 30 mg tablet 30 mg PO BID #60 tabs 09/06/23 (Cardizem) nitroglycerin 0.4 mg sublingual 0.4 mg sublingual Q5M PRN chest 09/29/23 tablet (Nitrostat) pain #30 tabs furosemide 40 mg tablet 40 mg PO DAILY #90 tabs 10/22/23 Allergies Allergy/AdvReac Type Severity Reaction Status Date / Time atorvastatin AdvReac MUSCLE Verified 03/26/24 06:21 ACHES ezetimibe AdvReac muscle ache Verified 03/26/24 06:21 pravastatin AdvReac MUSCLE Verified 03/26/24 06:21 ACHES RED YEAST RICE AdvReac MUSCLE Uncoded 03/26/24 06:21 ACHES SHRIMP AdvReac VOMITING Uncoded 03/26/24 06:21 General EDUARDO: 2 Review of Systems Narrative: Per HPI Exam Narrative Exam Narrative: Const: WDWN elderly female in NAD. VS per triage. HEENT: NC/AT. Normal facial exam. Dry MM. Neck: Supple. Trachea midline. Lungs: Normal respiratory effort. Lungs are clear. Cor: RRR without murmur. Good radial pulses. GI: Soft/ND/NT. Neuro: A+O x 3. Normal speech, mentation, gait. Cranial nerves II - XII grossly intact. No gross motor or sensory deficit. Ext: No C/C/E. Medical Decision Making Patient presenting to ED with vomiting and diarrhea since afternoon. Unable to tolerate liquids at this point. Has a benign abdomen. Reports weakness and decreased urine output. IV established laboratory studies sent. Fluids and ondansetron given. Patient's nausea is improved with ondansetron but not completely resolved. She is also developing a slight headache. She will be given IV prochlorperazine. Laboratory studies for the most part are reassuring though she does have some evidence of dehydration based on renal function and she is hypokalemic. Will plan IV potassium, hydration, reevaluation. Signed out to oncoming ED physician Dr. Art. Lab Data Lab results reviewed: Yes I reviewed the patient's lab results. [facility] All Active Problems Skin lesion (Acute) Exertional angina (Acute) Chronic constipation (Chronic) Low back pain (Chronic) History of tobacco use (Chronic) Asthma (Chronic) Depressive disorder (Chronic) Pernicious anemia (Chronic 03/16/12) Adhesive capsulitis of left shoulder (Acute ~06/2019) Bursitis of left shoulder (Acute ~06/2019) Tendinitis of long head of biceps brachii of left shoulder (Acute) Tendinitis of left rotator cuff (Acute) Actinic keratosis (Acute) Nasal septal perforation (Acute) Bilateral sensorineural hearing loss (Acute) Elevated LFTs (Acute) Elevated lipids (Acute) Medical History Generalized anxiety disorder Diastolic heart failure Paroxysmal atrial fibrillation NSTEMI (non-ST elevated myocardial infarction) Hyperlipidemia Hypothyroidism SVT (supraventricular tachycardia) BILL (obstructive sleep apnea) CPAP Prediabetes Osteopenia PTSD (post-traumatic stress disorder) Per pt nothing is a potential trigger at this time. Surgical History Closed trimalleolar fracture of left ankle (09/28/20) s/p ORIF ON 10/04/20 Hx of dilation and curettage Hx of tubal ligation History of hemorrhoidectomy H/O bilateral breast reduction surgery H/O colonoscopy (08/06/18) 08/06/18 Dr Pathak,no abnormalities, repeat ten years Family History Father Alcohol use disorder Mother Alcohol use disorder Heart disease [place] Social History Smoking/Tobacco Use Status: Former Tobacco Use Quit Date: 08/24/75 Smoking risk assessment performed?: Yes Alcohol Intake: current Alcohol Intake frequency: holidays/special occasions only Drug use: Never Substance use type: does not use Housing: house Current gender identity: female Do you feel safe at home: Yes Do you feel safe in your relationship?: Yes Additional Social history: lives alone
[2024-03-26] MEDS: Lactated Ringers 1,000 ML 1000 ML IV (06:35)
[2024-03-26] MEDS: Ondansetron 4 MG/2 ML VIAL IVP (06:36)
[2024-03-26 06:43] LABS: Abs Immature Grans 0.03 10^3/uL (0.0-0.06); Absolute Basophil Count 0.02 10^3/uL (0.0-0.2); Absolute Eosinophil Count 0.01 10^3/uL (0.0-0.7); Absolute Lymphocyte Count 1.09 10^3/uL (1.2-3.4); Absolute Monocyte Count 0.69 10^3/uL (0.1-0.8); Absolute Neutrophil Count 6.82 10^3/uL (1.2-6.7); Basophils % 0.2 %; Eosinophils % 0.1 %; HCT 46.9 % (36.0-46.0); HGB 15.5 g/dL (11.2-15.7); Immature Grans % 0.3 %; Lymphocytes % 12.6 %; MCH 31.3 pg (27.0-33.0); MCV 95 fL (80-95); MPV 12.2 fL (8.0-11.0); Neutrophils % 78.8 %; Platelet Count 199 10^3/uL (130-400); RBC 4.96 10^6/uL (3.93-5.22); RDW 13.2 % (11.7-14.6); RDW-SD 46.8 fL; WBC 8.66 10^3/uL (4.4-10.8)
[2024-03-26 07:00] LABS: ALT 30 U/L (14-59); AST 21 U/L (15-37); Albumin 4.1 g/dL (3.4-5.0); Alkaline Phosphatase 82 U/L (46-116); Anion Gap 9.4 mmol/L (3-11); BUN 19 mg/dL (7-18); Bilirubin, Total 0.51 mg/dL (0.2-1.0); CO2 28.6 mmol/L (21.0-32.0); CREATININE 1.1 mg/dL (0.55-1.02); Calcium 9.4 mg/dL (8.5-10.1); Chloride 100 mmol/L (98-107); Estimated GFR 55.07 (mL/min/1.73m2); Glucose 125 mg/dL (74-106); Lipase 41 U/L (16-77); Magnesium 2.2 mg/dL (1.8-2.4); Potassium 3.2 mmol/L (3.5-5.1); Sodium 138 mmol/L (136-145); Total Protein 8.2 g/dL (6.4-8.2)
[2024-03-26] MEDS: POTASSIUM CHLORIDE 10 MEQ/100 ML BAG 100 MEQ IVINF ×2 (07:25→08:31)
[2024-03-26] MEDS: Normal Saline 50 ML (07:52)
[2024-03-26] MEDS: Prochlorperazine 10 MG/2 ML VIAL IVP (07:52)
[2024-03-26] MEDS: Lactated Ringers 500 ML IV (08:32)
--- NOTE | 2024-03-26 09:56 | W.EDPROG ---
Date of service: 03/26/24 Time of Service: 09:56 Medical Decision Making Patient was signed out to me by my colleague for reassessment after potassium administration, antiemetics and fluid. Patient's potassium has been replaced. Patient is feeling much better at this time. P.o. trial was performed and she is doing well. She has had no more nausea or vomiting. Vital signs remained stable. Patient is requesting discharge. Patient will be discharged home, we will give Zofran for home use. Symptoms inconsistent with acute intra-abdominal pathology based on current reassessment. Discussed red flags which to return. I have extensively reviewed the treatment plan and discharge instructions with the patient. I have addressed all patient concerns at this time. The patient was made aware of what symptoms to monitor for that would warrant a return to the emergency department. Discussed the plan with the patient, they demonstrate verbal understanding and agreement with our assessment and plan at this time. The documentation in this chart was dictated using [email or web address] dictation software. Please excuse any dictation errors. Quality:SDOH Health Related Social Needs: No Data to Display Sign Out Sign Out Data: Sign Out Comment: Presented with vomiting and diarrhea since afternoon. Has mild hypokalemia and evidence of dehydration but is feeling better. Will replenish potassium and continue hydration and reevaluate for probable discharge. Last updated by Anuj Mohan MD at 03/26/24 07:29 Discharge Plan Disposition Patient Disposition: Home Condition: Good Discharge Details Clinical Impression: Vomiting, Acute dehydration, Acute hypokalemia Primary Care Provider: Cl Soto ED Provider: Louis Art Home Meds and New Rx's Prescriptions: No Action furosemide 40 mg tablet 40 mg PO DAILY Qty: 90 3RF cholecalciferol (vitamin D3) 1,000 unit capsule 1,000 unit PO DAILY nitroglycerin [Nitrostat] 0.4 mg tablet, sublingual 0.4 mg sublingual Q5M PRN (Reason: chest pain) Qty: 30 3RF Rx Instructions: do not exceed 3 doses per episode levothyroxine [Levothroid] 137 MCG tablet 137 mcg PO DAILY Qty: 90 (DME) oxygen-air delivery systems Device See Rx Instructions .Route Rx Instructions: As directed rosuvastatin [Crestor] 5 mg tablet 5 mg PO DAILY sertraline 25 mg tablet 25 mg PO DAILY lidocaine [Lidoderm] 5 % adhesive patch,medicated 1 patch Topical Q24H Qty: 15 0RF diltiazem HCl [Cardizem] 30 mg Tablet 30 mg PO BID Qty: 60 0RF Eliquis 5 mg Tablet 5 mg PO BID Qty: 60 0RF Discharge Instructions Instructions: Hypokalemia, Dehydration, Adult ED Additional Instructions: At this time your laboratory workup does show a low potassium. Please eat foods that are high in potassium for the next few days. Please take Zofran as needed to help with nausea. Please drink your fluids and stay well-hydrated. Avoiding significant salty foods or fluids. If you notice any worsening of your symptoms, or any new symptoms such as vomiting, diarrhea, fever, chills, shortness of breath, chest pain, numbness, weakness, or fainting , please return immediately to the emergency department for reevaluation. Please follow up with your primary care provider as soon as possible for reassessment and reevaluation. As always, it was a pleasure participating in your medical care today. Referrals: Cl Soto PA [Primary Care Provider] -
[2024-03-26] MEDS: Ondansetron O.D.T. 4 MG TABEF, 3 TABS/BTL PO (10:06)
== END 2024-03-26 10:11 | disposition home or self-care (01) ==
PROVIDERS: Emergency Medicine; Emergency Provider Student in an Organized Health Care Education/Training Program; PCP Physician Assistant Medical
DX: R11.2 Nausea with vomiting, unspecified (principal); E87.6 Hypokalemia; E86.0 Dehydration; E78.5 Hyperlipidemia, unspecified; I48.0 Paroxysmal atrial fibrillation; I25.2 Old myocardial infarction; Z79.01 Long term (current) use of anticoagulants; Z87.891 Personal history of nicotine dependence; Z90.49 Acquired absence of other specified parts of digestive tract; I11.0 Hypertensive heart disease with heart failure; I50.9 Heart failure, unspecified
CPT/HCPCS: 00123; 80053; 83690; 96361; 96365; 96366; 96375; 99284; 83735; 85025; 99283; J0780; J2405; J3480

== ENCOUNTER 2024-03-27 07:40 | Inpatient (IN) | payer BC, MEDICARE, SELFPAY ==
[2024-03-27] VITALS (11 sets, daily range): BP systolic 102–130; BP diastolic 53–68; PULSE 61–88; RESP 15–18; TEMP 36.5–37.4; O2SAT 94–99
--- NOTE | 2024-03-27 07:45 | DI.CT_ITS ---
Exam(s) CT ABDOMEN PELVIS W EXAM: CT ABDOMEN PELVIS W CLINICAL HISTORY: nvd. TECHNIQUE: Imaging Protocol: Axial computed tomography images with coronal and sagittal reformatted images were created and reviewed CONTRAST MATERIAL: Intravenous: Omnipaque 350 Contrast volume:100 ml Oral: / no COMPARISON: CT CT ABDOMEN PELVIS W from 03/29/2023 FINDINGS: ABDOMEN and PELVIS: Lung Bases: No acute findings. Liver: Normal density. No suspicious mass. Gallbladder and biliary tract: Status post cholecystectomy. No biliary dilation. Pancreas: Normal density. No abnormal calcifications or inflammatory process. No evidence of mass. Spleen: Normal. Kidneys: Normal size, contour and axis. No radiodense stones. No obstructive uropathy. No suspicious masses seen. Adrenal glands: No masses seen. Vasculature: Abdominal aorta non-dilated. Soft tissues: Unremarkable. Bladder: No gross wall thickening. No calculi.No focal mass. Bowel: No obstruction. Duodenal diverticulum. Colon is collapsed colon without significant stool. No fluid. Question of mild diffuse wall thickening. Appendix normal. Peritoneal cavity: Trace fluid. No focal collection. No mesenteric inflammatory response. Bones: Unremarkable for age. Reproductive organs: Unremarkable. Lymph nodes: No pathologically enlarged lymph nodes. IMPRESSION:: Collapsed colon with mild diffuse wall thickening, consistent with colitis. RADIATION DOSE DELIVERED: Total DLP DATA REPOSITORY: All CT scans at this facility are submitted to the National Radiology Data Registry (NRDR) Dose Index Registry (DIR) with the [employer] (ACR). RADIATION OPTIMIZATION: All CT scans at this facility use at least one of these dose optimization te chniques: automated exposure control; mA and/or kV adjustment per patient size (includes targeted exa ms where dose is matched to clinical indication); or iterative reconstruction.
--- NOTE | 2024-03-27 07:56 | ED.GENADUL_ITS ---
Discharge Plan Disposition Patient Disposition: Admit to [facility] Condition: Stable Discharge Details Chief Complaint: Nausea/Vomit/Diar Clinical Impression: Vomiting and diarrhea, Hyperkalemia, Colitis Primary Care Provider: Cl Soto ED Provider: Leonila Dennis Home Meds and New Rx's Prescriptions: No Action furosemide 40 mg tablet 40 mg PO DAILY Qty: 90 3RF cholecalciferol (vitamin D3) 1,000 unit capsule 1,000 unit PO DAILY nitroglycerin [Nitrostat] 0.4 mg tablet, sublingual 0.4 mg sublingual Q5M PRN (Reason: chest pain) Qty: 30 3RF Rx Instructions: do not exceed 3 doses per episode levothyroxine [Levothroid] 137 MCG tablet 137 mcg PO DAILY Qty: 90 (DME) oxygen-air delivery systems Device See Rx Instructions .Route Rx Instructions: As directed rosuvastatin [Crestor] 5 mg tablet 5 mg PO DAILY sertraline 25 mg tablet 25 mg PO DAILY lidocaine [Lidoderm] 5 % adhesive patch,medicated 1 patch Topical Q24H Qty: 15 0RF diltiazem HCl [Cardizem] 30 mg Tablet 30 mg PO BID Qty: 60 0RF Eliquis 5 mg Tablet 5 mg PO BID Qty: 60 0RF HPI General Date/Time Provider Initiated Documentation: 03/27/24 07:52 . Limitations to Documentation: no limitations . Information obtained by: patient and old records reviewed . HPI Narrative: 68-year-old female with past medical history including NSTEMI presents for evaluation of persistent vomiting and diarrhea. Patient was evaluated in the e mergency department yesterday with several days worth of symptoms. She was found to have low potassium, and was discharged after IV fluids with some Zofran. She reports that the Zofran is not helping her symptoms. She reports that she is still having vomiting. She states that she is having frequent bowel movements, reports that they are watery. But she says the volume has decreased because there is nothing left inside. She states that she has crampy abdominal pain she has no blood in her stool or blood in her vomit. She has not had any fever. Denies any sick contacts or foodborne illness. She describes abdominal pain as generalized, crampy. Worse with vomiting and diarrhea.. Related Data Home Medications ?Medication ?Instructions ?Recorded ?Confirmed levothyroxine 137 mcg tablet 137 mcg PO DAILY #90 tab-caps 10/28/12 03/27/24 (Levothroid) cholecalciferol (vitamin D3) 25 1,000 unit PO DAILY 02/28/19 03/27/24 mcg (1,000 unit) capsule oxygen-air delivery systems 02/27/22 03/26/24 rosuvastatin 5 mg tablet (Crestor) 5 mg PO DAILY 02/27/22 03/27/24 lidocaine 5 % topical patch 1 patch topical Q24H #15 ea 05/24/23 03/27/24 (Lidoderm) apixaban 5 mg tablet (Eliquis) 5 mg PO BID #60 tabs 09/06/23 03/27/24 diltiazem HCl 30 mg tablet 30 mg PO BID #60 tabs 09/06/23 03/27/24 (Cardizem) sertraline 25 mg tablet 25 mg PO DAILY 09/22/23 03/27/24 nitroglycerin 0.4 mg sublingual 0.4 mg sublingual Q5M PRN chest 09/29/23 03/27/24 tablet (Nitrostat) pain #30 tabs furosemide 40 mg tablet 40 mg PO DAILY #90 tabs 10/22/23 03/27/24 Previous Rx's ?Medication ?Instructions ?Recorded lidocaine 5 % topical patch 1 patch topical Q24H #15 ea 05/24/23 (Lidoderm) apixaban 5 mg tablet (Eliquis) 5 mg PO BID #60 tabs 09/06/23 diltiazem HCl 30 mg tablet 30 mg PO BID #60 tabs 09/06/23 (Cardizem) nitroglycerin 0.4 mg sublingual 0.4 mg sublingual Q5M PRN chest 09/29/23 tablet (Nitrostat) pain #30 tabs furosemide 40 mg tablet 40 mg PO DAILY #90 tabs 10/22/23 Allergies Allergy/AdvReac Type Severity Reaction Status Date / Time atorvastatin AdvReac MUSCLE Verified 03/27/24 07:52 ACHES ezetimibe AdvReac muscle ache Verified 03/27/24 07:52 pravastatin AdvReac MUSCLE Verified 03/27/24 07:52 ACHES RED YEAST RICE AdvReac MUSCLE Uncoded 03/27/24 07:52 ACHES SHRIMP AdvReac VOMITING Uncoded 03/27/24 07:52 General Stated Complaint: Nausea/Vomit/Diar EDUARDO: 3 Exam Narrative Exam Narrative: Review of Systems: All systems reviewed & are unremarkable except as noted in HPI and below Well-developed, no acute distress NCAT PERRL, normal conjunctiva Dry mucous membranes RRR, no murmur, no hypotension Unlabored respiratory effort, clear bilaterally Nondistended abdomen , soft nontender Extremities w/o deformity, no cyanosis, no edema No rashes or lesions. no focal neurologic deficits Appropriate mood and affect Course Vital Signs Vital signs: Vital Signs Temperature 36.8 C 03/27/24 07:46 Pulse 68 03/27/24 07:46 Respiratory Rate 16 03/27/24 07:46 Blood Pressure 116/53 L 03/27/24 07:46 Pulse Oximetry 99 03/27/24 07:46 Temperature 36.8 C 03/27/24 07:46 Temperature Source Temporal Artery Scan 03/27/24 07:46 Pulse 68 03/27/24 07:46 Respiratory Rate 16 03/27/24 07:46 Blood Pressure 116/53 L 03/27/24 07:46 Pulse Oximetry 99 03/27/24 07:46 Oxygen Delivery Method Room Air 03/27/24 07:46 Oxygen Flow Rate 0 03/27/24 07:46 Pain Level 7 03/27/24 07:46 Medical Decision Making Emergent evaluation of vomiting and diarrhea. Patient was evaluated in the emergency department for similar symptoms yesterday. The symptoms have been ongoing for the last 4 days. Review of lab work from yesterday indicated that she did have some hypokalemia that was repleted. No imaging was obtained. The patient does have a benign abdominal exam and I have a low suspicion for an acute intra-abdominal process. However given her persistence of symptoms and not tolerating p.o., will get CT imaging to evaluate for possible etiologies. Will give antiemetic and IV fluids, will recheck electrolytes. 0920 Labs reviewed, K is 2.9. IV replacement has been ordered. creatinine remains slightly above baseline at 1.1 CT reviewed, mild coliits without other significant findings. mild hyperglycemia without DKA. Given ongoing symptoms, will admit for continued IV resuscitation and electrolyte replacement. discussed with hospitalist and will admit. Medical Records Medical records reviewed: Yes I reviewed the patient's medical records. Lab Data Lab results reviewed: Yes I reviewed the patient's lab results. Quality:SDOH Health Related Social Needs: No Data to Display PFSH All Active Problems (Updated 03/27/24 @ 09:29 by Leonila Dennis MD) Colitis (Acute) Hyperkalemia (Acute) Vomiting and diarrhea (Acute) Viral enterocolitis (Acute) Intractable nausea and vomiting (Acute) Acute hypokalemia (Acute) Acute dehydration (Acute) Vomiting (Acute) Skin lesion (Acute) Exertional angina (Acute) Chronic constipation (Chronic) Low back pain (Chronic) History of tobacco use (Chronic) Asthma (Chronic) Depressive disorder (Chronic) Pernicious anemia (Chronic 03/16/12) Adhesive capsulitis of left shoulder (Acute ~06/2019) Bursitis of left shoulder (Acute ~06/2019) Tendinitis of long head of biceps brachii of left shoulder (Acute) Tendinitis of left rotator cuff (Acute) Actinic keratosis (Acute) Nasal septal perforation (Acute) Bilateral sensorineural hearing loss (Acute) Elevated LFTs (Acute) Elevated lipids (Acute) Medical History Generalized anxiety disorder Diastolic heart failure Paroxysmal atrial fibrillation NSTEMI (non-ST elevated myocardial infarction) Hyperlipidemia Hypothyroidism SVT (supraventricular tachycardia) BILL (obstructive sleep apnea) CPAP Prediabetes Osteopenia PTSD (post-traumatic stress disorder) Per pt nothing is a potential trigger at this time. Surgical History Closed trimalleolar fracture of left ankle (09/28/20) s/p ORIF ON 10/04/20 Hx of dilation and curettage Hx of tubal ligation History of hemorrhoidectomy H/O bilateral breast reduction surgery H/O colonoscopy (08/06/18) 08/06/18 Dr Pathak,no abnormalities, repeat ten years Family History Father Alcohol use disorder Mother Alcohol use disorder Heart disease [place] Social History Smoking/Tobacco Use Status: Former Tobacco Use Quit Date: 08/24/75 Smoking risk assessment performed?: Yes Alcohol Intake: current Alcohol Intake frequency: holidays/special occasions only Drug use: Never Substance use type: does not use Housing: house Current gender identity: female Do you feel safe at home: Yes Do you feel safe in your relationship?: Yes Additional Social history: lives alone
--- NOTE | 2024-03-27 08:00 | RT.EKG_ITS ---
APPROVED REPORT Exam: Resting ECG Reason for Exam: N/V/D med administration Patient Location: E HR:60 bpm ECG Measurements Heart Rate 60 AXIS FL 201 P 50 QRSd 95 QRS -2 QT 396 T 204 QTc 396 Conclusion Sinus rhythm [address] depressions no stemi
[2024-03-27] MEDS: Normal Saline 1,000 ML 150 ML IV ×3 (08:10→17:18)
[2024-03-27 08:15] LABS: Abs Immature Grans 0.02 10^3/uL (0.0-0.06); Absolute Basophil Count 0.03 10^3/uL (0.0-0.2); Absolute Lymphocyte Count 0.88 10^3/uL (1.2-3.4); Absolute Monocyte Count 0.61 10^3/uL (0.1-0.8); Absolute Neutrophil Count 7.22 10^3/uL (1.2-6.7); Basophils % 0.3 %; HCT 47.1 % (36.0-46.0); HGB 15.6 g/dL (11.2-15.7); Immature Grans % 0.2 %; MCH 30.8 pg (27.0-33.0); MCHC 33.1 % (32.0-36.0); MCV 93 fL (80-95); MPV 11.9 fL (8.0-11.0); Neutrophils % 82.5 %; Platelet Count 215 10^3/uL (130-400); RBC 5.06 10^6/uL (3.93-5.22); RDW 13.3 % (11.7-14.6); RDW-SD 45.4 fL; WBC 8.76 10^3/uL (4.4-10.8)
[2024-03-27] MEDS: Droperidol 5 MG/2 ML VIAL IVP (08:23)
[2024-03-27 08:29] LABS: ALT 24 U/L (14-59); AST 18 U/L (15-37); Alkaline Phosphatase 81 U/L (46-116); BUN 19 mg/dL (7-18); Bilirubin, Total 0.49 mg/dL (0.2-1.0); CREATININE 1.1 mg/dL (0.55-1.02); Calcium 9.4 mg/dL (8.5-10.1); Chloride 98 mmol/L (98-107); Estimated GFR 55.07 (mL/min/1.73m2); Glucose 127 mg/dL (74-106); Lipase 35 U/L (16-77); Sodium 136 mmol/L (136-145)
[2024-03-27 08:36] LABS: Potassium 2.9 mmol/L (3.5-5.1)
[2024-03-27] MEDS: Omnipaque 350 MG/ML 100 ML BTL IJ (08:36)
[2024-03-27] MEDS: Normal Saline - Diluent 50 ML VIAL IJ (08:38)
--- NOTE | 2024-03-27 09:06 | DI.VRAD_ITS ---
PROCEDURE INFORMATION: Exam: CT Abdomen And Pelvis With Contrast Exam date and time: 03/27/2024 8:39 AM Age: 68 years old Clinical indication: Nausea and vomiting; Prior surgery; Surgery date: 6+ months; Surgery type: Cholecystsectomy TECHNIQUE: Imaging protocol: Computed tomography of the abdomen and pelvis with contrast. Contrast material: OMNIPAQUE 350; Contrast volume: 100 ml; Contrast route: INTRAVENOUS (IV); COMPARISON: CT ABDOMEN PELVIS W 03/29/2023 12:33 PM FINDINGS: Lungs: Atelectatic changes in both lung bases. Diaphragm: Small hiatal hernia. Liver: Normal. No mass. Gallbladder and biliary ducts: Post cholecystectomy. Pancreas: Normal. No ductal dilation. Spleen: Normal. No splenomegaly. Adrenal glands: Normal. No mass. Kidneys and ureters: There are 2 simple cysts in the lower pole of the right kidney measuring up 4 mm. No hydronephrosis on either side. Stomach and bowel: There is diffuse colonic wall thickening no significant surrounding fat stranding. Appendix: No evidence of appendicitis. Intraperitoneal space: Mild amount of free fluid in the pelvis. Vasculature: Vascular calcifications. Lymph nodes: Unremarkable. No enlarged lymph nodes. Urinary bladder: Unremarkable as visualized. Reproductive: Retroverted uterus. Bones/joints: Mild degenerative disease of bilateral sacroiliac joints. Soft tissues: Unremarkable. IMPRESSION: Findings suggestive of colitis, likely infectious versus inflammatory. Patent mesenteric vessels. Dictated and Authenticated by: Casey Trujillo MD. Ordering:[facility] Jeannie Mohan MD
--- NOTE | 2024-03-27 09:12 | HPE_ITS ---
Date of service: 03/27/24 Time of Service: 09:16 Assessment and Plan Assessment and plan (1) Intractable nausea and vomiting: Status: Acute Assessment and plan: -likely secondary to what is presumed at this time to be a viral enterocolitis based on nausea, vomiting, and CT findings without leukocytosis of fever -will continue to treat nausea and vomiting; zofran was uneffective at home, patient was given droperidol in ED, will order compazine 5mg Q4h PRN -f/u stool studies ordered in ED (2) Viral enterocolitis: Status: Acute Assessment and plan: -as noted above (3) Acute hypokalemia: Status: Acute Assessment and plan: -down to 2.9 in ED -s/p 20mEq IV K in ED -f/u PM BMP and replaced as needed (4) Generalized anxiety disorder: Assessment and plan: -continue home sertaline 25mg PO daily (5) Paroxysmal atrial fibrillation: Assessment and plan: -continue home dilt 30mg BID and eliquis 5mg PO BID History of Present Illness History of Present Illness Chief Complaint: nausea and vomiting Narrative: 68yo female with PMH a-fib on eliquis, HLD, and generalized anxiety disorder who paresents to the ED for the second time in two days with nausea and vomiting. The patient was initially seen in the ED on 03/26 with complaints of nausea and vomiting and was found to have hypokalemia. Her potasium was replace and given that the remainder of her workup was without acute findings she was sent home with zofran. However, she continued to have nausea and vomiting while at home, as well as watery diarrhea which prompted her to present back to the ED. She denies any fever, lightheadedness, dizziness, chest pain, shortness of breath, bloody vomit, abdominal pain, or blood in her stool. In the ED the patient was noted to have normal vitals signs but appears to be dehydrated and was given 1L NS IVF. Additionally her K was again low down to 2.9 for which she was given 20mEq of IV K. Although her abdmoinal exam was benign she had an abdominal CT which showed mild colitis. CBC, remained of CMP, and lipase were all WNL. At which time ED physician paged hospitalist for admission of patient with intractable nausea and vomiting and hypokelamia likely secondary to a viral enterocolitis. Review of Systems All systems reviewed & are unremarkable except as noted in HPI and below PFSH All Active Problems (Updated 03/27/24 @ 09:29 by Leonila Dennis MD) Colitis (Acute) Hyperkalemia (Acute) Vomiting and diarrhea (Acute) Viral enterocolitis (Acute) Intractable nausea and vomiting (Acute) Acute hypokalemia (Acute) Acute dehydration (Acute) Vomiting (Acute) Skin lesion (Acute) Exertional angina (Acute) Chronic constipation (Chronic) Low back pain (Chronic) History of tobacco use (Chronic) Asthma (Chronic) Depressive disorder (Chronic) Pernicious anemia (Chronic 03/16/12) Adhesive capsulitis of left shoulder (Acute ~06/2019) Bursitis of left shoulder (Acute ~06/2019) Tendinitis of long head of biceps brachii of left shoulder (Acute) Tendinitis of left rotator cuff (Acute) Actinic keratosis (Acute) Nasal septal perforation (Acute) Bilateral sensorineural hearing loss (Acute) Elevated LFTs (Acute) Elevated lipids (Acute) Medical History Generalized anxiety disorder Diastolic heart failure Paroxysmal atrial fibrillation NSTEMI (non-ST elevated myocardial infarction) Hyperlipidemia Hypothyroidism SVT (supraventricular tachycardia) BILL (obstructive sleep apnea) CPAP Prediabetes Osteopenia PTSD (post-traumatic stress disorder) Per pt nothing is a potential trigger at this time. Surgical History Closed trimalleolar fracture of left ankle (09/28/20) s/p ORIF ON 10/04/20 Hx of dilation and curettage Hx of tubal ligation History of hemorrhoidectomy H/O bilateral breast reduction surgery H/O colonoscopy (08/06/18) 08/06/18 Dr Pathak,no abnormalities, repeat ten years Family History Father Alcohol use disorder Mother Alcohol use disorder Heart disease [place] Social History Smoking/Tobacco Use Status: Former Tobacco Use Quit Date: 01/01/76 Smoking risk assessment performed?: Yes Alcohol Intake: current Alcohol Intake frequency: holidays/special occasions only Drug use: Never Substance use type: does not use Housing: house Current gender identity: female Do you feel safe at home: Yes Do you feel safe in your relationship?: Yes Additional Social history: lives alone Meds Allergies and Home Medications Allergies Allergy/AdvReac Type Severity Reaction Status Date / Time atorvastatin AdvReac MUSCLE Verified 03/27/24 07:52 ACHES ezetimibe AdvReac muscle ache Verified 03/27/24 07:52 pravastatin AdvReac MUSCLE Verified 03/27/24 07:52 ACHES RED YEAST RICE AdvReac MUSCLE Uncoded 03/27/24 07:52 ACHES SHRIMP AdvReac VOMITING Uncoded 03/27/24 07:52 Home Medications ?Medication ?Instructions ?Recorded ?Confirmed ?Type levothyroxine 137 mcg tablet 137 mcg PO DAILY #90 tab-caps 10/28/12 03/27/24 History (Levothroid) cholecalciferol (vitamin D3) 25 1,000 unit PO DAILY 02/28/19 03/27/24 History mcg (1,000 unit) capsule oxygen-air delivery systems 02/27/22 03/26/24 History rosuvastatin 5 mg tablet (Crestor) 5 mg PO DAILY 02/27/22 03/27/24 History lidocaine 5 % topical patch 1 patch topical Q24H #15 ea 05/24/23 03/27/24 Rx (Lidoderm) apixaban 5 mg tablet (Eliquis) 5 mg PO BID #60 tabs 09/06/23 03/27/24 Rx diltiazem HCl 30 mg tablet 30 mg PO BID #60 tabs 09/06/23 03/27/24 Rx (Cardizem) sertraline 25 mg tablet 25 mg PO DAILY 09/22/23 03/27/24 History nitroglycerin 0.4 mg sublingual 0.4 mg sublingual Q5M PRN chest 09/29/23 03/27/24 Rx tablet (Nitrostat) pain #30 tabs furosemide 40 mg tablet 40 mg PO DAILY #90 tabs 10/22/23 03/27/24 Rx Exam Narrative Exam Narrative: well appearing female laying in bed in no acute distress, AOx4, heart RRR, lungs CTAB, abdomen soft, non-tender, non-distended Results Labs 03/27/24 08:08 03/27/24 08:08 Labs: Laboratory Results - last 24 hr 03/27/24 08:08 WBC 8.76 RBC 5.06 Hgb 15.6 Hct 47.1 H MCV 93 MCH 30.8 MCHC 33.1 RDW 13.3 Plt Count 215 MPV 11.9 H Immature Gran % 0.2 Neutrophils % 82.5 Lymphocytes % 10.0 Monocytes % 7.0 Eosinophils % 0.0 Basophils % 0.3 Nucleated RBC % 0.0 Absolute Neutrophils 7.22 H Absolute Lymphocytes 0.88 L Absolute Monocytes 0.61 Absolute Eosinophils 0.00 Absolute Basophils 0.03 Sodium 136 Potassium 2.9 L* Chloride 98 Carbon Dioxide 27.0 Anion Gap 11.0 BUN 19 H Creatinine 1.1 H Est GFR (CKD-EPI 2020) 55.07 Glucose 127 H Calcium 9.4 Magnesium 2.0 Total Bilirubin 0.49 AST 18 ALT 24 Alkaline Phosphatase 81 Total Protein 8.0 Albumin 4.0 Lipase 35 Last Vital Signs Temp 98.3 F 03/27/24 07:46 Pulse 68 03/27/24 07:46 Resp 16 03/27/24 07:46 BP 116/53 L 03/27/24 07:46 Pulse Ox 99 03/27/24 07:46 Time Spent Time spent with Patient: >75 minutes Time was spent: preparing to see the patient(eg.review tests), obtaining and/or reviewing separately otained hiistory, ordering medications,tests, procedures, referring, communicating with other health patient care technician, indepentently interpreting results, counseling the patient and care coordination
[2024-03-27] MEDS: POTASSIUM CHLORIDE 10 MEQ/100 ML BAG 100 MEQ IVINF ×2 (09:13→10:48)
[2024-03-27] MEDS: Lidocaine 5% Patch 1 PATCH TP (10:31)
--- NOTE | 2024-03-27 11:01 | W.PC.ACHO ---
Registration Status: Primary Language: Preferred Language: ED Information & Data Chief Complaint Nausea/Vomit/Diar 03/27/24 08:36 Chief Complaint Nausea/Vomit/Diar 03/27/24 08:00 Triage Note N/V/D x3 days. seen here 03/27/24 07:46 yesterday for same. felt a bit better going home but still not improving. can't keep anything down. taking zofran without relief. Medical / Surgical History (Last Reviewed 03/27/24 @ 07:58 by Leonila Dennis MD) Generalized anxiety disorder Diastolic heart failure Paroxysmal atrial fibrillation NSTEMI (non-ST elevated myocardial infarction) Hyperlipidemia Hypothyroidism SVT (supraventricular tachycardia) BILL (obstructive sleep apnea) Prediabetes Osteopenia PTSD (post-traumatic stress disorder) (Last Reviewed 03/27/24 @ 07:58 by Leonila Dennis MD) Closed trimalleolar fracture of left ankle (09/28/20) Hx of dilation and curettage Hx of tubal ligation History of hemorrhoidectomy H/O bilateral breast reduction surgery H/O colonoscopy (08/06/18) Most Recent Vital Signs Temperature 37.4 C 03/27/24 10:07 Temperature Source Temporal Artery Scan 03/27/24 10:02 Pulse 76 03/27/24 10:07 Pulse Rhythm Irregular 03/27/24 10:07 Pulse 88 03/27/24 09:21 Respiratory Rate 15 03/27/24 10:07 Respiratory Effort Normal, Non-Labored 03/27/24 10:07 Respiratory Depth Normal 03/27/24 10:07 Respiratory Pattern Normal 03/27/24 10:07 Blood Pressure 120/66 03/27/24 10:07 Blood Pressure Mean 89 03/27/24 09:21 Pulse Oximetry 94 03/27/24 10:07 Oxygen Delivery Method Room Air 03/27/24 10:02 Oxygen Flow Rate 0 03/27/24 10:02 Pain Level 2 03/27/24 10:07 Allergies atorvastatin Adverse Reaction (Verified 03/27/24 07:52) MUSCLE ACHES ezetimibe Adverse Reaction (Verified 03/27/24 07:52) muscle ache pravastatin Adverse Reaction (Verified 03/27/24 07:52) MUSCLE ACHES RED YEAST RICE Adverse Reaction (Uncoded 03/27/24 07:52) MUSCLE ACHES SHRIMP Adverse Reaction (Uncoded 03/27/24 07:52) VOMITING Active Medications Generic Name Dose Route Start Last Admin Trade Name Zeke PRN Reason Stop Dose Admin Sodium Chloride 1,000 mls @ 150 mls/hr 03/27/24 08:00 03/27/24 10:32 Saline 1000ml Bag IV 150 mls/hr INFUSION TABATHA Administration Lidocaine 1 patch 03/27/24 10:00 03/27/24 10:31 Lidocaine 5% Patch TP 1 patch Q24H TABATHA Administration IV IV Catheter Type [Left Peripheral IV Antecubital] IV Catheter Gauge [Left 18 Antecubital] Diet Orders Category Date Time Status Regular/Normal [DIET] Nutrition 03/27/24 Lunch Active Diagnostics 03/27/24 Range/Units 08:08 WBC 8.76 (4.4-10.8) 10^3/uL RBC 5.06 (3.93-5.22) 10^6/uL Hgb 15.6 (11.2-15.7) g/dL Hct 47.1 H (36.0-46.0) % MCV 93 (80-95) fL MCH 30.8 (27.0-33.0) pg MCHC 33.1 (32.0-36.0) % RDW 13.3 (11.7-14.6) % Plt Count 215 (130-400) 10^3/uL MPV 11.9 H (8.0-11.0) fL Immature Gran % 0.2 % Neutrophils % 82.5 % Lymphocytes % 10.0 % Monocytes % 7.0 % Eosinophils % 0.0 % Basophils % 0.3 % Nucleated RBC % 0.0 (0.0-0.3) % Absolute Neutrophils 7.22 H (1.2-6.7) 10^3/uL Absolute Lymphocytes 0.88 L (1.2-3.4) 10^3/uL Absolute Monocytes 0.61 (0.1-0.8) 10^3/uL Absolute Eosinophils 0.00 (0.0-0.7) 10^3/uL Absolute Basophils 0.03 (0.0-0.2) 10^3/uL Sodium 136 (136-145) mmol/L Potassium 2.9 L* (3.5-5.1) mmol/L Chloride 98 (98-107) mmol/L Carbon Dioxide 27.0 (21.0-32.0) mmol/L Anion Gap 11.0 (3-11) mmol/L BUN 19 H (7-18) mg/dL Creatinine 1.1 H (0.55-1.02) mg/dL Est GFR (CKD-EPI 2020) 55.07 (mL/min/1.73m2) Glucose 127 H (74-106) mg/dL Calcium 9.4 (8.5-10.1) mg/dL Magnesium 2.0 (1.8-2.4) mg/dL Total Bilirubin 0.49 (0.2-1.0) mg/dL AST 18 (15-37) U/L ALT 24 (14-59) U/L Alkaline Phosphatase 81 (46-116) U/L Total Protein 8.0 (6.4-8.2) g/dL Albumin 4.0 (3.4-5.0) g/dL Lipase 35 (16-77) U/L Intake and Output - 24 Hour Total 03/27/24 07:40 thru 03/27/24 10:32 Intake Total 465.000 Balance 465.000 Weight 77.156 kg Intake: IV 465.000 Other: Urine Appearance Clear Stool Size Small Stool Characteristics Liquid Falls Risk Assessment History of Falls No History 03/27/24 10:07 Contributing Factors No Factors 03/27/24 10:07 Ambulatory Aids Independent 03/27/24 10:07 Tubes/Lines W/no contributing factors 03/27/24 10:07 Cognition No cognitive impairment 03/27/24 10:07 Fall Total Score 10 03/27/24 10:07 Level of Risk Standard/Low Risk 03/27/24 10:07 Problems (Last Reviewed 03/27/24 @ 07:58 by Leonila Dennis MD) Colitis (Acute) Hyperkalemia (Acute) Vomiting and diarrhea (Acute) Viral enterocolitis (Acute) Intractable nausea and vomiting (Acute) Acute hypokalemia (Acute) v v v v v v v v v Sending and/or Receiving Nurses: Please use comment section below to note any information pertinent to the patient hand-off not included above. Information / Comments: Report taken from ER Nurse Magaly. Patient is alert and oriented w/ chief complaints of nausea,vomiting and diarrhea since 3 days ago. Has history of NSTEMI. Patient oriented to call lights system, ansered all admission questions. Report received from:
--- NOTE | 2024-03-27 12:18 | PHA.REVIEW2 ---
Pharmacy Admission Review Admission Clinical Review Admission Pharmacy Review: Colitis (Acute) Hyperkalemia (Acute) Vomiting and diarrhea (Acute) Viral enterocolitis (Acute) Intractable nausea and vomiting (Acute) Acute hypokalemia (Acute) atorvastatin Adverse Reaction (Verified 03/27/24 07:52) MUSCLE ACHES ezetimibe Adverse Reaction (Verified 03/27/24 07:52) muscle ache pravastatin Adverse Reaction (Verified 03/27/24 07:52) MUSCLE ACHES RED YEAST RICE Adverse Reaction (Uncoded 03/27/24 07:52) MUSCLE ACHES SHRIMP Adverse Reaction (Uncoded 03/27/24 07:52) VOMITING Resuscitation Status Full Code Height 5 ft 7 in Weight 77.156 kg Comments Comments/Follow Ups: Likely viral enterocolitis per H+P Pharmacy Admission Review Renal Dosing Renal Dosing: BUN 19 mg/dL (7-18) H 03/27/24 08:08 Creatinine 1.1 mg/dL (0.55-1.02) H 03/27/24 08:08 Medications needing adjustments: Reviewed (CrCl 53.14 mL/min) List of meds needing interventions: Current medications are okay Anticoagulation Anticoagulation: Hgb 15.6 g/dL (11.2-15.7) 03/27/24 08:08 Hct 47.1 % (36.0-46.0) H 03/27/24 08:08 Plt Count 215 10^3/uL (130-400) 03/27/24 08:08 Creatinine 1.1 mg/dL (0.55-1.02) H 03/27/24 08:08 DVT Prophylaxis: Reviewed Medications: Apixaban (5mg PO BID) Relevant Labs Relevant Labs: Sodium 136 mmol/L (136-145) 03/27/24 08:08 Potassium 2.9 mmol/L (3.5-5.1) L* 03/27/24 08:08 Chloride 98 mmol/L (98-107) 03/27/24 08:08 Magnesium 2.0 mg/dL (1.8-2.4) 03/27/24 08:08 Electrolytes, C-Reactive P, ESR: Reviewed (K 2.9 - repleting with IV potassium , glucose 127) Cardiac Review BP, HR, EF%: Reviewed (BP and HR WNL) QTc Review QTc: Reviewed (EKG report pending) IV to PO Switch IV Medications: Reviewed (prochlorperazine (intractable nausea/vomiting)) Home Meds Home Med List reviewed: Reviewed Relevent Home Meds Not ordered & why?: Vitamin D3 and furosemide (hypokalemia) Current Meds Current Medication Order Review: Intervened Comments: Added patch removal for lidocaine Changed timing of levothyroxine from 0830 to 0600 per pharmacy protocol Comments Comments/Follow Ups: Likely viral enterocolitis per H+P
[2024-03-27 13:20] LABS: Bilirubin Small (Negative); Blood Trace-intact (Negative); Clarity Clear (Clear); Glucose Negative (Negative); Ketones 80 mg/dL (Negative); Leukocyte Esterase Negative (Negative); Nitrite Negative (Negative); Specific Gravity 1.015 (1.005-1.025); Urobilinogen 0.2 mg/dL (Up to 0.2)
[2024-03-27 13:43] LABS: Bacteria Rare HPF (Negative); C & S Indicated? No; Casts Negative LPF (Negative); Crystals Negative HPF (Negative); Epithelial Cells Rare HPF (Negative); Mucus Trace (Negative); WBC 0-2 HPF (0-5)
[2024-03-27 14:23] LABS: C Diff PCR Negative (Negative)
[2024-03-27] MEDS: dilTIAZem 30 MG TAB PO (21:18)
[2024-03-27] MEDS: Apixaban 5 MG TAB PO (21:18)
[2024-03-27] MEDS: Normal Saline Flush 10 ML SYR IVP (21:18)
[2024-03-28] MEDS: Normal Saline 1,000 ML 150 ML IV ×2 (01:17→07:48)
[2024-03-28 03:50] VITALS: BP 98/52; PULSE 60; RESP 18; TEMP 37; O2SAT 98
[2024-03-28 06:55] LABS: HCT 36.4 % (36.0-46.0); HGB 12.3 g/dL (11.2-15.7); MCHC 33.8 % (32.0-36.0); MCV 92 fL (80-95); MPV 12.6 fL (8.0-11.0); Platelet Count 172 10^3/uL (130-400); RBC 3.97 10^6/uL (3.93-5.22); RDW 13.2 % (11.7-14.6); RDW-SD 44.7 fL; WBC 5.53 10^3/uL (4.4-10.8)
[2024-03-28 07:20] LABS: Anion Gap 8.5 mmol/L (3-11); BUN 9 mg/dL (7-18); CO2 25.5 mmol/L (21.0-32.0); CREATININE 0.8 mg/dL (0.55-1.02); Calcium 8.4 mg/dL (8.5-10.1); Chloride 107 mmol/L (98-107); Estimated GFR 80.71 (mL/min/1.73m2); Glucose 99 mg/dL (74-106); Magnesium 1.9 mg/dL (1.8-2.4); Sodium 141 mmol/L (136-145)
[2024-03-28 07:30] LABS: Potassium 2.9 mmol/L (3.5-5.1)
[2024-03-28 07:45] VITALS: BP 104/62; PULSE 56; RESP 18; TEMP 36.5; O2SAT 95
[2024-03-28] MEDS: Apixaban 5 MG TAB PO (07:48)
[2024-03-28] MEDS: Sertraline 25 MG TAB PO (07:48)
[2024-03-28] MEDS: Rosuvastatin 5 MG TAB PO (07:48)
[2024-03-28] MEDS: Normal Saline Flush 10 ML SYR IVP (07:50)
[2024-03-28 09:37] VITALS: BP 100/61; PULSE 58
[2024-03-28] MEDS: Potassium Chloride 20 MEQ TABCR 40 MEQ PO (09:50)
[2024-03-28] MEDS: Lidocaine 5% Patch 1 PATCH TP (09:51)
--- NOTE | 2024-03-28 12:05 | W.PM.DS.N ---
Date of service: 03/28/24 Time of Service: 12:05 DS: Diagnosis Discharge Diagnosis (1) Intractable nausea and vomiting: Status: Acute (2) Viral enterocolitis: Status: Acute (3) Acute hypokalemia: Status: Acute (4) Generalized anxiety disorder: (5) Paroxysmal atrial fibrillation: Discharge Plan Disposition Patient Disposition: Home Condition: Good Discharge Details Reason For Visit: Intractable nausea/vomiting, Hypokalemia Admit Date/Time: 03/27/24 09:16 Admit Provider: Enoc Kessler Attending Provider: Enoc Kessler Primary Care Provider: Cl Soto Hospital Course Hospital Course: Patient initially presented with signs and symptoms of viral enterocolitis with intractable nausea and vomiting. However, upon arrival to the [facility] unit patient's symptoms had completely resolved, stating that they are even improved in the emergency department initially thought that she was just going to be observed for few hours. She agreed to stay overnight and have IV fluid rehydration and continue to monitor her symptoms. She was able to tolerate p.o. intake, though did have difficulty sleeping overnight as her IV would not remain patent and her IV pump when offered frequently overnight. Her potassium remained low in the morning of 03/28/2024 but she was only given 20 mEq of IV in the emergency department on admission. She was given an additional 40 mill equivalents p.o. on the morning of 03/28/2024, but was otherwise determined to be stable for discharge. She will have close follow-up with her PCP and will have BMP recommended to be rechecked within the next 3 to 4 days. Home Meds and New Rx's Prescriptions: Continued furosemide 40 mg tablet 40 mg PO DAILY Qty: 90 3RF cholecalciferol (vitamin D3) 1,000 unit capsule 1,000 unit PO DAILY nitroglycerin [Nitrostat] 0.4 mg tablet, sublingual 0.4 mg sublingual Q5M PRN (Reason: chest pain) Qty: 30 3RF Rx Instructions: do not exceed 3 doses per episode levothyroxine [Levothroid] 137 MCG tablet 137 mcg PO DAILY Qty: 90 rosuvastatin [Crestor] 5 mg tablet 5 mg PO DAILY sertraline 25 mg tablet 25 mg PO DAILY lidocaine [Lidoderm] 5 % adhesive patch,medicated 1 patch Topical Q24H Qty: 15 0RF diltiazem HCl [Cardizem] 30 mg Tablet 30 mg PO BID Qty: 60 0RF Eliquis 5 mg Tablet 5 mg PO BID Qty: 60 0RF No Action (DME) oxygen-air delivery systems Device See Rx Instructions .Route Rx Instructions: As directed Discharge Instructions Instructions: Nausea and vomiting in adults Stand Alone Forms: Nursing Discharge Form Referrals: Cl Soto PA [Primary Care Provider] - 04/11/24 10:00 am Activity:: Activity as Tolerated Equipment/Supplies:: No Equipment Needed Diet:: As Tolerated Discharge Orders Discharge Orders: Discharge Order (Routine); Ordered 03/28/24 Ordered By: Enoc Kessler Other Ambulatory Orders: Basic Metabolic Panel (Routine) Timeframe: 4 Days Facility: [facility] - Location: Laboratory Outpatient - [facility] Ordered By: Enoc Kessler DS: Summary Time Spent with Patient providing and/or coordinating discharge services: Greater than 30 minutes Status at Discharge Functional status at discharge: independent ambulation Overall status at discharge: patient is back to baseline Mental Status: mental status grossly normal Speech and Movement: speech and movement normal Mood: congruent mood Affect: normal affect Quality:SDOH Health Related Social Needs: Health related social needs details no needs at this time. Health related social needs details: no needs at this time. Exam Narrative Exam Narrative: well appearing female laying in bed in no acute distress, AOx4, heart RRR, lungs CTAB, abdomen soft, non-tender, non-distended Psych Mental Status: mental status grossly normal Speech and Movement: speech and movement normal Mood: congruent mood Affect: normal affect DS: Data Vitals/I&O Vitals and I&O: Vital Signs Temperature 97.7 F 03/28/24 07:45 Temperature Source Temporal Artery Scan 03/28/24 07:45 Pulse 58 L 03/28/24 09:37 Pulse Rhythm Regular 03/28/24 08:35 Pulse 88 03/27/24 09:21 Respiratory Rate 18 03/28/24 07:45 Respiratory Effort Normal, Non-Labored 03/28/24 08:35 Respiratory Depth Normal 03/28/24 08:35 Respiratory Pattern Normal 03/28/24 08:35 Blood Pressure 100/61 03/28/24 09:37 Blood Pressure Mean 89 03/27/24 09:21 Pulse Oximetry 95 03/28/24 07:45 Oxygen Delivery Method Room Air 03/28/24 07:45 Oxygen Flow Rate 0 03/28/24 07:45 Pain Level 2 03/28/24 07:45 Intake & Output 03/27/24 03/28/24 03/28/24 17:59 05:59 17:59 Intake Total 1621.667 / 3011.224 6069 / 2721.667 2217.5 / 2217.5 Output Total 400 / 400 Balance 1221.667 / 4092.867 2710 / 2321.667 2217.5 / 2217.5 Weight 170 lb 1.6 oz Intake: IV 1621.667 / 2103.515 5997 / 2621.667 2217.5 / 2217.5 Oral 100 / 100 Output: Urine 400 / 400 Other: Urine Color Yellow Urine Appearance Clear Clear Clear Stool Size Small Small Stool Characteristics Liquid Liquid Mucoid Brown Voiding Methods Toilet Data Completed and Pending Labs on day of discharge: Labs from last 24 hours 03/28/24 03/27/24 05:55 13:00 WBC 5.53 RBC 3.97 Hgb 12.3 D Hct 36.4 MCV 92 MCH 31.0 MCHC 33.8 RDW 13.2 Plt Count 172 MPV 12.6 H Sodium 141 Potassium 2.9 L* Chloride 107 Carbon Dioxide 25.5 Anion Gap 8.5 BUN 9 Creatinine 0.8 Est GFR (CKD-EPI 2020) 80.71 Glucose 99 Calcium 8.4 L Magnesium 1.9 Urine Color Yellow Urine Clarity Clear Urine pH 6.0 Ur Specific Exmore 1.015 Urine Protein Trace Urine Ketones 80 H Urine Blood Trace-intact H Urine Nitrite Negative Urine Bilirubin Small H Urine Urobilinogen 0.2 Ur Leukocyte Esterase Negative Urine RBC 3-5 H Urine WBC 0-2 Ur Epithelial Cells Rare Urine Crystals Negative Urine Bacteria Rare Urine Casts Negative Urine Mucus Trace Ur Culture Indicated? No Urine Glucose Negative Stool Description Pending Stool Campylobacter PCR Pending Stl C.difficile Tox PCR Negative Stool Salmonella PCR Pending Stool Shigella PCR Pending Stool Ova & Parasites Pending Shiga Toxin (PCR) Pending [facility] All Active Problems (Updated 03/27/24 @ 09:29 by Leonila Dennis MD) Colitis (Acute) Hyperkalemia (Acute) Vomiting and diarrhea (Acute) Viral enterocolitis (Acute) Intractable nausea and vomiting (Acute) Acute hypokalemia (Acute) Acute dehydration (Acute) Vomiting (Acute) Skin lesion (Acute) Exertional angina (Acute) Chronic constipation (Chronic) Low back pain (Chronic) History of tobacco use (Chronic) Asthma (Chronic) Depressive disorder (Chronic) Pernicious anemia (Chronic 03/16/12) Adhesive capsulitis of left shoulder (Acute ~06/2019) Bursitis of left shoulder (Acute ~06/2019) Tendinitis of long head of biceps brachii of left shoulder (Acute) Tendinitis of left rotator cuff (Acute) Actinic keratosis (Acute) Nasal septal perforation (Acute) Bilateral sensorineural hearing loss (Acute) Elevated LFTs (Acute) Elevated lipids (Acute) Medical History Generalized anxiety disorder Diastolic heart failure Paroxysmal atrial fibrillation NSTEMI (non-ST elevated myocardial infarction) Hyperlipidemia Hypothyroidism SVT (supraventricular tachycardia) BILL (obstructive sleep apnea) CPAP Prediabetes Osteopenia PTSD (post-traumatic stress disorder) Per pt nothing is a potential trigger at this time. Surgical History Closed trimalleolar fracture of left ankle (09/28/20) s/p ORIF ON 10/04/20 Hx of dilation and curettage Hx of tubal ligation History of hemorrhoidectomy H/O bilateral breast reduction surgery H/O colonoscopy (08/06/18) 08/06/18 Dr Pathak,no abnormalities, repeat ten years Family History Father Alcohol use disorder Mother Alcohol use disorder Heart disease [place] Social History Smoking/Tobacco Use Status: Former Tobacco Use Quit Date: 08/24/75 Smoking risk assessment performed?: Yes Alcohol Intake: current Alcohol Intake frequency: holidays/special occasions only Drug use: Never Substance use type: does not use Housing: house Current gender identity: female Do you feel safe at home: Yes Do you feel safe in your relationship?: Yes Additional Social history: lives alone Time Spent with Patient Time Spent with Patient: <45 minutes Time was spent: preparing to see the patient(eg.review tests), obtaining and/or reviewing separately otained hiistory, ordering medications,tests, procedures, referring, communicating with other health pediatric critical care nurse, indepentently interpreting results, counseling the patient and care coordination
[2024-03-28 22:51] LABS: Campylobacter PCR Positive (Negative); Salmonella PCR Negative (Negative); Shiga Toxin PCR Negative (Negative); Shigella/Enteroinvasive Ecoli Negative (Negative)
== END 2024-03-28 10:40 | disposition home or self-care (01) | DRG 392 ==
LOC: ER 09:51 → MS 09:54
PROVIDERS: Admitting Provider Family Medicine; Emergency Provider Emergency Medicine; PCP Physician Assistant Medical; Visit Provider Family Medicine
DX: A08.4 Viral intestinal infection, unspecified (principal); I50.30 Unspecified diastolic (congestive) heart failure; I47.10 Supraventricular tachycardia, unspecified; F41.1 Generalized anxiety disorder; E87.6 Hypokalemia; I48.0 Paroxysmal atrial fibrillation; E86.0 Dehydration; K59.09 Other constipation; M54.50 Low back pain, unspecified; J45.909 Unspecified asthma, uncomplicated; F32.A Depression, unspecified; D51.0 Vitamin B12 deficiency anemia due to intrinsic factor deficiency; H90.3 Sensorineural hearing loss, bilateral; I25.2 Old myocardial infarction; R73.03 Prediabetes; E78.5 Hyperlipidemia, unspecified; E03.9 Hypothyroidism, unspecified; Z79.899 Other long term (current) drug therapy; Z79.01 Long term (current) use of anticoagulants
CPT/HCPCS: 00123; 36415; 80048; 80053; 83690; 85027; 87493; 87505; 93005; 96361; 96374; 99285; 74177; 81003; 81015; 83735; 85025; 87177; 93010; 99223; 99238; J1790; J3480; J3490

== ENCOUNTER 2024-04-01 09:53 | Outpatient (CLI) | payer BC, SELFPAY ==
[2024-04-01 07:40] LABS: Anion Gap 8.6 mmol/L (3-11); BUN 11 mg/dL (7-18); CO2 30.4 mmol/L (21.0-32.0); Calcium 9.3 mg/dL (8.5-10.1); Chloride 101 mmol/L (98-107); Estimated GFR 61.75 (mL/min/1.73m2); Glucose 134 mg/dL (74-106); Potassium 3.3 mmol/L (3.5-5.1); Sodium 140 mmol/L (136-145)
== END 2024-04-01 09:54 | disposition home or self-care (01) ==
LOC: LBO 09:54
PROVIDERS: PCP Physician Assistant Medical; Visit Provider Family Medicine
DX: E87.5 Hyperkalemia (principal)
CPT/HCPCS: 36415; 80048

== ENCOUNTER 2024-04-11 21:37 | Outpatient (REF) | payer BC, SELFPAY ==
[2024-04-11 20:55] LABS: Anion Gap 9.4 mmol/L (3-11); BUN 18 mg/dL (7-18); CO2 27.6 mmol/L (21.0-32.0); Calcium 9.4 mg/dL (8.5-10.1); Chloride 103 mmol/L (98-107); Estimated GFR 61.75 (mL/min/1.73m2); Glucose 143 mg/dL (74-106); Potassium 3.8 mmol/L (3.5-5.1); Sodium 140 mmol/L (136-145)
== END 2024-04-11 21:38 | disposition home or self-care (01) ==
LOC: NCHCN 21:37
PROVIDERS: PCP Physician Assistant Medical; Visit Provider Physician Assistant Medical
DX: E87.6 Hypokalemia (principal)
CPT/HCPCS: 80048

== ENCOUNTER 2024-09-28 14:14 | Outpatient (CLI) | payer BC, SELFPAY ==
--- NOTE | 2024-09-28 13:45 | DI.RAD_ITS ---
Exam(s) XR CHEST 2V PA LATERAL EXAM: XR CHEST 2V PA LATERAL CLINICAL HISTORY: eval pna R05.9 COUGH TECHNIQUE: 2D digital imaging was performed. Two views. COMPARISON: CR,XR XR PORTABLE CHEST AP from 09/06/2023 FINDINGS: HEART: Mildly enlarged. Aorta: Not dilated. PULMONARY VASCULATURE: Normal. MEDIASTINUM: Unremarkable. LUNGS: Clear. PLEURAL SPACE: No pleural effusion or pneumothorax. BONE:Unremarkable for age. SOFT TISSUES: Unremarkable. IMPRESSION: No acute abnormality. DATA REPOSITORY: RADIATION DOSE DELIVERED:
== END 2024-09-28 14:34 ==
LOC: DI 14:16
PROVIDERS: PCP Physician Assistant Medical; Visit Provider Nurse Practitioner Family
DX: R05.9 Cough, unspecified (principal)
CPT/HCPCS: 71046

== ENCOUNTER 2024-09-28 22:03 | Outpatient (REF) | payer BC, SELFPAY | END 2024-09-28 22:04 | disposition home or self-care (01) | LOC: LBN 22:03 | PROVIDERS: PCP Physician Assistant Medical; Visit Provider Nurse Practitioner Family | DX: J02.9 Acute pharyngitis, unspecified (principal); R68.89 Other general symptoms and signs; R05.9 Cough, unspecified | CPT/HCPCS: 87070 ==

== ENCOUNTER 2024-10-25 15:30 | Outpatient (REF) | payer BC, SELFPAY ==
[2024-10-25 19:13] LABS: Hemoglobin A1C 6.1 % (<5.7)
[2024-10-25 19:36] LABS: ALT 23 U/L (14-59); AST 25 U/L (15-37); Alkaline Phosphatase 108 U/L (46-116); Anion Gap 7.4 mmol/L (3-11); BUN 16 mg/dL (7-18); Bilirubin, Total 0.29 mg/dL (0.2-1.0); CO2 29.6 mmol/L (21.0-32.0); CREATININE 1.1 mg/dL (0.55-1.02); Calcium 9.8 mg/dL (8.5-10.1); Calculated LDL 124 mg/dL (<100); Chloride 106 mmol/L (98-107); Cholesterol 221 mg/dL (<200); Estimated GFR 54.73 (mL/min/1.73m2); Glucose 112 mg/dL (74-106); HDL Cholesterol 56 mg/dL (>or=50); Potassium 4.1 mmol/L (3.5-5.1); Sodium 143 mmol/L (136-145); TSH (W/Ref FT4) 1.18 uIU/mL (0.36-3.74); Total Protein 7.7 g/dL (6.4-8.2); Triglyceride 208 mg/dL (<150); Vitamin D 25 Total 42.6 ng/mL (30-100)
== END 2024-10-25 15:31 | disposition home or self-care (01) ==
LOC: NCHCN 15:30
PROVIDERS: PCP Physician Assistant Medical; Visit Provider Physician Assistant Medical
DX: E78.5 Hyperlipidemia, unspecified (principal); R73.03 Prediabetes; E03.9 Hypothyroidism, unspecified; F43.21 Adjustment disorder with depressed mood
CPT/HCPCS: 80053; 80061; 82306; 83036; 84443

== ENCOUNTER 2024-11-22 12:48 | Outpatient (REF) | payer BC, SELFPAY ==
[2024-11-22 16:44] LABS: Anion Gap 5.7 mmol/L (3-11); BUN 15 mg/dL (7-18); CO2 29.3 mmol/L (21.0-32.0); CREATININE 0.9 mg/dL (0.55-1.02); Calcium 9.6 mg/dL (8.5-10.1); Chloride 106 mmol/L (98-107); Estimated GFR 69.64 (mL/min/1.73m2); Glucose 107 mg/dL (74-106); Potassium 4.1 mmol/L (3.5-5.1); Sodium 141 mmol/L (136-145)
[2024-11-22 17:07] LABS: COMMENT (LAB VIEW ONLY) < 13.00 mg/dL
== END 2024-11-22 12:49 | disposition home or self-care (01) ==
LOC: NCHCN 12:48
PROVIDERS: PCP Physician Assistant Medical; Visit Provider Physician Assistant Medical
DX: N18.9 Chronic kidney disease, unspecified (principal)
CPT/HCPCS: 80048; 82043; 82570

== ENCOUNTER 2025-03-11 22:20 | Emergency (ER) | payer BC, SELFPAY ==
--- NOTE | 2025-03-11 22:30 | DI.RAD_ITS ---
Exam(s) XR TIB/FIB LT XR ANKLE LT COMPLETE EXAM: XR ANKLE LT COMPLETE and XR tib/fib LT CLINICAL HISTORY: L ankle pain TECHNIQUE: 2D digital imaging was performed of the left tibia/fibula and ankle. Six images were obtained. AP, lateral and oblique views were obtained. COMPARISON: CR,XR XR ANKLE LT COMPLETE from 09/28/2020 CR XR ANKLE LT COMPLETE from 10/17/2020 CR,XR XR ANKLE LT COMPLETE from 10/29/2020 CR XR ANKLE LT COMPLETE from 11/28/2020 FINDINGS: BONES: No acute fracture is present. No bony destructive lesion is seen. There is a sideplate and screws in the distal fibula and a partially threaded screw in the medial malleolus. There are no lucencies seen in or about the orthopedic hardware. There is a plantar calcaneal spur. There is a small enthesophyte at the posterior calcaneus. The tibia and fibula appear intact. JOINTS:The ankle mortise is normally aligned. SOFT TISSUE: Normal. IMPRESSION: 1. There is no acute fracture or dislocation. 2. The preliminary [facility] report was reviewed. DATA REPOSITORY: RADIATION DOSE DELIVERED:
--- NOTE | 2025-03-11 22:32 | W.ED.GENAD ---
Discharge Plan Discharge Details Primary Care Provider: Cl Soto ED Provider: Louis Miner Home Meds and New Rx's Prescriptions: No Action cholecalciferol (vitamin D3) 1,000 unit capsule 1,000 unit PO DAILY nitroglycerin [Nitrostat] 0.4 mg tablet, sublingual 0.4 mg sublingual Q5M PRN (Reason: chest pain) Qty: 30 3RF Rx Instructions: do not exceed 3 doses per episode magnesium PO cyclosporine [Restasis] 0.05 % dropperette 1 drp ophthalmic (eye) BID Patient Comments: INSTILL ONE DROP IN EACH EYE TWO TIMES A DAY ofloxacin [Ocuflox] 0.3 % drops See Rx Instructions ophthalmic (eye) .COMPLEX Qty: 10 0RF Rx Instructions: put 2 drps into both eye(s) every 2 h x 2 days while awake, then 2 drps 4 times/day days 3-7 ophthalmic (eye) benzonatate 100 mg capsule 100 mg PO TID PRN (Reason: cough) Qty: 14 0RF levothyroxine [Levothroid] 137 MCG tablet 137 mcg PO DAILY Qty: 90 (DME) oxygen-air delivery systems Device See Rx Instructions .Route Rx Instructions: As directed rosuvastatin [Crestor] 5 mg tablet 5 mg PO DAILY sertraline 25 mg tablet 25 mg PO DAILY furosemide 40 mg tablet 40 mg PO DAILY Qty: 90 3RF metronidazole 1 % gel See Rx Instructions .ROUTE .COMPLEX Qty: 60 1RF Dose Instruction: APPLY ONE APPLICATION TOPICALLY TO NOSE AND LEFT CHEEK DAILY FOR ROSACEA Rx Instructions: APPLY ONE APPLICATION TOPICALLY TO NOSE AND LEFT CHEEK DAILY FOR ROSACEA lidocaine [Lidoderm] 5 % adhesive patch,medicated 1 patch Topical Q24H Qty: 15 0RF diltiazem HCl [Cardizem] 30 mg Tablet 30 mg PO BID Qty: 60 0RF Eliquis 5 mg Tablet 5 mg PO BID Qty: 60 0RF HPI General Date/Time Provider Initiated Documentation: 03/11/25 22:21. HPI Narrative: 69-year-old female presents with atraumatic left distal rutherford pain ongoing the past few days, is very sure that she did not suffer any trauma, states there is a focal area of swelling, and has no calf pain, no medial thigh tenderness and no skin changes, denies fever, denies joint pain, does endorse breaking this ankle 4 years ago otherwise cannot recall other pain in this area. Pain is rated moderate, and dorsiflexion makes it worse. Not taking any OTC's. Related Data Home Medications ?Medication ?Instructions ?Recorded ?Confirmed levothyroxine 137 mcg tablet 137 mcg PO DAILY #90 tab-caps 10/28/12 12/27/24 (Levothroid) cholecalciferol (vitamin D3) 25 1,000 unit PO DAILY 02/28/19 12/27/24 mcg (1,000 unit) capsule oxygen-air delivery systems 02/27/22 12/27/24 rosuvastatin 5 mg tablet (Crestor) 5 mg PO DAILY 02/27/22 12/27/24 lidocaine 5 % topical patch 1 patch topical Q24H #15 ea 05/24/23 12/27/24 (Lidoderm) apixaban 5 mg tablet (Eliquis) 5 mg PO BID #60 tabs 09/06/23 12/27/24 diltiazem HCl 30 mg tablet 30 mg PO BID #60 tabs 09/06/23 12/27/24 (Cardizem) sertraline 25 mg tablet 25 mg PO DAILY 09/22/23 12/27/24 nitroglycerin 0.4 mg sublingual 0.4 mg sublingual Q5M PRN chest 09/29/23 12/27/24 tablet (Nitrostat) pain #30 tabs magnesium PO 08/09/24 12/27/24 benzonatate 100 mg capsule 100 mg PO TID PRN cough #14 caps 10/15/24 12/27/24 cyclosporine 0.05 % eye drops in a 1 drp ophthalmic (eye) BID 10/15/24 12/27/24 dropperette (Restasis) ofloxacin 0.3 % eye drops (Ocuflox) See Rx Instructions ophthalmic 10/15/24 12/27/24 (eye) .COMPLEX #10 mL furosemide 40 mg tablet 40 mg PO DAILY #90 tabs 10/18/24 12/27/24 metronidazole 1 % topical gel See Rx Instructions .Route 12/12/24 12/27/24 .COMPLEX #60 grams Previous Rx's ?Medication ?Instructions ?Recorded lidocaine 5 % topical patch 1 patch topical Q24H #15 ea 05/24/23 (Lidoderm) apixaban 5 mg tablet (Eliquis) 5 mg PO BID #60 tabs 09/06/23 diltiazem HCl 30 mg tablet 30 mg PO BID #60 tabs 09/06/23 (Cardizem) nitroglycerin 0.4 mg sublingual 0.4 mg sublingual Q5M PRN chest 09/29/23 tablet (Nitrostat) pain #30 tabs benzonatate 100 mg capsule 100 mg PO TID PRN cough #14 caps 10/15/24 ofloxacin 0.3 % eye drops (Ocuflox) See Rx Instructions ophthalmic 10/15/24 (eye) .COMPLEX #10 mL furosemide 40 mg tablet 40 mg PO DAILY #90 tabs 10/18/24 metronidazole 1 % topical gel See Rx Instructions .Route 12/12/24 .COMPLEX #60 grams Allergies Allergy/AdvReac Type Severity Reaction Status Date / Time shrimp Allergy Intermediate vomiting Unverified 12/27/24 11:23 red yeast rice AdvReac Intermediate stomach Verified 12/27/24 11:23 cramp atorvastatin AdvReac MUSCLE Verified 12/27/24 11:23 ACHES ezetimibe AdvReac muscle ache Verified 12/27/24 11:23 pravastatin AdvReac MUSCLE Verified 12/27/24 11:23 ACHES General EDUARDO: 3 Review of Systems All systems reviewed & are unremarkable except as noted in HPI and below Exam Narrative Exam Narrative: GENERAL APPEARANCE: Well-nourished, non-toxic, awake and alert, atraumatic, no acute distress. SKIN: Warm, pink, dry, intact, without rashes/lesions/ulcerations. HEAD: Normocephalic, atraumatic, normal hair distribution for gender/age. EYES: Normal conjunctiva, no exudates on lids/lashes. ENT: Nares patent, no circumoral cyanosis, no facial swelling NECK: Supple, trachea midline, painless cervical ROM. LUNGS/CHEST: Non-labored respirations, normal A/P diameter, symmetrical expansion, no chest wall deformity HEART (CV/PV): L dorsalis pedis pulse 2+, no peripheral edema, no JVD. ABDOMEN: Soft, non-distended, no guarding. MSK: Normal ROM, no swelling/deformity to bilateral UEs or LEs, moving all extremities without weakness, no cyanosis, spine midline without tenderness, normal curvature. L DISTAL RUTHERFORD: focal area of greenish discoloration at distal anterior tibialis, question bruise that the patient hasn't noticed, it is spongy and very subtly swollen, tenderness to palpation but no erythema/warmth to touch, no fluctuance- question the palpable consistency of a ganglion cyst, Quyen's negative, able to dorsi/plantarflex the foot, no medial thigh tenderness, no varicosities NEURO: Mental Status AAOx4 - alert to person, place, time, events No facial droop, no forehead involvement. Motor: No focal weakness - strength 5/5 in bilateral UEs and LEs, proximal and distal, symmetric. Sensory: sensation intact to light touch globally. Gait normal: patient ambulated without ataxia into ED room. PSYCH: euthymic, cooperative, pleasant, appropriate speech Medical Decision Making This dictation utilizes [id number] dictation software and may contain unedited grammatical errors. 69-year-old female presents with atraumatic left distal rutherford pain ongoing the past few days, is very sure that she did not suffer any trauma, states there is a focal area of swelling, and has no calf pain, no medial thigh tenderness and no skin changes, denies fever, denies joint pain, does endorse breaking this ankle 4 years ago otherwise cannot recall other pain in this area. Pain is rated moderate, and dorsiflexion makes it worse. Not taking any OTC's.. Patients' medical history: History of anxiety, diastolic heart failure, hyperlipidemia, osteopenia. Family and social history: Noncontributory. Pertinent exam findings / vital signs include L DISTAL RUTHERFORD: focal area of greenish discoloration at distal anterior tibialis, question bruise that the patient hasn't noticed, it is spongy and very subtly swollen, tenderness to palpation but no erythema/warmth to touch, no fluctuance- question the palpable consistency of a ganglion cyst, Quyen's negative, able to dorsi/plantarflex the foot, no medial thigh tenderness, no varicosities. Differential / pathologies of concern include Contusion, Muscle Strain, Ganglion Cyst of Distal Tibia. Diagnostic studies of: -XR L ankle, XR L tib/fib - pending at sign-out. Interventions of: -None. ED Course/Assessment/Plan: 69-year-old female is atraumatic pain, question muscle strain and a knot or muscle at the distal anterior tibialis versus a very rare condition of ganglion cyst of the distal tibia, I counseled her that we would be performing x-rays, these were taken after signout to Dr. Buckley, low suspicion for any serious pathology and likely discharge home. Findings not consistent with fracture, NV compromise. Disposition of Left Rutherford Pain. Patient verbalized understanding of the plan and return to ED criteria and engaged in shared decision making. Medical Records Medical records reviewed: Yes I reviewed the patient's medical records. Quality:[facility] Health Related Social Needs: Health related social needs details no needs at this time. PFSH All Active Problems Ear itch (Acute) Rosacea (Acute) Acute dehydration (Acute) Vomiting (Acute) Skin lesion (Acute) Chronic constipation (Chronic) Low back pain (Chronic) History of tobacco use (Chronic) Asthma (Chronic) Depressive disorder (Chronic) Pernicious anemia (Chronic 03/16/12) Adhesive capsulitis of left shoulder (Acute ~06/2019) Bursitis of left shoulder (Acute ~06/2019) Tendinitis of long head of biceps brachii of left shoulder (Acute) Tendinitis of left rotator cuff (Acute) Actinic keratosis (Acute) Nasal septal perforation (Acute) Bilateral sensorineural hearing loss (Acute) Elevated LFTs (Acute) Elevated lipids (Acute) Medical History Generalized anxiety disorder Diastolic heart failure Paroxysmal atrial fibrillation NSTEMI (non-ST elevated myocardial infarction) Hyperlipidemia Hypothyroidism SVT (supraventricular tachycardia) BILL (obstructive sleep apnea) CPAP Prediabetes Osteopenia PTSD (post-traumatic stress disorder) Per pt nothing is a potential trigger at this time. Surgical History Closed trimalleolar fracture of left ankle (09/28/20) s/p ORIF ON 10/04/20 Hx of dilation and curettage Hx of tubal ligation History of hemorrhoidectomy H/O bilateral breast reduction surgery H/O colonoscopy (08/06/18) 08/06/18 Dr Pathak,no abnormalities, repeat ten years Family History Father Alcohol use disorder Mother Alcohol use disorder Heart disease [place] Social History Smoking/Tobacco Use Status: Former Tobacco Use Quit Date: 08/24/75 Smoking risk assessment performed?: Yes Alcohol Intake: current Alcohol Intake frequency: holidays/special occasions only Drug use: Never Substance use type: does not use Housing: house Current gender identity: female Do you feel safe at home: Yes Do you feel safe in your relationship?: Yes Additional Social history: lives alone
[2025-03-11 22:41] VITALS: BP 117/66; PULSE 66; RESP 18; O2SAT 98
--- NOTE | 2025-03-11 23:27 | ED.PROG_ITS ---
Date of service: 03/11/25 Time of Service: 22:40 Medical Decision Making This patient was signed out to me. Please see previous notes for H&P and initial eval. In brief, 69yo F presenting with left contreras pain, some echymosis and swelling on exam left distal anterior contreras. Signed out pending XR. XRs independently reviewed; no displaced fracture on my view, radiology reads with no acute findings, does have plate over distal fibula. On reassessment she is well appearing with reassuring vital signs. On exam focal area on contreras ~2cm of slight swelling and tenderness, no overlying erythema or skin changes. Not consistent with abscess or cellulits, not concerning for DVT. ? cyst. No further emergent workup indicated, appropriate for symptomatic treatment at home with PCP followup this week. Discharged home; discharge instructions and return precautions were reviewed with patient who verbalized understanding. All questions were answered and she is in full agreement with the plan. Quality:SDOH Health Related Social Needs: 2 Health related social needs details no needs at this t melba. Discharge Plan Disposition Patient Disposition: Home Condition: Good Discharge Details Clinical Impression: Pain in left contreras Primary Care Provider: Cl Soto ED Provider: Pebbles Buckley Home Meds and New Rx's Prescriptions: Continued cholecalciferol (vitamin D3) 1,000 unit capsule 1,000 unit PO DAILY cyclosporine [Restasis] 0.05 % dropperette 1 drp ophthalmic (eye) BID Patient Comments: INSTILL ONE DROP IN EACH EYE TWO TIMES A DAY ofloxacin [Ocuflox] 0.3 % drops See Rx Instructions ophthalmic (eye) .COMPLEX Qty: 10 0RF Rx Instructions: put 2 drps into both eye(s) every 2 h x 2 days while awake, then 2 drps 4 times/day days 3-7 ophthalmic (eye) levothyroxine [Levothroid] 137 MCG tablet 137 mcg PO DAILY Qty: 90 (DME) oxygen-air delivery systems Device See Rx Instructions .Route Rx Instructions: As directed rosuvastatin [Crestor] 5 mg tablet 5 mg PO DAILY sertraline 25 mg tablet 50 mg PO DAILY furosemide 40 mg tablet 40 mg PO DAILY Qty: 90 3RF metronidazole 1 % gel See Rx Instructions .ROUTE .COMPLEX Qty: 60 1RF Dose Instruction: APPLY ONE APPLICATION TOPICALLY TO NOSE AND LEFT CHEEK DAILY FOR ROSACEA Rx Instructions: APPLY ONE APPLICATION TOPICALLY TO NOSE AND LEFT CHEEK DAILY FOR ROSACEA diltiazem HCl [Cardizem] 30 mg Tablet 30 mg PO BID Qty: 60 0RF Eliquis 5 mg Tablet 5 mg PO BID Qty: 60 0RF Discontinued nitroglycerin [Nitrostat] 0.4 mg tablet, sublingual 0.4 mg sublingual Q5M PRN (Reason: chest pain) Qty: 30 3RF Rx Instructions: do not exceed 3 doses per episode Discharge Instructions Instructions: Leg Pain (ED) Additional Instructions: Your X-rays are normal. Take tylenol and ibuprofen over the counter for pain; follow the directions on the bottle. Try ice if it helps. Call your primary care doctor in the morning to schedule an appointment to be seen within the next 72 hours to followup on your visit here. Return to the emergency department for new or wosrsening symptoms including fever, redness to area, leg swelling, or if you have any other concerns.
--- NOTE | 2025-03-12 00:03 | DI.VRAD_ITS ---
PROCEDURE INFORMATION: Exam: XR Left Tibia and Fibula Exam date and time: 03/11/2025 11:08 PM Age: 69 years old Clinical indication: Other: L distal tib pain TECHNIQUE: Imaging protocol: Radiologic exam of the left tibia and fibula. Views: 2 views. COMPARISON: CR XR ANKLE LT COMPLETE 03/11/2025 11:03 PM FINDINGS: Bones/joints: No acute fracture. Surgical hardware identified in the distal tibia and fibula. Soft tissues: Normal. IMPRESSION: No acute fracture. Dictated and Authenticated by: Oliver Peterson MD. Orderin Kristofer Myers MD
--- NOTE | 2025-03-12 00:03 | DI.VRAD_ITS ---
PROCEDURE INFORMATION: Exam: XR Left Ankle Exam date and time: 03/11/2025 11:03 PM Age: 69 years old Clinical indication: Other: L distal tib pain TECHNIQUE: Imaging protocol: Radiologic exam of the left ankle. Views: 3 or more views. COMPARISON: CR XR ANKLE LT COMPLETE 11/28/2020 10:36 AM FINDINGS: Bones/joints: No acute fracture. Surgical plate and screws traversing a healed fracture of the distal fibula. Surgical screw identified traversing a healed fracture of the medial malleolus. Calcaneal spur. Soft tissues: Normal. IMPRESSION: No acute fracture. Dictated and Authenticated by: Oliver Peterson MD. Orderin Kristofer Myers MD
== END 2025-03-12 00:29 | disposition home or self-care (01) ==
PROVIDERS: Emergency Provider Student in an Organized Health Care Education/Training Program; PCP Physician Assistant Medical
DX: M79.662 Pain in left lower leg (principal); Z96.9 Presence of functional implant, unspecified
CPT/HCPCS: 99283; 99284; 00123; 73590; 73610

== ENCOUNTER 2025-05-22 16:01 | Outpatient (REF) | payer BC, SELFPAY ==
[2025-05-22 18:13] LABS: ALT 30 U/L (14-59); AST 26 U/L (15-37); Albumin 4.3 g/dL (3.4-5.0); Alkaline Phosphatase 92 U/L (46-116); Anion Gap 9.4 mmol/L (3-11); BUN 18 mg/dL (7-18); Bilirubin, Total 0.4 mg/dL (0.2-1.0); CO2 29.6 mmol/L (21.0-32.0); Calcium 9.1 mg/dL (8.5-10.1); Calculated LDL 191 mg/dL (<100); Chloride 103 mmol/L (98-107); Cholesterol 271 mg/dL (<200); Estimated GFR 69.20 (mL/min/1.73m2); Glucose 117 mg/dL (74-106); HDL Cholesterol 62 mg/dL (>or=50); Potassium 4.1 mmol/L (3.5-5.1); Sodium 142 mmol/L (136-145); TSH (W/Ref FT4) 1.12 uIU/mL (0.36-3.74); Total Protein 7.4 g/dL (6.4-8.2); Triglyceride 92 mg/dL (<150)
[2025-05-22 18:50] LABS: Hemoglobin A1C 6.0 % (<5.7)
== END 2025-05-22 16:02 | disposition home or self-care (01) ==
LOC: NCHCN 16:01
PROVIDERS: PCP Physician Assistant Medical; Visit Provider Physician Assistant Medical
DX: N18.9 Chronic kidney disease, unspecified (principal); E78.5 Hyperlipidemia, unspecified; R73.03 Prediabetes; E03.9 Hypothyroidism, unspecified
CPT/HCPCS: 80053; 80061; 83036; 84443

== ENCOUNTER 2025-06-09 04:21 | Outpatient (CLI) | payer BC, SELFPAY ==
--- NOTE | 2025-06-09 08:24 | DI.MAMMO_ITS ---
Exam(s) MAMMO SCREENING EXAM: MAMMO SCREENING CLINICAL HISTORY: SCREENING, Z12.31 TECHNIQUE: Mammograms were interpreted according to the usual protocol including computer analysis with CAD system, tomosynthesis and C-view imaging. COMPARISON: FINDINGS: The breasts are composed of mainly fatty density , Breast Density category A. No suspicious masses or suspicious microcalcifications are seen. There again noted to be mild bilateral scarring related to breast reduction surgery. No skin thickening or abnormal axillary lymph nodes are seen. There has been no significant change from prior exams. IMPRESSION: BI-RADS Category 1, Negative mammogram Yearly screening mammography is recommended. Breast Density- Category A - The breast are almost entirely fatty. Breast density Category C or D implies that the patient has dense breast tissue. Dense breast tissue can make it harder to find cancer on a mammogram. Dense breast tissue is also associated with an increased risk of breast cancer. This information about the result of the mammogram report was provided to the patient to raise their awareness. Use this report when you speak with the patient about their risks for breast cancer, which includes their family history. At that time, you may recommend additional screening tests (Ultrasound or MRI) as these tests may add significant information. A negative radiographic report should not delay biopsy if a dominant or clinically suspicious mass is present. Up to ten percent of cancers are not identified on mammography. A negative report may reinforce clinical impression. Adenosis and dense breasts may obscure an underlying neoplasm. False positive reports average 6 to 10%. Patient will receive a letter notifying them of these results.
== END 2025-06-09 04:41 ==
LOC: DI 04:21
PROVIDERS: PCP Physician Assistant Medical; Visit Provider Physician Assistant Medical
DX: Z12.31 Encounter for screening mammogram for malignant neoplasm of breast (principal); R92.313 Mammographic fatty tissue density, bilateral breasts
CPT/HCPCS: 77063; 77067

== ENCOUNTER 2025-08-18 08:54 | Outpatient (CLI) | payer BC, SELFPAY ==
--- NOTE | 2025-08-18 08:45 | RT.EKG_ITS ---
APPROVED REPORT Exam: Resting ECG Reason for Exam: Afib Patient Location: O HR:58 bpm ECG Measurements Heart Rate 58 AXIS KS 202 P 57 QRSd 91 QRS 39 QT 441 T 183 QTc 434 Conclusion Sinus rhythm...normal P axis, V-rate 50- 99 RSR' in V1 or V2, probably normal variant...small R' only
== END 2025-08-18 08:55 | disposition home or self-care (01) ==
LOC: DI.CARD 08:55
PROVIDERS: PCP Physician Assistant Medical; Visit Provider Internal Medicine Cardiovascular Disease
DX: I48.0 Paroxysmal atrial fibrillation (principal); I45.10 Unspecified right bundle-branch block
CPT/HCPCS: 93010

== ENCOUNTER 2025-08-22 10:25 | Outpatient (REF) | payer BC, SELFPAY ==
[2025-08-22 16:16] LABS: Cholesterol 192 mg/dL (<200); HDL Cholesterol 58 mg/dL (>or=50)
== END 2025-08-22 10:26 | disposition home or self-care (01) ==
LOC: NCHCN 10:25
PROVIDERS: PCP Physician Assistant Medical; Visit Provider Physician Assistant Medical
DX: E78.5 Hyperlipidemia, unspecified (principal)
CPT/HCPCS: 80061